=== PATIENT | male | born 1960 | race Caucasian/White ===

== ENCOUNTER 2022-12-21 10:27 | Inpatient (IN) | payer MEDICARE ==
[~2022-12-21] VITALS: Ht 187 cm; Wt 101.5 kg
[2022-12-21] MEDS ORDERED: LOPERAMIDE 2 MG (IMODIUM) TABLET PO PRN (10:30)
[2022-12-21] MEDS ORDERED: FLEET ENEMA ADULT 1 EA BTL PR PRN (10:30)
[2022-12-21] MEDS ORDERED: ACETAMINOPHEN 325 MG TABLET PO PRN (10:30)
[2022-12-21] MEDS ORDERED: ALPRAZolam 0.25 MG (XANAX) TAB PO PRN (10:30)
[2022-12-21] MEDS ORDERED: DOCUSATE SODIUM 100 MG (COLACE) CAP PO PRN (10:30)
[2022-12-21] MEDS ORDERED: MELATONIN 3 MG TABLET PO PRN (10:30)
[2022-12-21] MEDS ORDERED: BISACODYL 10 MG SUPP (DULCOLAX) PR PRN (10:30)
[2022-12-21] MEDS ORDERED: diphenhydrAMINE 25 MG TAB (BENADRYL) PO PRN (10:30)
[2022-12-21] MEDS ORDERED: guaiFENesin/CODEINE (ROBITUSSIN AC) 10ML UDC PO PRN (10:30)
[2022-12-21] MEDS ORDERED: CALCIUM CARBONATE 500 MG (TUMS) TAB.CHEW PO PRN (10:30)
[2022-12-21] MEDS ORDERED: ONDANSETRON 4 MG (ZOFRAN) ORAL DISSOLVE TAB PO PRN (10:30)
--- OUTSIDE RECORDS SUMMARY | 2022-12-21 18:18 | XMS REPORT | Clinical Summary ---
Author Author [facility] Organization [facility] Address Unknown Phone Unavailable Care Team Providers Care Environmental Technology Professor Name Role Phone No Pcp, Na PCP Unavailable Source Comments Some departments are not documenting in the electronic medical record. If you d o not see the information that you expected, contact Release of Information in [facility] [employer] Information Management department at [phone] for further assistan ce in locating additional records.[facility] Allergies Comments Active Allergy Reactions Severity Noted Date Clarithromycin NAUSEA ONLY Low 12/12/2022 Cyclobenzaprine NAUSEA AND Low 12/12/2022 VOMITING Methadone HALLUCINATION High 12/12/2022 S Medications End Date Status Medication Sig Dispensed Refills Start Date Active simvastatin (ZOCOR) 80 mg Take one 0 tablet tablet by mouth at bedtime daily. Active terazosin (HYTRIN) 10 mg Take two 0 capsule capsules by mouth at bedtime daily. Active metFORMIN (GLUCOPHAGE) Take one 0 1,000 mg tablet tablet by mouth twice daily after meals. Active losartan (COZAAR) 50 mg Take one-half 0 tablet tablet by mouth daily. Active carboxymethylcellulose Apply one 0 sodium (REFRESH TEARS) drop to both 0.5 % eye drop eyes twice daily. Active baclofen (LIORESAL) 20 mg Take one 0 tablet tablet by mouth twice daily as needed. Active empagliflozin (JARDIANCE) Take one 0 10 mg tablet tablet by mouth daily. Active sildenafiL (VIAGRA) 100 Take one 0 mg tablet tablet by mouth as Needed for Erectile dysfunction. Active metoprolol succinate XL Take one 0 (TOPROL XL) 25 mg tablet by extended release tablet mouth daily. Active calcium carbonate Take one 0 (OS-RICHARD) 1250 mg tablet tablet by mouth twice daily. Active cetirizine (ZYRTEC) 10 mg Take one 0 tablet tablet by mouth every morning. Active acetaminophen (TYLENOL) Take two 0 325 mg tablet tablets by 3 mouth every 4 hours as needed. Active oxyCODONE (ROXICODONE) 5 Take one 0 12/21 mg tablet tablet to 3 three tablets by mouth every 4 hours as needed. Active nicotine (NICODERM CQ) 21 Apply one 28 patch 0 mg/day patchIndications: patch to top 3 smoking cessation of skin as directed daily. Rotate patch location. Indications: stop smoking Active methocarbamoL (ROBAXIN) Take one 15 tablet 0 750 mg tablet tablet by 3 mouth three times daily. Active lidocaine (LIDODERM) 5 % Apply one 90 patch 0 0 topical patch patch 3 topically to affected area daily. Apply patch for 12 hours, then remove for 12 hours before repeating. Active docusate (COLACE) 100 mg Take one 180 capsule 0 0 capsule capsule by 3 mouth twice daily as needed. Active Problems Problem Noted Date S/P cervical spinal fusion 12/20/2022 Type 2 diabetes mellitus 12/20/2022 Primary hypertension 12/20/2022 BPH (benign prostatic hyperplasia) 12/20/2022 Weakness 12/12/2022 Encounters Care Team Description Date Type Specialty Chidi Jimenez MD 12/16/2022 Hospital Encounter Alfonzo Ballard MD Fox, Ashli, RN 12/15/2022 Anesthesia Event Chidi Jimenez MD FUSION SPINE POSTERIOR - CERVICAL BELOW CERVICAL 2 12/15/2022 Surgery 12/15/2022 Travel Chidi Jimenez MD Cervical stenosis of spinal canal (Prima ry Dx) 12/14/2022 Orders Only Neurosurgery Chidi Jimenez MD Weakness 12/12/2022 Hospital - Encounter 12/21/2022 12/12/2022 Hospital Radiology Encounter 12/12/2022 Hospital Radiology Encounter 12/12/2022 Hospital Radiology Encounter from Last 3 Months Surgical History Surgery Date Site/Laterality Comments CERVICAL FUSION 12/15/2022 Spine FUSION SPINE P OSTERIOR - CERVICAL BELOW CERVICAL 2 Cervical/N/A performed by Lino Jimenez MD at [facility] OR Medical devices from this surgery are i n the Medical Devices section. Social History Date Tobacco Use Types Packs/Day Years Used Smoking Tobacco: Every Cigarettes 2 Day Smokeless Tobacco: Never Tobacco Cessation: Ready to Quit: No; Co unseling Given: Not Answered Sex Assigned at Date Recorded Male 12/13/2022 11:12 AM [facility] Date Recorded COVID-19 Exposure Response 12/15/2022 11:39 AM [employer]ANK SC[employer]ER In the last 10 days, have you been in contact with N o / Unsure someone who was confirmed or suspected to have Coronavirus/COVID-19? Obstetrics History Last Filed Vital Signs Reading Time Taken Comments Vital Sign 132/50 12/21/2022 12:10 PM [facility]ER Blood Pressure 77 12/21/2022 12:10 PM [employer]ER Pulse 36.8 C (98.2 F) 12/21/2022 12:10 PM [employer] [facility]ER Temperature - - Respiratory Rate 92% 12/21/2022 12:10 PM [facility] SC[facility]ER Oxygen Saturation - - Inhaled Oxygen Concentration 122 kg (268 lb 15.4 oz) 12/13/2022 5:00 PM [facility]ANK [employer]ER Weight 185.4 cm (6' 1") 12/13/2022 5:00 PM [employer]ANK SC[employer]ER Height 35.49 12/13/2022 5:00 PM [facility]ANK SC[facility]ER Body Mass Index Plan of Treatment Health Maintenance Due Date Last Done Comments DIABETES HBA1C 1960 DIABETES MICROALBUMIN TO 1960 CREATININE RATIO PNEUMOCOCCAL VACCINE (DM) 1960 COVID-19 VACCINE (#1) 1960 HIV SCREENING 02/16/1975 DIABETES DILATED EYE EXAM 02/16/1978 DIABETES FOOT EXAM 02/16/1978 DTAP/TDAP VACCINES (1 - 02/16/1978 Tdap) HEPATITIS C SCREENING 02/16/1978 PHYSICAL (COMPREHENSIVE) 02/16/1978 EXAM COLORECTAL CANCER 02/16/2005 SCREENING SHINGLES RECOMBINANT 02/16/2010 VACCINE (1 of 2) INFLUENZA VACCINE (#1) 2022 DEPRESSION SCREENING 10/17/2022 DIABETES EGFR SCREEN 12/20/2023 12/19/2022, 12/17/2022, 12/15/2022, Additional history exists Goals Goal Patient Associated Recent Progress Patient-Stat Aut hor Goal Type Problems ed? Decrease pain Hospital On track (12/13/2022 Yes Chelo Deloris orantes, 5:02 PM SHANK SCOURER) RN Note: "To get better, get my back fixed and get stronger" Medical Devices Device Identifier Shelf Expiration Date Model / Serial / L ot Implanted Type Area Manufactur er 1149.7585 / NA / NA Charles Spinal 85mm 4mm Curve - Sna N/A: Spine GLOBU S Implanted: Qty: 1 on 12/15/2022 by Cervical ME Chidi Frias MD at [facility] Procedures Comments Procedure Name Priority Date/Time Associated Diag nosis POC GLUCOSE 12/21/2022 12:10 PM [employer]ANK SC[employer]ER POC GLUCOSE 12/21/2022 7:48 AM SHANK SCOURER POC GLUCOSE 12/20/2022 9:02 PM SHANK SC[employer]ER POC GLUCOSE 12/20/2022 5:36 PM SHANK SCOURER HC CBC W/ AUTOMATED DIFF Routine 12/19/2022 4:13 AM SHANK SC[facility]ER HC BASIC METABOLIC PANEL Routine 12/19/2022 4:13 AM SHANK SC[employer]ER HC CBC W/ AUTOMATED DIFF Routine 12/17/2022 3:46 AM SHANK SCOURER HC BASIC METABOLIC PANEL Routine 12/17/2022 3:46 AM SHANK SC[employer]ER CONSULT VASCULAR ACCESS Routine 12/16/2022 TEAM 9:59 AM SHANK SC[employer]ER HC CBC,AUTOMATED Routine 12/16/2022 4:10 AM SHANK SCOURER C SPINE 3 VIEWS OR LESS Routine 12/15/2022 10:45 PM SHANK SCOURER C SPINE 1 VIEW Routine 12/15/2022 3:06 PM SHANK SCOURER C SPINE 1 VIEW Routine 12/15/2022 2:45 PM SHANK SC[employer]ER ANESTHESIA ARTERIAL LINE Routine 12/15/2022 INSERTION 2:26 PM SHANK SC[employer]ER C SPINE 1 VIEW Routine 12/15/2022 2:14 PM SHANK SC[employer]ER FUSION SPINE POSTERIOR - 12/15/2022 Weakness CERVICAL BELOW C2 1:08 PM SHANK SCOURER POC GLUCOSE 12/15/2022 11:38 AM SHANK SC[facility]ER HC BLOOD TYPING, ABO Routine 12/15/2022 CONFIRM 91 3:18 AM SHANK SCOURER TYPE & CROSSMATCH Routine 12/15/2022 2:59 AM SHANK SC[facility]ER HC CBC W/ AUTOMATED DIFF Routine 12/15/2022 2:59 AM SHANK SC[facility]ER HC BASIC METABOLIC PANEL Routine 12/15/2022 2:59 AM SHANK SC[employer]ER HC BASIC METABOLIC PANEL Routine 12/13/2022 3:57 AM SHANK SCOURER HC CBC W/ AUTOMATED DIFF Routine 12/13/2022 3:57 AM SHANK SCOURER MRI L-SPINE EXTERNAL Routine 12/12/2022 IMAGING 12:20 PM [employer]ANK SC[employer]ER MRI T-SPINE EXTERNAL Routine 12/12/2022 IMAGING 12:15 PM SHANK SC[employer]ER MRI C-SPINE EXTERNAL Routine 12/12/2022 IMAGING 12:10 PM SHANK SC[employer]ER TELEMETRY STRIPS-SCAN 12/12/2022 12:00 AM SHANK SCOURER TELEMETRY STRIPS-SCAN 12/12/2022 12:00 AM SHANK SCOURER TELEMETRY STRIPS-SCAN 12/12/2022 12:00 AM SHANK SCOURER TELEMETRY STRIPS-SCAN 12/12/2022 12:00 AM SHANK SCOURER TELEMETRY STRIPS-SCAN 12/12/2022 12:00 AM SHANK SCOURER TELEMETRY STRIPS-SCAN 12/12/2022 12:00 AM SHANK SCOURER TELEMETRY STRIPS-SCAN 12/12/2022 12:00 AM SHANK SCOURER TELEMETRY STRIPS-SCAN 12/12/2022 12:00 AM SHANK SCOURER TELEMETRY STRIPS-SCAN 12/12/2022 12:00 AM SHANK SCOURER TELEMETRY STRIPS-SCAN 12/12/2022 12:00 AM SHANK SCOURER TELEMETRY STRIPS-SCAN 12/12/2022 12:00 AM SHANK SCOURER TELEMETRY STRIPS-SCAN 12/12/2022 12:00 AM SHANK SCOURER from Last 3 Months Results * (ABNORMAL) POC GLUCOSE (12/21/2022 12:10 PM SHANK SC[employer]ER) Only the most recent of 5 results within the time period is included. Pathologist Signature Component Value Ref Test Method Analysis Performed A t Range Time Glucose, POC 318 (H) 70 - 100 12/21/2022 MANDIS CAMBRID GE MG/DL 12:11 PM TOWER A SHANK SC[employer]ER Anatomical Location / Laterality Collection Method / Volume Moises ection Time Received Time Specimen (Source) 12/21/2022 12:10 PM SHANK SC[employer]ER 12/22/19 12:11 PM SHANK SCOURER Chidi Jimenez MD OTHER LABORATORY City/State/ZIP Code Phone Number Performing Address Organization [address] * (ABNORMAL) CBC AND DIFF (12/19/2022 4:13 AM SHANK SC[employer]ER) Only the most recent of 4 results within the time period is included. Pathologist Signature Component Value Ref Test Method Analysis Performed A t Range Time White Blood Cells 8.6 4.5 - 12/19/2022 [facility] DE PT PATH AND 11.0 7:26 AM LAB MEDICINE K/UL SHANK SC[employer]ER RBC 3.58 (L) 4.4 - 12/19/2022 [facility] DEPT PAT H AND 5.5 M/UL 7:26 AM LAB MEDICINE SHANK SC[employer]ER Hemoglobin 10.1 (L) 13.5 - 12/19/2022 [facility] DEPT PAT H AND 16.5 7:26 AM LAB MEDICINE GM/DL [employer]ER Hematocrit 30.3 (L) 40 - 50 12/19/2022 [facility] DEPT PAT H AND % 7:26 AM LAB MEDICINE SHANK SC[employer]ER MCV 84.7 80 - 100 12/19/2022 [facility] DEPT PAT H AND FL 7:26 AM LAB MEDICINE SHANK SC[employer]ER MCH 28.2 26 - 34 12/19/2022 [facility] DEPT PAT H AND PG 7:26 AM LAB MEDICINE SHANK SC[employer]ER MCHC 33.3 32.0 - 12/19/2022 [facility] DEPT PAT H AND 36.0 7:26 AM LAB MEDICINE G/DL SHANK SC[employer]ER RDW 16.2 (H) 11 - 15 12/19/2022 [facility] DEPT PAT H AND % 7:26 AM LAB MEDICINE SHANK SC[employer]ER Platelet Count 205 150 - 12/19/2022 [facility] DEPT PATH AND 400 K/UL 7:26 AM LAB MEDICINE SHANK SC[employer]ER MPV 9.2 7 - 11 12/19/2022 [facility] DEPT PAT H AND FL 7:26 AM LAB MEDICINE SHANK SC[employer]ER Neutrophils 75 41 - 77 12/19/2022 [facility] DEPT PAT H AND % 7:26 AM LAB MEDICINE SHANK SC[employer]ER Lymphocytes 12 (L) 24 - 44 12/19/2022 [facility] DEPT PAT H AND % 7:26 AM LAB MEDICINE SHANK SC[employer]ER Monocytes 11 4 - 12 % 12/19/2022 [facility] DEPT PAT H AND 7:26 AM LAB MEDICINE SHANK [employer]ER Eosinophils 2 0 - 5 % 12/19/2022 [facility] DEPT PAT H AND 7:26 AM LAB MEDICINE SHANK [employer]ER Basophils 0 0 - 2 % 12/19/2022 [facility] DEPT PAT H AND 7:26 AM LAB MEDICINE SHANK SC[employer]ER Absolute Neutrophil 6.51 1.8 - 12/19/2022 [facility] DEPT PATH AND Count 7.0 K/UL 7:26 AM LAB MEDICINE SHANK SC[employer]ER Absolute Lymph Count 1.04 1.0 - 12/19/2022 [facility] DEPT PATH AND 4.8 K/UL 7:26 AM LAB MEDICINE SHANK SC[employer]ER Absolute Monocyte 0.90 (H) 0 - 0.80 12/19/2022 [facility] DE PT PATH AND Count K/UL 7:26 AM LAB MEDICINE SHANK SC[employer]ER Absolute Eosinophil 0.15 0 - 0.45 12/19/2022 [facility] DEPT PATH AND Count K/UL 7:26 AM LAB MEDICINE SHANK [employer]ER Absolute Basophil 0.02 0 - 0.20 12/19/2022 [facility] DE PT PATH AND Count K/UL 7:26 AM LAB MEDICINE [employer]ANK [employer]ER Anatomical Location / Laterality Collection Method / Volume Moises ection Time Received Time Specimen (Source) BLOOD / Unknown 12/19/2022 4:13 AM SHANK SCOURER 12/20/19 4:14 AM SHANK SCOURER [place] LABORATORY ORDERABLES [employer]Y [employer] SAL[employer] CONSULTANT City/State/ZIP Code Phone Number Performing [place] [address] [facility] DEPT PATH AND [address] [facility] LAB MEDICINE * (ABNORMAL) BASIC METABOLIC PANEL (12/19/2022 4:13 AM SHANK SCOURER) Only the most recent of 4 results within the time period is included. Pathologist Signature Component Value Ref Test Method Analysis Performed A t Range Time Sodium 134 (L) 137 - 12/19/2022 [facility] DEPT PAT H AND 147 5:21 AM LAB MEDICINE MMOL/L SHANK SC[employer]ER Potassium 4.1 3.5 - 12/19/2022 [facility] DEPT PAT H AND 5.1 5:21 AM LAB MEDICINE MMOL/L SHANK SC[employer]ER Chloride 100 98 - 110 12/19/2022 [facility] DEPT PAT H AND MMOL/L 5:21 AM LAB MEDICINE SHANK SC[employer]ER CO2 28 21 - 30 12/19/2022 [facility] DEPT PAT H AND MMOL/L 5:21 AM LAB MEDICINE SHANK SC[employer]ER Anion Gap 6 3 - 12 12/19/2022 [facility] DEPT PAT H AND 5:21 AM LAB MEDICINE SHANK SC[employer]ER Glucose 287 (H) 70 - 100 12/19/2022 [facility] DEPT PAT H AND MG/DL 5:21 AM LAB MEDICINE SHANK SC[employer]ER Blood Urea Nitrogen 18 7 - 25 12/19/2022 [facility] DEPT PATH AND MG/DL 5:21 AM LAB MEDICINE SHANK SC[employer]ER Creatinine 1.08 0.4 - 12/19/2022 [facility] DEPT PAT H AND 1.24 5:21 AM LAB MEDICINE MG/DL SHANK SC[employer]ER Calcium 9.2 8.5 - 12/19/2022 [facility] DEPT PAT H AND 10.6 5:21 AM LAB MEDICINE MG/DL SHANK SC[employer]ER eGFR >60 >60 12/19/2022 [facility] DEPT PAT H AND mL/min 5:21 AM LAB MEDICINE SHANK SC[employer]ER Comment: eGFR calculated using the CKD-EPIcr_R equation Anatomical Location / Laterality Collection Method / Volume Moises ection Time Received Time Specimen (Source) BLOOD / Unknown 12/19/2022 4:13 AM SHANK SCOURER 12/20/19 4:14 AM SHANK SCOURER [place] LABORATORY ORDERABLES HOU[employer]Y [employer] SAL[employer] CONSULTANT City/State/ZIP Code Phone Number Performing [place] [address] [facility] DEPT PATH AND [address] [facility] LAB MEDICINE * (ABNORMAL) CBC (12/16/2022 4:10 AM SHANK SCOURER) Pathologist Signature Component Value Ref Test Method Analysis Performed A t Range Time White Blood Cells 10.1 4.5 - 12/16/2022 [facility] DE PT PATH AND 11.0 4:46 AM LAB MEDICINE K/UL SHANK SC[employer]ER RBC 3.80 (L) 4.4 - 12/16/2022 [facility] DEPT PAT H AND 5.5 M/UL 4:46 AM LAB MEDICINE SHANK SC[employer]ER Hemoglobin 10.7 (L) 13.5 - 12/16/2022 [facility] DEPT PAT H AND 16.5 4:46 AM LAB MEDICINE GM/DL SHANK SC[employer]ER Hematocrit 32.4 (L) 40 - 50 12/16/2022 [facility] DEPT PAT H AND % 4:46 AM LAB MEDICINE SHANK SCOURER MCV 85.3 80 - 100 12/16/2022 [facility] DEPT PAT H AND FL 4:46 AM LAB MEDICINE SHANK SC[employer]ER MCH 28.3 26 - 34 12/16/2022 [facility] DEPT PAT H AND PG 4:46 AM LAB MEDICINE SHANK SC[employer]ER MCHC 33.2 32.0 - 12/16/2022 [facility] DEPT PAT H AND 36.0 4:46 AM LAB MEDICINE G/DL SHANK SC[employer]ER RDW 16.5 (H) 11 - 15 12/16/2022 [facility] DEPT PAT H AND % 4:46 AM LAB MEDICINE SHANK SCOURER Platelet Count 154 150 - 12/16/2022 [facility] DEPT PATH AND 400 K/UL 4:46 AM LAB MEDICINE SHANK SCOURER MPV 8.7 7 - 11 12/16/2022 [facility] DEPT PAT H AND FL 4:46 AM LAB MEDICINE SHANK SC[employer]ER Anatomical Location / Laterality Collection Method / Volume Moises ection Time Received Time Specimen (Source) BLOOD / Unknown 12/16/2022 4:10 AM SHANK SCOURER 12/17/19 4:11 AM SHANK SCOURER Chidi Jimenez MD LABORATORY ORDERABLES City/State/ZIP Code Phone Number Performing [place] [address] [facility] DEPT PATH AND [address] [facility] LAB MEDICINE * C SPINE 3 VIEWS OR LESS (12/15/2022 10:45 PM SHANK SCOURER) Modality Anatomical Region Laterality Computed Radiography Spine Anatomical Location / Laterality Collection Method / Volume Moises ection Time Received Time Specimen (Source) 12/16/2022 8:49 AM SHANK SCOURER Impressions 12/16/2022 8:52 AM SHANK SCOURER Findings/Impression: The cervical vertebrae are visualized through the mid C6 level on the lateral projection, below this is obscured due to shoulder summation. There are postsurgical findings following C3-C6 laminectomies and C3-C7 posterior instrumented fusion. The visualized surgical hardware appears intact. There is an indwelling surgical drain within the laminectomy bed with expected postsurgical edema and gas in the posterior paraspinal soft tissues. There is slight anterolisthesis at C3-C4. Alignment is otherwise normal. Mild multilevel cervical spondylosis. Finalized by Yuan Lees DO on 12/16/2022 8:52 AM. Dictated by Yuan Lees DO on 12/16/2022 8:49 AM. Narrative 12/16/2022 8:52 AM SHANK SCOURER Exam: C SPINE 3 VIEWS OR LESS History: S/P C3-7 fusion. Comparison: Same day intraoperative localization radiographs. Procedure Note Yuan Lees DO - 12/16/2022 Exam: C SPINE 3 VIEWS OR LESS History: S/P C3-7 fusion. Comparison: Same day intraoperative localization radiographs. IMPRESSION Findings/Impression: The cervical vertebrae are visualized through the mid C6 level on the lateral projection, below this is obscured due to shoulder summation. There are postsurgical findings following C3-C6 laminectomies and C3-C7 posterior instrumented fusion. The visualized surgical hardware appears intact. There is an indwelling surgical drain within the laminectomy bed with expected postsurgical edema and gas in the posterior paraspinal soft tissues. There is slight anterolisthesis at C3-C4. Alignment is otherwise normal. Mild multilevel cervical spondylosis. Finalized by Yuan Lees DO on 12/16/2022 8:52 AM. Dictated by Yuan Lees DO on 12/16/2022 8:49 AM. Chidi Jimenez MD DIAGNOSTIC IMAGING ORDERABL ES * C SPINE 1 VIEW (12/15/2022 3:06 PM SHANK SCOURER) Only the most recent of 3 results within the time period is included. Modality Anatomical Region Laterality Computed Radiography Spine Anatomical Location / Laterality Collection Method / Volume Moises ection Time Received Time Specimen (Source) 12/15/2022 3:10 PM SHANK SCOURER Impressions 12/15/2022 3:11 PM SHANK SCOURER Findings/Impression: Single portable crosstable lateral prone intraoperative cervical radiographs for localization purposes. Metallic retractors superimposing the posterior paraspinal soft tissues. Threaded metallic surgical instrument ejects over the spinous process at the C2 level. Finalized by Yuan Lees DO on 12/15/2022 3:11 PM. Dictated by Yuan Lees DO on 12/15/2022 3:10 PM. Narrative 12/15/2022 3:11 PM SHANK SCOURER Exam: C SPINE 1 VIEW History: Surgery. Comparison: Same day cervical localization radiographs. Procedure Note Yuan Lees DO - 12/15/2022 Exam: C SPINE 1 VIEW History: Surgery. Comparison: Same day cervical localization radiographs. IMPRESSION Findings/Impression: Single portable crosstable lateral prone intraoperative cervical radiographs for localization purposes. Metallic retractors superimposing the posterior paraspinal soft tissues. Threaded metallic surgical instrument ejects over the spinous process at the C2 level. Finalized by Yuan Lees DO on 12/15/2022 3:11 PM. Dictated by Yuan Lees DO on 12/15/2022 3:10 PM. Chidi Jimenez MD DIAGNOSTIC IMAGING ORDERABL ES * ANESTHESIA ARTERIAL LINE INSERTION (12/15/2022 2:26 PM SHANK SCOURER) Narrative Alfonzo Ballard MD - 12/15/2022 2:26 PM SHANK SCOURER Rolf Hsieh SRNA 12/15/2022 2:27 PM Anesthesia Procedure: Arterial Line Placement A-LINE INSERTION Date/Time: 12/15/2022 2:26 PM Patient location: OR Indications: hemodynamic monitoring Preprocedure checklist performed: 2 patient identifiers, risks & benefits discussed, patient evaluated, timeout performed, consent obtained and patient being monitored Arterial Line Procedure Patient sedated: yes (see MAR) Sedation type: general; Artery prepped with chlorhexidine; skin prep agent completely dried prior to procedure. Location: radial artery Laterality: left Technique: palpation Needle gauge: 20 G Number of attempts: 1 Procedure Outcome Catheter secured with adhesive dressing applied Events: no complications noted during insertion and skin intact, warm, and dry Observation: pt tolerated well Performed by: Rolf Hsieh SRNA Authorized by: Alfonzo Ballard MD Alfonzo Ballard MD ANESTHESIA ORDERABLES * BLOOD TYPE CONFIRMATION - ORDER ONLY IF REQUESTED BY LAB (12/15/2022 3:18 AM SHANK SCOURER) Pathologist Signature Component Value Ref Test Method Analysis Performed A t Range Time ABO/RH(D) A NEG 12/15/2022 [facility] DEPT PATH AND 4:11 AM LAB MEDICINE SHANK SC[employer]ER Anatomical Location / Laterality Collection Method / Volume Moises ection Time Received Time Specimen (Source) BLOOD / Unknown 12/15/2022 3:18 AM SHANK SCOURER 12/16/19 3:37 AM SHANK SCOURER Chidi Jimenez MD BLOOD BANK ORDERABLES City/State/ZIP Code Phone Number Per[place] [address] [facility] DEPT PATH AND [address] LAB MEDICINE * TYPE & CROSSMATCH (12/15/2022 2:59 AM SHANK SCOURER) Pathologist Signature Component Value Ref Test Method Analysis Performed A t Range Time Units Ordered 2 12/15/2022 [facility] DEPT PATH AND 3:12 AM LAB MEDICINE SHANK SCOURER Crossmatch Expires 12/18/2022,2 12/15/2022 [facility] DEPT PATH AND 359 3:59 AM LAB MEDICINE SHANK SCOURER Record Check 2ND TYPE 12/15/2022 [facility] DEPT PATH AND REQUIRED 3:12 AM LAB MEDICINE SHANK SCOURER ABO/RH(D) A NEG 12/15/2022 [facility] DEPT PATH AND 3:59 AM LAB MEDICINE SHANK SCOURER Antibody Screen NEG 12/15/2022 [facility] DEPT PAT H AND 3:59 AM LAB MEDICINE SHANK SC[employer]ER Anatomical Location / Laterality Collection Method / Volume Moises ection Time Received Time Specimen (Source) BLOOD / Unknown 12/15/2022 2:59 AM SHANK SCOURER 12/16/19 3:12 AM SHANK SCOURER Chidi Jimenez MD BLOOD BANK ORDERABLES City/State/ZIP Code Phone Number [place] [address] [facility] DEPT PATH AND [address] [facility] LAB MEDICINE * MRI L-SPINE EXTERNAL IMAGING (12/12/2022 12:20 PM SHANK SCOURER) Anatomical Location / Laterality Collection Method / Volume Moises ection Time Received Time Specimen (Source) Narrative Scheduling, Silent - 12/12/2022 11:07 PM SHANK SCOURER This order has been auto finalized and does not contain a result. Radiologist RADIOLOGY EXTERNAL ORDERABL ES Outpatient * MRI T-SPINE EXTERNAL IMAGING (12/12/2022 12:15 PM SHANK SCOURER) Anatomical Location / Laterality Collection Method / Volume Moises ection Time Received Time Specimen (Source) Narrative Scheduling, Silent - 12/12/2022 11:07 PM SHANK SCOURER This order has been auto finalized and does not contain a result. Radiologist RADIOLOGY EXTERNAL ORDERABL ES Outpatient * MRI C-SPINE EXTERNAL IMAGING (12/12/2022 12:10 PM SHANK SCOURER) Anatomical Location / Laterality Collection Method / Volume Moises ection Time Received Time Specimen (Source) Narrative Scheduling, Silent - 12/12/2022 11:06 PM SHANK SCOURER This order has been auto finalized and does not contain a result. Radiologist RADIOLOGY EXTERNAL ORDERABL ES Outpatient * TELEMETRY STRIPS-SCAN (12/12/2022 12:00 AM SHANK SCOURER) Narrative 12/12/2022 12:00 AM SHANK SCOURER Ordered by an unspecified provider. Scanned Document PROCEDURE DUMMY ORDERS * TELEMETRY STRIPS-SCAN (12/12/2022 12:00 AM SHANK SCOURER) Narrative 12/12/2022 12:00 AM SHANK SCOURER Ordered by an unspecified provider. Scanned Document PROCEDURE DUMMY ORDERS * TELEMETRY STRIPS-SCAN (12/12/2022 12:00 AM SHANK SCOURER) Narrative 12/12/2022 12:00 AM SHANK SCOURER Ordered by an unspecified provider. Scanned Document PROCEDURE DUMMY ORDERS * TELEMETRY STRIPS-SCAN (12/12/2022 12:00 AM SHANK SCOURER) Narrative 12/12/2022 12:00 AM SHANK SCOURER Ordered by an unspecified provider. Scanned Document PROCEDURE DUMMY ORDERS * TELEMETRY STRIPS-SCAN (12/12/2022 12:00 AM SHANK SCOURER) Narrative 12/12/2022 12:00 AM SHANK SCOURER Ordered by an unspecified provider. Scanned Document PROCEDURE DUMMY ORDERS * TELEMETRY STRIPS-SCAN (12/12/2022 12:00 AM SHANK SCOURER) Narrative 12/12/2022 12:00 AM SHANK SCOURER Ordered by an unspecified provider. Scanned Document PROCEDURE DUMMY ORDERS * TELEMETRY STRIPS-SCAN (12/12/2022 12:00 AM SHANK SCOURER) Narrative 12/12/2022 12:00 AM SHANK SCOURER Ordered by an unspecified provider. Scanned Document PROCEDURE DUMMY ORDERS * TELEMETRY STRIPS-SCAN (12/12/2022 12:00 AM SHANK SCOURER) Narrative 12/12/2022 12:00 AM SHANK SCOURER Ordered by an unspecified provider. Scanned Document PROCEDURE DUMMY ORDERS * TELEMETRY STRIPS-SCAN (12/12/2022 12:00 AM SHANK SCOURER) Narrative 12/12/2022 12:00 AM SHANK SCOURER Ordered by an unspecified provider. Scanned Document PROCEDURE DUMMY ORDERS * TELEMETRY STRIPS-SCAN (12/12/2022 12:00 AM SHANK SCOURER) Narrative 12/12/2022 12:00 AM SHANK SCOURER Ordered by an unspecified provider. Scanned Document PROCEDURE DUMMY ORDERS * TELEMETRY STRIPS-SCAN (12/12/2022 12:00 AM SHANK SCOURER) Narrative 12/12/2022 12:00 AM SHANK SCOURER Ordered by an unspecified provider. Scanned Document PROCEDURE DUMMY ORDERS * TELEMETRY STRIPS-SCAN (12/12/2022 12:00 AM SHANK SCOURER) Narrative 12/12/2022 12:00 AM SHANK SCOURER Ordered by an unspecified provider. Scanned Document PROCEDURE DUMMY ORDERS from Last 3 Months Insurance Type Payer Benefit Subscriber ID Effective Phone Address Plan / Dates Group [facility] CCN [id number] 2022- [phone] [address] [place] [id number] Advance Directives Patient Blow Up Operator Explanation Type Date Recorded Advance 12/14/2022 Directive/DPOA Date Inactivated Comments Code Status Date Activated 12/21/2022 5:19 PM Full Code 12/12/2022 10:57 PM Comments Question Answer Provider has No, more discussion needed discussed Code Status w/Patient or Family? Care Teams Start Date End Date Environmental Technology Professor Relationship Specialty 12/12/22 No Pcp, Na PCP - General
--- OUTSIDE RECORDS SUMMARY | 2022-12-21 18:18 | XMS REPORT | Encounter Summary ---
Author Author [facility] Organization [facility] Address Unknown Phone Unavailable Care Team Providers Care Core Blower Name Role Phone No Pcp, Na PCP Unavailable Encounter Details Care Team Description Date Type Department 12/15/2022 Travel Social History Date Tobacco Use Types Packs/Day Years Used Smoking Tobacco: Every Cigarettes 2 Day Smokeless Tobacco: Never Sex Assigned at Date Recorded Male 12/13/2022 11:12 AM MEDICAL RECORDS RECEPTIONIST Date Recorded COVID-19 Exposure Response 12/15/2022 11:39 AM MEDICAL RECORDS RECEPTIONIST In the last 10 days, have you been in contact with N o / Unsure someone who was confirmed or suspected to have Coronavirus/COVID-19? documented as of this encounter Functional Status Date of Assessment Functional Status Response 12/13/2022 Does the patient have a hearing impairment: Yes documented as of this encounter Plan of Treatment Not on filedocumented as of this encounter Goals Goal Patient Associated Recent Progress Patient-Stat Aut hor Goal Type Problems ed? [facility] On track (12/13/2022 Yes Deloris Halmin, 5:02 PM MEDICAL RECORDS RECEPTIONIST) RN Note: "To get better, get my back fixed and get stronger" documented as of this encounter Visit Diagnoses Not on filedocumented in this encounter Additional Health Concerns Noted Time Assessment 12/15/2022 8:19 AM MEDICAL RECORDS RECEPTIONIST A fall risk assessment has been complet ed for the patient documented as of this encounter Care Teams Start Date End Date Core Blower Relationship Specialty 12/12/22 No Pcp, Na PCP - General documented as of this encounter
--- OUTSIDE RECORDS SUMMARY | 2022-12-21 18:18 | XMS REPORT | Encounter Summary ---
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 Referral ID Status Reason Start Date Expiration Visits Vi sits Date Requested Authorized [id number] 1 1 Encounter Details Care Team Description Date Type Department Chidi Jimenez MD [address] Ortho/Med Pavilion Lvl [address] [place] [address] Weakness 12/12/2022 Hospital Patient Care Unit C A7: - Encounter [facility] 12/21/2022 [address] [facility] Level 7 [place] [address] Social History Date Tobacco Use Types Packs/Day Years Used Smoking Tobacco: Every Cigarettes 2 Day Smokeless Tobacco: Never Tobacco Cessation: Ready to Quit: No; Co unseling Given: Not Answered Sex Assigned at Date Recorded Male 12/13/2022 11:12 AM BLOOD BANK CUSTODIAN Date Recorded COVID-19 Exposure Response 12/15/2022 11:39 AM BLOOD BANK CUSTODIAN In the last 10 days, have you been in contact with N o / Unsure someone who was confirmed or suspected to have Coronavirus/COVID-19? documented as of this encounter Last Filed Vital Signs Reading Time Taken Comments Vital Sign 132/50 12/21/2022 12:10 PM BLOOD BANK CUSTODIAN Blood Pressure 77 12/21/2022 12:10 PM BLOOD BANK CUSTODIAN Pulse 36.8 C (98.2 F) 12/21/2022 12:10 PM BLOOD BANK CUSTODIAN Temperature - - Respiratory Rate 92% 12/21/2022 12:10 PM BLOOD BANK CUSTODIAN Oxygen Saturation - - Inhaled Oxygen Concentration 122 kg (268 lb 15.4 oz) 12/13/2022 5:00 PM BLOOD BANK CUSTODIAN Weight 185.4 cm (6' 1") 12/13/2022 5:00 PM BLOOD BANK CUSTODIAN Height 35.49 12/13/2022 5:00 PM BLOOD BANK CUSTODIAN Body Mass Index documented in this encounter Functional Status Date of Assessment Functional Status Response 12/13/2022 Does the patient have a hearing impairment: Yes documented as of this encounter Discharge Summaries * Angi Simpson LMSW - 12/21/2022 8:04 AM CST Case Management Progress Note NAME:Jose Wilson : 0 AGE: 62 y.o. ADMISSION DATE: 12/12/2022 DAYS ADMITTED: LOS: 9 days Today's Date: 12/21/2022 PLAN: Pt will dc to [facility] in [place] today at 3pm via w/c van. Expected Discharge Date: 12/21/2022 3:00 PM Is Patient Medically Stable: Yes Are there Barriers to Discharge? no INTERVENTION/DISPOSITION: Discharge Planning January with [place] [facility] said pt should be there by 3 at the latest. SW h as transport scheduled at 3 and will see if can find anything sooner today. RICHARD called [employer] but the earliest they could do it was 4pm today. RICHARD called [employer] and they are checking to see for any availability today. RICHARD notified provider Onur of dc today at 3pm. RICHARD notified bedside nurse of dc today at 3pm and provided number for report. RICHARD printed and delivered transfer packet to pt bedside. RICHARD notified pt of dc time today at 3pm. REPORT [phone] RICHARD faxed dc orders to [phone] Transportation Will the Patient Use Family Transport?: Yes Transportation Name, Phone and Availability #1: pt has a friend that can help wi th transportation Support Info or Referral Medication Needs Financial Legal Other Discharge Disposition Selected Continued Care - Admitted Since 12/12/2022 No services have been selected for the patient. Angi Simpson LMSW Social Work Case Management Available on [employer] D BANK CUSTODIAN * Melissa Lam - 12/20/2022 3:15 PM CST SAND SIFTER Note: Request from OSCRA Nascimento to obtain a WC quote to [facility]: $600.00 Melissa Lam Trial Manager For additional assistance please contact OSCAR *,a D BANK CUSTODIAN * Angi Simpson LMSW - 12/20/2022 7:43 AM CST Case Management Progress Note NAME:Jose Wilson : 0 AGE: 62 y.o. ADMISSION DATE: 12/12/2022 DAYS ADMITTED: LOS: 8 days Today's Date: 12/20/2022 PLAN: Anticipate dc to [facility] [place] tomorrow at 3pm via w/c van. Expected Discharge Date: 12/21/2022 12:00 PM Is Patient Medically Stable: Yes Are there Barriers to Discharge? no INTERVENTION/DISPOSITION: Discharge Planning RICHARD followed up with [facility] [place] to see if they can admit pt once SW get s approval from [place]. RICHARD reviewed EMR and met with [facility] and neurosurgery team for huddle to discuss jose n of care. Pt is medically stable for rehab. SW talked to [facility] [place] and they can accept pt. Need to go through [place] for i nsurance approval. RICHARD called [facility] to initiate insurance approval for rehab. RICHARD faxed [facility] Request for Service form to [phone]. Phone number is [phone] x [phone]. He is 30% service connected. Will update pt on process. RICHARD met with pt at bedside and let him know [facility] [place] accepted him. We are j ust waiting on VA approval which can take a couple of days. He said he thought his brother may be able to take him or possibly a friend. RICHARD will gather estimat es for transport in case he doesn't have anyone to take him. RICHARD tasked [employer] for w/c and stretcher van estimates to [facility] in [place]. Asked therapy about safest transportation to facility. Said he would be okay wi th a w/c van but probably not family as they have a truck. Any car transfers ma y be very difficult for pt. SW scheduled transport with [facility] for 3pm tomorrow but if they can move it up earlier, they will contact RICHARD. Asked management for financial assistance ($600 ) to pay for pt to go to rehab in [place]. Transportation Will the Patient Use Family Transport?: Yes Transportation Name, Phone and Availability #1: pt has a friend that can help wi th transportation Support Info or Referral Medication Needs Financial Legal Other Discharge Disposition Selected Continued Care - Admitted Since 12/12/2022 No services have been selected for the patient. Angi Simpson LMSW Social Work Case Management Available on [employer] D BANK CUSTODIAN * Angi Simpson LMSW - 12/17/2022 10:05 AM CST Case Management Progress Note NAME:Jose Wilson : 0 AGE: 62 y.o. ADMISSION DATE: 12/12/2022 DAYS ADMITTED: LOS: 5 days Today's Date: 12/17/2022 PLAN: Anticipate dc to inpatient setting pending facility acceptance and insuran ce auth. Expected Discharge Date: 12/18/2022 12:00 PM Is Patient Medically Stable: Yes Are there Barriers to Discharge? yes (finding placement and insurance approval) INTERVENTION/DISPOSITION: Discharge Planning RICHARD reviewed EMR and met with [facility] and neurosurgery team for huddle to discuss plan of care. Pt has inpatient recs but initially was refusing rehab placement. Provider contacted SW and said he will consider placement now. SW will talk to him about options. RICHARD met with pt at bedside. He was open to going to rehab. [facility] [place]. SW will look into this to see what level of care this is and get back to him. Also was willing to go to [facility] in [place]. RICHARD will send a referral. RICHARD looked at 's home and that is more of SNF and he could do IPR level of rehab. Sent a referral to [facility] in [place] (IPR). [facility] does not have IPR level of care. Said [facility] in [place] would be the c losest IPR facility. SW sent a referral to [facility] in [place]. SW talked to pt and he would rather go to [place], closer to his brother so he could come visit. SW sent a referral to [facility] [place]. He was still onboard with going to rehab. Transportation Will the Patient Use Family Transport?: Yes Transportation Name, Phone and Availability #1: pt has a friend that can help wi th transportation Support Info or Referral Medication Needs Financial Legal Other Discharge Disposition Selected Continued Care - Admitted Since 12/12/2022 No services have been selected for the patient. Angi Simpson LMSW Social Work Case Management Available on [employer] D BANK CUSTODIAN * Melissa Lam - 12/14/2022 10:24 AM CST SAND SIFTER Note: Request from OSCAR Nascimento for notary. Melissa Lam Trial Manager For additional assistance please contact [facility] * D BANK CUSTODIAN * Angi Simpson LMSW - 12/14/2022 9:24 AM CST Case Management Progress Note NAME:Jose Wilson : 0 AGE: 62 y.o. ADMISSION DATE: 12/12/2022 DAYS ADMITTED: LOS: 2 days Today's Date: 12/14/2022 PLAN: [place] planning ongoing- OR Tuesday. Expected Discharge Date: 12/17/2022 12:00 PM Is Patient Medically Stable: No, Please explain: OR Tuesday Are there Barriers to Discharge? no INTERVENTION/DISPOSITION: Discharge Planning RICHARD tasked SAND SIFTER for a notary to complete a DPOA. RICHARD met with pt at bedside to complete medical DPOA Per his request. Scanned in and sent to admitting updates. No other needs at this time. Pt going to [place] ad[facility]ane rr. Transportation Will the Patient Use Family Transport?: Yes Transportation Name, Phone and Availability #1: pt has a friend that can help wi th transportation Support Info or Referral Medication Needs Financial Legal Other Discharge Disposition Selected Continued Care - Admitted Since 12/12/2022 No services have been selected for the patient. Angi Simpson LMSW Social Work Case Management Available on [employer] D BANK CUSTODIAN * Angi Simpson LMSW - 12/13/2022 5:42 PM CST Case Management Admission Assessment NAME:Jose Wilson :1960 AGE: 62 y.o. ADMISSION DATE: 12/12/2022 DAYS ADMITTED: LOS: 1 day Todays Date: 12/13/2022 Source of Information: Patient Plan Plan: Case Management Assessment, Psychosocial Assessment, Assist PRN with SW/NC M Services Plan: Case Management Assessment, Assist PRN with SW/NCM Services, Discharge Jose nning for Home with Post-Acute Care Needs ? Most recent therapy recommendations: ? PT: OR Tuesday ? OT: OR Tuesday ? ST: not consulted ? CM needs are not fully known, possibly inpatient setting. NCM/SW team to continue to follow patient's plan of care via EMR and team huddle ; will assist with discharge planning needs as indicated. Assessment Notes Patient is agreeable to completing assessment at this time. ? SW provided contact information, explanation of CM roles, and general review o f Preparing for Discharge, [facility] Preferred Provider Network claudio larson. Patient encouraged to contact case management with questions and concerns during hospitalization. ? Patient lives alone. The home accomodates single-level living. The home has 5 LY ? Patient is typically dependent in most self cares. Had a friend come over to help him out of bed. Cannot use his walker as his legs are too weak and has bee n using a wheelchair. ? Home support is assessed to be intermittent. ? Patient's previous HH, LTACH, SNF, IPR, DME, outpatient therapy experience inc lee ann: ? Outpatient PT- [facility] in [place] and [facility] in August 2022 ? DME-- RW, W/C ? Transport plan will be possibly a friend ? Pt fills medications at through the [facility] and [facility] ? PCP- Dom Hernández through the [place] Patient Address/Phone [address] [place] [address] (home) Emergency Contact Extended Emergency Contact Information Primary Emergency Contact: Ghada Garland Mobile Relation: Significant Other Preferred language: ARABIC Service Observer needed? No Healthcare Directive Healthcare Directive: No, patient does not have a healthcare directive Would patient like to fill out a (a new) Healthcare Directive?: Yes, referral to Social Work Psych Advance Directive (Psych unit only): No, patient does not have a Psych Adv ance Directive Would like to complete a DPOA. Notary was not available late in the day so will complete on Tuesday. Transportation Will the Patient Use Family Transport?: Yes Transportation Name, Phone and Availability #1: pt has a friend that can help wi th transportation Expected Discharge Date 12/17/2022 12:00 PM Living Situation Prior to Admission Living Arrangements Type of Residence: Home, independent Living Arrangements: Alone Bathroom Shower / Tub: Tub/Shower Unit, Walk-in Shower How many levels in the residence?: 1 Can patient live on one level if needed?: Yes Does residence have entry and/or side stairs?: Yes (5 LY 1 step up to bedroom one step down to bathroom) Assistance needed prior to admit or anticipated on discharge: Yes Who provides assistance or could if needed?: pt has a girlfriend/neighbor that c an provide some assistance, possibly another friend as well Are they in good health?: Unknown Can support system provide 24/7 care if needed?: No Level of Function Prior level of function: Needs assist with ADLs Cognitive Abilities Cognitive Abilities: Alert and Oriented, Engages in problem solving and planning , Participates in decision making Financial Resources Coverage Primary Insurance: [place]/[facility] Secondary Insurance: Medicare (does have Medicare part A and VA insurance) Source of Income Source Of Income: SSDI Financial Assistance Needed? NA Psychosocial Needs Mental Health Mental Health History: No Substance Use History Substance Use History Screen: Yes Comment: smokes a lot of cigarettes per day and does not plan on stopping Other NA Current/Previous Services PCP PCP is Dom Pelayo through the [place] Pharmacy No Pharmacies Listed through the [place] Durable Medical Equipment Durable Medical Equipment at home: Roller Walker, Wheelchair (manual) Home Health Receiving home health: Yes Agency name: wasn't sure the name but said it was through [facility] and they hadn' t shown up the last few visits which he really needed their assistance Would patient use this agency again?: No Hemodialysis or Peritoneal Dialysis Undergoing hemodialysis or peritoneal dialysis: No Tube/Enteral Feeds Receive tube/enteral feeds: No Infusion Receive infusions: No Private Duty Private duty help used: No Home and Community Based Services Home and community based services: No John White John White: N/A Hospice Hospice: No Outpatient Therapy PT: In the past When did patient receive care?: unsure time frame but used [facility] in [facility] and somewhere in [facility] Would patient return for future services?: Yes OT: No ENGRAVER TIRE MOLD: No [facility] Facility/Jail SNF: No NH: No Inpatient Rehab IPR: No Long-Term Acute Care Hospital LTACH: No Acute Hospital Stay Acute Hospital Stay: No Angi Simpson LMSW Social Work Case Management Available on [employer] D BANK CUSTODIAN documented in this encounter Discharge Instructions * Instructions* Nathalie Venegas RN - 12/16/2022 3:56 PM CST Jose Katie Posterior Cervical Fusion Spine Cervical 3-6 on 12/15/2022 with Celso Doe Neurosurgery Discharge Instructions Contact information: Call Neurosurgery if you have questions or are experiencing problems at discharg e [phone]. After 5 pm and weekends please call [phone] to reach Neurosurgery information assistant. Post-operative wound care: Your incision has sutures in place. Your incision may be open to air. You may shower. Use non-medicated soap to wash incision daily, pat dry and leav e open to air. Do not submerge (pool/tub) your incision under water at all for 4 weeks. Have someone look at your incision every day. It should look the same or better daily. Do not apply any ointment, cream, or lotions to incision line. Activity restrictions: Avoid pushing, pulling, lifting, or bending more than 10 pounds (about a gallon of milk). If you hold children, they should be placed in your lap or crawl into lap if old enough. Do NOT drive until you are cleared by your physician. Avoid bearing down or straining to have bowel movements. Post-operative pain and medications: Please use your pain medications and muscle relaxers as prescribed. Pain medications can make you constipated. You may take a stool softener and Ranulfo alax. Do NOT take Ibuprofen or NSAIDS (Aleve, Motrin, Naproxen) until Doctor approved. Tylenol is approved for pain control. This is available over the counter. Follow up appointment: 12/29/22 Rehab Physician to remove sutures. Please call [phone] with wound concerns. Scheduled appointments: Dec 29, 2022 12:30 PM Telehealth visit with STEPHANIE Del Toro Neurosurgery: [facility] (NeuroSurgery) [address] [facility] [address] [facility] [phone] Feb 11, 2023 12:15 PM Telehealth visit with Chidi Jimenez MD Neurosurgery: [facility] (NeuroSurgery) [address] [facility] [id number] Please contact Neurosurgery if you develop any of the following: New or worsening numbness, tingling, or decrease sensation in arms or legs. New or worsening changes in mobility or gait (walking). Fever 101 or greater. Redness, swelling, continuous oozing, fluid collection, w armth, or bad odor near the incision site. Intense pain that is getting worse or unrelieved by pain medications or muscle r elaxers. D BANK CUSTODIAN documented in this encounter Medications at Time of Discharge Start Date End Date Medication Sig Dispensed Refills 12/21/2022 acetaminophen (TYLENOL) Take two 0 325 mg tablet tablets by mouth every 4 hours as needed. baclofen (LIORESAL) 20 mg Take one 0 tablet tablet by mouth twice daily as needed. calcium carbonate Take one 0 (OS-RICHARD) 1250 mg tablet tablet by mouth twice daily. carboxymethylcellulose Apply one 0 sodium (REFRESH TEARS) drop to both 0.5 % eye drop eyes twice daily. cetirizine (ZYRTEC) 10 mg Take one 0 tablet tablet by mouth every morning. 12/21/2022 docusate (COLACE) 100 mg Take one 180 capsule 0 capsule capsule by mouth twice daily as needed. empagliflozin (JARDIANCE) Take one 0 10 mg tablet tablet by mouth daily. 12/22/2022 lidocaine (LIDODERM) 5 % Apply one 90 patch 0 topical patch patch topically to affected area daily. Apply patch for 12 hours, then remove for 12 hours before repeating. losartan (COZAAR) 50 mg Take one-half 0 tablet tablet by mouth daily. metFORMIN (GLUCOPHAGE) Take one 0 1,000 mg tablet tablet by mouth twice daily after meals. 12/21/2022 methocarbamoL (ROBAXIN) Take one 15 tablet 0 750 mg tablet tablet by mouth three times daily. metoprolol succinate XL Take one 0 (TOPROL XL) 25 mg tablet by extended release tablet mouth daily. 12/22/2022 nicotine (NICODERM CQ) 21 Apply one 28 patch 0 mg/day patchIndications: patch to top smoking cessation of skin as directed daily. Rotate patch location. Indications: stop smoking 12/21/2022 oxyCODONE (ROXICODONE) 5 Take one 0 mg tablet tablet to three tablets by mouth every 4 hours as needed. sildenafiL (VIAGRA) 100 Take one 0 mg tablet tablet by mouth as Needed for Erectile dysfunction. simvastatin (ZOCOR) 80 mg Take one 0 tablet tablet by mouth at bedtime daily. terazosin (HYTRIN) 10 mg Take two 0 capsule capsules by mouth at bedtime daily. documented as of this encounter Ordered Prescriptions Start Date End Date Prescription Sig Dispensed Refills 12/21/2022 docusate (COLACE) 100 mg Take one 180 capsule 0 capsule capsule by mouth twice daily as needed. 12/22/2022 lidocaine (LIDODERM) 5 % Apply one 90 patch 0 topical patch patch topically to affected area daily. Apply patch for 12 hours, then remove for 12 hours before repeating. 12/21/2022 methocarbamoL (ROBAXIN) Take one 15 tablet 0 750 mg tablet tablet by mouth three times daily. 12/22/2022 nicotine (NICODERM CQ) 21 Apply one 28 patch 0 mg/day patchIndications: patch to top smoking cessation of skin as directed daily. Rotate patch location. Indications: stop smoking 12/21/2022 oxyCODONE (ROXICODONE) 5 Take one 0 mg tablet tablet to three tablets by mouth every 4 hours as needed. 12/21/2022 acetaminophen (TYLENOL) Take two 0 325 mg tablet tablets by mouth every 4 hours as needed. documented in this encounter Discharge Disposition Code Departure Means Destination Disposition Wheelchair Rehab Facility (Not [facility]) documented in this encounter Progress Notes * Anastasiya Moraes RN - 12/21/2022 3:07 PM CST Discharge education provided to pt. All questions addressed and answered. Unders tanding verbalized. Prescriptions and handouts provided. Peripheral IV left in p er rehab's request. Pt transported to [facility] via wheelchair with belongings in [place] and cart where ride is waiting. D BANK CUSTODIAN * La Nena Mohr APRN-NP - 12/21/2022 9:26 AM CST Neurosurgery Progress Note Admission Date: 12/12/2022 LOS: 9 days S: No acute events noted overnight. Patient hoping to transfer to rehab today. D enies needs at this time. O: Vital Signs: 24 Hour Range BP: (123-157)/(53-79) Temp: [36.8 C (98.2 F)-37.1 C (98.7 F)] Pulse: [65-86] Respirations: [18 PER MINUTE-19 PER MINUTE] SpO2: [93 %-100 %] O2 Device: None (Room air) Physical Exam: Awake and alert Oriented to person, place and time Strength grossly full and symmetric, moves all extremities Surgical site - C/D/I with silverlon dressing A/P: 62 y.o. male Principal Problem: Weakness Active Problems: S/P cervical spinal fusion Type 2 diabetes mellitus (HCC) Primary hypertension BPH (benign prostatic hyperplasia) VSS, afebrile Urinary - able to void independently Up with assist PT/OT recommending inpatient Pain management: currently well controlled Will remove dressing May shower Patient does not need to continue cervical collar - continue fall precautions Prophylaxis: A) GI: PPI B) Lines: No C) Urinary Catheter: No D) Antibiotic Usage: No E) VTE: Pharmacological prophylaxis; SQ Heparin and Mechanical prophylaxis; Seq uential compression device F) Restraints: Patient assessed for need for restraints. Please page [phone] with any questions. STEPHANIE Llanos Voalte me D BANK CUSTODIAN * La Nena Mohr APRN-NP - 12/20/2022 12:07 PM CST Neurosurgery Progress Note Admission Date: 12/12/2022 LOS: 8 days S: No acute events noted overnight. Patient much more cooperative today. States overall the weekend went well. He is now amenable to placement before returning home. O: Vital Signs: 24 Hour Range BP: (136-171)/(54-70) Temp: [36.7 C (98.1 F)-37.6 C (99.6 F)] Pulse: [78-85] Respirations: [16 PER MINUTE-20 PER MINUTE] SpO2: [94 %-97 %] O2 Device: None (Room air) Physical Exam: Awake and alert Oriented to person, place and time Strength grossly full and symmetric, moves all extremities Surgical site - C/D/I with silverlon dressing A/P: 62 y.o. male Principal Problem: Weakness Active Problems: S/P cervical spinal fusion Type 2 diabetes mellitus (HCC) Primary hypertension BPH (benign prostatic hyperplasia) VSS, afebrile Urinary - able to void independently Up with assist PT/OT recommending inpatient - patient is accepting of placement - awaiting insu alejandra authorization Able to get home medication list - home meds resumed Pain management: currently well controlled Prophylaxis: A) GI: PPI B) Lines: No C) Urinary Catheter: No D) Antibiotic Usage: No E) VTE: Pharmacological prophylaxis; SQ Heparin and Mechanical prophylaxis; Seq uential compression device F) Restraints: Patient assessed for need for restraints. Please page [phone] with any questions. STEPHANIE Llanos Voalte me D BANK CUSTODIAN * Sherrie Molina OT - 12/20/2022 10:36 AM CST OCCUPATIONAL THERAPY PROGRESS NOTE Name: Jose Wilson : 1960 Age: 62 y.o. Admission Date: 12/12/2022 LOS: 8 days Date of Service: 12/20/2022 Mobility Patient Turn/Position: Chair Progressive Mobility Level: Walk in room Distance Walked (feet): 4 ft Level of Assistance: Assist X2 Assistive Device: Walker Activity Limited By: Pain;Weakness Subjective Pertinent Dx per Physician: 62 y.o. male with pmhx of COPD, CAD s/p stent who pr esents in transfer for further management of progressive BUE/BLE weakness x1 mon th per chart review. Per chart review, MRI showed possible C3/4 myelomalacia S/p C3-6 PCF and decompression 3/. Precautions: Falls;Cervical Collar on When OOB (refusing c-collar; team aware an d OK to mobilize) Pain / Complaints: Patient agrees to participate in therapy Comments: Upon arrival, patient in chair. Reports pain impaired however does rep ort shoulder pain. After session, patient in chair, alarm on, and all needs in r each. RN notified. Objective Psychosocial Status: Willing and Cooperative to Participate Persons Present: RehabTechnician Home Living Type of Home: House Home Layout: One Level;Ramped Entrance Bathroom Shower / Tub: Tub/Shower Unit;Walk-in Shower Bathroom Toilet: Standard Home Equipment: Wheelchair-manual;Walker Comment: Reports has 6 steps to enter or able to enter with ramp. Has one step t o bathroom. Prior Function Level Of [place]: Needed assistance with ADLs;Needed assistance with functi onal transfers Lives With: Alone Receives Help From: Significant Other Other Function Comments: Patient reports needing assistance over the last 3 week s. Per EMR, fall in August and since October has progressively gotten worse. Vision Current Vision: Wears Glasses Only for Reading ADL's Where Assessed: Standing at Sink Grooming Assist: Maximum Assist Grooming Deficits: Wash/Dry Face;Denture Care Comment: Patient agreeable to try standing for ADLs however upon initial stand, patient declines further standing. Completes ADLs seated in chair, requires incr eased assistance to brush dentures secondary to BUE tremors. Able to open toothp aste however required assist to squeeze toothpaste on toothbrush. Washes face wi th setup. ADL Mobility Transfer Type: Sit to stand Transfer: Assistance Level: Moderate assist;x2 people;From;Bedside chair Transfer: Assistive Device: Hand hold assist Transfer: Type of Assistance: For balance;For safety considerations;Elevated bed ;For strength deficit;Knee(s) blocked;Verbal cues Other Transfer Type: Sit to stand Other Transfer: Assistance Level: Maximum assist;From;Bedside chair Other Transfer: Assistive Device: Hand hold assist (+ sink counter) Other Transfer: Type of Assistance: For balance;For safety considerations;For [facility] deficit End of Activity Status: Up in chair;Nursing notified;Instructed patient to use c all light;Instructed patient to request assist with mobility Transfer Comments: Patient requires moderate assist x2 to stand from chair. Comp leted one stand at sink, requires maximal assist x1 and use of countertop. Sitting Balance: Standby assist Standing Balance: Moderate assist Gait Distance: 4 feet Gait: Assistance Level: Minimal assist;of 1st person;Standby assist;of 2nd perso n;Safety considerations Gait: Assistive Device: Roller walker Gait Comments: Patient takes steps in room with minimal assist x1 using walker a nd close chair follow. Not able to tolerate increase mobility secondary to repor allie pain and weakness. Patient takes small steps, able to pick feet off ground w ith cues. Activity Tolerance Endurance: 3/5 Tolerates 25-30 Minutes Exercise w/Multiple Rests Cognition Overall Cognitive Status: WFL to Adequately Complete Self Care Tasks Safely Attention: Awake/Alert UE PROM Grasp: R Weakened;L Weakened ROM Comments: BUE ROM limited secondary to pain. Able to reach face, reports ROM improving. Patient with tremors in BUEs- reports he has had for years. Education Goal Formulation: With Patient Assessment Assessment: Decreased ADL Status;Decreased Endurance;Decreased UE Strength;Decre ased UE ROM;Decreased Fine Motor Coordination;Decreased Self-Care Trans;Decrease d High-Level ADLs Prognosis: Good;w/Cont OT s/p Acute Discharge Goal Formulation: Patient Comments: Patient limited by BUE/BLE weakness and pain. Patient will benefit fro m continued skilled therapy while admitted and at time of discharge to maximize safety and independence with ADLs and related mobility. Patient agreeable to jose cement this date. AM-PAC 6 Clicks Daily Activity Inpatient Putting on and taking off regular lower body clothes: Total Bathing (Including washing, rinsing, drying): Total Toileting, which includes using toilet, bedpan, or urinal: Total Putting on and taking off regular upper body clothing: A Lot Taking care of personal grooming such as brushing teeth: A Lot Eating meals: A Little Daily Activity Raw Score: 10 Standardized (T-scale) Score: 27.31 Plan OT Frequency: 5 x/week OT Plan for Next Visit: BSC use, stand pivots vs ambulation with chair follow Further Evaluation Goals Pt Will Tolerate Further ADL Evaluation: w/in 3-5 sessions, Met ADL Goals Patient Will Perform All ADL's: w/ Minimal Assist Functional Transfer Goals Pt Will Perform All Functional Transfers: Minimum Assist OT Discharge Recommendations Recommendation: Inpatient setting Patient Currently Requires Physical Assist With: All mobility;All personal care ADLs;All home functioning ADLs Therapist: JAHAIRA Todd/Bjorn [id number] Date: 12/20/2022 D BANK CUSTODIAN * Lien Brock, PT - 12/20/2022 9:40 AM CST PHYSICAL THERAPY PROGRESS NOTE Name: Jose Wilson : 1960 Age: 62 y.o. Admission Date: 12/12/2022 LOS: 8 days Date of Service: 12/20/2022 Mobility Patient Turn/Position: Chair Progressive Mobility Level: Stand Level of Assistance: Assist X2 Assistive Device: Hand Held Activity Limited By: Pain Subjective Significant hospital events: 62 y.o. male with pmhx of COPD, CAD s/p stent who p resents in transfer for further management of progressive BUE/BLE weakness x1 mo nth per chart review. Per chart review, MRI showed possible C3/4 myelomalacia. N ow S/P C 3-6 PCF Mental / Cognitive Status: Alert;Oriented;Follows Commands Persons Present: RehabTechnician Pain: Patient complains of pain;Patient does not rate pain Pain Location: Neck;Post-surgical Pain Description: Aching Pain Interventions: Patient pre-medicated;Patient agrees to participate in thera py;Patient assisted into position of comfort Precautions: Back Safety;Cervical Collar on when Out of Bed (refuses to wear C-C ollar, Neurosurgery aware) Ambulation Assist: Assist Needed with Mobility-Related ADL's/Ambulation Patient Owned Equipment: 4-Wheeled Walker;Manual Wheelchair;Single Point Cane Home Situation: Lives with Family (with girlfirend) Type of Home: House Entry Stairs: 3-5 Stairs;Rail on 1 Side (5 steps to enter, also has a ramp) In-Home Stairs: 1-2 Stairs (1 step down to living) Comments: Patient reports that he was getting progressively weaker and needing m ore assist for mobility prior to admission. He originally used a cane and then s witched to w 4 wheeled walker and then a wheelchair Posture/Neurological Head Control: Independent Posture: Forward head;Rounded shoulders Bed Mobility/Transfer Comments: Patient up in bedside chair upon arrival Transfer Type: Sit to Stand Transfer: Assistance Level: To/From;Bed;Moderate Assist;x2 People Transfer: Assistive Device: Hand Hold Assist (Neurogym) Transfers: Type Of Assistance: For Balance;For Strength Deficit;For Safety Consi derations End Of Activity Status: Up in Chair;Nursing Notified;Instructed Patient to Reque st Assist with Mobility;Instructed Patient to Use Call Light Comments: Patient tolerated sit to stand with moderate assist x 2 initially prog ressing to minimal assist x 2 on second stand. Reports increased pain in neck an d shoulders this date. Performed pre-gait activities in standing Balance Sitting Balance: Static Sitting Balance;2 UE Support;Standby Assist Standing Balance: Static Standing Balance;2 UE support;Minimal Assist;x2 People Gait Activity Limited By: Complaint of Pain;Complaint of Fatigue;Weakness Activity/Exercise Stand At Bedside : 1 minutes Stand At Bedside Assist: Minimal Assist;x2 People Weight Shift Repetitions: 10 repetitions Weight Shift Assist: Minimal Assist December In Repetitions: 2 December In Assist: Moderate Assist Education Persons Educated: Patient Patient Barriers To Learning: Cognitive Deficits Interventions: Repetition of Instructions Teaching Methods: Verbal Instruction Patient Response: Verbalized Understanding;More Instruction Required Topics: Plan/Goals of PT Interventions;Use of Assistive Device/Orthosis;Mobility Progression;Precautions;Safety Awareness;Up with Assist Only;Importance of Incr easing Activity;Recommend Continued Therapy Assessment/Progress Impaired Mobility Due To: Decreased Strength;Pain;Impaired Balance;Safety Concer ns;Decreased Activity Tolerance;Medical Status Limitation;Post Surgical Changes Assessment/Progress: Should Improve w/ Continued PT Comments: LE strength continues to improve and patient would benefit from furthe r rehab in an inpatient setting at this time. AM-PAC 6 Clicks Basic Mobility Inpatient Turning from your back to your side while in a flat bed without using bed rails: A Little Moving from lying on your back to sitting on the side of a flat bed without usin g bedrails : A Lot Moving to and from a bed to a chair (including a wheelchair): A Lot Standing up from a chair using your arms (e.g. wheelchair, or bedside chair): A Lot To walk in hospital room: Total Climbing 3-5 steps with a railing: Total Basic Mobility Inpatient Raw Score: 11 Standardized (T-scale) Score: 30.25 Goals Goal Formulation: With Patient Time For Goal Achievement: 4 days, To, 6 days Patient Will Go Supine To/From Sit: Independently, w/ Stand By Assist Patient Will Transfer Sit to Stand: Independently, w/ Stand By Assist Patient Will Ambulate: 151-200 Feet, w/ Walker, w/ Minimal Assist Patient Will Go Up / Down Stairs: 3-5 Stairs, w/ Minimal Assist Plan Treatment Interventions: Mobility Training;Strengthening;Balance Activities;Endu alejandra Training;Neuromuscular Reeducation Plan Frequency: 5 Days per Week PT Plan for Next Visit: Continue to work on standing tolerance and steps to molly r. Trial ambulation with chair follow as able PT Discharge Recommendations Recommendation: Inpatient setting Patient Currently Requires Physical Assist With: All mobility Therapist: Lien Brock, PT Date: 12/20/2022 D BANK CUSTODIAN * Nevaeh Clinton RN - 12/19/2022 4:44 PM CST Physician Sheri notified about patient continuing to have urinary retention, ad vised to continue to follow protocol. Per TUS catherter removal protocol, Josseline ent straight cathed today after unable to void, 825ml removed. Will continue to monitor. D BANK CUSTODIAN * Nevaeh Clinton RN - 12/19/2022 8:59 AM CST Upon looking for food for patient in his belongings, this RN discovered 4 packs of cigarettes in a box, pt has decided to stop smoking and says that girlfriend brought them and the family will be taking them back when they come to see him. Packs are out of reach and in patient's closet. D BANK CUSTODIAN * Sheri Verduzco MD - 12/19/2022 7:55 AM CST Neurosurgery Progress Note Admission Date: 12/12/2022 LOS: 7 days S: No acute events noted overnight. Sitting up in chair. Eating/drinking going f ine. O: Vital Signs: 24 Hour Range BP: (122-151)/(54-59) Temp: [36.7 C (98.1 F)-37.3 C (99.1 F)] Pulse: [72-85] Respirations: [18 PER MINUTE] SpO2: [93 %-100 %] O2 Device: None (Room air) O2 Liter Flow: 3 Lpm Physical Exam: Awake, sitting in the chair Oriented to person, place and time Strength grossly full and symmetric, moves all extremities Surgical site - C/D/I with silverlon dressing A/P: 62 y.o. male Principal Problem: Weakness VSS, afebrile Cervical films completed Urinary retention - required straight cath - Flomax Up with assist PT/OT recommending inpatient - patient is refusing dispo pending placement and pain control Pain management: currently well controlled Prophylaxis: A) GI: PPI B) Lines: No C) Urinary Catheter: No D) Antibiotic Usage: No E) VTE: Pharmacological prophylaxis; SQ Heparin and Mechanical prophylaxis; Seq uential compression device F) Restraints: Patient assessed for need for restraints. Please page [phone] with any questions. Sheri Verduzco MD Voalte me D BANK CUSTODIAN Miranda Arvizu - 12/18/2022 10:11 AM CST RT Adult Assessment Note NAME:Jose Wilson :1960 AGE : 62 y.o. ADMISSION DATE: 12/12/2022 DAYS ADMITTED: LOS: 6 days RT Treatment Plan: Protocol Plan: Medications Combivent Respimat: PRN Protocol Plan: Procedures PEP Therapy: Place a nursing order for "IS Q1h While Awake" for any of Lung Expa nsion indicators SpO2: Continuous (Document SpO2 result Qshift) Additional Comments: Impressions of the patient: Resting in bed comfortably Intervention(s)/outcome(s): RT protocol Patient education that was completed: None Recommendations to the care team: Continue care Vital Signs: Pulse: 80 RR: 18 PER MINUTE SpO2: 93 % O2 Device: Nasal cannula Liter Flow: 3 Lpm O2%: Breath Sounds: Decreased Respiratory Effort: Non-Labored Sheri De La Torre MD - 12/18/2022 8:20 AM CST Neurosurgery Progress Note Admission Date: 12/12/2022 LOS: 6 days S: No acute events noted overnight. Sitting up in chair this morning. Reports un controlled pain, would like medications adjusted. O: Vital Signs: 24 Hour Range BP: (122-147)/(54-68) Temp: [37 C (98.6 F)-37.3 C (99.2 F)] Pulse: [79-85] Respirations: [16 PER MINUTE-18 PER MINUTE] SpO2: [92 %-96 %] O2 Device: None (Room air) O2 Liter Flow: 2 Lpm Physical Exam: Awake, sitting in the chair Oriented to person, place and time VALLADARES to command Strength grossly full and symmetric Surgical site - C/D/I with silverlon dressing A/P: 62 y.o. male Principal Problem: Weakness VSS, afebrile Cervical films completed Drain output - 70 ml, will remove today Urinary retention - required straight cath - Flomax Up with assist PT/OT recommending inpatient - patient is refusing dispo pending placement and pain control Pain management: >oxy increased to 5-15mg >valium increased from 2.5 to 5mg Q6H >continue robaxin >IV tylenol for 24 hrs Prophylaxis: A) GI: PPI B) Lines: No C) Urinary Catheter: No D) Antibiotic Usage: No E) VTE: Pharmacological prophylaxis; SQ Heparin and Mechanical prophylaxis; Seq uential compression device F) Restraints: Patient assessed for need for restraints. Please page [phone] with any questions. Sheri Verduzco MD Voalte me D BANK CUSTODIAN * Lien Brock, PT - 12/17/2022 1:45 PM CST PHYSICAL THERAPY PROGRESS NOTE Name: Jose Wilson : 1960 Age: 62 y.o. Admission Date: 12/12/2022 LOS: 5 days Date of Service: 12/17/2022 Mobility Patient Turn/Position: Refused Progressive Mobility Level: Stand Level of Assistance: Assist X2 Assistive Device: (Neurogym) Activity Limited By: Pain;Fatigue Subjective Significant hospital events: 62 y.o. male with pmhx of COPD, CAD s/p stent who p resents in transfer for further management of progressive BUE/BLE weakness x1 mo nth per chart review. Per chart review, MRI showed possible C3/4 myelomalacia. N ow S/P C 3-6 PCF Mental / Cognitive Status: Alert;Oriented;Cooperative;Follows Commands Pain: Patient complains of pain;07/26 ("05/08") Pain Location: Neck;Post-surgical Pain Description: Aching Pain Interventions: Patient pre-medicated;Patient agrees to participate in thera py;Patient assisted into position of comfort Precautions: Back Safety;Cervical Collar on when Out of Bed (refuses to wear C-C ollar, Neurosurgery aware) Ambulation Assist: Assist Needed with Mobility-Related ADL's/Ambulation Patient Owned Equipment: 4-Wheeled Walker;Manual Wheelchair;Single Point Cane Home Situation: Lives with Family (with girlfirend) Type of Home: House Entry Stairs: 3-5 Stairs;Rail on 1 Side (5 steps to enter, also has a ramp) In-Home Stairs: 1-2 Stairs (1 step down to living) Comments: Patient reports that he was getting progressively weaker and needing m ore assist for mobility prior to admission. He originally used a cane and then s witched to w 4 wheeled walker and then a wheelchair ROM R LE ROM: WFL L LE ROM: WFL Strength R LE Strength: (Grossly 3/5) L LE Strength: (Grossly 3/5) Strength Comments: Improved LE strength post operatively Posture/Neurological Head Control: Independent Posture: Forward head;Rounded shoulders Bed Mobility/Transfer Bed Mobility: Supine to Sit: Minimal Assist;Assist with Trunk (with logroll) Bed Mobility: Sit to Supine: Moderate Assist;Assist with L LE Transfer Type: Sit to Stand Transfer: Assistance Level: To/From;Bed;Moderate Assist Transfer: Assistive Device: (Neurogym) Transfers: Type Of Assistance: For Balance;For Strength Deficit;For Safety Consi derations End Of Activity Status: In Bed;Nursing Notified;Instructed Patient to Request As sist with Mobility;Instructed Patient to Use Call Light Comments: Tolerated 6 sit to stands from bed with use of neurogym and minmal to moderate assist. No ocunterweight needed. Balance Sitting Balance: Static Sitting Balance;2 UE Support;Standby Assist Standing Balance: Static Standing Balance;2 UE support;Minimal Assist Gait Activity Limited By: Complaint of Pain;Complaint of Fatigue;Weakness Activity/Exercise Sit Edge Of Bed: 15 minutes Sit Edge Of Bed Assist: Stand By Assist (CGA) Stand At Bedside : 1 minutes Stand At Bedside Assist: Minimal Assist (with neurogym) Education Persons Educated: Patient Patient Barriers To Learning: Cognitive Deficits Interventions: Repetition of Instructions Teaching Methods: Verbal Instruction Patient Response: Verbalized Understanding;More Instruction Required Topics: Plan/Goals of PT Interventions;Use of Assistive Device/Orthosis;Mobility Progression;Precautions;Safety Awareness;Up with Assist Only;Importance of Incr easing Activity;Recommend Continued Therapy Assessment/Progress Impaired Mobility Due To: Decreased Strength;Pain;Impaired Balance;Safety Concer ns;Decreased Activity Tolerance;Medical Status Limitation;Post Surgical Changes Assessment/Progress: Should Improve w/ Continued PT AM-PAC 6 Clicks Basic Mobility Inpatient Turning from your back to your side while in a flat bed without using bed rails: A Little Moving from lying on your back to sitting on the side of a flat bed without usin g bedrails : Total Moving to and from a bed to a chair (including a wheelchair): Total Standing up from a chair using your arms (e.g. wheelchair, or bedside chair): To marquise To walk in hospital room: Total Climbing 3-5 steps with a railing: Total Basic Mobility Inpatient Raw Score: 8 Standardized (T-scale) Score: 22.61 Goals Goal Formulation: With Patient Time For Goal Achievement: 4 days, To, 6 days Patient Will Go Supine To/From Sit: Independently, w/ Stand By Assist Patient Will Transfer Sit to Stand: Independently, w/ Stand By Assist Patient Will Ambulate: 151-200 Feet, w/ Walker, w/ Minimal Assist Patient Will Go Up / Down Stairs: 3-5 Stairs, w/ Minimal Assist Plan Treatment Interventions: Mobility Training;Strengthening;Balance Activities;Endu alejandra Training;Neuromuscular Reeducation Plan Frequency: 5 Days per Week PT Plan for Next Visit: Continue to work on standing tolerance and steps to molly rAshish Trial ambulation in walking pants vs. [place] PT Discharge Recommendations Recommendation: Inpatient setting Patient Currently Requires Physical Assist With: All mobility Therapist: Lien Brock, PT Date: 12/17/2022 D BANK CUSTODIAN * Sherrie Molina, OT - 12/17/2022 10:02 AM CST OCCUPATIONAL THERAPY PROGRESS NOTE Name: Jose Wilson : 1960 Age: 62 y.o. Admission Date: 12/12/2022 LOS: 5 days Date of Service: 12/17/2022 Mobility Patient Turn/Position: Chair Progressive Mobility Level: Active transfer to chair Level of Assistance: Assist X2 Assistive Device: Hand Held Activity Limited By: Pain Subjective Pertinent Dx per Physician: 62 y.o. male with pmhx of COPD, CAD s/p stent who pr esents in transfer for further management of progressive BUE/BLE weakness x1 mon th per chart review. Per chart review, MRI showed possible C3/4 myelomalacia S/p C3-6 PCF and decompression 12/16. Precautions: Falls;Cervical Collar on When OOB (refusing c-collar; team aware an d OK to mobilize; HV drain x1) Pain / Complaints: Patient agrees to participate in therapy;Patient premedicated Pain Location: Neck;Incisional Pain Level Current: 9 Comments: Upon arrival, patient in bed. Noted drain to be disconnected- RN notif ied and re-connected. After session, patient in chair, alarm on, and all needs i n reach. RN notified. Objective Psychosocial Status: Willing and Cooperative to Participate Persons Present: RehabTechnician Home Living Type of Home: House Home Layout: One Level;Ramped Entrance Bathroom Shower / Tub: Tub/Shower Unit;Walk-in Shower Bathroom Toilet: Standard Home Equipment: Wheelchair-manual;Walker Comment: Reports has 6 steps to enter or able to enter with ramp. Has one step t o bathroom. Prior Function Level Of [place]: Needed assistance with ADLs;Needed assistance with functi onal transfers Lives With: Alone Receives Help From: Significant Other Other Function Comments: Patient reports needing assistance over the last 3 week s. Per EMR, fall in August and since October has progressively gotten worse. Vision Current Vision: Wears Glasses Only for Reading ADL's Where Assessed: Standing at Sink;Chair Grooming Assist: Stand By Assist Grooming Deficits: Setup Comment: Patient stands at counter, declines standing to wash face secondary to increased neck pain. Completes in sitting position, able to reach eyes. ADL Mobility Bed Mobility: Supine to Sit: Minimal assist Transfer Type: Sit to stand Transfer: Assistance Level: Moderate assist;x2 people;From;Bed Transfer: Assistive Device: Hand hold assist Transfer: Type of Assistance: For balance;For safety considerations;Elevated bed ;For strength deficit;Knee(s) blocked;Verbal cues Other Transfer Type: Stand pivot Other Transfer: Assistance Level: Moderate assist;Minimal assist;From;Bed;To;Bed side chair Other Transfer: Assistive Device: Hand hold assist Other Transfer: Type of Assistance: For balance;For safety considerations;For st rength deficit;Verbal cues End of Activity Status: Up in chair;Nursing notified;Instructed patient to use c all light;Instructed patient to request assist with mobility Transfer Comments: Patient completes stand with moderate assist x2 hand hold. Pa tient pivots to chair with moderate and minimal assist x2 hand hold. No knee buc alvina noted. Reports increased cervical pain with being upright. Sitting Balance: Standby assist Standing Balance: Minimal assist;x2 people;Static standing balance Activity Tolerance Endurance: 3/5 Tolerates 25-30 Minutes Exercise w/Multiple Rests Cognition Overall Cognitive Status: WFL to Adequately Complete Self Care Tasks Safely Attention: Awake/Alert UE PROM R LE ROM: WFL L LE ROM: WFL Grasp: R Weakened;L Weakened ROM Comments: BUE weakness, R weaker than L. Patient did not attempt coordinatio n activity, says "it's bad". Sensory Comment: BUE sensory deficits. Mild UE tremors noted this date. Splints/Slings UE Strength / Tone Strength Comments: BUEs weak, not formally tested due to incisional pain. Improv ed LE strength post operatively Assessment Assessment: Decreased ADL Status;Decreased Endurance;Decreased UE Strength;Decre ased UE ROM;Decreased Fine Motor Coordination;Decreased Self-Care Trans;Decrease d High-Level ADLs Prognosis: Good;w/Cont OT s/p Acute Discharge Goal Formulation: Patient Comments: Patient limited by BUE/BLE weakness and pain. Patient will benefit fro m continued skilled therapy while admitted and at time of discharge to maximize safety and independence with ADLs and related mobility. Patient agreeable to jose cement this date. AM-PAC 6 Clicks Daily Activity Inpatient Putting on and taking off regular lower body clothes: Total Bathing (Including washing, rinsing, drying): Total Toileting, which includes using toilet, bedpan, or urinal: Total Putting on and taking off regular upper body clothing: A Lot Taking care of personal grooming such as brushing teeth: A Lot Eating meals: A Little Daily Activity Raw Score: 10 Standardized (T-scale) Score: 27.31 Plan OT Frequency: 5x/week OT Plan for Next Visit: Stand pivot with walker, toileting, LB dressing Further Evaluation Goals Pt Will Tolerate Further ADL Evaluation: w/in 3-5 sessions, Met ADL Goals Patient Will Perform All ADL's: w/ Minimal Assist Functional Transfer Goals Pt Will Perform All Functional Transfers: Minimum Assist OT Discharge Recommendations Recommendation: Inpatient setting Patient Currently Requires Physical Assist With: All mobility;All personal care ADLs;All home functioning ADLs Comments: Patient currently assist x2 for stand pivot. Reports owning wheelchair however states it does not fit well in his home. Patient would require consiste nt assistance of two people and would recommend commode if patient were to disch arge home. Currently, patient is not safe to discharge home- recommending inpati ent setting. Agreeable to placement at this time. Patient requires the use of a bedside commode to complete toileting due to an in ability to use regular toilet facilities. The patient is confined to a single ro om. Therapist: JAHAIRA Todd/Bjorn [id number] Date: 12/17/2022 D BANK CUSTODIAN * La Nena Mohr, PLATE COLORER-SHEET [employer] SMITH - 12/17/2022 7:56 AM CST Neurosurgery Progress Note Admission Date: 12/12/2022 LOS: 5 days S: No acute events noted overnight. Denies needs at this time. States not wantin g to wear the cervical collar because it causes increase pain. States otherwise post operative pain well managed. He is hopeful to d/c home. Patient declining r ehab and aware that is what is recommended at this time. Stating he will leave t eryn at 2p. O: Vital Signs: 24 Hour Range BP: (114-132)/(50-56) Temp: [36.6 C (97.9 F)-37.1 C (98.8 F)] Pulse: [72-84] Respirations: [16 PER MINUTE-18 PER MINUTE] SpO2: [91 %-97 %] O2 Device: Nasal cannula O2 Liter Flow: 2 Lpm Physical Exam: Awake, sitting in the chair Oriented to person, place and time VALLADARES to command Antigravity strength times 4 Surgical site - C/D/I with silverlon dressing A/P: 62 y.o. male Principal Problem: Weakness VSS, afebrile Hgb 10.1 - stable Cervical films completed Drain output - 215 in previous 24 hours - serosanguinous Urinary retention - require straight cath - Flomax started Up with assist PT/OT recommending inpatient - patient is refusing Prophylaxis: A) GI: PPI B) Lines: No C) Urinary Catheter: No D) Antibiotic Usage: No E) VTE: Pharmacological prophylaxis; SQ Heparin and Mechanical prophylaxis; Seq uential compression device F) Restraints: Patient assessed for need for restraints. Please page [phone] with any questions. STEPHANIE Llanos Voalte me D BANK CUSTODIAN * Sherrie Molina OT - 12/16/2022 1:46 PM CST OCCUPATIONAL THERAPY ASSESSMENT NOTE Name: Jose Wilson : 1960 Age: 62 y.o. Admission Date: 12/12/2022 LOS: 4 days Date of Service: 12/16/2022 Mobility Patient Turn/Position: Chair Progressive Mobility Level: Active transfer to chair Level of Assistance: Assist X2 Assistive Device: Hand Held Activity Limited By: Weakness Subjective Pertinent Dx per Physician: 62 y.o. male with pmhx of COPD, CAD s/p stent who pr esents in transfer for further management of progressive BUE/BLE weakness x1 mon th per chart review. Per chart review, MRI showed possible C3/4 myelomalacia S/p C3-6 PCF and decompression 3/2. Precautions: Falls;Cervical Collar on When OOB (refusing c-collar; team aware an d OK to mobilize) Pain / Complaints: Patient agrees to participate in therapy Pain Location: Neck;Incisional Comments: Upon arrival, patient in bed. After session, patient in chair, alarm o n, sling under and all needs in reach. RN notified. Objective Psychosocial Status: Willing and Cooperative to Participate Home Living Type of Home: House Home Layout: One Level;Ramped Entrance Bathroom Shower / Tub: Tub/Shower Unit;Walk-in Shower Bathroom Toilet: Standard Home Equipment: Wheelchair-manual;Walker Comment: Reports has 6 steps to enter or able to enter with ramp. Has one step t o bathroom. Prior Function Level Of [place]: Needed assistance with ADLs;Needed assistance with functi onal transfers Lives With: Alone Receives Help From: Significant Other Other Function Comments: Patient reports needing assistance over the last 3 week s. Reports falls every few weeks. Per EMR, fall in August and since October silva s progressively gotten worse. Vision Current Vision: Wears Glasses Only for Reading ADL Mobility Bed Mobility: Supine to Sit: Moderate assist;x2 people Transfer Type: Sit to stand Transfer: Assistance Level: Moderate assist;x2 people;From;Bed Transfer: Assistive Device: Hand hold assist Transfer: Type of Assistance: For balance;For safety considerations;Elevated bed ;For strength deficit;Knee(s) blocked;Verbal cues Other Transfer Type: Stand pivot Other Transfer: Assistance Level: Moderate assist;x2 people;From;Bed;To;Bedside chair Other Transfer: Assistive Device: Hand hold assist Other Transfer: Type of Assistance: For balance;For safety considerations;For st rength deficit;Knee(s) blocked;Verbal cues End of Activity Status: Up in chair;Instructed patient to use call light;Nursing notified;Instructed patient to request assist with mobility Transfer Comments: Patient completes sit to stands with moderate assist x2 hand hold. Able to pivot with moderate assist x2, no knee buckling noted. Sitting Balance: Standby assist Standing Balance: Moderate assist;x2 people;2 UE support;Static standing balance Activity Tolerance Endurance: 3/5 Tolerates 25-30 Minutes Exercise w/Multiple Rests Cognition Overall Cognitive Status: WFL to Adequately Complete Self Care Tasks Safely Attention: Awake/Alert UE PROM Grasp: R Weakened;L Weakened ROM Comments: BUE weakness, R weaker than L. Patient did not attempt coordinatio n activity, says "it's bad". Sensory Comment: BUE sensory deficits. Mild UE tremors noted this date. UE Strength / Tone Strength Comments: BUEs weak however patient reports improvement since surgery Education Persons Educated: Patient Teaching Methods: Verbal Instruction Patient Response: Verbalized Understanding Topics: Role of OT, Goals for Therapy Goal Formulation: With Patient Assessment Assessment: Decreased ADL Status;Decreased Endurance;Decreased UE Strength;Decre ased UE ROM;Decreased Fine Motor Coordination;Decreased Self-Care Trans;Decrease d High-Level ADLs Prognosis: Good;w/Cont OT s/p Acute Discharge Goal Formulation: Patient AM-PAC 6 Clicks Daily Activity Inpatient Putting on and taking off regular lower body clothes: Total Bathing (Including washing, rinsing, drying): Total Toileting, which includes using toilet, bedpan, or urinal: Total Putting on and taking off regular upper body clothing: A Lot Taking care of personal grooming such as brushing teeth: A Lot Eating meals: A Little Daily Activity Raw Score: 10 Standardized (T-scale) Score: 27.31 Plan OT Frequency: 5x/week OT Plan for Next Visit: EOB ADLs vs stand pivot and roll chair to sink for stand ing ADLs, further assess UEs Further Evaluation Goals Pt Will Tolerate Further ADL Evaluation: w/in 3-5 sessions ADL Goals Patient Will Perform All ADL's: w/ Minimal Assist Functional Transfer Goals Pt Will Perform All Functional Transfers: Minimum Assist OT Discharge Recommendations Recommendation: Inpatient setting Patient Currently Requires Physical Assist With: All mobility;All personal care ADLs;All home functioning ADLs Therapist: Sherrie Molina OTR/Bjorn [id number] Date: 12/16/2022 D BANK CUSTODIAN * Lien Brock, PT - 12/16/2022 1:40 PM CST PHYSICAL THERAPY ASSESSMENT Name: Jose Wilson : 1960 Age: 62 y.o. Admission Date: 12/12/2022 LOS: 4 days Date of Service: 12/16/2022 Mobility Patient Turn/Position: Chair Progressive Mobility Level: Active transfer to chair Level of Assistance: Assist X2 Assistive Device: Hand Held Activity Limited By: Weakness Subjective Significant hospital events: 62 y.o. male with pmhx of COPD, CAD s/p stent who p resents in transfer for further management of progressive BUE/BLE weakness x1 mo nth per chart review. Per chart review, MRI showed possible C3/4 myelomalacia. N ow S/P C 3-6 PCF Mental / Cognitive Status: Alert;Oriented;Cooperative;Follows Commands Persons Present: Occupational Therapist Pain: Patient complains of pain;07/26 ("05/08") Pain Location: Neck;Post-surgical Pain Description: Aching Pain Interventions: Patient pre-medicated;Patient agrees to participate in thera py;Patient assisted into position of comfort Precautions: Back Safety;Cervical Collar on when Out of Bed (refuses to wear C-C ollar, Neurosurgery aware) Ambulation Assist: Assist Needed with Mobility-Related ADL's/Ambulation Patient Owned Equipment: 4-Wheeled Walker;Manual Wheelchair;Single Point Cane Home Situation: Lives with Family (with girlfirend) Type of Home: House Entry Stairs: 3-5 Stairs;Rail on 1 Side (5 steps to enter, also has a ramp) In-Home Stairs: 1-2 Stairs (1 step down to living) Comments: Patient reports that he was getting progressively weaker and needing m ore assist for mobility prior to admission. He originally used a cane and then s witched to w 4 wheeled walker and then a wheelchair ROM R LE ROM: WFL L LE ROM: WFL ROM Comments: BUE weakness, R weaker than L. Patient did not attempt coordinatio n activity, says "it's bad". Strength R LE Strength: (Grossly 3/5) L LE Strength: (Grossly 3/5) Strength Comments: Improved LE strength post operatively Posture/Neurological Head Control: Independent Posture: Forward head;Rounded shoulders Bed Mobility/Transfer Bed Mobility: Supine to Sit: Moderate Assist;x2 People;Assist with Trunk;Assist with B LE Comments: Patient tolerated sitting edge of bed with minimal to contact guard as sist Transfer Type: Sit to Stand Transfer: Assistance Level: To/From;Bed;Moderate Assist;x2 People Transfer: Assistive Device: Hand Hold Assist Transfers: Type Of Assistance: For Balance;For Strength Deficit;For Safety Consi derations Other Transfer Type: Stand Pivot Other Transfer: Assistance Level: From;Bed;To;Bed Side Chair;Moderate Assist;x2 People Other Transfer: Assistive Device: Hand Hold Assist Other Transfer: Type Of Assistance: For Balance;For Strength Deficit;For Safety Considerations End Of Activity Status: Up in Chair;Nursing Notified;Instructed Patient to Reque st Assist with Mobility;Instructed Patient to Use Call Light (chair alarm activa allie, lift sling under patient) Balance Sitting Balance: Static Sitting Balance;2 UE Support;Minimal Assist Standing Balance: Static Standing Balance;2 UE support;Moderate Assist;x2 People Gait Activity Limited By: Complaint of Pain;Complaint of Fatigue;Weakness Comments: Unable to initiate steps for gait this date but able to perform few sc oot steps to chair Activity/Exercise Sit Edge Of Bed: 10 minutes Sit Edge Of Bed Assist: Minimal Assist (CGA) Stand At Bedside : 1 minutes Stand At Bedside Assist: Moderate Assist;x2 People Education Persons Educated: Patient Patient Barriers To Learning: Cognitive Deficits Interventions: Repetition of Instructions Teaching Methods: Verbal Instruction Patient Response: Verbalized Understanding;More Instruction Required Topics: Plan/Goals of PT Interventions;Use of Assistive Device/Orthosis;Mobility Progression;Precautions;Safety Awareness;Up with Assist Only;Importance of Incr easing Activity;Recommend Continued Therapy Assessment/Progress Impaired Mobility Due To: Decreased Strength;Pain;Impaired Balance;Safety Concer ns;Decreased Activity Tolerance;Medical Status Limitation;Post Surgical Changes Assessment/Progress: Should Improve w/ Continued PT AM-PAC 6 Clicks Basic Mobility Inpatient Turning from your back to your side while in a flat bed without using bed rails: A Little Moving from lying on your back to sitting on the side of a flat bed without usin g bedrails : Total Moving to and from a bed to a chair (including a wheelchair): Total Standing up from a chair using your arms (e.g. wheelchair, or bedside chair): To marquise To walk in hospital room: Total Climbing 3-5 steps with a railing: Total Basic Mobility Inpatient Raw Score: 8 Standardized (T-scale) Score: 22.61 Goals Goal Formulation: With Patient Time For Goal Achievement: 4 days, To, 6 days Patient Will Go Supine To/From Sit: Independently, w/ Stand By Assist Patient Will Transfer Sit to Stand: Independently, w/ Stand By Assist Patient Will Ambulate: 151-200 Feet, w/ Walker, w/ Minimal Assist Patient Will Go Up / Down Stairs: 3-5 Stairs, w/ Minimal Assist Plan Treatment Interventions: Mobility Training;Strengthening;Balance Activities;Endu alejandra Training;Neuromuscular Reeducation Plan Frequency: 5 Days per Week PT Plan for Next Visit: Continue to work on standing tolerance and steps to molly r. Trial ambulation in walking pants vs. [place] PT Discharge Recommendations Recommendation: Inpatient setting Patient Currently Requires Physical Assist With: All mobility Therapist Lien Brock, PT Date 12/16/2022 D BANK CUSTODIAN * Yaa Duke, RD - 12/16/2022 11:52 AM CST CLINICAL NUTRITION Clinical Nutrition Initial Assessment Name: Jose Wilson : 1960 Age: 62 y.o. Admission Date: 12/12/2022 LOS: 4 days Date of Service: 12/16/2022 Recommendation: Continue regular diet. Encourage po intake at least BID & snacks between po attempts Please remind pt to order at meal times Please offer unit snacks & milk cartons between meals & when meal trays are not ordered Comments: Jose Wilson is a 62 y.o. male with PMH of COPD, CAD s/p stent who presents in [facility] for further management of progressive BUE/BLE weakness x1 month per [facility] t review. S/p fusion spine posterior 12/15. RD flagged for MST score. Has only ord ered 2 meals during admission. Also, off/on NPO diet orders. Saw pt today who re ported appetite is present/doing fine. Reported eating elaine crackers + coffee this AM & elaine crackers last night. At baseline, pt only eats 1 meal/day, sometimes snacks (candy bars). Working on increasing meal intake to 2/day. Dislikes ONS products, though enjoys milk. Denied issues with n/v. Experiencing constipation, last BM 2 weeks ago. Per EMR, pt refused bowel regimen (x3) today. Denied unintentional wt loss signal worker. UBW is 265#. Mentioned weighing 324# a few years ago, had been trying to intentionally lose wt. No wt hx available in EMR. Encouraged pt to increase po intake to at least 2 meals/day + snacks between po attempts. Discussed importance of adequate protein intake to help with healing & reviewed examples of protein sources. Encouraged pt to order a meal tray soon & reviewed examples of protein containing meals he could try. Pt is at acute nutr ition risk d/t inadequate energy intake. Will continue to follow. Nutrition Assessment of Patient: Admit Weight: 122 kg (source unknown); ; Desired Weight: 85.5 kg BMI (Calculated): 35.48; BMI Categories Adult: Obesity Class II: 35-39.9; Appear ance: Obese Pertinent Allergies/Intolerances: NKFA per EMR and pt report Pertinent Labs: reviewed; Pertinent Meds: reviewed; Oral Diet Order: Regular; Current Oral Intake: Inadequate Estimated Calorie Needs: 3665-7196 kcal (25-30 kcal/kg dbw) Estimated Protein Needs: 94-111g (1.1-1.3 g/kg dbw) Malnutrition Assessment: Does not meet criteria Nutrition Focused Physical Assessment: Loss of Subcutaneous Fat: No; ; Muscle Wasting: No; ; Edema: (non-pitting, all extremities); ; Pressure Injury: none Comment: +BM signal worker (2 weeks ago, per pt) Nutrition Diagnosis: Inadequate protein-energy intake Etiology: Limited po attempts Signs & Symptoms: Pt interview, review of meal ticket hx Intervention / Plan: Encouraged po intake, protein at meals/snacks Monitor po intake, wt trends, labs, I/Os Goals: Patient to consume >75% of meals Time Frame: Within _ days (4) GONZALEZ Leon, YAKOVN, LD Available on [facility] Office: [phone] D BANK CUSTODIAN * La Nena Mohr APRN-S[employer]ET [employer] - 12/16/2022 10:11 AM CST Neurosurgery Progress Note Admission Date: 12/12/2022 LOS: 4 days S: No acute events noted overnight. Denies needs at this time. States not wantin g to wear the cervical collar because it causes increase pain. States otherwise post operative pain well managed. He is hopeful to d/c home tomorrow. O: Vital Signs: 24 Hour Range BP: (101-141)/(54-84) ABP: (114-136)/(36-45) Temp: [36.7 C (98 F)-37.2 C (98.9 F)] Pulse: [64-82] Respirations: [9 PER MINUTE-18 PER MINUTE] SpO2: [86 %-100 %] O2 Device: None (Room air) O2 Liter Flow: 3 Lpm Physical Exam: Awake, sitting in the chair Oriented to person, place and time VALLADARES to command Antigravity strength times 4 Surgical site - C/D/I with silverlon dressing A/P: 62 y.o. male Principal Problem: Weakness VSS, afebrile Hgb 10.7 - will monitor Cervical films completed Drain output - 120 ml since surgery - serosanguinous D/c cha - monitor voids Up with assist PT/OT eval pending Prophylaxis: A) GI: PPI B) Lines: No C) Urinary Catheter: No D) Antibiotic Usage: No E) VTE: Pharmacological prophylaxis; SQ Heparin and Mechanical prophylaxis; Seq uential compression device F) Restraints: Patient assessed for need for restraints. Please page [phone] with any questions. STEPHANIE Llanos Voalte me D BANK CUSTODIAN * Thomas Das SRNA - 12/16/2022 9:44 AM CST Anesthesia Follow-Up Evaluation: Post-Procedure Day One Name: Jose Wilson : 1960 Age: 62 y.o. Sex: male Procedure Date: 12/15/2022 Procedure: Procedure(s) with comments: FUSION SPINE POSTERIOR - CERVICAL BELOW CERVICAL 2 - 3.3 hrs, C3-6 PCF and decom pression, globus, jose table/yogi frame, 2 drills/2 bovies, bracey Physical Assessment Height: 185.4 cm (6' 1") Weight: 122 kg (268 lb 15.4 oz) Vital Signs (Last Filed in 24 hours) BP: 119/54 (12/16 816) Temp: 36.7 C (98 F) (12/16 816) Pulse: 75 (12/16 816) Respirations: 18 PER MINUTE (12/16 816) SpO2: 97 % (12/16 816) O2 Device: None (Room air) (12/16 820) O2 Liter Flow: 3 Lpm (12/15 2048) SpO2 Pulse: 70 (12/15 1929) Patient History Allergies Allergies Allergen Reactions Methadone HALLUCINATIONS Biaxin [Clarithromycin] NAUSEA ONLY Flexeril [Cyclobenzaprine] NAUSEA AND VOMITING Medications Scheduled Meds:ceFAZolin (ANCEF) IVP 2 g, 2 g, Intravenous, Q8H* docusate (COLACE) capsule 100 mg, 100 mg, Oral, BID lidocaine (LIDODERM) 5 % topical patch 1 patch, 1 patch, Topical, QDAY methocarbamoL (ROBAXIN) tablet 750 mg, 750 mg, Oral, TID milk of magnesium oral suspension 30 mL, 30 mL, Oral, QDAY nicotine (NICODERM CQ) 21 mg/day patch 1 patch, 1 patch, Transdermal, QDAY senna/docusate (SENOKOT-S) tablet 1 tablet, 1 tablet, Oral, BID Continuous Infusions: sodium chloride 0.9 % infusion Stopped (12/15/221808) PRN and Respiratory Meds:acetaminophen Q4H PRN, diazePAM Q6H PRN, fentaNYL citra te PF Q4H PRN, ipratropium-albuterol PRN, lactulose TID PRN, melatonin QHS PRN, ondansetron (ZOFRAN) IV Q6H PRN, oxyCODONE Q4H PRN Diagnostic Tests Hematology: Lab Results Component Value Date HGB 10.7 12/16/2022 HCT 32.4 12/16/2022 PLTCT 154 12/16/2022 WBC 10.1 12/16/2022 NEUT 73 12/15/2022 ANC 6.10 12/15/2022 ALC 1.28 12/15/2022 TOMAS 10 12/15/2022 AMC 0.85 12/15/2022 EOSA 2 12/15/2022 ABC 0.03 12/15/2022 MCV 85.3 12/16/2022 MCH 28.3 12/16/2022 MCHC 33.2 12/16/2022 MPV 8.7 12/16/2022 RDW 16.5 12/16/2022 General Chemistry: Lab Results Component Value Date NA 140 12/15/2022 K 4.1 12/15/2022 CL 104 12/15/2022 CO2 24 12/15/2022 GAP 12 12/15/2022 BUN 22 12/15/2022 CR 1.16 12/15/2022 GLU 125 12/15/2022 CA 9.3 12/15/2022 Coagulation: No results found for: PT, PTT, INR Follow-Up Assessment Patient location during evaluation: floor Anesthetic Complications: Anesthetic complications: The patient did not experience any anesthestic complic ations. Pain: Management:adequate Level of Consciousness: awake Hydration:acceptable Airway Patency: patent Respiratory Status: acceptable and room air Cardiovascular Status:acceptable Regional/Neuroaxial: Comments: Pt resting comfortably in room, denies nausea/vomiting, tolerating PO intake, and adequate pain control. Pt has no anesthesia questions or concerns. D BANK CUSTODIAN * Gareth Banegas RN - 12/16/2022 7:59 AM CST Pt. Refusing C-collar. Education provided by this RN. D BANK CUSTODIAN * Stephie Brown APRN-NP - 12/15/2022 10:20 AM CST Neurosurgery Progress Note Admission Date: 12/12/2022 LOS: 3 days S: No acute events noted overnight. States that he is ready for the OR. O: Vital Signs: 24 Hour Range BP: (122-158)/(48-79) Temp: [36.4 C (97.5 F)-36.8 C (98.2 F)] Pulse: [64-73] Respirations: [16 PER MINUTE-18 PER MINUTE] SpO2: [92 %-97 %] O2 Device: None (Room air) Physical Exam: Awake and resting in bed Oriented to person, place and time VALLADARES to command A/P: 62 y.o. male Principal Problem: Weakness Continue current care Labs reviewed: >Hgb 12.8; Plt 155 >WBC 8.4 >NA 140 Cervical collar with ambulation Up with assist Pain control PRN Surgical Planning -- OR today for PCF Prophylaxis: A) GI: PPI B) Lines: No C) Urinary Catheter: No D) Antibiotic Usage: No E) VTE: Mechanical prophylaxis; Sequential compression device F) Restraints: Patient assessed for need for restraints. Please page [phone] with any questions. STEPHNAIE Dhillon Voalte me D BANK CUSTODIAN * Isaiah Cha RT - 12/15/2022 9:19 AM CST RT Adult Assessment Note NAME:Jose Wilson :1960 AGE : 62 y.o. ADMISSION DATE: 12/12/2022 DAYS ADMITTED: LOS: 3 days RT Treatment Plan: Protocol Plan: Medications Combivent Respimat: PRN Protocol Plan: Procedures CPAP/BiPAP: CPAP SpO2: Continuous (Document SpO2 result Qshift) (refuses pulse ox) Additional Comments: Impressions of the patient: Patient resting comfortable on RA. No soa noted or e ndorsed at this time. Vital Signs: Pulse: 64 RR: 18 PER MINUTE SpO2: 94 % O2 Device: None (Room air) Liter Flow: O2%: Breath Sounds: Respiratory Effort: D BANK CUSTODIAN * La Nena Mohr, PLATE COLORER-SHEET [employer] SMITH - 12/14/2022 8:38 AM CST Neurosurgery Progress Note Admission Date: 12/12/2022 LOS: 2 days S: No acute events noted. Patient agreeable to surgery tomorrow. States did not sleep well the past couple nights. States lacks appetite. He does feel strength is improved in the LE today. O: Vital Signs: 24 Hour Range BP: (139-163)/(64-78) Temp: [36.6 C (97.9 F)-36.9 C (98.4 F)] Pulse: [64-69] Respirations: [16 PER MINUTE-18 PER MINUTE] SpO2: [92 %-99 %] O2 Device: None (Room air) Physical Exam: Awake and resting in bed Oriented to person, place and time VALLADARES to command Antigravity strength at bed level in all extremities A/P: 62 y.o. male Principal Problem: Weakness Diet as tolerate - NPO at midnight for planned surgery Planning PCF on 12/15/22 Labs in am for surgery Cervical collar with ambulation - patient refuse - stating uncomfortable Up with assist Continue lidocaine patches and Robaxin - states pain is improved today States post operative would like to go home before the weekend, states will not go to SNF or rehab post operative Total Time Today was 25 minutes in the following activities: Preparing to see e patient, Obtaining and/or reviewing separately obtained history, Performing a medically appropriate examination and/or evaluation, Counseling and educating e patient/family/caregiver, Ordering medications, tests, or procedures, Document ing clinical information in the electronic or other health record and Care coord ination (not separately reported) Prophylaxis: A) GI: PPI B) Lines: No C) Urinary Catheter: No D) Antibiotic Usage: No E) VTE: Mechanical prophylaxis; Sequential compression device F) Restraints: Patient assessed for need for restraints. Please page [phone] with any questions. STEPHANIE Llanos Voalte me DE JESUS * Augustina Vargas RN - 12/13/2022 9:34 PM CST Patient continues to refuse to wear the [place] collar, have educated on risks of not wearing collar and that he could possibly cause further damage. Patient voic ed understanding. Still refused. Patient is still also refusing his oxygen, he s tates he doesn't wear it at home and isn't going to wear it here. Patient again educated on on risks of not wearing oxygen. Voiced understanding. La Nena Brandt APRN-NP - 12/13/2022 8:31 AM CST Neurosurgery Progress Note Admission Date: 12/12/2022 LOS: 1 day S: No acute events noted. Patient threaten to throw object in room if unable to have surgery today. He also threatens to leave AMA. Patient made aware that will discuss with surgeon on timing of surgery based on OR and surgeon availability. His weakness started 3 months ago. Currently he denies radicular pain, cervical spine pain. He endorses low back pain, LE weakness and RUE weakness. O: Vital Signs: 24 Hour Range BP: (136-142)/(67-74) Temp: [36.8 C (98.3 F)-37.4 C (99.3 F)] Pulse: [69-77] Respirations: [18 PER MINUTE-20 PER MINUTE] SpO2: [91 %-99 %] O2 Device: None (Room air) O2 Liter Flow: 3 Lpm Physical Exam: Awake and resting in bed Oriented to person, place and time VALLADARES to command Able to lift LUE off the bed without difficulty Able to lift RUE off the bed without difficulty but only to shoulder level not a cristine Able to lift legs bilateral off bed - states leg weakness with ambulation A/P: 62 y.o. male Principal Problem: Weakness Diet as tolerate Planning OR 12/15/22 Cervical collar with ambulation MRI C/T/L spine being clouded from outside facility Up with assist Will add lidocaine patches and Robaxin for better pain control Total Time Today was 25 minutes in the following activities: Preparing to see th e patient, Obtaining and/or reviewing separately obtained history, Performing a medically appropriate examination and/or evaluation, Counseling and educating th e patient/family/caregiver, Ordering medications, tests, or procedures, Document ing clinical information in the electronic or other health record and Care coord ination (not separately reported) Prophylaxis: A) GI: PPI B) Lines: No C) Urinary Catheter: No D) Antibiotic Usage: No E) VTE: Mechanical prophylaxis; Sequential compression device F) Restraints: Patient assessed for need for restraints. Please page [phone] with any questions. STEPHANIE Llanos Voalte me D BANK CUSTODIAN * Rocio Kay, RT - 12/13/2022 12:03 AM CST RT Adult Assessment Note NAME:Jose Wilson :1960 AGE : 62 y.o. ADMISSION DATE: 12/12/2022 DAYS ADMITTED: LOS: 1 day RT Treatment Plan: Protocol Plan: Medications Combivent Respimat: PRN Protocol Plan: Procedures PEP Therapy: Place a nursing order for "IS Q1h While Awake" for any of Lung Expa nsion indicators Oxygen/Humidity: O2 to keep SpO2 > 92%, if on room air for > 24 hours and no other RT modalities are required, then D/C protocol CPAP/BiPAP: CPAP SpO2: BID & PRN Additional Comments: Impressions of the patient: Patient resting in bed, able to answer all questions , does not want breathing Txs ordered, does not want a CPAP, does not take home breathing treatments like he's suppose to according to patient, complains his n ose is stuffy, does not want COPD education, states he smokes two packs a day an d will not quit because he likes them too much. Intervention(s)/outcome(s): Care plan for above, IS, wean oxygen to home baselin e (Room air), encourage CPAP for night use. Patient education that was completed: None at this time Recommendations to the care team: None at this time Vital Signs: Pulse: 75 RR: 19 PER MINUTE SpO2: 99 % O2 Device: Nasal cannula Liter Flow: 3 Lpm O2%: Breath Sounds: Respiratory Effort: Non-Labored;SOA (Short of air) on exertion D BANK CUSTODIAN documented in this encounter H&P Notes * Alonzo Clemente MD - 12/12/2022 5:54 PM CST Neurosurgery History and Physical Examination Jose Wilson Admission Date: (Not on file) Assessment/Plan: Jose Wilson is a 62 y.o. male with pmhx of COPD, CAD s/p stent who presents in transfer for further management of progressive BUE/BLE weakness x1 month per [facility] review. Per chart review, MRI showed possible C3/4 myelomalacia. Pt states th at he has had progressive weakness in his arms and legs since Aug 2022 when he s ustained a fall where he hit his neck. He denies any interval falls. He states t hat his weakness was stable until Oct 2022 at which time he felt his weakness ag ain became progressive. He presented to multiple OSH including the [facility] with difficulty standing up getting around the house. He denies any new sens ory changes or changes in bladder/bowel function. He has had BUE weakness since his fall in Aug that he feels is worse. FULLER BRUSH MAN ASA81 which he states he last took 4 years ago. He denies any other FULLER BRUSH MAN AC/A P agents. 2 packs/day x 9 yr tobacco use. Denies any prior brain/spine surgery. On exam, he has 4/5 weakness proximally in the BUE and 2-3/5 weakness distally i n the BUE. He has 4/5 R HF otherwise grossly 5/5 strength in the BUE at the bed level. No clonus/babinski. No hodges. Reflexes symmetric and wnl. SILT. Peeling /dry skin noted on her shins which he states is chronic. No imaging available for review. He came with imaging on disks that is currently being uploaded into the PACS system. - NPO at midnight, IVF while NPO - C spine precautions until MRI is reviewed - PRNs available for pain/nausea - admission labs __ Chief Complaint: Chronic progressive BUE and BLE weakness, remote fall History of Present Illness: Jose Wilson is a 62 y.o. male with pmhx of COPD, CAD s/p stent who presents in transfer for further management of progressive BUE/BLE weakness x1 month per [facility] rt review. Per chart review, MRI showed possible C3/4 myelomalacia. Pt states th at he has had progressive weakness in his arms and legs since Aug 2022 when he s ustained a fall where he hit his neck. He denies any interval falls. He states t hat his weakness was stable until Oct 2022 at which time he felt his weakness ag ain became progressive. He presented to multiple OSH including the [facility] with difficulty standing up getting around the house. He denies any new sens ory changes or changes in bladder/bowel function. He has had BUE weakness since his fall in Aug that he feels is worse. Past Medical History: No past medical history on file. As noted above Past Surgical History: No past surgical history on file. Denies any prior brain or spine surgery Social History: 2pack/day x 9 yr smoking hx Denies any alcohol or other illict drug use Family History: No family history on file. Allergies: Patient has no allergy information on record. Medications: No medications prior to admission. Review of Systems: Full 10 point review of systems negative except for HPI Physical Exam: Vital Signs: Last Filed In 24 Hours Vital Signs: 24 Hour Range General appearance: No acute distress Lungs: Clear to auscultation bilaterally Heart: Regular rate and rhythm Gastrointestinal: Soft, non-tender. Bowel sounds normal. no masses, no organome blessing Musculoskeletal: No edema, redness or tenderness in the calves or thighs Skin: Integument intact without major lesion. Peeling/dry skin noted on her hines s which he states is chronic. Psychiatric: Normal affect Neurologic Exam: Mental Status: Awake, alert and oriented x 3, fluent speech, normal cognition, 3 /3 5 min recall Pupils: Pupils equal round and reactive to light Cranial Nerves: CN II-XII individually tested and found to be intact, gag not te sted Motor: AA EF EE WF WE FF FE FA G HF KF KE DF PF EHL Left 4 4 4 3 3 3 3 2 3 5 5 5 5 Right 4- 4 3 3- 3- 3- 2 2 2 4 5 5 5 Normal muscle bulk and tone Sensation: Sensation intact to light touch throughout Deep Tendon Reflexes: Tr Bi Br Pa Ac Left 3 Right 3 Plantar responses toes downgoing bilaterally No clonus bilaterally No hodges's sign bilaterally Lab Tests: Hematology: No results found for: HGB, HCT, PLTCT, WBC, NEUT, ANC, LYMPH, ALC, ABSLYMPHCT, TOMAS, AMC, ABC, BASOPHILS, MCV, MCHC, MPV, RDW General Chemistry: No results found for: NA, K, CL, CO2, BUN, CR, GLU, OBSCA, CA , MG, PO4, FREEPHENY General Chemistry: No results found for: GAP, KETONES, ALBUMIN, LACTIC, TOTBILI, DBILI, BILIIND, TOTBILCB, TOTPROT, LIPASE, DEMETRIO, AST, ALT, ALKPHOS, LDH Radiology and other Diagnostics Review: Pertinent radiology reviewed. Alonzo Clemente MD D BANK CUSTODIAN documented in this encounter Procedure Notes * Ivette Tierney MD - 12/15/2022 5:57 PM CST Neurology intra-Operating Monitoring report (IOM) Date of procedure: 12/15/2022 Diagnosis: Cervical stenosis, cervical myelopathy, weakness Procedure: Posterior spinal fusion cervical to-7 Surgeon: Barbara baseline acquisition time: 1357 Monitoring start time: 1356 Incision time: 1421 Closing started at: 1705 Monitoring stop time: 1748 TcMEP: Trancranial Motor Evoked Potential: Post induction baseline transcranial motor evoked potentials from bilateral delt oid, biceps, triceps, extensor digitorum communis, abductor digiti minimi, tibia lis anterior, and abductor hallucis muscles recorded but was present and only th e left extensor digitorum communis, left abductor digitorum minimi, tibialis ant erior and right tibialis anterior. The MEP's were absent in the remainder of th e muscles. The surgeon was informed. The compound muscle action potential data showed no evidence to suggest change in the lateral cortico-spinal pathways as a consequence of this surgery. SSEP: Somatosensory Evoked Potentials: Post induction baseline somatosensory evoked potentials from bilateral ulnar and posterior tibial nerves were obtained, however were marginal but monitorable in bilateral upper extremities. As far as SSEPs from bilateral lower extremities are concerned they were not reliable and not monitorable. The surgeon was yoseph rivera. The data from neurophysiological monitoring of somatosensory evoked potenti als showed no evidence to suggest change in the posterior column-medial lemniscu s cortical pathways as a consequence of this surgery. EMG: Electromyography: EMG was continuously monitored from bilateral deltoid, triceps, triceps, extenso r digitorum communis, abductor digiti minimi, tibialis anterior and abductor nahomi lucis muscles were obtained and monitored throughout the procedure. There was tr ansient EMG activity in pretty much all the muscles diffusely. The surgeon was informed. Repetitive Nerve Stimulation: TO4 (train of 4) was frequently run throughout the procedure to monitor for neur omuscular blockade. A nerve was repetitively stimulation and the compound motor action potentials (CMAPs) recorded from a distal motor group. TO4 was assessed d uring critical periods of surgery and demonstrated that neuromuscular blockade w as not present while monitoring EMGs and TcMEP. I remotely monitored and supervised this case in real-time, online via a secure HIPAA-compliant network. Ivette Tierney MD Clinical Laser Beam Cutter Department of Neurology D BANK CUSTODIAN documented in this encounter Nursing Notes * Nathalie Venegas, RN - 12/21/2022 1:13 PM CST Jose Wilson Posterior Cervical Fusion Spine Cervical 3-6 on 12/15/2022 with Celso Doe Neurosurgery Discharge Instructions Contact information: Call Neurosurgery if you have questions or are experiencing problems at disc har [phone]. After 5 pm and weekends please call [phone] to reach Neurosurgery on ca ll. Post-operative wound care: Your incision has sutures in place. Your incision may be open to air. You may shower. Use non-medicated soap to wash incision daily, pat dry and leave open to air. Do not submerge (pool/tub) your incision under water at all for 4 weeks. Have someone look at your incision every day. It should look the same or bet ter daily. Do not apply any ointment, cream, or lotions to incision line. Activity restrictions: Avoid pushing, pulling, lifting, or bending more than 10 pounds (about a gal vika of milk). If you hold children, they should be placed in your lap or crawl i nto lap if old enough. Do NOT drive until you are cleared by your physician. Avoid bearing down or straining to have bowel movements. Post-operative pain and medications: Please use your pain medications and muscle relaxers as prescribed. Pain medications can make you constipated. You may take a stool softener and Miralax. Do NOT take Ibuprofen or NSAIDS (Aleve, Motrin, Naproxen) until Doctor appro surendra. Tylenol is approved for pain control. This is available over the counter. Follow up appointment: 12/29/22 Rehab Physician to remove sutures. Please call [phone] with wound concerns. Scheduled appointments: Dec 29, 2022 12:30 PM Telehealth visit with Louann Roman APRN-MARIAH Neurosurgery: [facility] (NeuroSurgery) [address] [facility] [id number] Feb 11, 2023 12:15 PM Telehealth visit with Chidi Jimenez MD Neurosurgery: [facility] (NeuroSurgery) [address] [facility] [id number] Please contact Neurosurgery if you develop any of the following: New or worsening numbness, tingling, or decrease sensation in arms or legs. New or worsening changes in mobility or gait (walking). Fever 101 or greater. Redness, swelling, continuous oozing, fluid collectio n, warmth, or bad odor near the incision site. Intense pain that is getting worse or unrelieved by pain medications or musc le relaxers. Nathalie Venegas RN Clinical Nurse Coordinator Neurosurgery Available via Voalte D BANK CUSTODIAN documented in this encounter OR Notes * Operative Report (Direct Entry) - Daryl Deshpande MD - 12/15/2022 2:21 PM CST OPERATIVE REPORT Name: Jose Wilson is a 62 y.o. male : 1960 DATE OF OPERATION: 12/15/2022 Surgeon(s) and Role: * Chidi Jimenez MD - Primary * Daryl Deshpande MD - Resident - Assisting * Mt Jolly MD - Resident - Assisting Preoperative Diagnosis: Weakness [R53.1] Post-op Diagnosis * Weakness [R53.1] Procedure(s): FUSION SPINE POSTERIOR - CERVICAL BELOW CERVICAL 2 Description and Findings of Operative Procedure: The patient was brought back to the operating room. The patientwas intubated by the anesthesia service. The patient was connected to neuromonitoring to mo nitor SSEPs and MEPs. The patient was placed in a Castellanos headholder. The patientwas placed supine on the Jose table and the table was rotated to tur n the patient prone. All pressure points were carefully padded.The area wa s prepped and draped in the standard sterile fashion. A timeout was performed. The skin was infiltrated with 1% lidocaine with epinephrine. A10 blade scalp el was used to make skin incision. Dissection was carried down through the sub cutaneous tissue to the level of the fascia. Using a subperiosteal dissection, the muscle was removed from the lamina. An x-ray was obtained demonstrating t he appropriate operative levels. Further dissection was carried out to expose th e lateral masses of C3-7. The high speed drill was then used to drill troughs on either side of the lamina from C3-C6. A Leksell was then used to remove the entire segment of bone. The thecal sac was well decompressed. Hemostasis was then achieved with bipolar el ectrocautery and Floseal. A airplane pilot photogrammetry hole was drilled using a high speed drill in the right lateral mass of C 3 1 mm inferior from the midpoint. Using a drill and drill guide, the lateral mass was drilled 20 degrees laterally and 20 degrees superiorly and appropriate bony trajectory was confirmed with a probe. The trajectories were then tapped to 14 mm. This was repeated for C3 on the left and right C4-6. The screws were a ll 3.5 x 14 mm. The screw at C5 on the left would not hold, even after attempti ng to place a rescue screw, so this level was skipped. A 90 mm rode on the left and 80 mm length tristan on the right were placed and then held into place with screw caps. These were torqued to appropriate pressure. Allograft and Megnetos was placed over decorticated bones. FloSeal was then placed over the spinal cord. Hemostasis was then achieved usi ng bipolar electrocautery. A hemovac drain was then tunneled underneath the fa cisa. Attention was then turned to closure. The fascial layer was closed with interr upted 0-0 vicryl suture. Next, the subcutaneous layer was closed was closed us ing interrupted 2-0 vicryl sutures. The skin was closed with a running 3-0 Nyl onl. A silk stitch was used to hold the hemovac drain in place. The incision was dressed in the standard sterile dressing. All sponge counts, needle counts, and instrument counts were correct at the end of the case x2. The patient was extubated in the operating room and taken in sta ble condition to PACU. Estimated Blood Loss: No blood loss documented. Specimen(s) Removed/Disposition: * No specimens in log * Complications: None Implants: Implant Name Serial No. Boxing Promoter Lot No. LRB No. Used Action GRAFT BONE SUBSTITUTE FLEX MATRIX SMALL MAGNETOS - [id number] [employer] s AG [id number] N/A 1 Implanted CAP LOCKING QUARTEX SPINE THREAD - SNA NA Medical Envelope NA N/A 10 Implanted SCREW BONE 3.5MM 14MM QUARTEX SPINE POLYAXIAL - SNA NA Medical Envelope NA N/A 10 Implanted TRISTAN SPINAL 90MM 4MM CURVE - SNA NA Medical Envelope NA N/A 1 Implanted TRISTAN SPINAL 85MM 4MM CURVE - SNA NA [employer] NA N/A 1 Implanted Drains: Hemovac: 0 mL Disposition: PACU - stable Daryl Deshpande MD Pager [phone] D BANK CUSTODIAN Associated attestation - Chidi Jimenez MD - 12/19/2022 9:53 PM BLOOD BANK CUSTODIAN The cohn portion of this procedure was performed in my presence. documented in this encounter Miscellaneous Notes * Care Plan - Gareth Banegas RN - 12/17/2022 3:24 PM CST Problem: Discharge Planning Goal: Participation in plan of care Outcome: Goal Ongoing Goal: Knowledge regarding plan of care Outcome: Goal Ongoing Goal: Prepared for discharge Outcome: Goal Ongoing Problem: Skin Integrity Goal: Skin integrity intact Outcome: Goal Ongoing Goal: Healing of skin (Wound & Incision) Outcome: Goal Ongoing Goal: Healing of skin (Pressure Injury) Outcome: Goal Ongoing Problem: Infection, Risk of, Urinary Catheter-Associated Urinary Tract Infection Goal: Absence of urinary catheter-associated infection Outcome: Goal Ongoing Problem: High Fall Risk Goal: High Fall Risk Outcome: Goal Ongoing Problem: Tobacco Use Goal: Knowledge of tobacco-use cessation methods Outcome: Goal Ongoing Problem: Pain Goal: Management of pain Outcome: Goal Ongoing Goal: Knowledge of pain management Outcome: Goal Ongoing Goal: Progress Toward Pain Management Goals Outcome: Goal Ongoing Problem: VTE, Risk of Goal: Absence of venous thrombosis Outcome: Goal Ongoing Goal: Knowledge of warfarin regimen Outcome: Goal Ongoing Problem: Mobility/Activity Intolerance Goal: Maximize functional ADL's and mobility outcomes Outcome: Goal Ongoing Problem: Infection, Risk of, Surgical Site Infection Goal: Absence of surgical site infection Outcome: Goal Ongoing Problem: Urinary Elimination, Impaired/Altered Goal: Absence of urinary incontinence Outcome: Goal Ongoing Goal: Skin intact Outcome: Goal Ongoing Problem: Nutrition Deficit Goal: Adequate nutritional intake Outcome: Goal Ongoing D BANK CUSTODIAN * Care Plan - Halle Perez - 12/16/2022 2:25 PM CST [employer] CONSULTATION ASSESSMENT/RECOMMENDATIONS Patient was referred for [employer] consultation Tobacco Use Treatment Practical Counseling was provided in hospital (including r ecognizing danger situations, developing coping skills and providing basic infor mation about quitting). MEDICATION RECOMMENDATIONS TO QUIT TOBACCO: In-patient quit-tobacco medication: Provided education to patient about availabl e medication and coverage Patient declined using smoking cessation medication at this time Discharge medication options: Provided education to patient about available medi cation and coverage Patient declined using smoking cessation medication at this time Post discharge support referral: Declined [employer] Educational Material: Accepted Materials can also be accessed by crystal dominguez on our website [email or web address] for this consult which was completed during soc ial distancing. History of Present Illness Reports using 40 cigarettes per day. Reports using tobacco within 5 minutes minutes of waking. E-Cigarette or vape use: Never Other tobacco use: None Years used: 53 Withdrawal: No nicotine withdrawal based upon the patients rating on the Dustin alexis Withdrawal Behavior Rating Scale. Patient lives with other smokers or vapers Plan about smoking after patient leaves the hospital: I do not know if I'm going to quit Interest in quitting: Moderate Set a quit date: No Contact Information If I can be of further assistance, please call [facility] [phone] D BANK CUSTODIAN * Care Plan - Gareth Banegas RN - 12/16/2022 11:37 AM CST Problem: Discharge Planning Goal: Participation in plan of care Outcome: Goal Ongoing Goal: Knowledge regarding plan of care Outcome: Goal Ongoing Goal: Prepared for discharge Outcome: Goal Ongoing Problem: Skin Integrity Goal: Skin integrity intact Outcome: Goal Ongoing Goal: Healing of skin (Wound & Incision) Outcome: Goal Ongoing Goal: Healing of skin (Pressure Injury) Outcome: Goal Ongoing Problem: Infection, Risk of, Urinary Catheter-Associated Urinary Tract Infection Goal: Absence of urinary catheter-associated infection Outcome: Goal Ongoing Problem: High Fall Risk Goal: High Fall Risk Outcome: Goal Ongoing Problem: Tobacco Use Goal: Knowledge of tobacco-use cessation methods Outcome: Goal Ongoing Problem: Pain Goal: Management of pain Outcome: Goal Ongoing Goal: Knowledge of pain management Outcome: Goal Ongoing Goal: Progress Toward Pain Management Goals Outcome: Goal Ongoing Problem: VTE, Risk of Goal: Absence of venous thrombosis Outcome: Goal Ongoing Goal: Knowledge of warfarin regimen Outcome: Goal Ongoing Problem: Mobility/Activity Intolerance Goal: Maximize functional ADL's and mobility outcomes Outcome: Goal Ongoing Problem: Infection, Risk of, Surgical Site Infection Goal: Absence of surgical site infection Outcome: Goal Ongoing Problem: Urinary Elimination, Impaired/Altered Goal: Absence of urinary incontinence Outcome: Goal Ongoing Goal: Skin intact Outcome: Goal Ongoing D BANK CUSTODIAN documented in this encounter Plan of Treatment Not on filedocumented as of this encounter Goals Goal Patient Associated Recent Progress Patient-Stat Aut hor Goal Type Problems ed? Decrease pain Hospital On track (12/13/2022 Yes Chelo rolanda Deloris, 5:02 PM BLOOD BANK CUSTODIAN) RN Note: "To get better, get my back fixed and get stronger" documented as of this encounter Procedures Comments Procedure Name Priority Date/Time Associated Diag nosis POC GLUCOSE 12/21/2022 12:10 PM BLOOD BANK CUSTODIAN POC GLUCOSE 12/21/2022 7:48 AM BLOOD BANK CUSTODIAN POC GLUCOSE 12/20/2022 9:02 PM BLOOD BANK CUSTODIAN POC GLUCOSE 12/20/2022 5:36 PM BLOOD BANK CUSTODIAN HC CBC W/ AUTOMATED DIFF Routine 12/19/2022 4:13 AM BLOOD BANK CUSTODIAN HC BASIC METABOLIC PANEL Routine 12/19/2022 4:13 AM BLOOD BANK CUSTODIAN HC CBC W/ AUTOMATED DIFF Routine 12/17/2022 3:46 AM BLOOD BANK CUSTODIAN HC BASIC METABOLIC PANEL Routine 12/17/2022 3:46 AM BLOOD BANK CUSTODIAN CONSULT VASCULAR ACCESS Routine 12/16/2022 TEAM 9:59 AM BLOOD BANK CUSTODIAN HC CBC,AUTOMATED Routine 12/16/2022 4:10 AM BLOOD BANK CUSTODIAN C SPINE 3 VIEWS OR LESS Routine 12/15/2022 10:45 PM BLOOD BANK CUSTODIAN C SPINE 1 VIEW Routine 12/15/2022 3:06 PM BLOOD BANK CUSTODIAN C SPINE 1 VIEW Routine 12/15/2022 2:45 PM BLOOD BANK CUSTODIAN C SPINE 1 VIEW Routine 12/15/2022 2:14 PM BLOOD BANK CUSTODIAN FUSION SPINE POSTERIOR - 12/15/2022 Weakness CERVICAL BELOW C2 1:08 PM BLOOD BANK CUSTODIAN POC GLUCOSE 12/15/2022 11:38 AM BLOOD BANK CUSTODIAN HC BLOOD TYPING, ABO Routine 12/15/2022 CONFIRM 91 3:18 AM BLOOD BANK CUSTODIAN HC CBC W/ AUTOMATED DIFF Routine 12/15/2022 2:59 AM BLOOD BANK CUSTODIAN TYPE & CROSSMATCH Routine 12/15/2022 2:59 AM BLOOD BANK CUSTODIAN HC BASIC METABOLIC PANEL Routine 12/15/2022 2:59 AM BLOOD BANK CUSTODIAN HC CBC W/ AUTOMATED DIFF Routine 12/13/2022 3:57 AM BLOOD BANK CUSTODIAN HC BASIC METABOLIC PANEL Routine 12/13/2022 3:57 AM BLOOD BANK CUSTODIAN MRI L-SPINE EXTERNAL Routine 12/12/2022 IMAGING 12:20 PM BLOOD BANK CUSTODIAN MRI T-SPINE EXTERNAL Routine 12/12/2022 IMAGING 12:15 PM BLOOD BANK CUSTODIAN MRI C-SPINE EXTERNAL Routine 12/12/2022 IMAGING 12:10 PM BLOOD BANK CUSTODIAN TELEMETRY STRIPS-SCAN 12/12/2022 12:00 AM BLOOD BANK CUSTODIAN TELEMETRY STRIPS-SCAN 12/12/2022 12:00 AM BLOOD BANK CUSTODIAN TELEMETRY STRIPS-SCAN 12/12/2022 12:00 AM BLOOD BANK CUSTODIAN TELEMETRY STRIPS-SCAN 12/12/2022 12:00 AM BLOOD BANK CUSTODIAN TELEMETRY STRIPS-SCAN 12/12/2022 12:00 AM BLOOD BANK CUSTODIAN TELEMETRY STRIPS-SCAN 12/12/2022 12:00 AM BLOOD BANK CUSTODIAN TELEMETRY STRIPS-SCAN 12/12/2022 12:00 AM BLOOD BANK CUSTODIAN TELEMETRY STRIPS-SCAN 12/12/2022 12:00 AM BLOOD BANK CUSTODIAN TELEMETRY STRIPS-SCAN 12/12/2022 12:00 AM BLOOD BANK CUSTODIAN TELEMETRY STRIPS-SCAN 12/12/2022 12:00 AM BLOOD BANK CUSTODIAN TELEMETRY STRIPS-SCAN 12/12/2022 12:00 AM BLOOD BANK CUSTODIAN TELEMETRY STRIPS-SCAN 12/12/2022 12:00 AM BLOOD BANK CUSTODIAN documented in this encounter Results * (ABNORMAL) POC GLUCOSE (12/21/2022 12:10 PM BLOOD BANK CUSTODIAN) Pathologist Signature Component Value Ref Test Method Analysis Performed A t Range Time Glucose, POC 318 (H) 70 - 100 12/21/2022 [facility] [place] GE MG/DL 12:11 PM TOWER A BLOOD BANK CUSTODIAN Anatomical Location / Laterality Collection Method / Volume Moises ection Time Received Time Specimen (Source) 12/21/2022 12:10 PM BLOOD BANK CUSTODIAN 12/22/19 12:11 PM BLOOD BANK CUSTODIAN Chidi Jimenez MD OTHER LABORATORY City/State/ZIP Code Phone Number Performing Address Organization [address] A * (ABNORMAL) POC GLUCOSE (12/21/2022 7:48 AM BLOOD BANK CUSTODIAN) Pathologist Signature Component Value Ref Test Method Analysis Performed A t Range Time Glucose, POC 230 (H) 70 - 100 12/21/2022 [facility] [place] GE MG/DL 7:49 AM TOWER A BLOOD BANK CUSTODIAN Anatomical Location / Laterality Collection Method / Volume Moises ection Time Received Time Specimen (Source) 12/21/2022 7:48 AM BLOOD BANK CUSTODIAN 12/22/19 7:49 AM BLOOD BANK CUSTODIAN Chidi Jimenez MD OTHER LABORATORY City/[facility]/ZIP Code Phone Number Performing Address Organization [address] A * (ABNORMAL) POC GLUCOSE (12/20/2022 9:02 PM BLOOD BANK CUSTODIAN) Pathologist Signature Component Value Ref Test Method Analysis Performed A t Range Time Glucose, POC 261 (H) 70 - 100 12/20/2022 [facility] [place] GE MG/DL 9:21 PM TOWER A BLOOD BANK CUSTODIAN Anatomical Location / Laterality Collection Method / Volume Moises ection Time Received Time Specimen (Source) 12/20/2022 9:02 PM BLOOD BANK CUSTODIAN 12/21/19 9:21 PM BLOOD BANK CUSTODIAN Chidi Jimenez MD OTHER LABORATORY City/[facility]/ZIP Code Phone Number Performing Address Organization [address] A * (ABNORMAL) POC GLUCOSE (12/20/2022 5:36 PM BLOOD BANK CUSTODIAN) Pathologist Signature Component Value Ref Test Method Analysis Performed A t Range Time Glucose, POC 409 (H) 70 - 100 12/20/2022 [facility] [place] GE MG/DL 5:39 PM TOWER A BLOOD BANK CUSTODIAN Anatomical Location / Laterality Collection Method / Volume Moises ection Time Received Time Specimen (Source) 12/20/2022 5:36 PM BLOOD BANK CUSTODIAN 12/21/19 5:39 PM BLOOD BANK CUSTODIAN Chidi Jimenez MD OTHER LABORATORY City/State/ZIP Code Phone Number Performing Address Organization [address] A * (ABNORMAL) CBC AND DIFF (12/19/2022 4:13 AM BLOOD BANK CUSTODIAN) Pathologist Signature Component Value Ref Test Method Analysis Performed A t Range Time White Blood Cells 8.6 4.5 - 12/19/2022 [facility] DE PT PATH AND 11.0 7:26 AM LAB MEDICINE K/UL BLOOD BANK CUSTODIAN RBC 3.58 (L) 4.4 - 12/19/2022 [facility] DEPT PAT H AND 5.5 M/UL 7:26 AM LAB MEDICINE BLOOD BANK CUSTODIAN Hemoglobin 10.1 (L) 13.5 - 12/19/2022 [facility] DEPT PAT H AND 16.5 7:26 AM LAB MEDICINE GM/DL BLOOD BANK CUSTODIAN Hematocrit 30.3 (L) 40 - 50 12/19/2022 [facility] DEPT PAT H AND % 7:26 AM LAB MEDICINE BLOOD BANK CUSTODIAN MCV 84.7 80 - 100 12/19/2022 [facility] DEPT PAT H AND FL 7:26 AM LAB MEDICINE BLOOD BANK CUSTODIAN MCH 28.2 26 - 34 12/19/2022 [facility] DEPT PAT H AND PG 7:26 AM LAB MEDICINE BLOOD BANK CUSTODIAN MCHC 33.3 32.0 - 12/19/2022 [facility] DEPT PAT H AND 36.0 7:26 AM LAB MEDICINE G/DL BLOOD BANK CUSTODIAN RDW 16.2 (H) 11 - 15 12/19/2022 [facility] DEPT PAT H AND % 7:26 AM LAB MEDICINE BLOOD BANK CUSTODIAN Platelet Count 205 150 - 12/19/2022 [facility] DEPT PATH AND 400 K/UL 7:26 AM LAB MEDICINE BLOOD BANK CUSTODIAN MPV 9.2 7 - 11 12/19/2022 [facility] DEPT PAT H AND FL 7:26 AM LAB MEDICINE BLOOD BANK CUSTODIAN Neutrophils 75 41 - 77 12/19/2022 [facility] DEPT PAT H AND % 7:26 AM LAB MEDICINE BLOOD BANK CUSTODIAN Lymphocytes 12 (L) 24 - 44 12/19/2022 [facility] DEPT PAT H AND % 7:26 AM LAB MEDICINE BLOOD BANK CUSTODIAN Monocytes 11 4 - 12 % 12/19/2022 [facility] DEPT PAT H AND 7:26 AM LAB MEDICINE BLOOD BANK CUSTODIAN Eosinophils 2 0 - 5 % 12/19/2022 [facility] DEPT PAT H AND 7:26 AM LAB MEDICINE BLOOD BANK CUSTODIAN Basophils 0 0 - 2 % 12/19/2022 [facility] DEPT PAT H AND 7:26 AM LAB MEDICINE BLOOD BANK CUSTODIAN Absolute Neutrophil 6.51 1.8 - 12/19/2022 [facility] DEPT PATH AND Count 7.0 K/UL 7:26 AM LAB MEDICINE BLOOD BANK CUSTODIAN Absolute Lymph Count 1.04 1.0 - 12/19/2022 [facility] DEPT PATH AND 4.8 K/UL 7:26 AM LAB MEDICINE BLOOD BANK CUSTODIAN Absolute Monocyte 0.90 (H) 0 - 0.80 12/19/2022 [facility] DE PT PATH AND Count K/UL 7:26 AM LAB MEDICINE BLOOD BANK CUSTODIAN Absolute Eosinophil 0.15 0 - 0.45 12/19/2022 [facility] DEPT PATH AND Count K/UL 7:26 AM LAB MEDICINE BLOOD BANK CUSTODIAN Absolute Basophil 0.02 0 - 0.20 12/19/2022 [facility] DE PT PATH AND Count K/UL 7:26 AM LAB MEDICINE BLOOD BANK CUSTODIAN Anatomical Location / Laterality Collection Method / Volume Moises ection Time Received Time Specimen (Source) BLOOD / Unknown 12/19/2022 4:13 AM BLOOD BANK CUSTODIAN 12/20/19 4:14 AM BLOOD BANK CUSTODIAN La Nena [place] [employer] LABORATORY ORDERABLES PLATE COLORER-SHEET METAL SMITH [facility]/State/ZIP Code Phone Number Performing [place] [address] [facility] DE[facility] AND [address] [employer] . LAB MEDICINE * (ABNORMAL) BASIC METABOLIC PANEL (12/19/2022 4:13 AM BLOOD BANK CUSTODIAN) Pathologist Signature Component Value Ref Test Method Analysis Performed A t Range Time Sodium 134 (L) 137 - 12/19/2022 [facility] DEPT PAT H AND 147 5:21 AM LAB MEDICINE MMOL/L BLOOD BANK CUSTODIAN Potassium 4.1 3.5 - 12/19/2022 [facility] DEPT PAT H AND 5.1 5:21 AM LAB MEDICINE MMOL/L BLOOD BANK CUSTODIAN Chloride 100 98 - 110 12/19/2022 [facility] DEPT PAT H AND MMOL/L 5:21 AM LAB MEDICINE BLOOD BANK CUSTODIAN CO2 28 21 - 30 12/19/2022 [facility] DEPT PAT H AND MMOL/L 5:21 AM LAB MEDICINE BLOOD BANK CUSTODIAN Anion Gap 6 3 - 12 12/19/2022 [facility] DEPT PAT H AND 5:21 AM LAB MEDICINE BLOOD BANK CUSTODIAN Glucose 287 (H) 70 - 100 12/19/2022 [facility] DEPT PAT H AND MG/DL 5:21 AM LAB MEDICINE BLOOD BANK CUSTODIAN Blood Urea Nitrogen 18 7 - 25 12/19/2022 [facility] DEPT PATH AND MG/DL 5:21 AM LAB MEDICINE BLOOD BANK CUSTODIAN Creatinine 1.08 0.4 - 12/19/2022 [facility] DEPT PAT H AND 1.24 5:21 AM LAB MEDICINE MG/DL BLOOD BANK CUSTODIAN Calcium 9.2 8.5 - 12/19/2022 [facility] DEPT PAT H AND 10.6 5:21 AM LAB MEDICINE MG/DL BLOOD BANK CUSTODIAN eGFR >60 >60 12/19/2022 [facility] DEPT PAT H AND mL/min 5:21 AM LAB MEDICINE BLOOD BANK CUSTODIAN Comment: eGFR calculated using the CKD-EPIcr_R equation Anatomical Location / Laterality Collection Method / Volume Moises ection Time Received Time Specimen (Source) BLOOD / Unknown 12/19/2022 4:13 AM BLOOD BANK CUSTODIAN 12/20/19 4:14 AM BLOOD BANK CUSTODIAN [place] Nena [place] [employer] LABORATORY ORDERABLES PLATE COLORER[employer]SHEET METAL SMITH [facility]/State/ZIP Code Phone Number Performing [place] [address] [facility] DEPT PATH AND [address] LAB MEDICINE * (ABNORMAL) CBC AND DIFF (12/17/2022 3:46 AM BLOOD BANK CUSTODIAN) Pathologist Signature Component Value Ref Test Method Analysis Performed A t Range Time White Blood Cells 11.4 (H) 4.5 - 12/17/2022 [facility] PT PATH AND 11.0 4:29 AM LAB MEDICINE K/UL BLOOD BANK CUSTODIAN RBC 3.62 (L) 4.4 - 12/17/2022 [facility] DEPT PAT H AND 5.5 M/UL 4:29 AM LAB MEDICINE BLOOD BANK CUSTODIAN Hemoglobin 10.1 (L) 13.5 - 12/17/2022 [facility] DEPT PAT H AND 16.5 4:29 AM LAB MEDICINE GM/DL BLOOD BANK CUSTODIAN Hematocrit 30.8 (L) 40 - 50 12/17/2022 [facility] DEPT PAT H AND % 4:29 AM LAB MEDICINE BLOOD BANK CUSTODIAN MCV 85.1 80 - 100 12/17/2022 [facility] DEPT PAT H AND FL 4:29 AM LAB MEDICINE BLOOD BANK CUSTODIAN MCH 27.9 26 - 34 12/17/2022 [facility] DEPT PAT H AND PG 4:29 AM LAB MEDICINE BLOOD BANK CUSTODIAN MCHC 32.8 32.0 - 12/17/2022 [facility] DEPT PAT H AND 36.0 4:29 AM LAB MEDICINE G/DL BLOOD BANK CUSTODIAN RDW 16.5 (H) 11 - 15 12/17/2022 [facility] DEPT PAT H AND % 4:29 AM LAB MEDICINE BLOOD BANK CUSTODIAN Platelet Count 153 150 - 12/17/2022 [facility] DEPT PATH AND 400 K/UL 4:29 AM LAB MEDICINE BLOOD BANK CUSTODIAN MPV 8.9 7 - 11 12/17/2022 [facility] DEPT PAT H AND FL 4:29 AM LAB MEDICINE BLOOD BANK CUSTODIAN Neutrophils 79 (H) 41 - 77 12/17/2022 [facility] DEPT PAT H AND % 4:29 AM LAB MEDICINE BLOOD BANK CUSTODIAN Lymphocytes 10 (L) 24 - 44 12/17/2022 [facility] DEPT PAT H AND % 4:29 AM LAB MEDICINE BLOOD BANK CUSTODIAN Monocytes 10 4 - 12 % 12/17/2022 [facility] DEPT PAT H AND 4:29 AM LAB MEDICINE BLOOD BANK CUSTODIAN Eosinophils 1 0 - 5 % 12/17/2022 [facility] DEPT PAT H AND 4:29 AM LAB MEDICINE BLOOD BANK CUSTODIAN Basophils 0 0 - 2 % 12/17/2022 [facility] DEPT PAT H AND 4:29 AM LAB MEDICINE BLOOD BANK CUSTODIAN Absolute Neutrophil 8.98 (H) 1.8 - 12/17/2022 [facility] DEPT PATH AND Count 7.0 K/UL 4:29 AM LAB MEDICINE BLOOD BANK CUSTODIAN Absolute Lymph Count 1.16 1.0 - 12/17/2022 [facility] DEPT PATH AND 4.8 K/UL 4:29 AM LAB MEDICINE BLOOD BANK CUSTODIAN Absolute Monocyte 1.08 (H) 0 - 0.80 12/17/2022 [facility] DE PT PATH AND Count K/UL 4:29 AM LAB MEDICINE BLOOD BANK CUSTODIAN Absolute Eosinophil 0.10 0 - 0.45 12/17/2022 [facility] DEPT PATH AND Count K/UL 4:29 AM LAB MEDICINE BLOOD BANK CUSTODIAN Absolute Basophil 0.03 0 - 0.20 12/17/2022 [facility] DE PT PATH AND Count K/UL 4:29 AM LAB MEDICINE BLOOD BANK CUSTODIAN Anatomical Location / Laterality Collection Method / Volume Moises ection Time Received Time Specimen (Source) BLOOD / Unknown 12/17/2022 3:46 AM BLOOD BANK CUSTODIAN 12/18/19 3:47 AM BLOOD BANK CUSTODIAN La Nena Mohr LABORATORY ORDERABLES PLATE COLORER-SHEET METAL SMITH City/State/ZIP Code Phone Number Performing [place] [address] [facility] DEPT PATH AND [address] [facility] LAB MEDICINE * (ABNORMAL) BASIC METABOLIC PANEL (12/17/2022 3:46 AM BLOOD BANK CUSTODIAN) Pathologist Signature Component Value Ref Test Method Analysis Performed A t Range Time Sodium 140 137 - 12/17/2022 [facility] DEPT PAT H AND 147 4:52 AM LAB MEDICINE MMOL/L BLOOD BANK CUSTODIAN Potassium 4.1 3.5 - 12/17/2022 [facility] DEPT PAT H AND 5.1 4:52 AM LAB MEDICINE MMOL/L BLOOD BANK CUSTODIAN Chloride 105 98 - 110 12/17/2022 [facility] DEPT PAT H AND MMOL/L 4:52 AM LAB MEDICINE BLOOD BANK CUSTODIAN CO2 27 21 - 30 12/17/2022 [facility] DEPT PAT H AND MMOL/L 4:52 AM LAB MEDICINE BLOOD BANK CUSTODIAN Anion Gap 8 3 - 12 12/17/2022 [facility] DEPT PAT H AND 4:52 AM LAB MEDICINE BLOOD BANK CUSTODIAN Glucose 243 (H) 70 - 100 12/17/2022 [facility] DEPT PAT H AND MG/DL 4:52 AM LAB MEDICINE BLOOD BANK CUSTODIAN Blood Urea Nitrogen 26 (H) 7 - 25 12/17/2022 [facility] DEPT PATH AND MG/DL 4:52 AM LAB MEDICINE BLOOD BANK CUSTODIAN Creatinine 1.44 (H) 0.4 - 12/17/2022 [facility] DEPT PAT H AND 1.24 4:52 AM LAB MEDICINE MG/DL BLOOD BANK CUSTODIAN Calcium 8.7 8.5 - 12/17/2022 [facility] DEPT PAT H AND 10.6 4:52 AM LAB MEDICINE MG/DL BLOOD BANK CUSTODIAN eGFR 55 (L) >60 12/17/2022 [facility] DEPT PAT H AND mL/min 4:52 AM LAB MEDICINE BLOOD BANK CUSTODIAN Comment: eGFR calculated using the CKD-EPIcr_R equation Anatomical Location / Laterality Collection Method / Volume Moises ection Time Received Time Specimen (Source) BLOOD / Unknown 12/17/2022 3:46 AM BLOOD BANK CUSTODIAN 12/18/19 3:47 AM BLOOD BANK CUSTODIAN La Nena Mohr LABORATORY ORDERABLES PLATE COLORER[employer]SHEET METAL SMITH City/State/ZIP Code Phone Number Performing [place] [address] [facility] DE[facility] AND [address] [facility] LAB MEDICINE * (ABNORMAL) CBC (12/16/2022 4:10 AM BLOOD BANK CUSTODIAN) Pathologist Signature Component Value Ref Test Method Analysis Performed A t Range Time White Blood Cells 10.1 4.5 - 12/16/2022 [facility] AND 11.0 4:46 AM LAB MEDICINE K/UL BLOOD BANK CUSTODIAN RBC 3.80 (L) 4.4 - 12/16/2022 [facility] DEPT PAT H AND 5.5 M/UL 4:46 AM LAB MEDICINE BLOOD BANK CUSTODIAN Hemoglobin 10.7 (L) 13.5 - 12/16/2022 [facility] DEPT PAT H AND 16.5 4:46 AM LAB MEDICINE GM/DL BLOOD BANK CUSTODIAN Hematocrit 32.4 (L) 40 - 50 12/16/2022 [facility] DEPT PAT H AND % 4:46 AM LAB MEDICINE BLOOD BANK CUSTODIAN MCV 85.3 80 - 100 12/16/2022 [facility] DEPT PAT H AND FL 4:46 AM LAB MEDICINE BLOOD BANK CUSTODIAN MCH 28.3 26 - 34 12/16/2022 [facility] DEPT PAT H AND PG 4:46 AM LAB MEDICINE BLOOD BANK CUSTODIAN MCHC 33.2 32.0 - 12/16/2022 [facility] DEPT PAT H AND 36.0 4:46 AM LAB MEDICINE G/DL BLOOD BANK CUSTODIAN RDW 16.5 (H) 11 - 15 12/16/2022 [facility] PAT H AND % 4:46 AM LAB MEDICINE BLOOD BANK CUSTODIAN Platelet Count 154 150 - 12/16/2022 [facility] DEPT PATH AND 400 K/UL 4:46 AM LAB MEDICINE BLOOD BANK CUSTODIAN MPV 8.7 7 - 11 12/16/2022 [facility] DE[facility] PAT H AND FL 4:46 AM LAB MEDICINE BLOOD BANK CUSTODIAN Anatomical Location / Laterality Collection Method / Volume Moises ection Time Received Time Specimen (Source) BLOOD / Unknown 12/16/2022 4:10 AM BLOOD BANK CUSTODIAN 12/17/19 4:11 AM BLOOD BANK CUSTODIAN Chidi Jimenez MD LABORATORY ORDERABLES City/State/ZIP Code Phone Number Performing [place] [address] [facility] DEPT PATH AND [address] [facility] LAB MEDICINE * C SPINE 3 VIEWS OR LESS (12/15/2022 10:45 PM BLOOD BANK CUSTODIAN) Modality Anatomical Region Laterality Computed Radiography Spine Anatomical Location / Laterality Collection Method / Volume Moises ection Time Received Time Specimen (Source) 12/16/2022 8:49 AM BLOOD BANK CUSTODIAN Impressions 12/16/2022 8:52 AM BLOOD BANK CUSTODIAN Findings/Impression: The cervical vertebrae are visualized through [...] 12/16/2022 8:49 AM. Narrative 12/16/2022 8:52 AM BLOOD BANK CUSTODIAN Exam: C SPINE 3 VIEWS OR LESS [...] C SPINE 1 VIEW (12/15/2022 3:06 PM BLOOD BANK CUSTODIAN) Modality Anatomical Region Laterality Computed Radiography Spine Anatomical Location / Laterality Collection Method / Volume Moises ection Time Received Time Specimen (Source) 12/15/2022 3:10 PM BLOOD BANK CUSTODIAN Impressions 12/15/2022 3:11 PM BLOOD BANK CUSTODIAN Findings/Impression: Single portable crosstable lateral prone intraoperative cervical radiographs for localization purposes. Metallic retractors superimposing the posterior paraspinal soft tissues. Threaded metallic surgical instrument ejects over the spinous process at the C2 level. Finalized by Yuan Lees DO on 12/15/2022 3:11 PM. Dictated by Yuan Lees DO on 12/15/2022 3:10 PM. Narrative 12/15/2022 3:11 PM BLOOD BANK CUSTODIAN Exam: C SPINE 1 VIEW History: Surgery. [...] ES * C SPINE 1 VIEW (12/15/2022 2:45 PM BLOOD BANK CUSTODIAN) Modality Anatomical Region Laterality Computed Radiography Spine Anatomical Location / Laterality Collection Method / Volume Moises ection Time Received Time Specimen (Source) 12/15/2022 2:52 PM BLOOD BANK CUSTODIAN Impressions 12/15/2022 2:56 PM BLOOD BANK CUSTODIAN Impression: Intraoperative localization as above. Finalized by Gretel Castaneda D.O. on 12/15/2022 2:56 PM. Dictated by Gretel Castaneda D.O. on 12/15/2022 2:52 PM. Narrative 12/15/2022 2:56 PM BLOOD BANK CUSTODIAN C SPINE ONE VIEW History: Surgery. Comparison: Cervical radiograph from earlier the same day. Two lateral crosstable portable intraoperative view of the cervical spine is obtained. The cervical spine is visualized to the level of C3, below this is obscured by the overlying soft tissues. Surgical retraction devices projecting in the posterior soft tissues. Additional surgical probes project over the soft tissues, though accurate level analysis is limited by degree of obscuration. Procedure Note Gretel Castaneda DO - 12/15/2022 C SPINE ONE VIEW History: Surgery. Comparison: Cervical radiograph from earlier the same day. Two lateral crosstable portable intraoperative view of the cervical spine is obtained. The cervical spine is visualized to the level of C3, below this is obscured by the overlying soft tissues. Surgical retraction devices projecting in the posterior soft tissues. Additional surgical probes project over the soft tissues, though accurate level analysis is limited by degree of obscuration. IMPRESSION Impression: Intraoperative localization as above. Finalized by Gretel Castaneda D.O. on 12/15/2022 2:56 PM. Dictated by Gretel Castaneda D.O. on 12/15/2022 2:52 PM. Chidi Jimenez MD DIAGNOSTIC IMAGING ORDERABL ES * C SPINE 1 VIEW (12/15/2022 2:14 PM BLOOD BANK CUSTODIAN) Modality Anatomical Region Laterality Computed Radiography Spine Anatomical Location / Laterality Collection Method / Volume Moises ection Time Received Time Specimen (Source) 12/15/2022 2:36 PM BLOOD BANK CUSTODIAN Impressions 12/15/2022 2:37 PM BLOOD BANK CUSTODIAN Findings/Impression: Single crosstable lateral prone cervical intraoperative radiograph for localization purposes. Linear metallic localization needle superimposing the posterior paraspinal soft tissues, tip projecting at the C2 level. Finalized by Yuan Lees DO on 12/15/2022 2:37 PM. Dictated by Yuan Lees DO on 12/15/2022 2:36 PM. Narrative 12/15/2022 2:37 PM BLOOD BANK CUSTODIAN Exam: C SPINE 1 VIEW History: Surgery. Comparison: External MRI cervical spine 12/12/2022. Procedure Note Yuan Lees DO - 12/15/2022 Exam: C SPINE 1 VIEW History: Surgery. Comparison: External MRI cervical spine 12/12/2022. IMPRESSION Findings/Impression: Single crosstable lateral prone cervical intraoperative radiograph for localization purposes. Linear metallic localization needle superimposing the posterior paraspinal soft tissues, tip projecting at the C2 level. Finalized by Yuan Lees DO on 12/15/2022 2:37 PM. Dictated by Yuan Lees DO on 12/15/2022 2:36 PM. Chidi Jimenez MD DIAGNOSTIC IMAGING ORDERABL ES * (ABNORMAL) POC GLUCOSE (12/15/2022 11:38 AM BLOOD BANK CUSTODIAN) Pathologist Signature Component Value Ref Test Method Analysis Performed A t Range Time Glucose, POC 143 (H) 70 - 100 12/15/2022 [facility] MG/DL 11:41 AM [facility] BLOOD BANK CUSTODIAN Anatomical Location / Laterality Collection Method / Volume Moises ection Time Received Time Specimen (Source) 12/15/2022 11:38 AM BLOOD BANK CUSTODIAN 12/16/19 11:41 AM BLOOD BANK CUSTODIAN Chidi Jimenez MD OTHER LABORATORY City/State/ZIP Code Phone Number Performing [place] [address] A * BLOOD TYPE CONFIRMATION - ORDER ONLY IF REQUESTED BY LAB (12/15/2022 3:18 AM BLOOD BANK CUSTODIAN) Pathologist Signature Component Value Ref Test Method Analysis Performed A t Range Time ABO/RH(D) A NEG 12/15/2022 [facility] DEPT PATH AND 4:11 AM LAB MEDICINE BLOOD BANK CUSTODIAN Anatomical Location / Laterality Collection Method / Volume Moises ection Time Received Time Specimen (Source) BLOOD / Unknown 12/15/2022 3:18 AM BLOOD BANK CUSTODIAN 12/16/19 23 3:37 AM BLOOD BANK CUSTODIAN Chidi Jimenez MD BLOOD BANK ORDERABLES City/State/ZIP Code Phone Number Performing [place] [address] [facility] DE[facility] PATH AND [address] [facility]. LAB MEDICINE * (ABNORMAL) CBC AND DIFF (12/15/2022 2:59 AM BLOOD BANK CUSTODIAN) Pathologist Signature Component Value Ref Test Method Analysis Performed A t Range Time White Blood Cells 8.4 4.5 - 12/15/2022 [facility] PT PATH AND 11.0 3:54 AM LAB MEDICINE K/UL BLOOD BANK CUSTODIAN RBC 4.65 4.4 - 12/15/2022 [facility] DEPT PAT H AND 5.5 M/UL 3:54 AM LAB MEDICINE BLOOD BANK CUSTODIAN Hemoglobin 12.8 (L) 13.5 - 12/15/2022 [facility] DEPT PAT H AND 16.5 3:54 AM LAB MEDICINE GM/DL BLOOD BANK CUSTODIAN Hematocrit 40.5 40 - 50 12/15/2022 [facility] DEPT PAT H AND % 3:54 AM LAB MEDICINE BLOOD BANK CUSTODIAN MCV 86.9 80 - 100 12/15/2022 [facility] DEPT PAT H AND FL 3:54 AM LAB MEDICINE BLOOD BANK CUSTODIAN MCH 27.6 26 - 34 12/15/2022 [facility] DEPT PAT H AND PG 3:54 AM LAB MEDICINE BLOOD BANK CUSTODIAN MCHC 31.8 (L) 32.0 - 12/15/2022 [facility] DEPT PAT H AND 36.0 3:54 AM LAB MEDICINE G/DL BLOOD BANK CUSTODIAN RDW 16.5 (H) 11 - 15 12/15/2022 [facility] DEPT PAT H AND % 3:54 AM LAB MEDICINE BLOOD BANK CUSTODIAN Platelet Count 155 150 - 12/15/2022 [facility] DEPT PATH AND 400 K/UL 3:54 AM LAB MEDICINE BLOOD BANK CUSTODIAN MPV 8.8 7 - 11 12/15/2022 [facility] DEPT PAT H AND FL 3:54 AM LAB MEDICINE BLOOD BANK CUSTODIAN Neutrophils 73 41 - 77 12/15/2022 [facility] DEPT PAT H AND % 3:54 AM LAB MEDICINE BLOOD BANK CUSTODIAN Lymphocytes 15 (L) 24 - 44 12/15/2022 [facility] DEPT PAT H AND % 3:54 AM LAB MEDICINE BLOOD BANK CUSTODIAN Monocytes 10 4 - 12 % 12/15/2022 [facility] DEPT PAT H AND 3:54 AM LAB MEDICINE BLOOD BANK CUSTODIAN Eosinophils 2 0 - 5 % 12/15/2022 [facility] DEPT PAT H AND 3:54 AM LAB MEDICINE BLOOD BANK CUSTODIAN Basophils 0 0 - 2 % 12/15/2022 [facility] DEPT PAT H AND 3:54 AM LAB MEDICINE BLOOD BANK CUSTODIAN Absolute Neutrophil 6.10 1.8 - 12/15/2022 [facility] DEPT PATH AND Count 7.0 K/UL 3:54 AM LAB MEDICINE BLOOD BANK CUSTODIAN Absolute Lymph Count 1.28 1.0 - 12/15/2022 [facility] DEPT PATH AND 4.8 K/UL 3:54 AM LAB MEDICINE BLOOD BANK CUSTODIAN Absolute Monocyte 0.85 (H) 0 - 0.80 12/15/2022 [facility] DE PT PATH AND Count K/UL 3:54 AM LAB MEDICINE BLOOD BANK CUSTODIAN Absolute Eosinophil 0.14 0 - 0.45 12/15/2022 [facility] DEPT PATH AND Count K/UL 3:54 AM LAB MEDICINE BLOOD BANK CUSTODIAN Absolute Basophil 0.03 0 - 0.20 12/15/2022 [facility] DE PT PATH AND Count K/UL 3:54 AM LAB MEDICINE BLOOD BANK CUSTODIAN Anatomical Location / Laterality Collection Method / Volume Moises ection Time Received Time Specimen (Source) BLOOD / Unknown 12/15/2022 2:59 AM BLOOD BANK CUSTODIAN 12/16/19 3:00 AM BLOOD BANK CUSTODIAN La Nena Mohr LABORATORY ORDERABLES PLATE COLORER[employer]SHEET [employer]AL [employer]ITH City/State/ZIP Code Phone Number Performing [place] [address] [facility] DEPT PATH AND [address] [facility] LAB MEDICINE * (ABNORMAL) BASIC METABOLIC PANEL (12/15/2022 2:59 AM BLOOD BANK CUSTODIAN) Pathologist Signature Component Value Ref Test Method Analysis Performed A t Range Time Sodium 140 137 - 12/15/2022 [facility] DEPT PAT H AND 147 4:17 AM LAB MEDICINE MMOL/L BLOOD BANK CUSTODIAN Potassium 4.1 3.5 - 12/15/2022 [facility] DEPT PAT H AND 5.1 4:17 AM LAB MEDICINE MMOL/L BLOOD BANK CUSTODIAN Chloride 104 98 - 110 12/15/2022 [facility] DEPT PAT H AND MMOL/L 4:17 AM LAB MEDICINE BLOOD BANK CUSTODIAN CO2 24 21 - 30 12/15/2022 [facility] DEPT PAT H AND MMOL/L 4:17 AM LAB MEDICINE BLOOD BANK CUSTODIAN Anion Gap 12 3 - 12 12/15/2022 [facility] DEPT PAT H AND 4:17 AM LAB MEDICINE BLOOD BANK CUSTODIAN Glucose 125 (H) 70 - 100 12/15/2022 [facility] DEPT PAT H AND MG/DL 4:17 AM LAB MEDICINE BLOOD BANK CUSTODIAN Blood Urea Nitrogen 22 7 - 25 12/15/2022 [facility] DEPT PATH AND MG/DL 4:17 AM LAB MEDICINE BLOOD BANK CUSTODIAN Creatinine 1.16 0.4 - 12/15/2022 [facility] DEPT PAT H AND 1.24 4:17 AM LAB MEDICINE MG/DL BLOOD BANK CUSTODIAN Calcium 9.3 8.5 - 12/15/2022 [facility] DEPT PAT H AND 10.6 4:17 AM LAB MEDICINE MG/DL BLOOD BANK CUSTODIAN eGFR >60 >60 12/15/2022 [facility] DEPT PAT H AND mL/min 4:17 AM LAB MEDICINE BLOOD BANK CUSTODIAN Comment: eGFR calculated using the CKD-EPIcr_R equation Anatomical Location / Laterality Collection Method / Volume Moises ection Time Received Time Specimen (Source) BLOOD / Unknown 12/15/2022 2:59 AM BLOOD BANK CUSTODIAN 12/16/19 3:00 AM BLOOD BANK CUSTODIAN [place] Nena Mohr LABORATORY ORDERABLES PLATE COLOR[employer]-SHEET [employer] City/State/ZIP Code Phone Number Performing [place] [address] [facility] DE[facility] PATH AND [address] [facility] LAB MEDICINE * TYPE & CROSSMATCH (12/15/2022 2:59 AM BLOOD BANK CUSTODIAN) Pathologist Signature Component Value Ref Test Method Analysis Performed A t Range Time Units Ordered 2 12/15/2022 [facility] DEPT PATH AND 3:12 AM LAB MEDICINE BLOOD BANK CUSTODIAN Crossmatch Expires 12/18/2022,2 12/15/2022 [facility] DEPT PATH AND 359 3:59 AM LAB MEDICINE BLOOD BANK CUSTODIAN Record Check 2ND TYPE 12/15/2022 [facility] DEPT PATH AND REQUIRED 3:12 AM LAB MEDICINE BLOOD BANK CUSTODIAN ABO/RH(D) A NEG 12/15/2022 [facility] DEPT PATH AND 3:59 AM LAB MEDICINE BLOOD BANK CUSTODIAN Antibody Screen NEG 12/15/2022 [facility] PAT H AND 3:59 AM LAB MEDICINE BLOOD BANK CUSTODIAN Anatomical Location / Laterality Collection Method / Volume Moises ection Time Received Time Specimen (Source) BLOOD / Unknown 12/15/2022 2:59 AM BLOOD BANK CUSTODIAN 12/16/19 3:12 AM BLOOD BANK CUSTODIAN Chidi Jimenez MD BLOOD BANK ORDERABLES City/State/ZIP Code Phone Number Performing [place] [address] [facility] PATH AND [address] LAB MEDICINE * (ABNORMAL) BASIC METABOLIC PANEL (12/13/2022 3:57 AM BLOOD BANK CUSTODIAN) Pathologist Signature Component Value Ref Test Method Analysis Performed A t Range Time Sodium 141 137 - 12/13/2022 [facility] DEPT PAT H AND 147 4:55 AM LAB MEDICINE MMOL/L BLOOD BANK CUSTODIAN Potassium 4.0 3.5 - 12/13/2022 [facility] DEPT PAT H AND 5.1 4:55 AM LAB MEDICINE MMOL/L BLOOD BANK CUSTODIAN Chloride 108 98 - 110 12/13/2022 [facility] DEPT PAT H AND MMOL/L 4:55 AM LAB MEDICINE BLOOD BANK CUSTODIAN CO2 25 21 - 30 12/13/2022 [facility] DEPT PAT H AND MMOL/L 4:55 AM LAB MEDICINE BLOOD BANK CUSTODIAN Anion Gap 8 3 - 12 12/13/2022 [facility] DEPT PAT H AND 4:55 AM LAB MEDICINE BLOOD BANK CUSTODIAN Glucose 123 (H) 70 - 100 12/13/2022 [facility] DEPT PAT H AND MG/DL 4:55 AM LAB MEDICINE BLOOD BANK CUSTODIAN Blood Urea Nitrogen 22 7 - 25 12/13/2022 [facility] DEPT PATH AND MG/DL 4:55 AM LAB MEDICINE BLOOD BANK CUSTODIAN Creatinine 1.25 (H) 0.4 - 12/13/2022 [facility] DEPT PAT H AND 1.24 4:55 AM LAB MEDICINE MG/DL BLOOD BANK CUSTODIAN Calcium 8.9 8.5 - 12/13/2022 [facility] DEPT PAT H AND 10.6 4:55 AM LAB MEDICINE MG/DL BLOOD BANK CUSTODIAN eGFR >60 >60 12/13/2022 [facility] DEPT PAT H AND mL/min 4:55 AM LAB MEDICINE BLOOD BANK CUSTODIAN Comment: eGFR calculated using the CKD-EPIcr_R equation Anatomical Location / Laterality Collection Method / Volume Mosies ection Time Received Time Specimen (Source) BLOOD / Unknown 12/13/2022 3:57 AM BLOOD BANK CUSTODIAN 12/13/19 3:58 AM BLOOD BANK CUSTODIAN Chidi Jimenez MD LABORATORY ORDERABLES City/State/ZIP Code Phone Number Performing [place] [address] [facility]PT PATH AND [address] LAB MEDICINE * (ABNORMAL) CBC AND DIFF (12/13/2022 3:57 AM BLOOD BANK CUSTODIAN) Pathologist Signature Component Value Ref Test Method Analysis Performed A t Range Time White Blood Cells 10.2 4.5 - 12/13/2022 [facility] PATH AND 11.0 4:30 AM LAB MEDICINE K/UL BLOOD BANK CUSTODIAN RBC 4.24 (L) 4.4 - 12/13/2022 [facility] DEPT PAT H AND 5.5 M/UL 4:30 AM LAB MEDICINE BLOOD BANK CUSTODIAN Hemoglobin 12.0 (L) 13.5 - 12/13/2022 [facility] DEPT PAT H AND 16.5 4:30 AM LAB MEDICINE GM/DL BLOOD BANK CUSTODIAN Hematocrit 36.4 (L) 40 - 50 12/13/2022 [facility] DEPT PAT H AND % 4:30 AM LAB MEDICINE BLOOD BANK CUSTODIAN MCV 85.8 80 - 100 12/13/2022 [facility] DEPT PAT H AND FL 4:30 AM LAB MEDICINE BLOOD BANK CUSTODIAN MCH 28.4 26 - 34 12/13/2022 [facility] DEPT PAT H AND PG 4:30 AM LAB MEDICINE BLOOD BANK CUSTODIAN MCHC 33.1 32.0 - 12/13/2022 [facility] DEPT PAT H AND 36.0 4:30 AM LAB MEDICINE G/DL BLOOD BANK CUSTODIAN RDW 16.8 (H) 11 - 15 12/13/2022 [facility] DEPT PAT H AND % 4:30 AM LAB MEDICINE BLOOD BANK CUSTODIAN Platelet Count 136 (L) 150 - 12/13/2022 [facility] PATH AND 400 K/UL 4:30 AM LAB MEDICINE BLOOD BANK CUSTODIAN MPV 8.8 7 - 11 12/13/2022 [facility] DEPT PAT H AND FL 4:30 AM LAB MEDICINE BLOOD BANK CUSTODIAN Neutrophils 78 (H) 41 - 77 12/13/2022 [facility]PT PAT H AND % 4:30 AM LAB MEDICINE BLOOD BANK CUSTODIAN Lymphocytes 14 (L) 24 - 44 12/13/2022 [facility] DEPT PAT H AND % 4:30 AM LAB MEDICINE BLOOD BANK CUSTODIAN Monocytes 8 4 - 12 % 12/13/2022 [facility] DEPT PAT H AND 4:30 AM LAB MEDICINE BLOOD BANK CUSTODIAN Eosinophils 0 0 - 5 % 12/13/2022 [facility] DEPT PAT H AND 4:30 AM LAB MEDICINE BLOOD BANK CUSTODIAN Basophils 0 0 - 2 % 12/13/2022 [facility] DEPT PAT H AND 4:30 AM LAB MEDICINE BLOOD BANK CUSTODIAN Absolute Neutrophil 7.84 (H) 1.8 - 12/13/2022 [facility] DEPT PATH AND Count 7.0 K/UL 4:30 AM LAB MEDICINE BLOOD BANK CUSTODIAN Absolute Lymph Count 1.43 1.0 - 12/13/2022 [facility] DEPT PATH AND 4.8 K/UL 4:30 AM LAB MEDICINE BLOOD BANK CUSTODIAN Absolute Monocyte 0.85 (H) 0 - 0.80 12/13/2022 [facility] DE PT PATH AND Count K/UL 4:30 AM LAB MEDICINE BLOOD BANK CUSTODIAN Absolute Eosinophil 0.02 0 - 0.45 12/13/2022 [facility] DEPT PATH AND Count K/UL 4:30 AM LAB MEDICINE BLOOD BANK CUSTODIAN Absolute Basophil 0.03 0 - 0.20 12/13/2022 [facility] DE PT PATH AND Count K/UL 4:30 AM LAB MEDICINE BLOOD BANK CUSTODIAN Anatomical Location / Laterality Collection Method / Volume Moises ection Time Received Time Specimen (Source) BLOOD / Unknown 12/13/2022 3:57 AM BLOOD BANK CUSTODIAN 12/13/19 3:58 AM BLOOD BANK CUSTODIAN Chidi Jimenez MD LABORATORY ORDERABLES City/State/ZIP Code Phone Number [place] [address] [facility] DEPT PATH AND [address] [facility] LAB MEDICINE * MRI L-SPINE EXTERNAL IMAGING (12/12/2022 12:20 PM BLOOD BANK CUSTODIAN) Anatomical Location / Laterality Collection Method / Volume Moises ection Time Received Time Specimen (Source) Narrative Scheduling, Silent - 12/12/2022 11:07 PM BLOOD BANK CUSTODIAN This order has been auto finalized and does not contain a result. Radiologist RADIOLOGY EXTERNAL ORDERABL ES Outpatient * MRI T-SPINE EXTERNAL IMAGING (12/12/2022 12:15 PM BLOOD BANK CUSTODIAN) Anatomical Location / Laterality Collection Method / Volume Moises ection Time Received Time Specimen (Source) Narrative Scheduling, Silent - 12/12/2022 11:07 PM BLOOD BANK CUSTODIAN This order has been auto finalized and does not contain a result. Radiologist RADIOLOGY EXTERNAL ORDERABL ES Outpatient * MRI C-SPINE EXTERNAL IMAGING (12/12/2022 12:10 PM BLOOD BANK CUSTODIAN) Anatomical Location / Laterality Collection Method / Volume Moises ection Time Received Time Specimen (Source) Narrative Scheduling, Silent - 12/12/2022 11:06 PM BLOOD BANK CUSTODIAN This order has been auto finalized and does not contain a result. Radiologist RADIOLOGY EXTERNAL ORDERABL ES Outpatient * TELEMETRY STRIPS-SCAN (12/12/2022 12:00 AM BLOOD BANK CUSTODIAN) Narrative 12/12/2022 12:00 AM BLOOD BANK CUSTODIAN Ordered by an unspecified provider. Scanned Document PROCEDURE DUMMY ORDERS * TELEMETRY STRIPS-SCAN (12/12/2022 12:00 AM BLOOD BANK CUSTODIAN) Narrative 12/12/2022 12:00 AM BLOOD BANK CUSTODIAN Ordered by an unspecified provider. Scanned Document PROCEDURE DUMMY ORDERS * TELEMETRY STRIPS-SCAN (12/12/2022 12:00 AM BLOOD BANK CUSTODIAN) Narrative 12/12/2022 12:00 AM BLOOD BANK CUSTODIAN Ordered by an unspecified provider. Scanned Document PROCEDURE DUMMY ORDERS * TELEMETRY STRIPS-SCAN (12/12/2022 12:00 AM BLOOD BANK CUSTODIAN) Narrative 12/12/2022 12:00 AM BLOOD BANK CUSTODIAN Ordered by an unspecified provider. Scanned Document PROCEDURE DUMMY ORDERS * TELEMETRY STRIPS-SCAN (12/12/2022 12:00 AM BLOOD BANK CUSTODIAN) Narrative 12/12/2022 12:00 AM BLOOD BANK CUSTODIAN Ordered by an unspecified provider. Scanned Document PROCEDURE DUMMY ORDERS * TELEMETRY STRIPS-SCAN (12/12/2022 12:00 AM BLOOD BANK CUSTODIAN) Narrative 12/12/2022 12:00 AM BLOOD BANK CUSTODIAN Ordered by an unspecified provider. Scanned Document PROCEDURE DUMMY ORDERS * TELEMETRY STRIPS-SCAN (12/12/2022 12:00 AM BLOOD BANK CUSTODIAN) Narrative 12/12/2022 12:00 AM BLOOD BANK CUSTODIAN Ordered by an unspecified provider. Scanned Document PROCEDURE DUMMY ORDERS * TELEMETRY STRIPS-SCAN (12/12/2022 12:00 AM BLOOD BANK CUSTODIAN) Narrative 12/12/2022 12:00 AM BLOOD BANK CUSTODIAN Ordered by an unspecified provider. Scanned Document PROCEDURE DUMMY ORDERS * TELEMETRY STRIPS-SCAN (12/12/2022 12:00 AM BLOOD BANK CUSTODIAN) Narrative 12/12/2022 12:00 AM BLOOD BANK CUSTODIAN Ordered by an unspecified provider. Scanned Document PROCEDURE DUMMY ORDERS * TELEMETRY STRIPS-SCAN (12/12/2022 12:00 AM BLOOD BANK CUSTODIAN) Narrative 12/12/2022 12:00 AM BLOOD BANK CUSTODIAN Ordered by an unspecified provider. Scanned Document PROCEDURE DUMMY ORDERS * TELEMETRY STRIPS-SCAN (12/12/2022 12:00 AM BLOOD BANK CUSTODIAN) Narrative 12/12/2022 12:00 AM BLOOD BANK CUSTODIAN Ordered by an unspecified provider. Scanned Document PROCEDURE DUMMY ORDERS * TELEMETRY STRIPS-SCAN (12/12/2022 12:00 AM BLOOD BANK CUSTODIAN) Narrative 12/12/2022 12:00 AM BLOOD BANK CUSTODIAN Ordered by an unspecified provider. Scanned Document PROCEDURE DUMMY ORDERS documented in this encounter Visit Diagnoses Diagnosis Weakness - Primary Other malaise and fatigue Weakness Other malaise and fatigue S/P cervical spinal fusion Arthrodesis status S/P cervical spinal fusion Arthrodesis status Type 2 diabetes mellitus (HCC) Type II or unspecified type diabetes me llitus without mention of complication, not stated as uncontrolled Primary hypertension Unspecified essential hypertension BPH (benign prostatic hyperplasia) Unspecified hyperplasia of prostate wit hout urinary obstruction and other lower urinary tract symptoms (LUTS) documented in this encounter Admitting Diagnoses Diagnosis Weakness Other malaise and fatigue documented in this encounter Administered Medications Action Date Dose Rate Site Medication Order MAR Action 12/19/2022 3:58 AM BLOOD BANK CUSTODIAN 1,000 mg 400 mL/hr acetaminophen (OFIRMEV) 1,000 mg Given - New injection 100 mL Bag 1,000 mg, Intravenous, 100 mL, Administer over 15 Minutes, EVERY 6 HOURS, 4 doses, First dose on Sat 3 at 0930, Last dose on 12/19/22 at 033 0 1,000 mg 400 mL/hr Given - New Bag 12/18/2022 8:05 PM BLOOD BANK CUSTODIAN 1,000 mg 400 mL/hr Given - New Bag 12/18/2022 3:14 PM BLOOD BANK CUSTODIAN 1,000 mg 400 mL/hr Given - New Bag 12/18/2022 10:01 AM BLOOD BANK CUSTODIAN 12/15/2022 6:47 PM BLOOD BANK CUSTODIAN 1,000 mg acetaminophen (TYLENOL EXTRA STRENGTH) Given tablet 1,000 mg 1,000 mg, Oral, ONCE PRN, 1 dose, Starting on Tue12/15/22 at 1828, Until Tue12/15/22 at 1847, Pain non-opioid: ma y be used alone or in combination with opioid analgesia, TOTAL ACETAMINOPHEN DOSE NOT TO EXCEED 4GM DAILY, PACU (only) 12/18/2022 5:27 AM BLOOD BANK CUSTODIAN 650 mg acetaminophen (TYLENOL) tablet 650 mg Given 650 mg, Oral, EVERY 4 HOURS PRN, Starting on Tue12/12/22 at 2257, Until Tue12/21/22 at 1714, Pain non-opioid: ma y be used alone or in combination with opioid analgesia, TOTAL ACETAMINOPHEN DOSE NOT TO EXCEED 4GM DAILY, Admission/Obs/Extended Recovery 650 mg Given 12/17/2022 10:05 PM BLOOD BANK CUSTODIAN 650 mg Given 12/17/2022 11:25 AM BLOOD BANK CUSTODIAN 650 mg Given 12/17/2022 6:23 AM BLOOD BANK CUSTODIAN 650 mg Given 12/17/2022 1:05 AM BLOOD BANK CUSTODIAN 650 mg Given 12/16/2022 9:00 PM BLOOD BANK CUSTODIAN 650 mg Given 12/16/2022 4:40 PM BLOOD BANK CUSTODIAN 650 mg Given 12/16/2022 12:16 PM BLOOD BANK CUSTODIAN 650 mg Given 12/16/2022 3:01 AM BLOOD BANK CUSTODIAN 650 mg Given 12/15/2022 3:02 AM BLOOD BANK CUSTODIAN 12/21/2022 8:35 AM BLOOD BANK CUSTODIAN 1 drop artificial tears multi dose ophthalmic Given solution 1 drop 1 drop, Both Eyes, TWICE DAILY, First dose on 12/20/22 at 1500, Until Discontinued, Admission/Obs/Extended Recovery 1 drop Given 12/20/2022 9:04 PM BLOOD BANK CUSTODIAN 12/16/2022 6:14 PM BLOOD BANK CUSTODIAN 2 g ceFAZolin (ANCEF) IVP 2 g Given 2 g, Intravenous, EVERY 8 HOURS, 3 doses, First dose on Makenzie 12/16/22 at 0130 , Last dose on Tue12/16/22 at 1730, IV PUS H -- RECONSTITUTE each 1 g vial by adding 10 mLs of STERILE WATER (SW) or SODIUM CHLORIDE (NS) 2 g Given 12/16/2022 11:52 AM BLOOD BANK CUSTODIAN 2 g Given 12/16/2022 1:28 AM BLOOD BANK CUSTODIAN 12/21/2022 8:38 AM BLOOD BANK CUSTODIAN 10 mg dapagliflozin (FARXIGA) tablet 10 mg Given 10 mg, Oral, DAILY, First dose on Tue12/20/22 at 1500, Until Discontinued, Admission/Obs/Extended Recovery 10 mg Given 12/20/2022 4:40 PM BLOOD BANK CUSTODIAN dextrose 50% (D50) syringe 25-50 mL 25-50 mL (12.5-25 g), Intravenous, NEEDED, Starting on Tue12/20/22 at 1845, Until Tue12/21/22 at 1714, Blood Sugar..., =< 70 mg/dL: See admin instructions, = Blood Sugar Patient Management Result Status Strategy = Blood Glucose Conscious, Oral carbohydrates 50-70 mg/dL able to take PO - Conscious, 25mL (12.5g) dextrose 50% unable to take PO slow IV push - Unconscious 50mL (25g) dextrose 50% slow IV push = Blood Glucose Conscious, Oral carbohydrates <50 mg/dL able to take PO - Conscious, 50mL (25g) dextrose 50% unable to take PO slow IV push - Unconscious 50mL (25g) dextrose 50% slow IV push = NOTE: This is a HIGH ALERT Medication. 12/18/2022 5:27 AM BLOOD BANK CUSTODIAN 2.5 mg diazePAM (VALIUM) tablet 2.5 mg Given 2.5 mg, Oral, EVERY 6 HOURS PRN, Starting on Tue12/15/22 at 1740, Until Tue12/18/22 at 0819, Spasms 2.5 mg Given 12/17/2022 10:04 PM BLOOD BANK CUSTODIAN 2.5 mg Given 12/17/2022 1:05 AM BLOOD BANK CUSTODIAN 2.5 mg Given 12/16/2022 6:53 PM BLOOD BANK CUSTODIAN 2.5 mg Given 12/16/2022 1:32 AM BLOOD BANK CUSTODIAN 12/19/2022 6:13 AM BLOOD BANK CUSTODIAN 5 mg diazePAM (VALIUM) tablet 5 mg Given 5 mg, Oral, EVERY 6 HOURS PRN, Startin g on Tue12/18/22 at 0819, Until Tue12/20/22 at 1355, Spasms 5 mg Given 12/18/2022 8:06 PM BLOOD BANK CUSTODIAN 12/21/2022 8:35 AM BLOOD BANK CUSTODIAN 100 mg docusate (COLACE) capsule 100 mg Given 100 mg, Oral, TWICE DAILY, First dose o n Tue12/13/22 at 0900, Until Discontinued , Hold for loose stools, Admission/Obs/Extended Recovery 100 mg Given 12/20/2022 8:58 PM BLOOD BANK CUSTODIAN 100 mg Given 12/20/2022 8:16 AM BLOOD BANK CUSTODIAN 100 mg Given 12/19/2022 8:55 PM BLOOD BANK CUSTODIAN 100 mg Given 12/19/2022 9:15 AM BLOOD BANK CUSTODIAN 100 mg Given 12/18/2022 8:06 PM BLOOD BANK CUSTODIAN 100 mg Given 12/18/2022 8:23 AM BLOOD BANK CUSTODIAN 100 mg Given 12/17/2022 10:05 PM BLOOD BANK CUSTODIAN 100 mg Given 12/17/2022 11:23 AM BLOOD BANK CUSTODIAN 100 mg Given 12/16/2022 9:00 PM BLOOD BANK CUSTODIAN 100 mg Given 12/15/2022 9:10 PM BLOOD BANK CUSTODIAN 12/16/2022 4:11 AM BLOOD BANK CUSTODIAN 25 mcg fentaNYL citrate PF (SUBLIMAZE) Given injection 25 mcg 25 mcg, Intravenous, EVERY 4 HOURS PRN , Starting on Tue12/15/22 at 1747, Until Makenzie 12/16/22 at 1027, Pain Injectable 12/21/2022 6:17 AM BLOOD BANK CUSTODIAN 5,000 Units Abdomina l Tissue heparin (porcine) PF syringe 5,000 Units Given 5,000 Units, Subcutaneous, EVERY 8 HOURS, First dose on Tue12/17/22 at 0600 , Until Discontinued, NOTE: This is a HIG H ALERT Medication. 5,000 Units Abdominal Tissue Given 12/20/2022 9:00 PM BLOOD BANK CUSTODIAN 5,000 Units Abdominal Tissue Given 12/20/2022 2:20 PM BLOOD BANK CUSTODIAN 5,000 Units Abdomen:LLQ Given 12/20/2022 6:12 AM BLOOD BANK CUSTODIAN 5,000 Units Abdomen:LLQ Given 12/19/2022 8:57 PM BLOOD BANK CUSTODIAN 5,000 Units Abdominal Tissue Given 12/19/2022 3:27 PM BLOOD BANK CUSTODIAN 5,000 Units Abdomen:RLQ Given 12/19/2022 6:13 AM BLOOD BANK CUSTODIAN 5,000 Units Abdomen:LLQ Given 12/18/2022 8:06 PM BLOOD BANK CUSTODIAN 5,000 Units Arm, Right Given 12/18/2022 1:43 PM BLOOD BANK CUSTODIAN 5,000 Units Abdomen:LLQ Given 12/18/2022 5:27 AM BLOOD BANK CUSTODIAN 5,000 Units Abdomen:LUQ Given 12/17/2022 10:05 PM BLOOD BANK CUSTODIAN 5,000 Units Arm, Left Given 12/17/2022 2:33 PM BLOOD BANK CUSTODIAN 5,000 Units Arm, Right Given 12/17/2022 7:49 AM BLOOD BANK CUSTODIAN 12/21/2022 12:16 PM BLOOD BANK CUSTODIAN 8 Units Abdomina l Tissue insulin aspart (U-100) (NOVOLOG FLEXPEN Given U-100 INSULIN) injection PEN 0-12 Units 0-12 Units, Subcutaneous, BEFORE MEALS AND 2200, First dose on Tue12/20/22 at 1800, Until Discontinued, MID DOSE -POC glucose 181-220mg/dL at , , administer 2 units insulin, at , 03* administer 0 units. -POC glucose 221-260mg/dL at , , administer 4 units insulin, at , * administer 2 units. -POC glucose 261-300mg/dL at , , administer 6 units insulin, at , * administer 4 units. -POC glucos e 301-350mg/dL at , , administer 8 units insulin, at , * administer 6 units. -POC glucose 351-400mg/dL at , , administer 10 units insulin, at , * administer 8 units. -POC glucos e >400mg/dL at , , administer 12 units insulin, at , * administer 10 units. *only if ordered 5x's daily Fo r POCT glucose >350mg/dL give correction bolus and recheck POCT glucose in 2 hours. If POCT glucose at 2 hours >300mg/dL call physician for further orders. For patients who are not eatin g meals, continue to administer the appropriate correction factor. NOTE: This is a HIGH ALERT Medication., Dispense pens manually with initial order and then upon request. DO NOT uncheck "Do not dispense" 4 Units Abdominal Tissue Given 12/21/2022 8:34 AM BLOOD BANK CUSTODIAN 4 Units Abdominal Tissue Given 12/20/2022 9:03 PM BLOOD BANK CUSTODIAN 12 Units Arm, Right Given 12/20/2022 6:21 PM BLOOD BANK CUSTODIAN ipratropium-albuterol (COMBIVENT RESPIMAT) inhaler 1 puff 1 puff, Inhalation, RT NEEDED, Starting on Tue12/13/22 at 0108, Until Tue12/21/22 at 1714, RT PROTOCOL, When administered by RT, will be per RT policy. NOT TO EXCEED 6 INHALATIONS / 24 HOURS lactulose (GENERLAC) oral solution 20 g 20 g (30 mL), Oral, THREE TIMES DAILY PRN, Starting on Tue12/14/22 at 0856, Until Tue12/21/22 at 1714, Constipation PO 12/21/2022 8:36 AM BLOOD BANK CUSTODIAN 1 patch Back lidocaine (LIDODERM) 5 % topical patch 1 Patch/Topic a patch l Applied 1 patch, Topical, Administer over 12 Hours, DAILY, First dose on Tue12/13/22 at 0930, Until Discontinued, NURSING PLEASE NOTE: Apply patch ONCE DAILY to low back and REMOVE after designated duration. Apply only to intact skin. Patch may be cut to fit affected area. 1 patch Neck Patch/Topical Applied 12/20/2022 8:16 AM BLOOD BANK CUSTODIAN 1 patch Neck Patch/Topical Applied 12/19/2022 9:15 AM BLOOD BANK CUSTODIAN 1 patch Back Patch/Topical Applied 12/18/2022 8:23 AM BLOOD BANK CUSTODIAN 1 patch Back Patch/Topical Applied 12/17/2022 11:22 AM BLOOD BANK CUSTODIAN 1 patch Back, Lower Right Patch/Topical Applied 12/16/2022 9:34 AM BLOOD BANK CUSTODIAN 1 patch Back Patch/Topical Applied 12/15/2022 8:18 AM BLOOD BANK CUSTODIAN 1 patch Back Patch/Topical Applied 12/14/2022 8:08 AM BLOOD BANK CUSTODIAN 1 patch Back Patch/Topical Applied 12/13/2022 8:45 AM BLOOD BANK CUSTODIAN 12/14/2022 7:50 AM BLOOD BANK CUSTODIAN 1 mg LORazepam (ATIVAN) injection 1 mg Given 1 mg, Intravenous, ONCE, 1 dose, On Tue12/14/22 at 0800, PROTECT FROM LIGHT Instructions for IV PUSH doses 0.5 - 4 mg (IVP Range). Must be diluted with equal volume of NS, D5W, SW OR Dilute t o total of 5mL with NS, D5W, or SW. Not t o exceed 2mg/minute. Administer doses les s than 2mg over at least 1 minute. 12/14/2022 10:37 PM BLOOD BANK CUSTODIAN 1 mg LORazepam (ATIVAN) injection 1 mg Given 1 mg, Intravenous, ONCE, 1 dose, On Tue12/14/22 at 2315, PROTECT FROM LIGHT Instructions for IV PUSH doses 0.5 - 4 mg (IVP Range). Must be diluted with equal volume of NS, D5W, SW OR Dilute t o total of 5mL with NS, D5W, or SW. Not t o exceed 2mg/minute. Administer doses les s than 2mg over at least 1 minute. 12/21/2022 8:35 AM BLOOD BANK CUSTODIAN 25 mg losartan (COZAAR) tablet 25 mg Given 25 mg, Oral, DAILY, First dose on Tue12/20/22 at 1500, Until Discontinued, Admission/Obs/Extended Recovery 25 mg Given 12/20/2022 2:20 PM BLOOD BANK CUSTODIAN 12/20/2022 8:58 PM BLOOD BANK CUSTODIAN 0.5 mg melatonin tablet 0.5 mg Given 0.5 mg, Oral, AT BEDTIME PRN, Starting on Tue12/14/22 at 1827, Until Tue 3 at 1714, Insomnia 0.5 mg Given 12/19/2022 9:06 PM BLOOD BANK CUSTODIAN 0.5 mg Given 12/18/2022 8:06 PM BLOOD BANK CUSTODIAN 0.5 mg Given 12/17/2022 10:04 PM BLOOD BANK CUSTODIAN 0.5 mg Given 12/14/2022 8:44 PM BLOOD BANK CUSTODIAN 12/21/2022 8:35 AM BLOOD BANK CUSTODIAN 1,000 mg metFORMIN (GLUCOPHAGE) tablet 1,000 mg Given 1,000 mg, Oral, TWICE DAILY AFTER MEALS , First dose on Tue12/20/22 at 1900, Until Discontinued, Admission/Obs/Extended Recovery 1,000 mg Given 12/20/2022 6:21 PM BLOOD BANK CUSTODIAN 12/21/2022 2:23 PM BLOOD BANK CUSTODIAN 750 mg methocarbamoL (ROBAXIN) tablet 750 mg Given 750 mg, Oral, THREE TIMES DAILY, First dose on Tue12/13/22 at 0930, Until Discontinued 750 mg Given 12/21/2022 8:35 AM BLOOD BANK CUSTODIAN 750 mg Given 12/20/2022 8:58 PM BLOOD BANK CUSTODIAN 750 mg Given 12/20/2022 2:20 PM BLOOD BANK CUSTODIAN 750 mg Given 12/20/2022 8:16 AM BLOOD BANK CUSTODIAN 750 mg Given 12/19/2022 8:55 PM BLOOD BANK CUSTODIAN 750 mg Given 12/19/2022 3:27 PM BLOOD BANK CUSTODIAN 750 mg Given 12/19/2022 9:15 AM BLOOD BANK CUSTODIAN 750 mg Given 12/18/2022 8:06 PM BLOOD BANK CUSTODIAN 750 mg Given 12/18/2022 3:15 PM BLOOD BANK CUSTODIAN 750 mg Given 12/18/2022 8:23 AM BLOOD BANK CUSTODIAN 750 mg Given 12/17/2022 10:05 PM BLOOD BANK CUSTODIAN 750 mg Given 12/17/2022 2:33 PM BLOOD BANK CUSTODIAN 750 mg Given 12/17/2022 9:35 AM BLOOD BANK CUSTODIAN 750 mg Given 12/16/2022 9:00 PM BLOOD BANK CUSTODIAN 750 mg Given 12/16/2022 2:29 PM BLOOD BANK CUSTODIAN 750 mg Given 12/16/2022 9:36 AM BLOOD BANK CUSTODIAN 750 mg Given 12/15/2022 9:10 PM BLOOD BANK CUSTODIAN 750 mg Given 12/15/2022 8:19 AM BLOOD BANK CUSTODIAN 750 mg Given 12/14/2022 8:44 PM BLOOD BANK CUSTODIAN 750 mg Given 12/14/2022 2:51 PM BLOOD BANK CUSTODIAN 750 mg Given 12/14/2022 8:06 AM BLOOD BANK CUSTODIAN 750 mg Given 12/13/2022 8:45 PM BLOOD BANK CUSTODIAN 750 mg Given 12/13/2022 4:04 PM BLOOD BANK CUSTODIAN 750 mg Given 12/13/2022 8:45 AM BLOOD BANK CUSTODIAN 12/21/2022 8:35 AM BLOOD BANK CUSTODIAN 25 mg metoprolol succinate XL (TOPROL XL) Given tablet 25 mg 25 mg, Oral, DAILY, First dose on Tue12/20/22 at 1500, Until Discontinued, Hol d for systolic BP < 90 tablets may be cut in half, DO NOT CRUSH or CHEW, Admission/Obs/Extended Recovery 25 mg Given 12/20/2022 2:20 PM BLOOD BANK CUSTODIAN 12/21/2022 8:37 AM BLOOD BANK CUSTODIAN 30 mL milk of magnesium oral suspension 30 mL Given 30 mL, Oral, DAILY, First dose on Tue12/13/22 at 0900, Until Discontinued, Hold for loose stools., Admission/Obs/Extended Recovery 30 mL Given 12/20/2022 8:16 AM BLOOD BANK CUSTODIAN 30 mL Given 12/19/2022 9:15 AM BLOOD BANK CUSTODIAN 30 mL Given 12/18/2022 8:23 AM BLOOD BANK CUSTODIAN 30 mL Given 12/17/2022 11:23 AM BLOOD BANK CUSTODIAN 12/20/2022 8:17 AM BLOOD BANK CUSTODIAN 1 patch Arm, Lef t nicotine (NICODERM CQ) 21 mg/day patch 1 Patch/Topic a patch l Applied 1 patch, Transdermal, Administer over 2 4 Hours, DAILY, First dose on Tue12/15/22 at 1900, Until Discontinued 1 patch Arm, Right Patch/Topical Applied 12/19/2022 9:14 AM BLOOD BANK CUSTODIAN 1 patch Arm, Right Patch/Topical Applied 12/18/2022 8:23 AM BLOOD BANK CUSTODIAN 1 patch Back Patch/Topical Applied 12/16/2022 9:36 AM BLOOD BANK CUSTODIAN 12/18/2022 5:27 AM BLOOD BANK CUSTODIAN 10 mg oxyCODONE (ROXICODONE) tablet 5-10 mg Given 5-10 mg, Oral, EVERY 4 HOURS PRN, Starting on 12/12/22 at 2257, Until 12/18/22 at 0819, Pain PO, Admission/Obs/Extended Recovery 10 mg Given 12/17/2022 10:05 PM BLOOD BANK CUSTODIAN 10 mg Given 12/17/2022 5:47 PM BLOOD BANK CUSTODIAN 10 mg Given 12/17/2022 11:25 AM BLOOD BANK CUSTODIAN 10 mg Given 12/17/2022 6:23 AM BLOOD BANK CUSTODIAN 10 mg Given 12/17/2022 1:05 AM BLOOD BANK CUSTODIAN 10 mg Given 12/16/2022 9:00 PM BLOOD BANK CUSTODIAN 10 mg Given 12/16/2022 4:40 PM BLOOD BANK CUSTODIAN 10 mg Given 12/16/2022 12:16 PM BLOOD BANK CUSTODIAN 10 mg Given 12/16/2022 7:57 AM BLOOD BANK CUSTODIAN 10 mg Given 12/16/2022 3:01 AM BLOOD BANK CUSTODIAN 5 mg Given 12/15/2022 9:10 PM BLOOD BANK CUSTODIAN 10 mg Given 12/15/2022 8:19 AM BLOOD BANK CUSTODIAN 10 mg Given 12/15/2022 3:02 AM BLOOD BANK CUSTODIAN 10 mg Given 12/13/2022 8:45 PM BLOOD BANK CUSTODIAN 5 mg Given 12/12/2022 11:24 PM BLOOD BANK CUSTODIAN 12/20/2022 9:09 PM BLOOD BANK CUSTODIAN 15 mg oxyCODONE (ROXICODONE) tablet 5-15 mg Given 5-15 mg, Oral, EVERY 4 HOURS PRN, Starting on 12/18/22 at 0819, Until 12/21/22 at 1714, Pain PO, Admission/Obs/Extended Recovery 15 mg Given 12/20/2022 2:20 PM BLOOD BANK CUSTODIAN 15 mg Given 12/20/2022 8:16 AM BLOOD BANK CUSTODIAN 15 mg Given 12/20/2022 4:02 AM BLOOD BANK CUSTODIAN 15 mg Given 12/19/2022 8:55 PM BLOOD BANK CUSTODIAN 15 mg Given 12/19/2022 6:13 AM BLOOD BANK CUSTODIAN 15 mg Given 12/19/2022 12:30 AM BLOOD BANK CUSTODIAN 15 mg Given 12/18/2022 8:06 PM BLOOD BANK CUSTODIAN 10 mg Given 12/18/2022 1:43 PM BLOOD BANK CUSTODIAN 12/21/2022 8:35 AM BLOOD BANK CUSTODIAN 1 tablet senna/docusate (SENOKOT-S) tablet 1 Given tablet 1 tablet, Oral, TWICE DAILY, First dose on Tue12/13/22 at 0900, Until Discontinued, Hold for loose stools, Admission/Obs/Extended Recovery 1 tablet Given 12/20/2022 8:58 PM BLOOD BANK CUSTODIAN 1 tablet Given 12/20/2022 8:16 AM BLOOD BANK CUSTODIAN 1 tablet Given 12/19/2022 8:55 PM BLOOD BANK CUSTODIAN 1 tablet Given 12/19/2022 9:15 AM BLOOD BANK CUSTODIAN 1 tablet Given 12/18/2022 8:06 PM BLOOD BANK CUSTODIAN 1 tablet Given 12/18/2022 8:23 AM BLOOD BANK CUSTODIAN 1 tablet Given 12/17/2022 10:05 PM BLOOD BANK CUSTODIAN 1 tablet Given 12/17/2022 11:23 AM BLOOD BANK CUSTODIAN 1 tablet Given 12/16/2022 9:00 PM BLOOD BANK CUSTODIAN 1 tablet Given 12/15/2022 9:10 PM BLOOD BANK CUSTODIAN 12/20/2022 8:58 PM BLOOD BANK CUSTODIAN 80 mg simvastatin (ZOCOR) tablet 80 mg Given 80 mg, Oral, AT BEDTIME DAILY, First dose on Tue12/20/22 at 2100, Until Discontinued, Admission/Obs/Extended Recovery 12/13/2022 12:40 AM BLOOD BANK CUSTODIAN 50 mL/hr sodium chloride 0.9 % infusion Given - New 1,000 mL, Intravenous, at 50 mL/hr, Bag CONTINUOUS, Starting on Tue12/12/22 at 2330, Until Tue12/13/22 at 0816 12/15/2022 1:20 PM BLOOD BANK CUSTODIAN sodium chloride 0.9 % infusion Infusion 1,000 mL, 1,000 mL, Intravenous, at 20 Restarted mL/hr, CONTINUOUS, Starting on Tue12/15/22 at 1045, Until Makenzie 12/16/22 at 1027, Pre-Op 1,000 mL 20 mL/hr Given - New Bag 12/15/2022 12:14 PM BLOOD BANK CUSTODIAN 12/20/2022 6:15 AM BLOOD BANK CUSTODIAN 50 mL/hr sodium chloride 0.9 % infusion Given - New 1,000 mL, Intravenous, at 50 mL/hr, Bag CONTINUOUS, Starting on 12/19/22 at 0615, Until Tue12/20/22 at 1212 50 mL/hr Given - New Bag 12/19/2022 11:02 AM BLOOD BANK CUSTODIAN 50 mL/hr Given - New Bag 12/19/2022 6:13 AM BLOOD BANK CUSTODIAN SODIUM CHLORIDE 0.9 % IV SOLP (Cabinet Override) NOW, 1 dose, On Tue12/15/22 at 1100, Created by cabinet override, Created by cabinet override 12/18/2022 8:10 PM BLOOD BANK CUSTODIAN 250 mL 10 mL/hr SODIUM CHLORIDE 0.9 % IV SOLP (Cabinet Given - New Override) Bag NOW, 1 dose, On Tue12/18/22 at 2015, Created by cabinet override, Created by cabinet override 12/21/2022 8:35 AM BLOOD BANK CUSTODIAN 0.4 mg tamsulosin (FLOMAX) capsule 0.4 mg Given 0.4 mg, Oral, DAILY AFTER BREAKFAST, First dose on Tue12/17/22 at 0915, Until Discontinued, NURSING: Please educate patient and document: Give 1/2 hour following same meal everyday. Do not crush, chew or open the capsule. 0.4 mg Given 12/20/2022 8:16 AM BLOOD BANK CUSTODIAN 0.4 mg Given 12/19/2022 9:15 AM BLOOD BANK CUSTODIAN 0.4 mg Given 12/18/2022 8:23 AM BLOOD BANK CUSTODIAN 0.4 mg Given 12/17/2022 11:25 AM BLOOD BANK CUSTODIAN 12/17/2022 2:33 PM BLOOD BANK CUSTODIAN 0.4 mg tamsulosin (FLOMAX) capsule 0.4 mg Given 0.4 mg, Oral, ONCE, 1 dose, On Tue12/17/22 at 1400, NURSING: Please educate patient and document: Give 1/2 hour following same meal everyday. Do not crush, chew or open the capsule. 12/16/2022 11:52 AM BLOOD BANK CUSTODIAN 20 mL WATER FOR INJECTION, STERILE IJ SOLN Given (Cabinet Override) NOW, 1 dose, On Tue12/16/22 at 0930, Created by cabinet override, Created by cabinet override 12/16/2022 6:14 PM BLOOD BANK CUSTODIAN 20 mL WATER FOR INJECTION, STERILE IJ SOLN Given (Cabinet Override) NOW, 1 dose, On Tue12/16/22 at 1815, Created by cabinet override, Created by cabinet override documented in this encounter Historical Medications * This list may reflect changes made after this encounter. Start Date End Date Medication Sig Dispensed Refills cetirizine (ZYRTEC) 10 mg Take one 0 tablet tablet by mouth every morning. calcium carbonate Take one 0 (OS-RICHARD) 1250 mg tablet tablet by mouth twice daily. metoprolol succinate XL Take one 0 (TOPROL XL) 25 mg tablet by extended release tablet mouth daily. sildenafiL (VIAGRA) 100 Take one 0 mg tablet tablet by mouth as Needed for Erectile dysfunction. empagliflozin (JARDIANCE) Take one 0 10 mg tablet tablet by mouth daily. baclofen (LIORESAL) 20 mg Take one 0 tablet tablet by mouth twice daily as needed. carboxymethylcellulose Apply one 0 sodium (REFRESH TEARS) drop to both 0.5 % eye drop eyes twice daily. losartan (COZAAR) 50 mg Take one-half 0 tablet tablet by mouth daily. metFORMIN (GLUCOPHAGE) Take one 0 1,000 mg tablet tablet by mouth twice daily after meals. terazosin (HYTRIN) 10 mg Take two 0 capsule capsules by mouth at bedtime daily. simvastatin (ZOCOR) 80 mg Take one 0 tablet tablet by mouth at bedtime daily. added in this encounter Active and Recently Administered Medications Times are shown in BLOOD BANK CUSTODIAN. 12/20/2022 12/21/2022 Medication Order 12/19/2022 acetaminophen (OFIRMEV) 1,000 mg 0358 (Given - New injection 100 mL (COMPLETED) Bag - Provider: 1,000 mg, Intravenous, 100 mL, Hallie Lemus RN) Administer over 15 Minutes, EVERY 6 HOURS, 4 doses, First dose on Sat 3 at 0930, Last dose on 12/19/22 at 033 0 1420 (Med Not Given - Provider: Monica allison RN - Reason: Patient Refused)2103 (Given - Provider: Birdie Arevalo RN) 0835 (Given - Provider: Anastasiya tang RN) artificial tears multi dose ophthalmic solution 1 drop 1 drop, Both Eyes, TWICE DAILY, First dose on Tue12/20/22 at 1500, Until Discontinued, Admission/Obs/Extended Recovery 1640 (Given - Provider: Monica Rod RN) 0838 (Given - Provider: Anastasiya tang RN) dapagliflozin (FARXIGA) tablet 10 mg 10 mg, Oral, DAILY, First dose on Tue12/20/22 at 1500, Until Discontinued, Admission/Obs/Extended Recovery 0816 (Given - Provider: Monica Rod RN) 2057 (Given - Provider: Birdie Arevalo RN) 0835 (Given - Provider: Anastasiya tang, STEVEN) docusate (COLACE) capsule 100 mg 0915 (Given - 100 mg, Oral, TWICE DAILY, First dose on Provider: Saul morales Tue12/13/22 at 0900, Until Discontinued, Perry Clinton)2054 Hold for loose stools, (Given - Provider: Admission/Obs/Extended Recovery Tish Canseco RN) 0612 (Given - Provider: Tish Canseco RN )1420 (Given - Provider: Monica Rod RN)2100 (Given - Provider: Birdie Arevalo RN) 0617 (Given - Provider: Birdie Arevalo RN)1423 (Med Not Given - Provider: Anastasiya Moraes RN - Reason: Other (Comment) - Comment: Pt. discharging) heparin (porcine) PF syringe 5,000 Units 0613 (Given - 5,000 Units, Subcutaneous, EVERY 8 Provider: Hallie GONZALEZ, First dose on Tue12/17/22 at 0600, STEVEN Lemus)1527 Until Discontinued, NOTE: This is a HIGH (Given - Pr ovider: ALERT Medication. Nevaeh Clinton RN)2056 (Given - Provider: Tish Canseco RN) 182 (Given - Provider: Monica Rod RN) 210 (Given - Provider: Birdie Arevalo RN - Comment: 261) 0834 (Given - Provider: Anastasiya tang RN)1216 (Given - Provider: Anastasiya Moraes RN) insulin aspart (U-100) (NOVOLOG FLEXPEN U-100 INSULIN) injection PEN 0-12 Units 0-12 Units, Subcutaneous, BEFORE MEALS AND 2200, First dose on Tue12/20/22 at 1800, Until Discontinued, MID DOSE -POC glucose 181-220mg/dL at 07, , 17 administer 2 units insulin, at 22, 03* administer 0 units. -POC glucose 221-260mg/dL at , , 17 administer 4 units insulin, at 22, 03* administer 2 units. -POC glucose 261-300mg/dL at , , administer 6 units insulin, at 22, 03* administer 4 units. -POC glucos e 301-350mg/dL at , , administer 8 units insulin, at , * administer 6 units. -POC glucose 351-400mg/dL at , , administer 10 units insulin, at , 03* administer 8 units. -POC glucos e >400mg/dL at , , administer 12 units insulin, at , 03* administer 10 units. *only if ordered 5x's daily Fo r POCT glucose >350mg/dL give correction bolus and recheck POCT glucose in 2 hours. If POCT glucose at 2 hours >300mg/dL call physician for further orders. For patients who are not eatin g meals, continue to administer the appropriate correction factor. NOTE: This is a HIGH ALERT Medication., Dispense pens manually with initial order and then upon request. DO NOT uncheck "Do not dispense" 0816 (Patch/Topical Applied - Provider: Monica Rod, RN)210 (Patch/Topical Removed - Provider: Birdie Arevalo RN) 0836 (Patch/Topical Applied - Provider: Anastasiya Moraes, STEVEN)1514 (Due: Patch/Topical Removed - Provider: Eros, Orders Discontinue - Comment: Time automatically adjusted from order being discontinued) lidocaine (LIDODERM) 5 % topical patch 1 15 (Patch /Topical patch Applied - Provider: 1 patch, Topical, Administer over 12 Nevaeh Villalpando ll, Hours, DAILY, First dose on Tue12/13/22 RN)2054 at 0930, Until Discontinued, NURSING (Patch/Topical PLEASE NOTE: Apply patch ONCE DAILY to Removed - Pro vider: low back and REMOVE after designated Perry Chaparro N) duration. Apply only to intact skin. Patch may be cut to fit affected area. 1420 (Given - Provider: Monica Rod, STEVEN) 0835 (Given - Provider: Anastasiya tang, STEVEN) losartan (COZAAR) tablet 25 mg 25 mg, Oral, DAILY, First dose on Tue12/20/22 at 1500, Until Discontinued, Admission/Obs/Extended Recovery 1821 (Given - Provider: Monica Rod, STEVEN) 0835 (Given - Provider: Anastasiya tang, STEVEN) metFORMIN (GLUCOPHAGE) tablet 1,000 mg 1,000 mg, Oral, TWICE DAILY AFTER MEALS , First dose on Tue12/20/22 at 1900, Until Discontinued, Admission/Obs/Extended Recovery 0816 (Given - Provider: Monica Rod RN) 1420 (Given - Provider: Monica Rod RN)2057 (Given - Provider: Birdie Arevalo RN) 0835 (Given - Provider: Anastasiya tang RN)142 (Given - Provider: Anastasiya Moraes RN) methocarbamoL (ROBAXIN) tablet 750 mg 0915 (Given - 750 mg, Oral, THREE TIMES DAILY, First Provider: Fabio garvin dose on Tue12/13/22 at 0930, Until STEVEN Clinton)1527 Discontinued (Given - Provider: Nevaeh Clinton RN)2054 (Given - Provider: Tish Canseco RN) 142 (Given - Provider: Monica Rod RN) 0835 (Given - Provider: Anastasiya tang RN) metoprolol succinate XL (TOPROL XL) tablet 25 mg 25 mg, Oral, DAILY, First dose on Tue12/20/22 at 1500, Until Discontinued, Hol d for systolic BP < 90 tablets may be cut in half, DO NOT CRUSH or CHEW, Admission/Obs/Extended Recovery 0816 (Given - Provider: Monica Rod RN) 0837 (Given - Provider: Anastasiya tang RN) milk of magnesium oral suspension 30 mL 0915 (Given - 30 mL, Oral, DAILY, First dose on Tue Provider: Renny kellogg 12/13/22 at 0900, Until Discontinued, STEVEN Clinton) Hold for loose stools., Admission/Obs/Extended Recovery 0816 (Patch/Topical Removed - Provider: Monica Rod RN)0817 (Patch/Topical Applied - Provider: Monica Rod RN) 0835 (Med Not Given - Provider: Rosario Moraes RN - Reason: Patient Refused)0836 (Patch/Topical Removed - Provider: Anastasiya Moraes RN) nicotine (NICODERM CQ) 21 mg/day patch 1 912 (Patch /Topical patch Removed - Provider: 1 patch, Transdermal, Administer over 24 Nevaeh gudino, Hours, DAILY, First dose on Tue12/15/22 RN)0914 at 1900, Until Discontinued (Patch/Topical Applied - Provider: Nevaeh Clinton RN) 0816 (Given - Provider: Monica Rod, STEVEN) 2057 (Given - Provider: Birdie Arevalo, STEVEN) 0835 (Given - Provider: Anastasiya tang, STEVEN) senna/docusate (SENOKOT-S) tablet 1 15 (Given - tablet Provider: Nevaeh 1 tablet, Oral, TWICE DAILY, First dose STEVEN Clinton )2054 on Tue12/13/22 at 0900, Until (Given - Provider: Discontinued, Hold for loose stools, Perry Chaparro) Admission/Obs/Extended Recovery 2057 (Given - Provider: Birdie Arevalo RN) simvastatin (ZOCOR) tablet 80 mg 80 mg, Oral, AT BEDTIME DAILY, First dose on Tue12/20/22 at 2100, Until Discontinued, Admission/Obs/Extended Recovery 08 (Given - Provider: Monica Rod RN) 0835 (Given - Provider: Anastasiya tang, STEVEN) tamsulosin (FLOMAX) capsule 0.4 mg 914 (Given - 0.4 mg, Oral, DAILY AFTER BREAKFAST, Provider: Jarred jara First dose on Tue12/17/22 at 0915, Until STEVEN Clinton ) Discontinued, NURSING: Please educate patient and document: Give 1/2 hour following same meal everyday. Do not crush, chew or open the capsule. 12/20/2022 12/21/2022 Medication Order 12/19/2022 0615 (Given - New Bag - Provider: Tish Canseco RN)1225 (Infusion Stopped - Provider: Monica Rod RN) sodium chloride 0.9 % infusion 0613 (Given - New (CANCELED) Bag - Provider: 1,000 mL, Intravenous, at 50 mL/hr, Hallie Lemus, CONTINUOUS, Starting on Tue12/19/22 at RN)1102 (Given - New 0615, Until Tue12/20/22 at 1212 Bag - Provider: Nevaeh Clinton RN) 12/20/2022 12/21/2022 Medication Order 12/19/2022 1210 (Unheld by Provider - Provider: [facility] alona Mohr, PLATE COLORER-SHEET METAL SMITH) acetaminophen (TYLENOL) tablet 650 mg 650 mg, Oral, EVERY 4 HOURS PRN, Starting on Tue12/12/22 at 2257, Until Tue12/21/22 at 1714, Pain non-opioid: ma y be used alone or in combination with opioid analgesia, TOTAL ACETAMINOPHEN DOSE NOT TO EXCEED 4GM DAILY, Admission/Obs/Extended Recovery baclofen (LIORESAL) tablet 20 mg 20 mg, Oral, TWICE DAILY PRN, Starting on Tue12/20/22 at 1353, Until Tue12/21/22 at 1714, Spasms, Admission/Obs/Extended Recovery dextrose 50% (D50) syringe 25-50 mL 25-50 mL (12.5-25 g), Intravenous, NEEDED, Starting on Tue12/20/22 at 1845, Until Tue12/21/22 at 1714, Blood Sugar..., =< 70 mg/dL: See admin instructions, = Blood Sugar Patient Management Result Status Strategy = Blood Glucose Conscious, Oral carbohydrates 50-70 mg/dL able to take PO - Conscious, 25mL (12.5g) dextrose 50% unable to take PO slow IV push - Unconscious 50mL (25g) dextrose 50% slow IV push = Blood Glucose Conscious, Oral carbohydrates <50 mg/dL able to take PO - Conscious, 50mL (25g) dextrose 50% unable to take PO slow IV push - Unconscious 50mL (25g) dextrose 50% slow IV push = NOTE: This is a HIGH ALERT Medication. diazePAM (VALIUM) tablet 5 mg (CANCELED) 13 (Given - 5 mg, Oral, EVERY 6 HOURS PRN, Starting Provider: Amisha blake on 12/18/22 at 0819, Until Tue12/20/22 Perry Lemus at 1355, Spasmyokasta ipratropium-albuterol (COMBIVENT RESPIMAT) inhaler 1 puff 1 puff, Inhalation, RT NEEDED, Starting on Tue12/13/22 at 0108, Until Tue12/21/22 at 1714, RT PROTOCOL, When administered by RT, will be per RT policy. NOT TO EXCEED 6 INHALATIONS / 24 HOURS 1420 (Med Not Given - Provider: Monica allison RN - Reason: Patient Refused) lactulose (GENERLAC) oral solution 20 g 20 g (30 mL), Oral, THREE TIMES DAILY PRN, Starting on Tue12/14/22 at 0856, Until Tu12/21/22 at 1714, Constipation PO 2057 (Given - Provider: Birdie Arevalo RN) melatonin tablet 0.5 mg 210 (Given - 0.5 mg, Oral, AT BEDTIME PRN, Starting Provider: Ree hernandez on 12/14/22 at 1827, Until Tue12/21/22 STEVEN Canseco) at 1714, Insomnia ondansetron (ZOFRAN) injection 4 mg 4 mg, Intravenous, EVERY 6 HOURS PRN, Starting on Tue12/12/22 at 2257, Until Tue12/21/22 at 1714, Nausea/Vomiting Injectable, Admission/Obs/Extended Recovery 0402 (Given - Provider: Tish Canseco RN )0816 (Given - Provider: Monica Rod RN)1420 (Given - Provider: Monica Rod RN)210 (Given - Provider: Birdie Arevalo RN) oxyCODONE (ROXICODONE) tablet 5-15 mg 0030 (Given - 5-15 mg, Oral, EVERY 4 HOURS PRN, Provider: Hallie Starting on 12/18/22 at 0819, Until STEVEN Lemus) 0613 e 12/21/22 at 1714, Pain PO, (Given - Provider: Admission/Obs/Extended Recovery Hallie Lemus RN)2054 (Given - Provider: Tish Canseco RN) documented in this encounter Orders First Ordered Date Medications Ordered That Might Not Have Count Last Ordered Date Been Administered baclofen (LIORESAL) tablet 20 mg 1 12/20 dextrose 50% (D50) syringe 25-50 mL 1 ceFAZolin (ANCEF) 1 g in sodium chloride 1 12/15/2022 irrigation 0.9 % 1,000 mL bottle diphenhydrAMINE HCL (BENADRYL) injection 1 12/15/2022 25 mg fentaNYL citrate PF (SUBLIMAZE) 1 2022 injection 25 mcg haloperidol lactate (HALDOL) injection 1 1 12/15/2022 mg HYDROmorphone injection (DILAUDID) 0.5 1 12/15/2022 mg HYDROmorphone injection (DILAUDID) 0.5-1 1 12/15/2022 mg lidocaine 2%/EPINEPHrine 1:100,000 1 10/2022 injection nalOXone (NARCAN) injection 0.04 mg 1 12/12/2022 ondansetron (ZOFRAN) injection 4 mg 2 oxyCODONE (ROXICODONE) tablet 5-10 mg 1 12/15/2022 thrombin 5,000 unit topical solution 1 0 12/15/2022 vancomycin (VANCOCIN) injection 1 2022 lactulose (GENERLAC) oral solution 20 g 1 12/14/2022 heparin (porcine) PF syringe 5,000 Units 1 12/13/2022 ipratropium-albuterol (COMBIVENT 1 12/13 RESPIMAT) inhaler 1 puff First Ordered Date Lab Orders Without Results Count Last Ordere d Date PREPARE RBC'S 1 12/14/2022 First Ordered Date Procedures Count Last Ordered Date CONSULT VASCULAR ACCESS TEAM 1 First Ordered Date Diet Count Last Ordered Date DISCHARGE DIET REGULAR 1 12/21/2022 First Ordered Date Nursing Count Last Ordered Date DISCHARGE ACTIVITY LIFTING 1 12/21/2022 DISCHARGE ACTIVITY NORMAL 1 12/21/2022 DISCHARGE CONTACT 1 12/21/2022 DISCHARGE SIGNS/SYMPTOMS 1 12/21/2022 DISCHARGE WOUND CARE 1 12/21/2022 First Ordered Date OT Count Last Ordered Date OT CONSULT OCCUPATIONAL THERAPY 1 2022 First Ordered Date PT Count Last Ordered Date 12/12/2022 PT CONSULT PHYSICAL THERAPY 2 12/13/2022 First Ordered Date Admission Count Last Ordered Date ADMIT TO INPATIENT (NO BED REQUEST) 1 First Ordered Date Discharge Count Last Ordered Date DISCHARGE PATIENT NOW 1 12/21/2022 First Ordered Date Equipment Count Last Ordered Date HEATING, MACHINE AK WITH PAD 1 3 12/12/2022 [facility] BED AIRFLOW PUMP 2 12/16/19 23 PUMP IV CONTROL UNIT W/MODULES 1 023 First Ordered Date Vital Signs Count Last Ordered Date VITAL SIGNS 1 12/15/2022 First Ordered Date Activity Count Last Ordered Date MOBILITY 1 12/16/2022 First Ordered Date Discharge Contingent Count Last Ordered Date DISCHARGE PATIENT CONTINGENT 1 3 First Ordered Date SPECIALITY EQUIPMENT Count Last Ordered Date COMMODE STANDARD 300LBS MAX 1 12/17/2022 First Ordered Date Order Set Communication Count Last Ordered D ate VTE DRUG PROPHYLAXIS CONTRAINDICATED 1 0 12/12/[address] & Maintain Count Last Ordered Date PLACE AND MAINTAIN SCD 1 12/12/2022 First Ordered Date Case Request Count Last Ordered Date CASE REQUEST 1 12/13/2022 documented in this encounter Additional Health Concerns Noted Time Assessment 12/21/2022 8:34 AM BLOOD BANK CUSTODIAN A fall risk assessment has been complet ed for the patient documented as of this encounter Care Teams Start Date End Date Machine Silver Stripper Relationship Specialty 12/12/22 No Pcp, Na PCP - General documented as of this encounter
--- OUTSIDE RECORDS SUMMARY | 2022-12-21 18:18 | XMS REPORT | Encounter Summary ---
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 Referral ID Status Reason Start Date Expiration Visits Vi sits Date Requested Authorized [id number] 1 1 Encounter Details Care Team Description Date Type Department Chidi Jimenez MD [address] [facility] [address] [place] [address] 12/16/2022 Hospital Vascular Access Tea m: Encounter [facility] [address] [facility] [address] [place] [address] Social History Date Tobacco Use Types Packs/Day Years Used Smoking Tobacco: Every Cigarettes 2 Day Smokeless Tobacco: Never Sex Assigned at Date Recorded Male 12/13/2022 11:12 AM ROLL PICKER Date Recorded COVID-19 Exposure Response 12/15/2022 11:39 AM ROLL PICKER In the last 10 days, have you been in contact with N o / Unsure someone who was confirmed or suspected to have Coronavirus/COVID-19? documented as of this encounter Functional Status Date of Assessment Functional Status Response 12/13/2022 Does the patient have a hearing impairment: Yes documented as of this encounter Medications at Time of Discharge [...] bedtime daily. documented as of this encounter Discharge Disposition Code Departure Means Destination Disposition Home Home or Self Care documented in this encounter Plan of Treatment Not on filedocumented as of this encounter Goals Goal Patient Associated Recent Progress Patient-Stat Aut hor Goal Type Problems ed? Decrease pain Hospital On track (12/13/2022 Yes Chelo Deloris orantes, 5:02 PM ROLL PICKER) RN Note: "To get better, get my back fixed and get stronger" documented as of this encounter Procedures Comments Procedure Name Priority Date/Time Associated Diag nosis CONSULT VASCULAR ACCESS Routine 12/16/2022 TEAM 9:59 AM ROLL PICKER documented in this encounter Visit Diagnoses Not on filedocumented in this encounter Orders First Ordered Date Procedures Count Last Ordered Date CONSULT VASCULAR ACCESS TEAM 1 3 documented in this encounter Additional Health Concerns Noted Time Assessment 12/16/2022 8:00 PM ROLL PICKER A fall risk assessment has been complet ed for the patient documented as of this encounter Care Teams Start Date End Date Electrotyper Relationship Specialty 12/12/22 No Pcp, Na PCP - General documented as of this encounter
--- OUTSIDE RECORDS SUMMARY | 2022-12-21 18:19 | XMS REPORT | Encounter Summary ---
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 Date/Time Status Location OR Service Inpatient Elective - Treating conditio ns that are not life or limb threatening 12/15/22 Posted CA3 OR CA3 OR02 Neurosurge 11:35 AM ry Comments Panel 1 Procedure LRB Anes Op Region Wound Cl ass 3.3 hrs, C3-6 PCF and decompression, globus, jose table/yogi frame, 2 drills/2 bovies, espana FUSION SPINE POSTERIOR - N/A Defer to Spine Cervical Clean CERVICAL BELOW CERVICAL 2 Anesthesia Surgeon Role Service Panel Surgeon Primary Neurosurgery 1 Chidi Jimenez MD Resident - Assisting Neurosurgery 1 Mt Jolly MD Resident - Assisting Neurosurgery 1 Mt Jolly MD Resident - Assisting Neurosurgery 1 Daryl Deshpande MD documented in this encounter Social History Date Tobacco Use Types Packs/Day Years Used Smoking Tobacco: Every Cigarettes 2 Day Smokeless Tobacco: Never Tobacco Cessation: Ready to Quit: No; Co unseling Given: Not Answered Sex Assigned at Date Recorded Male 12/13/2022 11:12 AM IC DESIGNER STANDARD CELLS Date Recorded COVID-19 Exposure Response 12/15/2022 11:39 AM IC DESIGNER STANDARD CELLS In the last 10 days, have you been in contact with N o / Unsure someone who was confirmed or suspected to have Coronavirus/COVID-19? documented as of this encounter Last Filed Vital Signs Reading Time Taken Comments Vital Sign 141/84 12/15/2022 11:31 AM IC DESIGN[employer] STANDARD CELLS Blood Pressure 64 12/15/2022 12:15 PM IC DESIGNER STANDARD CELLS Pulse 36.7 C (98 F) 12/15/2022 11:31 AM IC DESIGNER STANDARD CELLS Temperature - - Respiratory Rate 97% 12/15/2022 12:15 PM IC DESIGNER STANDARD CELLS Oxygen Saturation - - Inhaled Oxygen Concentration 122 kg (268 lb 15.4 oz) 12/13/2022 5:00 PM IC DESIGNER STANDARD CELLS Weight 185.4 cm (6' 1") 12/13/2022 5:00 PM IC DESIGNER STANDARD CELLS Height 35.49 12/13/2022 5:00 PM IC DESIGNER STANDARD CELLS Body Mass Index documented in this encounter [...] 12/21/2022 PLAN: Pt will dc to [facility] in [place] today at 3pm via w/c van. Expected Discharge Date: 12/21/2022 3:00 PM Is Patient Medically Stable: Yes Are there Barriers to Discharge? no INTERVENTION/DISPOSITION: Discharge Planning January with [facility] said pt should be there by 3 at the latest. RICHARD h as transport scheduled at 3 and will see if can find anything sooner today. RICHARD called [employer] but the earliest they could do it was 4pm today. RICHARD called [facility] and they are checking to see for any availability today. RICHARD notified provider Onur of dc today at 3pm. RICHARD notified bedside nurse of dc today at 3pm and provided number for report. RICHARD printed and delivered transfer packet to pt bedside. RICHARD notified pt of dc time today at 3pm. REPORT [phone] RICHARD faxed dc orders to [phone] Transportation Will the Patient Use Family Transport?: Yes Transportation Name, Phone and Availability #1: pt has a friend that can help wi th transportation Support Info or Referral Medication Needs Financial Legal Other Discharge Disposition Selected Continued Care - Admitted Since 12/12/2022 No services have been selected for the patient. Angi Simpsno LMSW Social Work Case Management Available on [employer] DESIGNER STANDARD CELLS * Melissa Lam - 12/20/2022 3:15 PM CST COMPUTING SYSTEMS MECHANIC Note: Request from OSCAR Nascimento to obtain a quote to [facility] [place]: $600.00 Melissa Lam Cattle Dipper For additional assistance please contact OSCAR Hughes,sahil DESIGNER STANDARD CELLS * Angi Simpson LMSW - 12/20/2022 7:43 AM CST Case Management Progress Note NAME:Jose Wilson : 0 AGE: 62 y.o. ADMISSION DATE: 12/12/2022 DAYS ADMITTED: LOS: 8 days Today's Date: 12/20/2022 PLAN: Anticipate dc to [facility] tomorrow at 3pm via w/c van. Expected Discharge Date: 12/21/2022 12:00 PM Is Patient Medically Stable: Yes Are there Barriers to Discharge? no INTERVENTION/DISPOSITION: Discharge Planning RICHARD followed up with [facility] to see if they can admit pt once SW get s approval from [place]. RICHARD reviewed EMR and met with [facility] and neurosurgery team for huddle to discuss jose n of care. Pt is medically stable for rehab. SW talked to [facility] and they can accept pt. Need to go through [place] for i nsurance approval. RICHARD called [facility] to initiate insurance approval for rehab. RICHARD faxed [facility] Request for Service form to [phone]. [phone]. He is 30% service connected. Will update pt on process. RICHARD met with pt at bedside and let him know [facility] accepted him. We are j ust waiting on [place] approval which can take a couple of days. He said he thought his brother may be able to take him or possibly a friend. RICHARD will gather estimat es for transport in case he doesn't have anyone to take him. RICHARD tasked COMPUTING SYSTEMS MECHANIC for w/c and stretcher van estimates to [facility] in [place]. Asked therapy about safest transportation to facility. Said he would be okay wi th a w/c van but probably not family as they have a truck. Any car transfers ma y be very difficult for pt. RICHARD scheduled transport with [place] for 3pm tomorrow but if they can move it up earlier, they will contact RICHARD. Asked management for financial assistance ($600 ) to pay for pt to go to rehab in [place]. Transportation Will the Patient Use Family Transport?: Yes Transportation Name, Phone and Availability #1: pt has a friend that can help wi th transportation Support Info or Referral Medication Needs Financial Legal Other Discharge Disposition Selected Continued Care - Admitted Since 12/12/2022 No services have been selected for the patient. Angi Simpson LMSW Social Work Case Management Available on [employer] DESIGNER STANDARD CELLS * Angi Simpson LMSW - 12/17/2022 10:05 [...] placement and insurance approval) INTERVENTION/DISPOSITION: Discharge Planning SW reviewed EMR and met with [facility] and neurosurgery team for huddle to discuss plan of care. Pt has inpatient recs but initially was refusing rehab placement. Provider contacted SW and said he will consider placement now. SW will talk to him about options. SW met with pt at bedside. He was open to going to rehab. [facility] [place]. SW will look into this to see what level of care this is and get back to him. Also was willing to go to [facility] in [place]. SW will send a referral. SW looked at 's home and that is more of SNF and he could do IPR level of rehab. Sent a referral to [facility] in [place] (IPR). [facility] does not have IPR level of care. Said [facility] in [place] would be the [facility] facility. SW sent a referral to [facility] in [place]. SW talked to pt and he would rather go to [place], closer to his brother so he could come visit. SW sent a referral to [facility]. He was still onboard with going to [...] LMSW Social Work Case Management Available on [employer] DESIGNER STANDARD CELLS Melissa Maldonado - 12/14/2022 10:24 AM CST COMPUTING SYSTEMS MECHANIC Note: Request from OSCAR Nascimento for notary. Melissa Lam Cattle Dipper For additional assistance please contact [facility] * DESIGNER STANDARD CELLS * Angi Simpson LMSW - 12/14/2022 9:24 AM CST Case Management Progress Note NAME:Jose Wilson : 0 AGE: 62 y.o. ADMISSION DATE: 12/12/2022 DAYS ADMITTED: LOS: 2 days Today's Date: 12/14/2022 PLAN: DC planning ongoing- OR Tuesday. Expected Discharge Date: 12/17/2022 12:00 PM Is Patient Medically Stable: No, Please explain: OR Tuesday Are there Barriers to Discharge? no INTERVENTION/DISPOSITION: Discharge Planning RICHARD tasked COMPUTING SYSTEMS MECHANIC for a notary to complete a DPOA. SW met with pt at bedside to complete medical DPOA Per his request. Scanned in and sent to admitting updates. No other needs at this time. [facility] Transportation Will the Patient Use Family Transport?: Yes Transportation Name, Phone and Availability #1: pt has a friend that can help wi th transportation Support Info or Referral Medication Needs Financial Legal Other Discharge Disposition Selected Continued Care - Admitted Since 12/12/2022 No services have been selected for the patient. Angi Simpson LMSW Social Work Case Management Available on [employer] DESIGNER STANDARD CELLS * Angi Simpson LMSW - 12/13/2022 5:42 [...] experience inc lee ann: ? Outpatient PT- [place] [facility] [place] and [facility] in August 2022 ? DME-- RW, W/C ? Transport plan will be possibly a friend ? Pt fills medications at through the [facility] and [facility] ? PCP- Dom Hernández through the [place] Patient Address/Phone [address] [facility] [address] (home) Emergency Contact Extended Emergency Contact Information Primary Emergency Contact: Ghada Garland Mobile Relation: Significant Other Preferred language: MAORI Adult Health Clinical Nurse Specialist needed? No Healthcare Directive Healthcare Directive: No, [...] decision making Financial Resources Coverage Primary Insurance: [facility] Secondary Insurance: Medicare (does have Medicare [...] PCP PCP is Dom Pelayo through the [place] [facility] No Pharmacies Listed through the [place] Durable Medical Equipment Durable Medical Equipment at home: David Walker Wheelchair (manual) Home Health Receiving home health: Yes Agency name: wasn't sure the name but said it was through [employer] and they hadn' t shown up the [...] receive care?: unsure time frame but used [facility] in [facility] and somewhere in [facility] Would patient return for future services?: Yes OT: No MAGNETIC TESTING TECHNICIAN: No Residential Facility/Correction SNF: No NH: No Inpatient Rehab IPR: No Long-Term Acute [facility] Hospital LTACH: No Acute Hospital Stay Acute Hospital Stay: No Angi Simpson LMSW Social Work Case Management Available on [employer] DESIGNER STANDARD CELLS documented in this encounter Discharge Instructions * Instructions* Nathalie Venegas RN - 12/16/2022 3:56 PM CST Jose Wilson Posterior Cervical Fusion Spine Cervical 3-6 on 12/15/2022 with Celso Doe Neurosurgery Discharge Instructions Contact information: Call Neurosurgery if you have questions or are experiencing problems at discharg e [phone]. After 5 pm and weekends please call [phone] to reach Neurosurgery midwife practitioner. Post-operative wound care: Your incision has sutures [...] Rehab Physician to remove sutures. Please call [phone] with wound concerns. Scheduled appointments: Dec 29, 2022 12:30 PM Telehealth visit with STEPHANIE Del Toro Neurosurgery: [facility] (NeuroSurgery) [address] [facility] [phone] Feb 11, 2023 12:15 PM Telehealth visit with Chidi Jimenez MD Neurosurgery: [facility] (NeuroSurgery) [address] [facility] [address] [facility] [phone] Please contact Neurosurgery if you develop any [...] by pain medications or muscle r elaxers. DESIGNER STANDARD CELLS documented in this encounter Medications at Time [...] Means Destination Disposition Wheelchair Rehab Facility (Not [facility]) documented in this encounter Progress Notes * Anastasiya Moraes RN - 12/21/2022 3:07 PM CST Discharge education provided to pt. All questions addressed and answered. Unders tanding verbalized. Prescriptions and handouts provided. Peripheral IV left in p er rehab's request. Pt transported to [facility] via wheelchair with belongings in [place] and cart where ride is waiting. DESIGNER STANDARD CELLS * La Nena Mohr APRN-NP - 12/21/2022 [...] assessed for need for restraints. Please page [phone] with any questions. STEPHANIE Llanos Voalte me DESIGNER STANDARD CELLS * La Nena Mohr APRN-NP - 12/20/2022 [...] assessed for need for restraints. Please page [phone] with any questions. STEPHANIE Llanos Voalte me DESIGNER STANDARD CELLS * Sherrie Molina, OT - 12/20/2022 10:36 AM CST OCCUPATIONAL [...] t o bathroom. Prior Function Level Of Elaine: Needed assistance with ADLs;Needed assistance with functi [...] Assistance: For balance;For safety considerations;For st rength deficit End of Activity Status: Up in [...] ADLs;All home functioning ADLs Therapist: JAHAIRA Todd/Bjorn [id number] Date: 12/20/2022 DESIGNER STANDARD CELLS * Lien Brock, PT - 12/20/2022 9:40 [...] 10 repetitions Weight Shift Assist: Minimal Assist March In Place Repetitions: [address] Assist: Moderate Assist Education Persons Educated: Patient [...] mobility Therapist: Lien Brock, PT Date: 12/20/2022 DESIGNER STANDARD CELLS * Nevaeh Clinton RN - 12/19/2022 4:44 PM CST Physician Sheri notified about patient continuing to have urinary retention, ad vised to continue to follow protocol. [facility], Josseline ent straight cathed today after unable to void, 825ml removed. Will continue to monitor. DESIGNER STANDARD CELLS * Nevaeh Clinton RN - 12/19/2022 8:59 AM CST Upon looking for food for patient in his belongings, this RN discovered 4 packs of cigarettes in a box, pt has decided to stop smoking and says that girlfriend brought them and the family will be taking them back when they come to see him. Packs are out of reach and in patient's closet. DESIGNER STANDARD CELLS * Sheri Verduzco MD - 12/19/2022 7:55 [...] assessed for need for restraints. Please page [phone] with any questions. Sheri Verduzco MD Voalte me DESIGNER STANDARD CELLS * Lincoln Miranda - 12/18/2022 10:11 AM CST RT Adult [...] O2%: Breath Sounds: Decreased Respiratory Effort: Non-Labored DESIGNER STANDARD CELLS * Sheri Verduzco MD - 12/18/2022 8:20 AM CST Neurosurgery [...] chair Oriented to person, place and time VALLADRAES to command Strength grossly full and symmetric [...] assessed for need for restraints. Please page [phone] with any questions. Sheri Verduzco MD Voal[employer] va DESIGNER STANDARD CELLS * Lien Brock, PT - 12/17/2022 1:45 [...] r. Trial ambulation in walking pants vs. [place] PT Discharge Recommendations Recommendation: Inpatient setting Patient Currently Requires Physical Assist With: All mobility Therapist: Lien Brock, PT Date: 12/17/2022 DESIGNER STANDARD CELLS * Sherrie Molina, OT - 12/17/2022 10:02 [...] C3/4 myelomalacia S/p C3-6 PCF and decompression /. Precautions: Falls;Cervical Collar on When OOB (refusing [...] t o bathroom. Prior Function Level Of Elaine: Needed assistance with ADLs;Needed assistance with functi [...] a single ro om. Therapist: JAHAIRA Todd/Bjorn [id number] Date: 12/17/2022 DESIGNER STANDARD CELLS * La Nena Mohr, STEPHANIE - 12/17/2022 7:56 AM CST Neurosurgery Progress [...] assessed for need for restraints. Please page [phone] with any questions. STEPHANIE Llanos Voalte me DESIGNER STANDARD CELLS * Sherrie Molina OT - 12/16/2022 1:46 [...] t o bathroom. Prior Function Level Of Elaine: Needed assistance with ADLs;Needed assistance with functi [...] ADLs;All home functioning ADLs Therapist: Sherrie Molina OTR/L [id number] Date: 12/16/2022 DESIGNER STANDARD CELLS * Lien Brock, PT - 12/16/2022 1:40 [...] r. Trial ambulation in walking pants vs. [place] PT Discharge Recommendations Recommendation: Inpatient setting Patient Currently Requires Physical Assist With: All mobility Therapist Lien Brock, PT Date 12/16/2022 DESIGNER STANDARD CELLS * Yaa Duke, RD - 12/16/2022 11:52 [...] COPD, CAD s/p stent who presents in [facility] for further management of progressive BUE/BLE weakness x1 month per [facility] t review. S/p fusion spine posterior 3/1. RD flagged for MST score. Has only [...] regimen (x3) today. 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 UBW is 265#. Mentioned weighing 324# a [...] Current Oral Intake: Inadequate Estimated Calorie Needs: 8957-3985 kcal (25-30 kcal/kg dbw) Estimated Protein Needs: 94-111g (1.1-1.3 g/kg dbw) Malnutrition Assessment: Does not meet criteria Nutrition Focused Physical Assessment: Loss of Subcutaneous Fat: No; ; Muscle Wasting: No; ; Edema: (non-pitting, all extremities); ; Pressure Injury: none Comment: +BM police captain (2 weeks ago, per pt) Nutrition Diagnosis: Inadequate protein-energy intake Etiology: Limited po attempts Signs & Symptoms: Pt interview, review of meal ticket hx Intervention / Plan: Encouraged po intake, protein at meals/snacks Monitor po intake, wt trends, labs, I/Os Goals: Patient to consume >75% of meals Time Frame: Within _ days (4) GONZALEZ Leon, YAKOVN, LD Available on [employer] Office: [phone] DESIGNER STANDARD CELLS * La Nena Mohr APRN-NP - 12/16/2022 10:11 AM CST Neurosurgery Progress [...] assessed for need for restraints. Please page [phone] with any questions. STEPHANIE Llanos Voalte me DESIGNER STANDARD CELLS * Thomas Das SRNA - 12/16/2022 9:44 AM CST Anesthesia Follow-Up Evaluation: Post-Procedure Day One Name: Jose Wilson : 1960 Age: 62 y.o. Sex: male Procedure Date: 12/15/2022 Procedure: Procedure(s) with comments: FUSION SPINE POSTERIOR - CERVICAL BELOW CERVICAL 2 - 3.3 hrs, C3-6 PCF and decom pression, globus, jose table/yogi frame, 2 drills/2 bovies, espana Physical Assessment Height: 185.4 cm (6' 1") [...] Pt has no anesthesia questions or concerns. DESIGNER STANDARD CELLS * Gareth Banegas RN - 12/16/2022 7:59 AM CST Pt. Refusing C-collar. Education provided by this RN. DESIGNER STANDARD CELLS * Stephie Brown APRN-NP - 12/15/2022 10:20 [...] assessed for need for restraints. Please page [phone] with any questions. STEPHANIE Dhillon Voalte me DESIGNER STANDARD CELLS * Isaiah Cha RT - 12/15/2022 9:19 [...] Liter Flow: O2%: Breath Sounds: Respiratory Effort: DESIGNER STANDARD CELLS * La Nena Mohr, CHRISTINA-[place]IR[place] RAMP ATTENDANT - 12/14/2022 8:38 AM CST Neurosurgery Progress [...] assessed for need for restraints. Please page [phone] with any questions. STEPHANIE Llanos Voalte me DESIGNER STANDARD CELLS * Augustina Vargas RN - 12/13/2022 9:34 PM CST Patient continues to refuse to wear the [place] collar, have educated on risks of not wearing collar and that he could possibly cause further damage. Patient voic ed understanding. Still refused. Patient is still also refusing his oxygen, he s tates he doesn't wear it at home and isn't going to wear it here. Patient again educated on on risks of not wearing oxygen. Voiced understanding. DESIGNER STANDARD CELLS * La Nena Mohr APRN-NP - 12/13/2022 8:31 AM CST Neurosurgery [...] assessed for need for restraints. Please page [phone] with any questions. STEPHANIE Llanos Voalte me DESIGNER STANDARD CELLS * Rocio Kay RT - 12/13/2022 12:03 AM CST RT [...] Effort: Non-Labored;SOA (Short of air) on exertion DESIGNER STANDARD CELLS documented in this encounter H&P Notes * Alonzo Clemente MD - 12/12/2022 5:54 PM CST Neurosurgery History and Physical Examination Jose Wilson Admission Date: (Not on file) Assessment/Plan: Jose Wilson is a 62 y.o. male with pmhx of COPD, CAD s/p stent who presents in transfer for further management of progressive BUE/BLE weakness x1 month per [facility] rt review. Per chart review, MRI showed [...] He presented to multiple OSH including the [facility] with difficulty standing up getting around the house. He denies any new sens ory changes or changes in bladder/bowel function. He has had BUE weakness since his fall in Aug that he feels is worse. BISCUIT MAKER ASA81 which he states he last took 4 years ago. He denies any other BISCUIT MAKER AC/A P agents. 2 packs/day x 9 [...] of progressive BUE/BLE weakness x1 month per [facility] rt review. Per chart review, MRI showed [...] He presented to multiple OSH including the [facility] with difficulty standing up getting around the house. He denies any new sens ory changes or changes in bladder/bowel function. He has had BUE weakness since his fall in Nov that he feels is worse. Past Medical [...] Review: Pertinent radiology reviewed. Alonzo Clemente MD DESIGNER STANDARD CELLS documented in this encounter Procedure Notes * [...] reliable and not monitorable. The surgeon was infor med. The data from neurophysiological monitoring of somatosensory [...] secure HIPAA-compliant network. Ivette Tierney MD Clinical Film Or Videotape Editor Department of Neurology DESIGNER STANDARD CELLS documented in this encounter Nursing Notes * Nathalie Venegas, RN - 12/21/2022 1:13 PM CST Jose Wilosn Posterior Cervical Fusion Spine Cervical 3-6 on 12/15/2022 with Celso Doe Neurosurgery Discharge Instructions Contact information: Call Neurosurgery if you have questions or are experiencing problems at disc har [phone]. After 5 pm and weekends please call [phone] to reach Neurosurgery on [facility]. Post-operative wound care: Your incision has sutures [...] Rehab Physician to remove sutures. Please call [phone] with wound concerns. Scheduled appointments: Dec 29, 2022 12:30 PM Telehealth visit with STEPHANIE Del Toro Neurosurgery: [facility] (NeuroSurgery) [address] [facility] [phone] Feb 11, 2023 12:15 PM Telehealth visit with Chidi Jimenez MD Neurosurgery: [facility] (NeuroSurgery) [address], [address] [facility] [phone] Please contact Neurosurgery if you develop any [...] Clinical Nurse Coordinator Neurosurgery Available via [employer] DESIGNER STANDARD CELLS documented in this encounter OR Notes * [...] MEPs. The patient was placed in a [place] headholder. The patientwas placed supine on the [...] with bipolar el ectrocautery and Floseal. A harbor boat pilot hole was drilled using a high speed [...] Complications: None Implants: Implant Name Serial No. Valet Runner Lot No. LRB No. Used Action GRAFT BONE SUBSTITUTE FLEX MATRIX SMALL MAGNETOS - [id number] [employer] s AG [id number] N/A 1 Implanted CAP LOCKING QUARTEX SPINE THREAD - SNA NA [employer] NA N/A 10 Implanted SCREW BONE 3.5MM 14MM QUARTEX SPINE POLYAXIAL - SNA NA [employer] NA N/A 10 Implanted TRISTAN SPINAL 90MM 4MM CURVE - SNA NA [employer] NA N/A 1 Implanted TRISTAN SPINAL 85MM 4MM CURVE - SNA NA [employer] NA N/A 1 Implanted Drains: Hemovac: 0 mL Disposition: PACU - stable Daryl Deshpande MD Pager [phone] DESIGNER STANDARD CELLS Associated attestation - Chidi Jimenez MD - 12/19/2022 9:53 PM IC DESIGNER STANDARD CELLS The cohn portion of this procedure was [...] Goal: Adequate nutritional intake Outcome: Goal Ongoing DESIGNER STANDARD CELLS * Care Plan - Halle Perez - [...] accessed by crystal dominguez on our website [email or web address] for this consult which was completed during [...] can be of further assistance, please call [facility] [phone] DESIGNER STANDARD CELLS * Care Plan - Gareth Banegas RN [...] Ongoing Goal: Skin intact Outcome: Goal Ongoing DESIGNER STANDARD CELLS documented in this encounter Plan of Treatment Not on filedocumented as of this encounter Goals Goal Patient Associated Recent Progress Patient-Stat Aut hor Goal Type Problems ed? Decrease pain Hospital On track (12/13/2022 Yes Deloris Hamlin, 5:02 PM IC DESIGNER STANDARD CELLS) RN Note: "To get better, get my back fixed and get stronger" documented as of this encounter Procedures Comments Procedure Name Priority Date/Time Associated Diag nosis POC GLUCOSE 12/21/2022 12:10 PM IC [employer]S POC GLUCOSE 12/21/2022 7:48 AM IC [employer]LLS POC GLUCOSE 12/20/2022 9:02 PM IC [employer]IGNER [employer] CELLS POC GLUCOSE 12/20/2022 5:36 PM IC DES[employer]ER [employer]LL[employer] HC CBC W/ AUTOMATED DIFF Routine 12/19/2022 4:13 AM IC [employer] HC BASIC METABOLIC PANEL Routine 12/19/2022 4:13 AM IC [employer]LL[employer] HC CBC W/ AUTOMATED DIFF Routine 12/17/2022 3:46 AM IC [employer]LL[employer] HC BASIC METABOLIC PANEL Routine 12/17/2022 3:46 AM IC [employer]S CONSULT VASCULAR ACCESS Routine 12/16/2022 TEAM 9:59 AM IC [employer] HC CBC,AUTOMATED Routine 12/16/2022 4:10 AM IC [employer]LLS C SPINE 3 VIEWS OR LESS Routine 12/15/2022 10:45 PM IC DESIGNER [employer]AND[employer] CELLS C SPINE 1 VIEW Routine 12/15/2022 3:06 PM IC DESIGNER [employer]ANDARD CELLS C SPINE 1 VIEW Routine 12/15/2022 2:45 PM IC DESIGNER [employer]AND[employer] CELLS C SPINE 1 VIEW Routine 12/15/2022 2:14 PM IC DESIGNER [employer]AND[employer] CELLS FUSION SPINE POSTERIOR - 12/15/2022 Weakness CERVICAL BELOW C2 1:08 PM IC [employer]LLS POC GLUCOSE 12/15/2022 11:38 AM IC [employer] HC BLOOD TYPING, ABO Routine 12/15/2022 CONFIRM 91 3:18 AM IC [employer] HC CBC W/ AUTOMATED DIFF Routine 12/15/2022 2:59 AM IC [employer]LLS TYPE & CROSSMATCH Routine 12/15/2022 2:59 AM IC [employer]LL[employer] HC BASIC METABOLIC PANEL Routine 12/15/2022 2:59 AM IC DESIGN[employer] HC CBC W/ AUTOMATED DIFF Routine 12/13/2022 3:57 AM IC DESIGNER [employer]LL[employer] HC BASIC METABOLIC PANEL Routine 12/13/2022 3:57 AM IC [employer]IGNER [employer]LLS MRI L-SPINE EXTERNAL Routine 12/12/2022 IMAGING 12:20 PM IC [employer]IGN[employer]LLS MRI T-SPINE EXTERNAL Routine 12/12/2022 IMAGING 12:15 PM IC DESIGN[employer] CELLS MRI C-SPINE EXTERNAL Routine 12/12/2022 IMAGING 12:10 PM IC [employer]LLS TELEMETRY STRIPS-SCAN 12/12/2022 12:00 AM IC DESIGN[employer]LLS TELEMETRY STRIPS-SCAN 12/12/2022 12:00 AM IC DESIGNER STANDARD CELLS TELEMETRY STRIPS-SCAN 12/12/2022 12:00 AM IC DESIGNER STANDARD CELLS TELEMETRY STRIPS-SCAN 12/12/2022 12:00 AM IC DESIGNER STANDARD CELLS TELEMETRY STRIPS-SCAN 12/12/2022 12:00 AM IC DESIGNER STANDARD CELLS TELEMETRY STRIPS-SCAN 12/12/2022 12:00 AM IC DESIGNER STANDARD CELLS TELEMETRY STRIPS-SCAN 12/12/2022 12:00 AM IC DESIGNER STANDARD CELLS TELEMETRY STRIPS-SCAN 12/12/2022 12:00 AM IC DESIGNER STANDARD CELLS TELEMETRY STRIPS-SCAN 12/12/2022 12:00 AM IC DESIGNER STANDARD CELLS TELEMETRY STRIPS-SCAN 12/12/2022 12:00 AM IC DESIGNER STANDARD CELLS TELEMETRY STRIPS-SCAN 12/12/2022 12:00 AM IC DESIGNER STANDARD CELLS TELEMETRY STRIPS-SCAN 12/12/2022 12:00 AM IC [employer]LLS documented in this encounter Results * (ABNORMAL) POC GLUCOSE (12/21/2022 12:10 PM IC DESIGNER [employer]AND[employer] CELLS) Pathologist Signature Component Value Ref Test Method Analysis Performed A t Range Time Glucose, POC 318 (H) 70 - 100 12/21/2022 JANNIE QUARLES GE MG/DL 12:11 PM [place] [facility] Anatomical Location / Laterality Collection Method / Volume Moises ection Time Received Time Specimen (Source) 12/21/2022 12:10 PM IC DESIGNER [employer]ANDARD CELLS 12/22/19 12:11 PM IC DESIGN[employer] STANDARD CELLS Chidi Jimenez MD OTHER LABORATORY City/State/ZIP Code Phone Number Performing [place] [id number] A * (ABNORMAL) POC GLUCOSE (12/21/2022 7:48 AM IC DESIGNER STANDARD CELLS) Pathologist Signature Component Value Ref Test Method Analysis Performed A t Range Time Glucose, POC 230 (H) 70 - 100 12/21/2022 [facility] [place] GE MG/DL 7:49 AM [place] [facility] Anatomical Location / Laterality Collection Method / Volume Moises ection Time Received Time Specimen (Source) 12/21/2022 7:48 AM IC [employer] CELLS 12/22/19 7:49 AM IC [employer]LLS Chidi Jimenez MD OTHER LABORATORY City/State/ZIP Code Phone Number Performing Address Organization [address] * (ABNORMAL) POC GLUCOSE (12/20/2022 9:02 PM IC DESIGNER STAND[employer] CELLS) Pathologist Signature Component Value Ref Test Method Analysis Performed A t Range Time Glucose, POC 261 (H) 70 - 100 12/20/2022 [facility] [place] GE MG/DL 9:21 PM [place] Anatomical Location / Laterality Collection Method / Volume Moises ection Time Received Time Specimen (Source) 12/20/2022 9:02 PM IC DES[employer]ARD CELLS 12/21/19 9:21 PM IC DESIGN[employer] CELLS Chidi Jimenez MD OTHER LABORATORY City/State/ZIP Code Phone Number Performing Address Organization [address] A * (ABNORMAL) POC GLUCOSE (12/20/2022 5:36 PM IC DESIGNER STANDARD CELLS) Pathologist Signature Component Value Ref Test Method Analysis Performed A t Range Time Glucose, POC 409 (H) 70 - 100 12/20/2022 [facility] [place] GE MG/DL 5:39 PM [facility] Anatomical Location / Laterality Collection Method / Volume Moises ection Time Received Time Specimen (Source) 12/20/2022 5:36 PM IC DES[employer]ER [employer]ANDARD CELLS 12/21/19 5:39 PM IC DESIGNER STANDARD CELLS Chidi Jimenez MD OTHER LABORATORY City/State/ZIP Code Phone Number Performing Address Organization [address] * (ABNORMAL) CBC AND DIFF (12/19/2022 4:13 AM IC DESIGNER [employer] CELLS) Pathologist Signature Component Value Ref Test Method Analysis Performed A t Range Time White Blood Cells 8.6 4.5 - 12/19/2022 [facility] DE PT PATH AND 11.0 7:26 AM LAB MEDICINE K/UL IC DESIGNER STANDARD CELLS RBC 3.58 (L) 4.4 - 12/19/2022 [facility] DEPT PAT H AND 5.5 M/UL 7:26 AM LAB MEDICINE IC DESIGNER STANDARD CELLS Hemoglobin 10.1 (L) 13.5 - 12/19/2022 [facility] DEPT PAT H AND 16.5 7:26 AM LAB MEDICINE GM/DL IC DESIGNER STANDARD CELLS Hematocrit 30.3 (L) 40 - 50 12/19/2022 [facility] DEPT PAT H AND % 7:26 AM LAB MEDICINE IC DESIGNER STANDARD CELLS MCV 84.7 80 - 100 12/19/2022 [facility] DEPT PAT H AND FL 7:26 AM LAB MEDICINE IC DESIGNER STANDARD CELLS MCH 28.2 26 - 34 12/19/2022 [facility] DEPT PAT H AND PG 7:26 AM LAB MEDICINE IC DESIGNER STANDARD CELLS MCHC 33.3 32.0 - 12/19/2022 [facility] DEPT PAT H AND 36.0 7:26 AM LAB MEDICINE G/DL IC DESIGNER STANDARD CELLS RDW 16.2 (H) 11 - 15 12/19/2022 [facility] DEPT PAT H AND % 7:26 AM LAB MEDICINE IC DESIGNER STANDARD CELLS Platelet Count 205 150 - 12/19/2022 [facility] DEPT PATH AND 400 K/UL 7:26 AM LAB MEDICINE IC DESIGNER STANDARD CELLS MPV 9.2 7 - 11 12/19/2022 [facility] DEPT PAT H AND FL 7:26 AM LAB MEDICINE IC DESIGNER STANDARD CELLS Neutrophils 75 41 - 77 12/19/2022 [facility] DEPT PAT H AND % 7:26 AM LAB MEDICINE IC DESIGNER STANDARD CELLS Lymphocytes 12 (L) 24 - 44 12/19/2022 [facility] DEPT PAT H AND % 7:26 AM LAB MEDICINE IC DESIGNER STANDARD CELLS Monocytes 11 4 - 12 % 12/19/2022 [facility] DEPT PAT H AND 7:26 AM LAB MEDICINE IC DESIGNER STANDARD CELLS Eosinophils 2 0 - 5 % 12/19/2022 [facility] DEPT PAT H AND 7:26 AM LAB MEDICINE IC DESIGNER STANDARD CELLS Basophils 0 0 - 2 % 12/19/2022 [facility] DEPT PAT H AND 7:26 AM LAB MEDICINE IC DESIGNER STANDARD CELLS Absolute Neutrophil 6.51 1.8 - 12/19/2022 [facility] DEPT PATH AND Count 7.0 K/UL 7:26 AM LAB MEDICINE IC DESIGNER STANDARD CELLS Absolute Lymph Count 1.04 1.0 - 12/19/2022 [facility] DEPT PATH AND 4.8 K/UL 7:26 AM LAB MEDICINE IC DESIGNER STANDARD CELLS Absolute Monocyte 0.90 (H) 0 - 0.80 12/19/2022 [facility] DE PT PATH AND Count K/UL 7:26 AM LAB MEDICINE IC DESIGNER STANDARD CELLS Absolute Eosinophil 0.15 0 - 0.45 12/19/2022 [facility] DEPT PATH AND Count K/UL 7:26 AM LAB MEDICINE IC DESIGNER STANDARD CELLS Absolute Basophil 0.02 0 - 0.20 12/19/2022 [facility] DE PT PATH AND Count K/UL 7:26 AM LAB MEDICINE IC DESIGNER STANDARD CELLS Anatomical Location / Laterality Collection Method / Volume Moises ection Time Received Time Specimen (Source) BLOOD / Unknown 12/19/2022 4:13 AM IC [employer] CELLS 12/20/19 4:14 AM IC DESIGNER STANDARD CELLS La Nena Mohr LABORATORY ORDERABLES LINTER [employer] ATTENDANT City/State/ZIP Code Phone Number Per[place] [address] [facility] DEPT PATH AND [address] [facility] LAB MEDICINE * (ABNORMAL) BASIC METABOLIC PANEL (12/19/2022 4:13 AM IC DESIGNER STANDARD CELLS) Pathologist Signature Component Value Ref Test Method Analysis Performed A t Range Time Sodium 134 (L) 137 - 12/19/2022 [facility] DEPT PAT H AND 147 5:21 AM LAB MEDICINE MMOL/L IC DESIGNER ST[employer]ARD CELLS Potassium 4.1 3.5 - 12/19/2022 [facility] DEPT PAT H AND 5.1 5:21 AM LAB MEDICINE MMOL/L IC DESIGNER STANDARD CELLS Chloride 100 98 - 110 12/19/2022 [facility] DEPT PAT H AND MMOL/L 5:21 AM LAB MEDICINE IC DESIGNER STANDARD CELLS CO2 28 21 - 30 12/19/2022 [facility] DEPT PAT H AND MMOL/L 5:21 AM LAB MEDICINE IC DESIGNER [employer]ANDARD CELLS Anion Gap 6 3 - 12 12/19/2022 [facility] DEPT PAT H AND 5:21 AM LAB MEDICINE IC DESIGNER STANDARD CELLS Glucose 287 (H) 70 - 100 12/19/2022 [facility] DEPT PAT H AND MG/DL 5:21 AM LAB MEDICINE IC DESIGNER STANDARD CELLS Blood Urea Nitrogen 18 7 - 25 12/19/2022 [facility] DEPT PATH AND MG/DL 5:21 AM LAB MEDICINE IC DESIGNER STANDARD CELLS Creatinine 1.08 0.4 - 12/19/2022 [facility] DEPT PAT H AND 1.24 5:21 AM LAB MEDICINE MG/DL IC DESIGNER STANDARD CELLS Calcium 9.2 8.5 - 12/19/2022 [facility] DEPT PAT H AND 10.6 5:21 AM LAB MEDICINE MG/DL IC DESIGNER STANDARD CELLS eGFR >60 >60 12/19/2022 [facility] DEPT PAT H AND mL/min 5:21 AM LAB MEDICINE IC DESIGNER STANDARD CELLS Comment: eGFR calculated using the CKD-EPIcr_R equation Anatomical Location / Laterality Collection Method / Volume Moises ection Time Received Time Specimen (Source) BLOOD / Unknown 12/19/2022 4:13 AM IC [employer]ARD CELLS 12/20/19 4:14 AM IC DESIGN[employer] STANDARD CELLS La Nena Mohr LABORATORY ORDERABLES [employer] ATTENDANT City/State/ZIP Code Phone Number Performing [place] [address] [facility] DEPT PATH AND [address] [facility] LAB MEDICINE * (ABNORMAL) CBC AND DIFF (12/17/2022 3:46 AM IC DESIGNER STANDARD CELLS) Pathologist Signature Component Value Ref Test Method Analysis Performed A t Range Time White Blood Cells 11.4 (H) 4.5 - 12/17/2022 [facility] DE PT PATH AND 11.0 4:29 AM LAB MEDICINE K/UL IC DESIGNER STANDARD CELLS RBC 3.62 (L) 4.4 - 12/17/2022 [facility] DEPT PAT H AND 5.5 M/UL 4:29 AM LAB MEDICINE IC DESIGNER STANDARD CELLS Hemoglobin 10.1 (L) 13.5 - 12/17/2022 [facility] DEPT PAT H AND 16.5 4:29 AM LAB MEDICINE GM/DL IC DESIGNER STANDARD CELLS Hematocrit 30.8 (L) 40 - 50 12/17/2022 [facility] DEPT PAT H AND % 4:29 AM LAB MEDICINE IC DESIGNER STANDARD CELLS MCV 85.1 80 - 100 12/17/2022 [facility] DEPT PAT H AND FL 4:29 AM LAB MEDICINE IC DESIGNER STANDARD CELLS MCH 27.9 26 - 34 12/17/2022 [facility] DEPT PAT H AND PG 4:29 AM LAB MEDICINE IC DESIGNER STANDARD CELLS MCHC 32.8 32.0 - 12/17/2022 [facility] DEPT PAT H AND 36.0 4:29 AM LAB MEDICINE G/DL IC DESIGNER STANDARD CELLS RDW 16.5 (H) 11 - 15 12/17/2022 [facility] DEPT PAT H AND % 4:29 AM LAB MEDICINE IC DESIGNER STANDARD CELLS Platelet Count 153 150 - 12/17/2022 [facility] DEPT PATH AND 400 K/UL 4:29 AM LAB MEDICINE IC DESIGNER STANDARD CELLS MPV 8.9 7 - 11 12/17/2022 [facility] DEPT PAT H AND FL 4:29 AM LAB MEDICINE IC DESIGNER STANDARD CELLS Neutrophils 79 (H) 41 - 77 12/17/2022 [facility] DEPT PAT H AND % 4:29 AM LAB MEDICINE IC DESIGNER STANDARD CELLS Lymphocytes 10 (L) 24 - 44 12/17/2022 [facility] DEPT PAT H AND % 4:29 AM LAB MEDICINE IC DESIGNER STANDARD CELLS Monocytes 10 4 - 12 % 12/17/2022 [facility] DEPT PAT H AND 4:29 AM LAB MEDICINE IC DESIGNER STANDARD CELLS Eosinophils 1 0 - 5 % 12/17/2022 [facility] DEPT PAT H AND 4:29 AM LAB MEDICINE IC DESIGNER STANDARD CELLS Basophils 0 0 - 2 % 12/17/2022 [facility] DEPT PAT H AND 4:29 AM LAB MEDICINE IC DESIGNER STANDARD CELLS Absolute Neutrophil 8.98 (H) 1.8 - 12/17/2022 [facility] DEPT PATH AND Count 7.0 K/UL 4:29 AM LAB MEDICINE IC DESIGNER STANDARD CELLS Absolute Lymph Count 1.16 1.0 - 12/17/2022 [facility] DEPT PATH AND 4.8 K/UL 4:29 AM LAB MEDICINE IC DESIGNER STANDARD CELLS Absolute Monocyte 1.08 (H) 0 - 0.80 12/17/2022 [facility] DE PT PATH AND Count K/UL 4:29 AM LAB MEDICINE IC DESIGNER STANDARD CELLS Absolute Eosinophil 0.10 0 - 0.45 12/17/2022 [facility] DEPT PATH AND Count K/UL 4:29 AM LAB MEDICINE IC DESIGNER STANDARD CELLS Absolute Basophil 0.03 0 - 0.20 12/17/2022 [facility] DE PT PATH AND Count K/UL 4:29 AM LAB MEDICINE IC DESIGNER STANDARD CELLS Anatomical Location / Laterality Collection Method / Volume Moises ection Time Received Time Specimen (Source) BLOOD / Unknown 12/17/2022 3:46 AM IC [employer]ANDARD CELLS 12/18/19 23 3:47 AM IC DESIGNER STANDARD CELLS La Nena Mohr LABORATORY ORDERABLES [employer] ATTENDANT City/State/ZIP Code Phone Number Performing [place] [address] [facility] DEPT PATH AND [address] [facility] LAB MEDICINE * (ABNORMAL) BASIC METABOLIC PANEL (12/17/2022 3:46 AM IC DESIGNER STANDARD CELLS) Pathologist Signature Component Value Ref Test Method Analysis Performed A t Range Time Sodium 140 137 - 12/17/2022 [facility] DEPT PAT H AND 147 4:52 AM LAB MEDICINE MMOL/L IC DESIGNER STANDARD CELLS Potassium 4.1 3.5 - 12/17/2022 [facility] DEPT PAT H AND 5.1 4:52 AM LAB MEDICINE MMOL/L IC DESIGNER STANDARD CELLS Chloride 105 98 - 110 12/17/2022 [facility] DEPT PAT H AND MMOL/L 4:52 AM LAB MEDICINE IC DESIGNER STANDARD CELLS CO2 27 21 - 30 12/17/2022 [facility] DEPT PAT H AND MMOL/L 4:52 AM LAB MEDICINE IC DESIGNER STANDARD CELLS Anion Gap 8 3 - 12 12/17/2022 [facility] DEPT PAT H AND 4:52 AM LAB MEDICINE IC DESIGNER STANDARD CELLS Glucose 243 (H) 70 - 100 12/17/2022 [facility] DEPT PAT H AND MG/DL 4:52 AM LAB MEDICINE IC DESIGNER STANDARD CELLS Blood Urea Nitrogen 26 (H) 7 - 25 12/17/2022 [facility] DEPT PATH AND MG/DL 4:52 AM LAB MEDICINE IC DESIGNER STANDARD CELLS Creatinine 1.44 (H) 0.4 - 12/17/2022 [facility] DEPT PAT H AND 1.24 4:52 AM LAB MEDICINE MG/DL IC DESIGNER STANDARD CELLS Calcium 8.7 8.5 - 12/17/2022 [facility] DEPT PAT H AND 10.6 4:52 AM LAB MEDICINE MG/DL IC DESIGNER STANDARD CELLS eGFR 55 (L) >60 12/17/2022 [facility] DEPT PAT H AND mL/min 4:52 AM LAB MEDICINE IC DES[employer] CELLS Comment: eGFR calculated using the CKD-EPIcr_R equation Anatomical Location / Laterality Collection Method / Volume Moises ection Time Received Time Specimen (Source) BLOOD / Unknown 12/17/2022 3:46 AM IC [employer] CELLS 12/18/19 3:47 AM IC DESIGN[employer] STANDARD CELLS La Nena Mohr LABORATORY ORDERABLES [employer] ATTENDANT City/State/ZIP Code Phone Number Per[place] [address] [facility] DEPT PATH AND [address] [facility] LAB MEDICINE * (ABNORMAL) CBC (12/16/2022 4:10 AM IC DESIGNER STANDARD CELLS) Pathologist Signature Component Value Ref Test Method Analysis Performed A t Range Time White Blood Cells 10.1 4.5 - 12/16/2022 [facility] DE PT PATH AND 11.0 4:46 AM LAB MEDICINE K/UL IC DESIGNER STANDARD CELLS RBC 3.80 (L) 4.4 - 12/16/2022 [facility] DEPT PAT H AND 5.5 M/UL 4:46 AM LAB MEDICINE IC DESIGNER STANDARD CELLS Hemoglobin 10.7 (L) 13.5 - 12/16/2022 [facility] DEPT PAT H AND 16.5 4:46 AM LAB MEDICINE GM/DL IC DESIGNER STANDARD CELLS Hematocrit 32.4 (L) 40 - 50 12/16/2022 [facility] DEPT PAT H AND % 4:46 AM LAB MEDICINE IC DESIGNER STANDARD CELLS MCV 85.3 80 - 100 12/16/2022 [facility] DEPT PAT H AND FL 4:46 AM LAB MEDICINE IC DESIGNER STANDARD CELLS MCH 28.3 26 - 34 12/16/2022 [facility] DEPT PAT H AND PG 4:46 AM LAB MEDICINE IC DESIGNER STANDARD CELLS MCHC 33.2 32.0 - 12/16/2022 [facility] DEPT PAT H AND 36.0 4:46 AM LAB MEDICINE G/DL IC DESIGNER STANDARD CELLS RDW 16.5 (H) 11 - 15 12/16/2022 [facility] DEPT PAT H AND % 4:46 AM LAB MEDICINE IC DESIGNER STANDARD CELLS Platelet Count 154 150 - 12/16/2022 [facility] DEPT PATH AND 400 K/UL 4:46 AM LAB MEDICINE IC DESIGNER STANDARD CELLS MPV 8.7 7 - 11 12/16/2022 [facility] DEPT PAT H AND FL 4:46 AM LAB MEDICINE IC DESIGNER STANDARD CELLS Anatomical Location / Laterality Collection Method / Volume Moises ection Time Received Time Specimen (Source) BLOOD / Unknown 12/16/2022 4:10 AM IC [employer]ANDARD CELLS 12/17/19 23 4:11 AM IC DESIGN[employer] STANDARD CELLS Chidi Jimenez MD LABORATORY ORDERABLES City/State/ZIP Code Phone Number Performing [place] [address] [facility] [address] [facility] LAB MEDICINE * C SPINE 3 VIEWS OR LESS (12/15/2022 10:45 PM IC DESIGNER STANDARD CELLS) Modality Anatomical Region Laterality Computed Radiography Spine Anatomical Location / Laterality Collection Method / Volume Moises ection Time Received Time Specimen (Source) 12/16/2022 8:49 AM IC DESIGNER [employer]ANDARD CELLS Impressions 12/16/2022 8:52 AM IC DESIGNER [employer] CELLS Findings/Impression: The cervical vertebrae are visualized through [...] 12/16/2022 8:49 AM. Narrative 12/16/2022 8:52 AM IC DES[employer]ER [employer] CELLS Exam: C SPINE 3 VIEWS OR LESS [...] C SPINE 1 VIEW (12/15/2022 3:06 PM IC DESIGNER STANDARD CELLS) Modality Anatomical Region Laterality Computed Radiography Spine Anatomical Location / Laterality Collection Method / Volume Moises ection Time Received Time Specimen (Source) 12/15/2022 3:10 PM IC DESIGNER STANDARD CELLS Impressions 12/15/2022 3:11 PM IC DESIGNER STANDARD CELLS Findings/Impression: Single portable crosstable lateral prone intraoperative cervical radiographs for localization purposes. Metallic retractors superimposing the posterior paraspinal soft tissues. Threaded metallic surgical instrument ejects over the spinous process at the C2 level. Finalized by Yuan Lees DO on 12/15/2022 3:11 PM. Dictated by Yuan Lees DO on 12/15/2022 3:10 PM. Narrative 12/15/2022 3:11 PM IC DESIGNER [employer]ANDARD CELLS Exam: C SPINE 1 VIEW History: Surgery. [...] C SPINE 1 VIEW (12/15/2022 2:45 PM IC DESIGNER STANDARD CELLS) Modality Anatomical Region Laterality Computed Radiography Spine Anatomical Location / Laterality Collection Method / Volume Moises ection Time Received Time Specimen (Source) 12/15/2022 2:52 PM IC DESIGNER STANDARD CELLS Impressions 12/15/2022 2:56 PM IC DESIGNER STANDARD CELLS Impression: Intraoperative localization as above. Finalized by Gretel Castaneda D.O. on 12/15/2022 2:56 PM. Dictated by Gretel Castaneda D.O. on 12/15/2022 2:52 PM. Narrative 12/15/2022 2:56 PM IC DESIGNER STANDARD CELLS C SPINE ONE VIEW History: Surgery. Comparison: [...] Gretel Castaneda D.O. on 12/15/2022 2:52 PM. Cihdi Jimenez MD DIAGNOSTIC IMAGING ORDERABL ES * C SPINE 1 VIEW (12/15/2022 2:14 PM IC DESIGNER STANDARD CELLS) Modality Anatomical Region Laterality Computed Radiography Spine Anatomical Location / Laterality Collection Method / Volume Moises ection Time Received Time Specimen (Source) 12/15/2022 2:36 PM IC DESIGNER STANDARD CELLS Impressions 12/15/2022 2:37 PM IC DESIGNER STANDARD CELLS Findings/Impression: Single crosstable lateral prone cervical intraoperative radiograph for localization purposes. Linear metallic localization needle superimposing the posterior paraspinal soft tissues, tip projecting at the C2 level. Finalized by Yuan Lees DO on 12/15/2022 2:37 PM. Dictated by Yuan Lees DO on 12/15/2022 2:36 PM. Narrative 12/15/2022 2:37 PM IC DESIGNER STANDARD CELLS Exam: C SPINE 1 VIEW History: Surgery. [...] * (ABNORMAL) POC GLUCOSE (12/15/2022 11:38 AM IC DESIGNER STANDARD CELLS) Pathologist Signature Component Value Ref Test Method Analysis Performed A t Range Time Glucose, POC 143 (H) 70 - 100 12/15/2022 JANNIE QUARLES GE MG/DL 11:41 AM [facility] A IC DESIGNER STANDARD CELLS Anatomical Location / Laterality Collection Method / Volume Moises ection Time Received Time Specimen (Source) 12/15/2022 11:38 AM IC DESIGNER STANDARD CELLS 12/16/19 11:41 AM IC DESIGNER STANDARD CELLS Chidi Jimenez MD OTHER LABORATORY City/State/ZIP Code Phone Number Performing Address Organization [place], [place] [id number] [place] [address] [address] [facility] A * BLOOD TYPE CONFIRMATION - ORDER ONLY IF REQUESTED BY LAB (12/15/2022 3:18 AM IC DESIGNER STANDARD CELLS) Pathologist Signature Component Value Ref Test Method Analysis Performed A t Range Time ABO/RH(D) A NEG 12/15/2022 [facility] DEPT PATH AND 4:11 AM LAB MEDICINE IC DESIGNER STANDARD CELLS Anatomical Location / Laterality Collection Method / Volume Moises ection Time Received Time Specimen (Source) BLOOD / Unknown 12/15/2022 3:18 AM IC DESIGNER STANDARD CELLS 12/16/19 3:37 AM IC DESIGNER STANDARD CELLS Chidi Jimenez MD BLOOD BANK ORDERABLES City/State/ZIP Code Phone Number Performing [place] [address] [facility] DEPT PATH AND [address] [facility] LAB MEDICINE * (ABNORMAL) CBC AND DIFF (12/15/2022 2:59 AM IC DESIGNER STANDARD CELLS) Pathologist Signature Component Value Ref Test Method Analysis Performed A t Range Time White Blood Cells 8.4 4.5 - 12/15/2022 [facility] DE PT PATH AND 11.0 3:54 AM LAB MEDICINE K/UL IC DESIGNER STANDARD CELLS RBC 4.65 4.4 - 12/15/2022 [facility] DEPT PAT H AND 5.5 M/UL 3:54 AM LAB MEDICINE IC DESIGNER STANDARD CELLS Hemoglobin 12.8 (L) 13.5 - 12/15/2022 [facility] DEPT PAT H AND 16.5 3:54 AM LAB MEDICINE GM/DL IC DESIGNER STANDARD CELLS Hematocrit 40.5 40 - 50 12/15/2022 [facility] DEPT PAT H AND % 3:54 AM LAB MEDICINE IC DESIGNER STANDARD CELLS MCV 86.9 80 - 100 12/15/2022 [facility] DEPT PAT H AND FL 3:54 AM LAB MEDICINE IC DESIGNER STANDARD CELLS MCH 27.6 26 - 34 12/15/2022 [facility] DEPT PAT H AND PG 3:54 AM LAB MEDICINE IC DESIGNER STANDARD CELLS MCHC 31.8 (L) 32.0 - 12/15/2022 [facility] DEPT PAT H AND 36.0 3:54 AM LAB MEDICINE G/DL IC DESIGNER STANDARD CELLS RDW 16.5 (H) 11 - 15 12/15/2022 [facility] DEPT PAT H AND % 3:54 AM LAB MEDICINE IC DESIGNER STANDARD CELLS Platelet Count 155 150 - 12/15/2022 [facility] DEPT PATH AND 400 K/UL 3:54 AM LAB MEDICINE IC DESIGNER STANDARD CELLS MPV 8.8 7 - 11 12/15/2022 [facility] DEPT PAT H AND FL 3:54 AM LAB MEDICINE IC DESIGNER STANDARD CELLS Neutrophils 73 41 - 77 12/15/2022 [facility] DEPT PAT H AND % 3:54 AM LAB MEDICINE IC DESIGNER STANDARD CELLS Lymphocytes 15 (L) 24 - 44 12/15/2022 [facility] DEPT PAT H AND % 3:54 AM LAB MEDICINE IC DESIGNER STANDARD CELLS Monocytes 10 4 - 12 % 12/15/2022 [facility] DEPT PAT H AND 3:54 AM LAB MEDICINE IC DESIGNER STANDARD CELLS Eosinophils 2 0 - 5 % 12/15/2022 [facility] DEPT PAT H AND 3:54 AM LAB MEDICINE IC DESIGNER STANDARD CELLS Basophils 0 0 - 2 % 12/15/2022 [facility] DEPT PAT H AND 3:54 AM LAB MEDICINE IC DESIGNER STANDARD CELLS Absolute Neutrophil 6.10 1.8 - 12/15/2022 [facility] DEPT PATH AND Count 7.0 K/UL 3:54 AM LAB MEDICINE IC [employer] Absolute Lymph Count 1.28 1.0 - 12/15/2022 [facility] DEPT PATH AND 4.8 K/UL 3:54 AM LAB MEDICINE IC [employer] Absolute Monocyte 0.85 (H) 0 - 0.80 12/15/2022 [facility] DE PT PATH AND Count K/UL 3:54 AM LAB MEDICINE IC [employer] Absolute Eosinophil 0.14 0 - 0.45 12/15/2022 [facility] DEPT PATH AND Count K/UL 3:54 AM LAB MEDICINE IC [employer] Absolute Basophil 0.03 0 - 0.20 12/15/2022 [facility] DE PT PATH AND Count K/UL 3:54 AM LAB MEDICINE IC [employer] Anatomical Location / Laterality Collection Method / Volume Moises ection Time Received Time Specimen (Source) BLOOD / Unknown 12/15/2022 2:59 AM IC [employer] 12/16/19 3:00 AM IC [employer] [place] [facility] LABORATORY ORDERABLES [employer] ATTENDANT City/State/ZIP Code Phone Number Performing [place] [address] [facility] DEPT PATH AND [address] [facility] LAB MEDICINE * (ABNORMAL) BASIC METABOLIC PANEL (12/15/2022 2:59 AM IC [employer]) Pathologist Signature Component Value Ref Test Method Analysis Performed A t Range Time Sodium 140 137 - 12/15/2022 [facility] DEPT PAT H AND 147 4:17 AM LAB MEDICINE MMOL/L IC [employer] Potassium 4.1 3.5 - 12/15/2022 [facility] DEPT PAT H AND 5.1 4:17 AM LAB MEDICINE MMOL/L [employer] Chloride 104 98 - 110 12/15/2022 [facility] DEPT PAT H AND MMOL/L 4:17 AM LAB MEDICINE IC [employer] CO2 24 21 - 30 12/15/2022 [facility] DEPT PAT H AND MMOL/L 4:17 AM LAB MEDICINE [employer] Anion Gap 12 3 - 12 12/15/2022 [facility] DEPT PAT H AND 4:17 AM LAB MEDICINE [employer] Glucose 125 (H) 70 - 100 12/15/2022 [facility] DEPT PAT H AND MG/DL 4:17 AM LAB MEDICINE [employer] Blood Urea Nitrogen 22 7 - 25 12/15/2022 [facility] DEPT PATH AND MG/DL 4:17 AM LAB MEDICINE [employer] Creatinine 1.16 0.4 - 12/15/2022 [facility] DEPT PAT H AND 1.24 4:17 AM LAB MEDICINE MG/DL [employer] Calcium 9.3 8.5 - 12/15/2022 [facility] DEPT PAT H AND 10.6 4:17 AM LAB MEDICINE MG/DL [employer] eGFR >60 >60 12/15/2022 [facility] PAT H AND mL/min 4:17 AM LAB MEDICINE [employer] Comment: eGFR calculated using the CKD-EPIcr_R equation Anatomical Location / Laterality Collection Method / Volume Moises ection Time Received Time Specimen (Source) BLOOD / Unknown 12/15/2022 2:59 AM [employer] 12/16/19 3:00 AM [employer] La Nena Mohr LABORATORY ORDERABLES [employer] ATTENDANT City/State/ZIP Code Phone Number Performing [place] [address] [facility] DEPT PATH AND [address] [facility] LAB MEDICINE * TYPE & CROSSMATCH (12/15/2022 2:59 AM [employer]) Pathologist Signature Component Value Ref Test Method Analysis Performed A t Range Time Units Ordered 2 12/15/2022 [facility] DEPT PATH AND 3:12 AM LAB MEDICINE [employer] Crossmatch Expires 12/18/2022,2 12/15/2022 [facility] DEPT PATH AND 359 3:59 AM LAB MEDICINE [employer] Record Check 2ND TYPE 12/15/2022 [facility] DEPT PATH AND REQUIRED 3:12 AM LAB MEDICINE [employer] ABO/RH(D) A NEG 12/15/2022 [facility] DEPT PATH AND 3:59 AM LAB MEDICINE [employer] Antibody Screen NEG 12/15/2022 [facility] DEPT PAT H AND 3:59 AM LAB MEDICINE [employer] Anatomical Location / Laterality Collection Method / Volume Moises ection Time Received Time Specimen (Source) BLOOD / Unknown 12/15/2022 2:59 AM [employer] 12/16/19 3:12 AM [employer] Chidi Jimenez MD BLOOD BANK ORDERABLES City/State/ZIP Code Phone Number Per[place] [address] [facility] DEPT PATH AND [address] LAB MEDICINE * (ABNORMAL) BASIC METABOLIC PANEL (12/13/2022 3:57 AM [employer]) Pathologist Signature Component Value Ref Test Method Analysis Performed A t Range Time Sodium 141 137 - 12/13/2022 [facility] DEPT PAT H AND 147 4:55 AM LAB MEDICINE MMOL/L [employer] Potassium 4.0 3.5 - 12/13/2022 [facility] DEPT PAT H AND 5.1 4:55 AM LAB MEDICINE MMOL/L [employer] Chloride 108 98 - 110 12/13/2022 [facility] DEPT PAT H AND MMOL/L 4:55 AM LAB MEDICINE [employer] CO2 25 21 - 30 12/13/2022 [facility] DEPT PAT H AND MMOL/L 4:55 AM LAB MEDICINE [employer] Anion Gap 8 3 - 12 12/13/2022 [facility] DEPT PAT H AND 4:55 AM LAB MEDICINE [employer] Glucose 123 (H) 70 - 100 12/13/2022 [facility] DEPT PAT H AND MG/DL 4:55 AM LAB MEDICINE [employer] CELL[employer] Blood Urea Nitrogen 22 7 - 25 12/13/2022 [facility] DEPT PATH AND MG/DL 4:55 AM LAB MEDICINE [employer]S Creatinine 1.25 (H) 0.4 - 12/13/2022 [facility] DEPT PAT H AND 1.24 4:55 AM LAB MEDICINE MG/DL [employer] Calcium 8.9 8.5 - 12/13/2022 [facility] DEPT PAT H AND 10.6 4:55 AM LAB MEDICINE MG/DL [employer] eGFR >60 >60 12/13/2022 [facility] DEPT PAT H AND mL/min 4:55 AM LAB MEDICINE [employer] Comment: eGFR calculated using the CKD-EPIcr_R equation Anatomical Location / Laterality Collection Method / Volume Moises ection Time Received Time Specimen (Source) BLOOD / Unknown 12/13/2022 3:57 AM [employer] 12/13/19 3:58 AM [employer] Chidi Jimenez MD LABORATORY ORDERABLES City/State/ZIP Code Phone Number Performing [place] [address] [facility] DEPT PATH AND [address] LAB MEDICINE * (ABNORMAL) CBC AND DIFF (12/13/2022 3:57 AM [employer]) Pathologist Signature Component Value Ref Test Method Analysis Performed A t Range Time White Blood Cells 10.2 4.5 - 12/13/2022 [facility] DE PT PATH AND 11.0 4:30 AM LAB MEDICINE K/UL [employer] RBC 4.24 (L) 4.4 - 12/13/2022 [facility] DEPT PAT H AND 5.5 M/UL 4:30 AM LAB MEDICINE [employer] Hemoglobin 12.0 (L) 13.5 - 12/13/2022 [facility] DEPT PAT H AND 16.5 4:30 AM LAB MEDICINE GM/DL [employer] Hematocrit 36.4 (L) 40 - 50 12/13/2022 [facility] DEPT PAT H AND % 4:30 AM LAB MEDICINE [employer] MCV 85.8 80 - 100 12/13/2022 [facility] DEPT PAT H AND FL 4:30 AM LAB MEDICINE [employer]LLS MCH 28.4 26 - 34 12/13/2022 [facility] DEPT PAT H AND PG 4:30 AM LAB MEDICINE [employer]S MCHC 33.1 32.0 - 12/13/2022 [facility] DEPT PAT H AND 36.0 4:30 AM LAB MEDICINE G/DL [employer] RDW 16.8 (H) 11 - 15 12/13/2022 [facility] DEPT PAT H AND % 4:30 AM LAB MEDICINE [employer] Platelet Count 136 (L) 150 - 12/13/2022 [facility] DEPT PATH AND 400 K/UL 4:30 AM LAB MEDICINE [employer] MPV 8.8 7 - 11 12/13/2022 [facility] DEPT PAT H AND FL 4:30 AM LAB MEDICINE [employer]S Neutrophils 78 (H) 41 - 77 12/13/2022 [facility] DEPT PAT H AND % 4:30 AM LAB MEDICINE [employer] Lymphocytes 14 (L) 24 - 44 12/13/2022 [facility] DEPT PAT H AND % 4:30 AM LAB MEDICINE [employer] Monocytes 8 4 - 12 % 12/13/2022 [facility] DEPT PAT H AND 4:30 AM LAB MEDICINE [employer] Eosinophils 0 0 - 5 % 12/13/2022 [facility] DEPT PAT H AND 4:30 AM LAB MEDICINE [employer] Basophils 0 0 - 2 % 12/13/2022 [facility] DEPT PAT H AND 4:30 AM LAB MEDICINE [employer]S Absolute Neutrophil 7.84 (H) 1.8 - 12/13/2022 [facility] DEPT PATH AND Count 7.0 K/UL 4:30 AM LAB MEDICINE [employer] Absolute Lymph Count 1.43 1.0 - 12/13/2022 [facility] DEPT PATH AND 4.8 K/UL 4:30 AM LAB MEDICINE [employer] Absolute Monocyte 0.85 (H) 0 - 0.80 12/13/2022 [facility] DE PT PATH AND Count K/UL 4:30 AM LAB MEDICINE [employer] Absolute Eosinophil 0.02 0 - 0.45 12/13/2022 [facility] DEPT PATH AND Count K/UL 4:30 AM LAB MEDICINE [employer] Absolute Basophil 0.03 0 - 0.20 12/13/2022 [facility] DE PT PATH AND Count K/UL 4:30 AM LAB MEDICINE [employer]LLS Anatomical Location / Laterality Collection Method / Volume Moises ection Time Received Time Specimen (Source) BLOOD / Unknown 12/13/2022 3:57 AM [employer] 12/13/19 3:58 AM [employer] Chidi Jimenez MD LABORATORY ORDERABLES City/State/ZIP Code Phone Number [place] [address] [facility] DEPT PATH AND [address] [facility] LAB MEDICINE * MRI L-SPINE EXTERNAL IMAGING (12/12/2022 12:20 PM [employer]) Anatomical Location / Laterality Collection Method / Volume Moises ection Time Received Time Specimen (Source) Narrative Scheduling, Silent - 12/12/2022 11:07 PM [employer] This order has been auto finalized and does not contain a result. Radiologist RADIOLOGY EXTERNAL ORDERABL ES Outpatient * MRI T-SPINE EXTERNAL IMAGING (12/12/2022 12:15 PM [employer]) Anatomical Location / Laterality Collection Method / Volume Moises ection Time Received Time Specimen (Source) Narrative Scheduling, Silent - 12/12/2022 11:07 PM [employer] This order has been auto finalized and does not contain a result. Radiologist RADIOLOGY EXTERNAL ORDERABL ES Outpatient * MRI C-SPINE EXTERNAL IMAGING (12/12/2022 12:10 PM [employer]) Anatomical Location / Laterality Collection Method / Volume Moises ection Time Received Time Specimen (Source) Narrative Scheduling, Silent - 12/12/2022 11:06 PM [employer] This order has been auto finalized and does not contain a result. Radiologist RADIOLOGY EXTERNAL ORDERABL ES Outpatient * TELEMETRY STRIPS-SCAN (12/12/2022 12:00 AM [employer]) Narrative 12/12/2022 12:00 AM [employer] Ordered by an unspecified provider. Scanned Document PROCEDURE DUMMY ORDERS * TELEMETRY STRIPS-SCAN (12/12/2022 12:00 AM [employer]) Narrative 12/12/2022 12:00 AM [employer] Ordered by an unspecified provider. Scanned Document PROCEDURE DUMMY ORDERS * TELEMETRY STRIPS-SCAN (12/12/2022 12:00 AM [employer] CELLS) Narrative 12/12/2022 12:00 AM [employer]LLS Ordered by an unspecified provider. Scanned Document PROCEDURE DUMMY ORDERS * TELEMETRY STRIPS-SCAN (12/12/2022 12:00 AM IC [employer] CELLS) Narrative 12/12/2022 12:00 AM [employer] CELLS Ordered by an unspecified provider. Scanned Document PROCEDURE DUMMY ORDERS * TELEMETRY STRIPS-SCAN (12/12/2022 12:00 AM IC [employer] CELLS) Narrative 12/12/2022 12:00 AM [employer] CELLS Ordered by an unspecified provider. Scanned Document PROCEDURE DUMMY ORDERS * TELEMETRY STRIPS-SCAN (12/12/2022 12:00 AM IC [employer] CELLS) Narrative 12/12/2022 12:00 AM [employer] CELLS Ordered by an unspecified provider. Scanned Document PROCEDURE DUMMY ORDERS * TELEMETRY STRIPS-SCAN (12/12/2022 12:00 AM IC [employer] CELLS) Narrative 12/12/2022 12:00 AM [employer] CELLS Ordered by an unspecified provider. Scanned Document PROCEDURE DUMMY ORDERS * TELEMETRY STRIPS-SCAN (12/12/2022 12:00 AM IC [employer]AND[employer] CELLS) Narrative 12/12/2022 12:00 AM [employer] CELLS Ordered by an unspecified provider. Scanned Document PROCEDURE DUMMY ORDERS * TELEMETRY STRIPS-SCAN (12/12/2022 12:00 AM IC [employer]ER [employer]ANDARD CELLS) Narrative 12/12/2022 12:00 AM IC [employer] CELLS Ordered by an unspecified provider. Scanned Document PROCEDURE DUMMY ORDERS * TELEMETRY STRIPS-SCAN (12/12/2022 12:00 AM IC [employer]ANDARD CELLS) Narrative 12/12/2022 12:00 AM [employer] CELLS Ordered by an unspecified provider. Scanned Document PROCEDURE DUMMY ORDERS * TELEMETRY STRIPS-SCAN (12/12/2022 12:00 AM IC [employer]ARD CELLS) Narrative 12/12/2022 12:00 AM [employer] CELLS Ordered by an unspecified provider. Scanned Document PROCEDURE DUMMY ORDERS * TELEMETRY STRIPS-SCAN (12/12/2022 12:00 AM [employer] CELL[employer]) Narrative 12/12/2022 12:00 AM [employer] Ordered by an unspecified provider. Scanned Document PROCEDURE DUMMY ORDERS documented in this encounter Visit Diagnoses Diagnosis Weakness - Primary Other malaise and fatigue Weakness Other malaise and fatigue S/P cervical spinal fusion Arthrodesis status Weakness Other malaise and fatigue documented in this encounter Admitting Diagnoses Diagnosis Weakness Other malaise and fatigue documented in this encounter Administered Medications Action Date Dose Rate Site Medication Order MAR Action 12/18/2022 5:27 AM [employer] 650 mg acetaminophen (TYLENOL) tablet 650 mg Given 650 mg, Oral, EVERY 4 HOURS PRN, Starting on 12/12/22 at 2257, Until Tue12/21/22 at 1714, Pain non-opioid: ma y be used alone or in combination with opioid analgesia, TOTAL ACETAMINOPHEN DOSE NOT TO EXCEED 4GM DAILY, Admission/Obs/Extended Recovery 650 mg Given 12/17/2022 10:05 PM [employer] 650 mg Given 12/17/2022 11:25 AM [employer] 650 mg Given 12/17/2022 6:23 AM [employer] 650 mg Given 12/17/2022 1:05 AM [employer] 650 mg Given 12/16/2022 9:00 PM [employer] 650 mg Given 12/16/2022 4:40 PM [employer] 650 mg Given 12/16/2022 12:16 PM [employer] 650 mg Given 12/16/2022 3:01 AM [employer] 650 mg Given 12/15/2022 3:02 AM [employer] 12/21/2022 8:35 AM [employer] 1 drop artificial tears multi dose ophthalmic Given solution 1 drop 1 drop, Both Eyes, TWICE DAILY, First dose on Tue12/20/22 at 1500, Until Discontinued, Admission/Obs/Extended Recovery 1 drop Given 12/20/2022 9:04 PM [employer] 12/15/2022 5:40 PM [employer] 1,000 mL Neck ceFAZolin (ANCEF) 1 g in sodium chloride Given irrigation 0.9 % 1,000 mL bottle 1,000 mL, INTRA-PROCEDURE MED, Starting on Tue12/15/22 at 1740, Until Tue12/15/22 at 1809, Intra-op 12/21/2022 8:38 AM [employer] 10 mg dapagliflozin (FARXIGA) tablet 10 mg Given 10 mg, Oral, DAILY, First dose on Tue12/20/22 at 1500, Until Discontinued, Admission/Obs/Extended Recovery 10 mg Given 12/20/2022 4:40 PM [employer] dextrose 50% (D50) syringe 25-50 mL 25-50 [...] NOTE: This is a HIGH ALERT Medication. 12/21/2022 8:35 AM [employer] 100 mg docusate (COLACE) capsule 100 mg Given 100 mg, Oral, TWICE DAILY, First dose o n 12/13/22 at 0900, Until Discontinued , Hold for loose stools, Admission/Obs/Extended Recovery 100 mg Given 12/20/2022 8:58 PM [employer] 100 mg Given 12/20/2022 8:16 AM [employer] 100 mg Given 12/19/2022 8:55 PM [employer] 100 mg Given 12/19/2022 9:15 AM [employer] 100 mg Given 12/18/2022 8:06 PM [employer] 100 mg Given 12/18/2022 8:23 AM [employer] 100 mg Given 12/17/2022 10:05 PM [employer] 100 mg Given 12/17/2022 11:23 AM [employer] 100 mg Given 12/16/2022 9:00 PM [employer] 100 mg Given 12/15/2022 9:10 PM [employer] 12/21/2022 6:17 AM [employer] 5,000 Units Abdomina l Tissue heparin (porcine) PF syringe 5,000 Units Given 5,000 Units, Subcutaneous, EVERY 8 HOURS, First dose on Tue12/17/22 at 0600 , Until Discontinued, NOTE: This is a HIG H ALERT Medication. 5,000 Units Abdominal Tissue Given 12/20/2022 9:00 PM [employer] 5,000 Units Abdominal Tissue Given 12/20/2022 2:20 PM [employer] 5,000 Units Abdomen:LLQ Given 12/20/2022 6:12 AM [employer] 5,000 Units Abdomen:LLQ Given 12/19/2022 8:57 PM [employer] 5,000 Units Abdominal Tissue Given 12/19/2022 3:27 PM [employer] 5,000 Units Abdomen:RLQ Given 12/19/2022 6:13 AM [employer] 5,000 Units Abdomen:LLQ Given 12/18/2022 8:06 PM [employer] 5,000 Units Arm, Right Given 12/18/2022 1:43 PM [employer] 5,000 Units Abdomen:LLQ Given 12/18/2022 5:27 AM [employer] 5,000 Units Abdomen:LUQ Given 12/17/2022 10:05 PM [employer] 5,000 Units Arm, Left Given 12/17/2022 2:33 PM [employer] 5,000 Units Arm, Right Given 12/17/2022 7:49 AM [employer] 12/21/2022 12:16 PM [employer] 8 Units Abdomina l Tissue insulin aspart (U-100) (NOVOLOG FLEXPEN Given U-100 INSULIN) injection PEN 0-12 Units 0-12 Units, Subcutaneous, BEFORE MEALS AND 2200, First dose on Tue12/20/22 at 1800, Until Discontinued, MID DOSE -POC glucose 181-220mg/dL at , , administer 2 units insulin, at 22, 03* administer 0 units. -POC glucose 221-260mg/dL at , , administer 4 units insulin, at , 03* administer 2 units. -POC glucose 261-300mg/dL at , , administer 6 units insulin, at , 03* administer 4 units. -POC glucos e 301-350mg/dL at , , administer 8 units insulin, at , 03* administer 6 units. -POC glucose 351-400mg/dL at , , administer 10 units insulin, at , 03* administer 8 units. -POC glucos e >400mg/dL at , , administer 12 units insulin, at 22, 03* administer 10 units. *only if ordered [...] Units Abdominal Tissue Given 12/21/2022 8:34 AM [employer] 4 Units Abdominal Tissue Given 12/20/2022 9:03 PM [employer] 12 Units Arm, Right Given 12/20/2022 6:21 PM [employer] ipratropium-albuterol (COMBIVENT RESPIMAT) inhaler 1 puff 1 [...] at 1714, Constipation PO 12/21/2022 8:36 AM [employer] 1 patch Back lidocaine (LIDODERM) 5 % [...] patch Neck Patch/Topical Applied 12/20/2022 8:16 AM [employer] 1 patch Neck Patch/Topical Applied 12/19/2022 9:15 AM [employer] 1 patch Back Patch/Topical Applied 12/18/2022 8:23 AM [employer] 1 patch Back Patch/Topical Applied 12/17/2022 11:22 AM [employer] 1 patch Back, Lower Right Patch/Topical Applied 12/16/2022 9:34 AM [employer] 1 patch Back Patch/Topical Applied 12/15/2022 8:18 AM [employer] 1 patch Back Patch/Topical Applied 12/14/2022 8:08 AM [employer] 1 patch Back Patch/Topical Applied 12/13/2022 8:45 AM [employer] 12/15/2022 2:20 PM [employer] 10 mL Neck lidocaine 2%/EPINEPHrine 1:100,000 Given injection INTRA-PROCEDURE MED, Starting on Tue12/15/22 at 1420, Until Tue12/15/22 at 1809, Intra-op 12/21/2022 8:35 AM [employer] 25 mg losartan (COZAAR) tablet 25 mg Given 25 mg, Oral, DAILY, First dose on Tue12/20/22 at 1500, Until Discontinued, Admission/Obs/Extended Recovery 25 mg Given 12/20/2022 2:20 PM [employer] 12/20/2022 8:58 PM [employer] 0.5 mg melatonin tablet 0.5 mg Given 0.5 mg, Oral, AT BEDTIME PRN, Starting on Tue12/14/22 at 1827, Until Tue 3 at 1714, Insomnia 0.5 mg Given 12/19/2022 9:06 PM [employer] 0.5 mg Given 12/18/2022 8:06 PM [employer] 0.5 mg Given 12/17/2022 10:04 PM [employer] 0.5 mg Given 12/14/2022 8:44 PM [employer] 12/21/2022 8:35 AM [employer] 1,000 mg metFORMIN (GLUCOPHAGE) tablet 1,000 mg Given 1,000 mg, Oral, TWICE DAILY AFTER MEALS , First dose on Tue12/20/22 at 1900, Until Discontinued, Admission/Obs/Extended Recovery 1,000 mg Given 12/20/2022 6:21 PM [employer] 12/21/2022 2:23 PM [employer] 750 mg methocarbamoL (ROBAXIN) tablet 750 mg Given 750 mg, Oral, THREE TIMES DAILY, First dose on Tue12/13/22 at 0930, Until Discontinued 750 mg Given 12/21/2022 8:35 AM [employer] 750 mg Given 12/20/2022 8:58 PM [employer] CELLS 750 mg Given 12/20/2022 2:20 PM [employer] CELLS 750 mg Given 12/20/2022 8:16 AM [employer]LLS 750 mg Given 12/19/2022 8:55 PM [employer] CELLS 750 mg Given 12/19/2022 3:27 PM [employer] CELLS 750 mg Given 12/19/2022 9:15 AM [employer] CELLS 750 mg Given 12/18/2022 8:06 PM [employer] CELLS 750 mg Given 12/18/2022 3:15 PM [employer] CELLS 750 mg Given 12/18/2022 8:23 AM [employer]LLS 750 mg Given 12/17/2022 10:05 PM [employer] CELLS 750 mg Given 12/17/2022 2:33 PM [employer] CELLS 750 mg Given 12/17/2022 9:35 AM [employer] CELLS 750 mg Given 12/16/2022 9:00 PM [employer] CELLS 750 mg Given 12/16/2022 2:29 PM [employer] CELLS 750 mg Given 12/16/2022 9:36 AM [employer] CELLS 750 mg Given 12/15/2022 9:10 PM [employer] CELLS 750 mg Given 12/15/2022 8:19 AM [employer] CELLS 750 mg Given 12/14/2022 8:44 PM [employer] CELLS 750 mg Given 12/14/2022 2:51 PM [employer] CELLS 750 mg Given 12/14/2022 8:06 AM [employer] CELLS 750 mg Given 12/13/2022 8:45 PM [employer] CELLS 750 mg Given 12/13/2022 4:04 PM [employer]LLS 750 mg Given 12/13/2022 8:45 AM [employer] 12/21/2022 8:35 AM [employer] 25 mg metoprolol succinate XL (TOPROL XL) Given tablet 25 mg 25 mg, Oral, DAILY, First dose on Tue12/20/22 at 1500, Until Discontinued, Hol d for systolic BP < 90 tablets may be cut in half, DO NOT CRUSH or CHEW, Admission/Obs/Extended Recovery 25 mg Given 12/20/2022 2:20 PM [employer] 12/21/2022 8:37 AM [employer] 30 mL milk of magnesium oral suspension 30 mL Given 30 mL, Oral, DAILY, First dose on Tue12/13/22 at 0900, Until Discontinued, Hold for loose stools., Admission/Obs/Extended Recovery 30 mL Given 12/20/2022 8:16 AM [employer] 30 mL Given 12/19/2022 9:15 AM [employer] 30 mL Given 12/18/2022 8:23 AM [employer] 30 mL Given 12/17/2022 11:23 AM [employer] 12/20/2022 8:17 AM [employer] 1 patch Arm, Lef t nicotine (NICODERM CQ) 21 mg/day patch 1 Patch/Topic a patch l Applied 1 patch, Transdermal, Administer over 2 4 Hours, DAILY, First dose on Tue12/15/22 at 1900, Until Discontinued 1 patch Arm, Right Patch/Topical Applied 12/19/2022 9:14 AM [employer] 1 patch Arm, Right Patch/Topical Applied 12/18/2022 8:23 AM [employer] 1 patch Back Patch/Topical Applied 12/16/2022 9:36 AM [employer] 12/20/2022 9:09 PM [employer] 15 mg oxyCODONE (ROXICODONE) tablet 5-15 mg Given 5-15 mg, Oral, EVERY 4 HOURS PRN, Starting on 12/18/22 at 0819, Until Tue12/21/22 at 1714, Pain PO, Admission/Obs/Extended Recovery 15 mg Given 12/20/2022 2:20 PM [employer] 15 mg Given 12/20/2022 8:16 AM [employer] 15 mg Given 12/20/2022 4:02 AM [employer]LL[employer] 15 mg Given 12/19/2022 8:55 PM [employer] CELLS 15 mg Given 12/19/2022 6:13 AM [employer] CELLS 15 mg Given 12/19/2022 12:30 AM [employer] CELLS 15 mg Given 12/18/2022 8:06 PM [employer]LL[employer] 10 mg Given 12/18/2022 1:43 PM [employer] 12/21/2022 8:35 AM [employer] 1 tablet senna/docusate (SENOKOT-S) tablet 1 Given tablet 1 tablet, Oral, TWICE DAILY, First dose on Tue12/13/22 at 0900, Until Discontinued, Hold for loose stools, Admission/Obs/Extended Recovery 1 tablet Given 12/20/2022 8:58 PM [employer] 1 tablet Given 12/20/2022 8:16 AM [employer] CELLS 1 tablet Given 12/19/2022 8:55 PM [employer] STANDARD CELLS 1 tablet Given 12/19/2022 9:15 AM [employer] STANDARD CELLS 1 tablet Given 12/18/2022 8:06 PM IC [employer] STANDARD CELLS 1 tablet Given 12/18/2022 8:23 AM IC [employer] STANDARD CELLS 1 tablet Given 12/17/2022 10:05 PM [employer] STANDARD CELLS 1 tablet Given 12/17/2022 11:23 AM [employer]AND[employer] CELLS 1 tablet Given 12/16/2022 9:00 PM [employer] CELLS 1 tablet Given 12/15/2022 9:10 PM [employer]LLS 12/20/2022 8:58 PM [employer] 80 mg simvastatin (ZOCOR) tablet 80 mg Given 80 mg, Oral, AT BEDTIME DAILY, First dose on Tue12/20/22 at 2100, Until Discontinued, Admission/Obs/Extended Recovery 12/21/2022 8:35 AM [employer] 0.4 mg tamsulosin (FLOMAX) capsule 0.4 mg Given 0.4 mg, Oral, DAILY AFTER BREAKFAST, First dose on Tue12/17/22 at 0915, Until Discontinued, NURSING: Please educate patient and document: Give 1/2 hour following same meal everyday. Do not crush, chew or open the capsule. 0.4 mg Given 12/20/2022 8:16 AM [employer] 0.4 mg Given 12/19/2022 9:15 AM [employer] 0.4 mg Given 12/18/2022 8:23 AM [employer] 0.4 mg Given 12/17/2022 11:25 AM [facility] [employer] 12/15/2022 5:41 PM [facility] [employer] 5,000 Units Neck thrombin 5,000 unit topical solution Given INTRA-PROCEDURE MED, Starting on Tue12/15/22 at 1741, Until Tue12/15/22 at 1809, Intra-op 12/15/2022 5:41 PM [facility] [employer] 1 g Neck vancomycin (VANCOCIN) injection Given INTRA-PROCEDURE MED, Starting on Tue12/15/22 at 1741, Until Tue12/15/22 at 1809, Intra-op documented in this encounter Historical Medications * [...] Recently Administered Medications Times are shown in [facility] [employer]. 12/20/2022 12/21/2022 Medication Order 12/19/2022 acetaminophen (OFIRMEV) 1,000 mg 0358 (Given - New injection 100 mL (COMPLETED) Bag - Provider: 1,000 mg, Intravenous, 100 mL, Hallie Lemus RN) Administer over 15 Minutes, EVERY 6 HOURS, 4 doses, First dose on Sat 3 at 0930, Last dose on 12/19/22 at 033 0 1420 (Med Not Given - Provider: Monica allison RN - Reason: Patient Refused)0278 (Given - Provider: Birdie Arevalo RN) 0882 (Given - Provider: Anastasiya tang RN) artificial [...] 0816 (Given - Provider: Monica Rod RN) 2058 (Given - Provider: Birdie Arevalo RN) 0835 (Given - Provider: Anastasiya tang RN) docusate (COLACE) capsule 100 mg 0915 (Given [...] , , administer 2 units insulin, at 22, 03* administer 0 units. -POC glucose 221-260mg/dL at , , administer 4 units insulin, at , 03* administer 2 units. -POC glucose 261-300mg/dL at , , administer 6 units insulin, at , 03* administer 4 units. -POC glucos e [...] 0816 (Patch/Topical Applied - Provider: Monica Rod, STEVEN)210 (Patch/Topical Removed - Provider: Birdie Arevalo, STEVEN) 0836 (Patch/Topical Applied - Provider: Anastasiya Moraes, STEVEN)1514 (Due: Patch/Topical Removed - Provider: Eros, Orders Discontinue - Comment: Time automatically adjusted from order being discontinued) lidocaine (LIDODERM) 5 % topical patch 1 914 (Patch /Topical patch Applied - Provider: 1 patch, Topical, Administer over 12 Nevaeh Villalpando ll, Hours, DAILY, First dose on Tue12/13/22 RN)2054 at 0930, Until Discontinued, NURSING (Patch/Topical PLEASE NOTE: Apply patch ONCE DAILY to Removed - Pro vider: low back and REMOVE after designated Perry Chaparro) duration. Apply only to intact skin. Patch may be cut to fit affected area. 1420 (Given - Provider: Monica Rod RN) 0835 (Given - Provider: Anastasiya tang RN) losartan (COZAAR) tablet 25 mg 25 mg, Oral, DAILY, First dose on Tue12/20/22 at 1500, Until Discontinued, Admission/Obs/Extended Recovery 1821 (Given - Provider: Monica Rod RN) 0835 (Given - Provider: Anastasiya tang RN) metFORMIN (GLUCOPHAGE) tablet 1,000 mg 1,000 mg, Oral, TWICE DAILY AFTER MEALS , First dose on Tue12/20/22 at 1900, Until Discontinued, Admission/Obs/Extended Recovery 0816 (Given - Provider: Monica Rod RN) 1420 (Given - Provider: Monica Rod RN)2057 (Given - Provider: Birdie Arevalo RN) 0835 (Given - Provider: Anastasiya tang RN)1423 (Given - Provider: Anastasiya Moraes RN) methocarbamoL (ROBAXIN) tablet 750 mg 0915 (Given - 750 mg, Oral, THREE TIMES DAILY, First Provider: Fabio garvin dose on Tue12/13/22 at 0930, Until STEVEN Clinton)1527 Discontinued (Given - Provider: Nevaeh Clinton RN)2054 (Given - Provider: Tish Canseco, STEVEN) 1420 (Given - Provider: Monica Rod RN) 0835 [...] (Patch/Topical Applied - Provider: Nevaeh Clinton RN) 815 (Given - Provider: Monica Rod RN) 2057 (Given - Provider: Birdie Arevalo RN) 0835 (Given - Provider: Anastasiya tang RN) senna/docusate (SENOKOT-S) tablet 1 914 (Given - tablet Provider: Nevaeh 1 tablet, Oral, TWICE DAILY, First dose STEVEN Clinton )2054 on Tue12/13/22 at 0900, Until (Given - Provider: Discontinued, Hold for loose stools, Perry Chaparro) Admission/Obs/Extended Recovery 2057 (Given - Provider: Birdie Arevalo RN) simvastatin (ZOCOR) tablet 80 mg 80 mg, Oral, AT BEDTIME DAILY, First dose on Tue12/20/22 at 2100, Until Discontinued, Admission/Obs/Extended Recovery 815 (Given - Provider: Monica Rod RN) 0835 (Given - Provider: Anastasiya tang RN) tamsulosin (FLOMAX) capsule 0.4 mg 914 (Given - 0.4 mg, Oral, DAILY AFTER BREAKFAST, Provider: Jarred jara First dose on Tue12/17/22 at 0915, Until STEVEN Clinton ) Discontinued, NURSING: Please educate patient and document: Give 1/2 hour following same meal everyday. Do not crush, chew or open the capsule. 12/20/2022 12/21/2022 Medication Order 12/19/2022 0615 (Given - New Bag - Provider: Tish Canseco, RN)1225 (Infusion Stopped - Provider: Monica Rod RN) sodium chloride 0.9 % infusion 0613 (Given - New (CANCELED) Bag - Provider: 1,000 mL, Intravenous, at 50 mL/hr, Hallie Lemus, CONTINUOUS, Starting on 12/19/22 at RN)1102 (Given - New 0615, Until Tue12/20/22 at 1212 Bag - Provider: Nevaeh Clinton RN) 12/20/2022 12/21/2022 Medication Order 12/19/2022 1210 (Unheld by Provider - Provider: Inge Mohr APRN-[employer] RAMP ATTENDANT) acetaminophen (TYLENOL) tablet 650 mg 650 mg, Oral, EVERY 4 HOURS PRN, Starting on Tue12/12/22 at 2257, Until Tue12/21/22 at 1714, Pain non-opioid: ma y be used alone or in combination with opioid analgesia, TOTAL ACETAMINOPHEN DOSE NOT TO EXCEED 4GM DAILY, Admission/Obs/Extended Recovery baclofen (LIORESAL) tablet 20 mg 20 mg, Oral, TWICE DAILY PRN, Starting on 12/20/22 at 1353, Until Tue12/21/22 at 1714, Spasms, Admission/Obs/Extended Recovery dextrose 50% (D50) syringe 25-50 mL 25-50 mL (12.5-25 g), Intravenous, NEEDED, Starting on 12/20/22 at 1845, Until Tue12/21/22 at 1714, Blood [...] Medication. diazePAM (VALIUM) tablet 5 mg (CANCELED) 0613 (Given - 5 mg, Oral, EVERY 6 HOURS PRN, Starting Provider: Amisha blake on Tue12/18/22 at 0819, Until Tue12/20/22 Perry Lemus at 1355, Spasms ipratropium-albuterol (COMBIVENT RESPIMAT) inhaler 1 puff 1 [...] 0856, Until Tue12/21/22 at 1714, Constipation PO 2057 (Given - Provider: Birdie Arevalo RN) melatonin tablet 0.5 mg 2105 (Given - 0.5 mg, Oral, AT BEDTIME PRN, Starting Provider: Ree hernandez on Tue12/14/22 at 1827, Until Tue12/21/22 STEVEN Canseco) at 1714, Insomnia ondansetron (ZOFRAN) injection 4 mg 4 mg, Intravenous, EVERY 6 HOURS PRN, Starting on Tue12/12/22 at 2257, Until Tue12/21/22 at 1714, Nausea/Vomiting Injectable, Admission/Obs/Extended Recovery 0402 (Given - Provider: Tish Canseco RN )0816 (Given - Provider: Monica Rod RN)142 (Given - Provider: Monica Rod RN)2108 (Given - Provider: Birdie Arevalo RN) oxyCODONE (ROXICODONE) tablet 5-15 mg 0030 (Given - 5-15 mg, Oral, EVERY 4 HOURS PRN, Provider: Hallie Starting on Tue12/18/22 at 0819, Until STEVEN Lemus) 06Tue12/21/22 at 1714, Pain PO, (Given - Provider: Admission/Obs/Extended Recovery Hallie Lemus RN)2054 (Given - Provider: Tish Canseco RN) documented in this encounter Orders First Ordered Date Medications Ordered That Might Not Have Count Last Ordered Date Been Administered artificial tears multi dose ophthalmic 1 12/20/2022 solution 1 drop baclofen (LIORESAL) tablet 20 mg 1 12/20 dapagliflozin (FARXIGA) tablet 10 mg 1 0 12/20/2022 dextrose 50% (D50) syringe 25-50 mL 1 insulin aspart (U-100) (NOVOLOG FLEXPEN 1 12/20/2022 U-100 INSULIN) injection PEN 0-12 Units losartan (COZAAR) tablet 25 mg 1 023 metFORMIN (GLUCOPHAGE) tablet 1,000 mg 1 12/20/2022 metoprolol succinate XL (TOPROL XL) 1 tablet 25 mg simvastatin (ZOCOR) tablet 80 mg 1 12/2012/12/2022 sodium chloride 0.9 % infusion 3 12/19 acetaminophen (OFIRMEV) 1,000 mg 1 12/18 injection 100 mL diazePAM (VALIUM) tablet 5 mg 1 12/19/19 oxyCODONE (ROXICODONE) tablet 5-15 mg 1 12/18/2022 SODIUM CHLORIDE 0.9 % IV SOLP (Cabinet 1 12/18/2022 Override) tamsulosin (FLOMAX) capsule 0.4 mg 2 12/202212/13/2022 heparin (porcine) PF syringe 5,000 Units 2 12/16/2022 WATER FOR INJECTION, STERILE IJ SOLN 2 0 12/16/2022 (Cabinet Override) acetaminophen (TYLENOL EXTRA STRENGTH) 1 12/15/2022 tablet 1,000 mg ceFAZolin (ANCEF) IVP 2 g 1 12/15/2022 diazePAM (VALIUM) tablet 2.5 mg 1 2022 diphenhydrAMINE HCL (BENADRYL) injection 1 12/15/2022 25 mg fentaNYL citrate PF (SUBLIMAZE) 2 2022 injection 25 mcg haloperidol lactate (HALDOL) injection 1 1 12/15/2022 mg HYDROmorphone injection (DILAUDID) 0.5 1 12/15/2022 mg HYDROmorphone injection (DILAUDID) 0.5-1 1 12/15/2022 mg nalOXone (NARCAN) injection 0.04 mg 1 nicotine (NICODERM CQ) 21 mg/day patch 1 1 12/15/2022 patch 12/12/2022 ondansetron (ZOFRAN) injection 4 mg 2 12/12/2022 oxyCODONE (ROXICODONE) tablet 5-10 mg 2 12/15/2022 lactulose (GENERLAC) oral solution 20 g 1 12/14/2022 LORazepam (ATIVAN) injection 1 mg 2 11/18 melatonin tablet 0.5 mg 1 12/14/2022 ipratropium-albuterol (COMBIVENT 1 12/13 RESPIMAT) inhaler 1 puff lidocaine (LIDODERM) 5 % topical patch 1 1 12/13/2022 patch methocarbamoL (ROBAXIN) tablet 750 mg 1 12/13/2022 acetaminophen (TYLENOL) tablet 650 mg 1 12/12/2022 docusate (COLACE) capsule 100 mg 1 12/12 milk of magnesium oral suspension 30 mL 1 12/12/2022 senna/docusate (SENOKOT-S) tablet 1 1 tablet First Ordered Date Lab Orders Without Results [...] MACHINE AK WITH PAD 1 3 12/12/2022 [facility] SUZETTE BED AIRFLOW PUMP 2 12/16/19 PUMP IV CONTROL UNIT W/MODULES 1 023 [...] Concerns Noted Time Assessment 12/21/2022 8:34 AM IC DESIGNER STANDARD CELLS A fall risk assessment has been complet ed for the patient documented as of this encounter Care Teams Start Date End Date Paste Up Artist Relationship Specialty 12/12/22 No Pcp, Na PCP - General documented as of this encounter
--- OUTSIDE RECORDS SUMMARY | 2022-12-21 18:19 | XMS REPORT | Encounter Summary ---
Author Author [facility] Organization [facility] Address Unknown Phone Unavailable Care Team Providers Care Naval Inspector Name Role Phone No Pcp, Na PCP Unavailable Encounter Details Care Team Description Date Type Department 12/12/2022 Hospital Imaging: [facility] Encounter [place] [address], [address] [place] [address] Social History Date Tobacco Use Types Packs/Day Years Used Smoking Tobacco: Never Assessed Sex Assigned at Date Recorded Male 12/13/2022 11:12 AM FAMILY PRACTICE MEDICAL DOCTOR documented as of this encounter Medications at [...] Not on filedocumented as of this encounter Procedures Comments Procedure Name Priority Date/Time Associated Diag nosis MRI C-SPINE EXTERNAL Routine 12/12/2022 IMAGING 12:10 PM FAMILY PRACTICE MEDICAL DOCTOR documented in this encounter Results * MRI C-SPINE EXTERNAL IMAGING (12/12/2022 12:10 PM FAMILY PRACTICE MEDICAL DOCTOR) Anatomical Location / Laterality Collection Method / Volume Moises ection Time Received Time Specimen (Source) Narrative Scheduling, Silent - 12/12/2022 11:06 PM FAMILY PRACTICE MEDICAL DOCTOR This order has been auto finalized and does not contain a result. Radiologist RADIOLOGY EXTERNAL ORDERABL ES Outpatient documented in this encounter Visit Diagnoses Not on filedocumented in this encounter Additional Health Concerns Noted Time Assessment 12/12/2022 11:45 PM FAMILY PRACTICE MEDICAL DOCTOR A fall risk assessment has been complet ed for the patient documented as of this encounter Care Teams Start Date End Date Naval Inspector Relationship Specialty 12/12/22 No Pcp, Na PCP - General documented as of this encounter
--- OUTSIDE RECORDS SUMMARY | 2022-12-21 18:19 | XMS REPORT | Encounter Summary ---
Author Author [facility] Organization [facility] Address Unknown Phone Unavailable Care Team Providers Care Market President Name Role Phone No Pcp, Na PCP Unavailable Reason for Referral * Radiology Services (Routine) - Authorized Diagnoses / Procedures Referred By [facility] Cervical stenosis of spinal canal Procedures C SPINE 3 VIEWS OR LESS Chidi Jimenez MD [address] [facility] [address] [place] [address] Radiology Referral ID Status Reason Start Date Expiration Visits Vi sits Date Requested Authorized [id number] Authorized 12/14/2022 12/14/2023 1 1 ER ALUMINUM SHEET Encounter Details Care Team Description Date Type Department Chidi Jimenez MD [address] [facility] [address] [place] [address] Cervical stenosis of spinal canal (Prima ry Dx) 12/14/2022 Orders Only Neurosurgery: [facility] [place] [place] [address] [place] [id number] Social History Date Tobacco Use Types Packs/Day Years Used Smoking Tobacco: Every Cigarettes 2 Day Smokeless Tobacco: Never Sex Assigned at Date Recorded Male 12/13/2022 11:12 AM CUTTER ALUMINUM SHEET documented as of this encounter Functional Status Date of Assessment Functional Status Response 12/13/2022 Does the patient have a hearing impairment: Yes documented as of this encounter Plan of Treatment Order Schedule Name Type Priority Associated Diag noses Expected: 12/14/2023 (Approximate), Expi res: 12/14/2023 C SPINE 3 VIEWS OR LESS Imaging Routine Cervic al stenosis of spinal canal documented as of this encounter Goals Goal Patient Associated Recent Progress Patient-Stat Aut hor Goal Type Problems ed? Decrease pain Hospital On track (12/13/2022 Yes Chelo Deloris orantes, 5:02 PM CUTTER ALUMINUM SHEET) RN Note: "To get better, get my back fixed and get stronger" documented as of this encounter Visit Diagnoses Diagnosis Cervical stenosis of spinal canal - Avril krause Spinal stenosis in cervical region documented in this encounter Additional Health Concerns Noted Time Assessment 12/14/2022 8:44 PM CUTTER ALUMINUM SHEET A fall risk assessment has been complet ed for the patient documented as of this encounter Care Teams Start Date End Date Market President Relationship Specialty 12/12/22 No Pcp, Na PCP - General documented as of this encounter
--- OUTSIDE RECORDS SUMMARY | 2022-12-21 18:19 | XMS REPORT | Encounter Summary ---
Author Author [facility] Organization [facility] Address Unknown Phone Unavailable Care Team Providers Care Wine Bottle Inspector Name Role Phone No Pcp, Na PCP Unavailable Encounter Details Care Team Description Date Type Department 12/12/2022 Hospital Imaging: [facility] Encounter [place] [address], [address] [place] [address] Social History Date Tobacco Use Types Packs/Day Years Used Smoking Tobacco: Never Assessed Sex Assigned at Date Recorded Male 12/13/2022 11:12 AM BARREL CAP SETTER documented as of this encounter Medications at [...] Name Priority Date/Time Associated Diag nosis MRI T-SPINE EXTERNAL Routine 12/12/2022 IMAGING 12:15 PM BARREL CAP SETTER documented in this encounter Results * MRI T-SPINE EXTERNAL IMAGING (12/12/2022 12:15 PM BARREL CAP SETTER) Anatomical Location / Laterality Collection Method / Volume Moises ection Time Received Time Specimen (Source) Narrative Scheduling, Silent - 12/12/2022 11:07 PM BARREL CAP SETTER This order has been auto finalized and does not contain a result. Radiologist RADIOLOGY EXTERNAL ORDERABL ES Outpatient documented in this encounter Visit Diagnoses Not on filedocumented in this encounter Additional Health Concerns Noted Time Assessment 12/12/2022 11:45 PM BARREL CAP SETTER A fall risk assessment has been complet ed for the patient documented as of this encounter Care Teams Start Date End Date Wine Bottle Inspector Relationship Specialty 12/12/22 No Pcp, Na PCP - General documented as of this encounter
--- OUTSIDE RECORDS SUMMARY | 2022-12-21 18:19 | XMS REPORT | Encounter Summary ---
Author Author [facility] Organization [facility] Address Unknown Phone Unavailable Care Team Providers Care Athletic Team Physician Name Role Phone No Pcp, Na PCP Unavailable Encounter Details Care Team Description Date Type Department 12/12/2022 Hospital Imaging: [facility] Encounter [facility] [address], [address] [place] [address] Social History Date Tobacco Use Types Packs/Day Years Used Smoking Tobacco: Never Assessed Sex Assigned at Date Recorded Male 12/13/2022 11:12 AM NANNY CAREGIVER documented as of this encounter Medications at [...] Name Priority Date/Time Associated Diag nosis MRI L-SPINE EXTERNAL Routine 12/12/2022 IMAGING 12:20 PM NANNY CAREGIVER documented in this encounter Results * MRI L-SPINE EXTERNAL IMAGING (12/12/2022 12:20 PM NANNY CAREGIVER) Anatomical Location / Laterality Collection Method / Volume Moises ection Time Received Time Specimen (Source) Narrative Scheduling, Silent - 12/12/2022 11:07 PM NANNY CAREGIVER This order has been auto finalized and does not contain a result. Radiologist RADIOLOGY EXTERNAL ORDERABL ES Outpatient documented in this encounter Visit Diagnoses Not on filedocumented in this encounter Additional Health Concerns Noted Time Assessment 12/12/2022 11:45 PM NANNY CAREGIVER A fall risk assessment has been complet ed for the patient documented as of this encounter Care Teams Start Date End Date Athletic Team Physician Relationship Specialty 12/12/22 No Pcp, Na PCP - General documented as of this encounter
--- OUTSIDE RECORDS SUMMARY | 2022-12-21 18:19 | XMS REPORT | Encounter Summary ---
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 [address] [place] [address] Anesthesia Record Responsible Anesthesiologist Anesthesia Start Time Anesthesi a Stop Time Procedure Name Alfonzo Ballard MD 12/15/22 1308 12/15/22 1811 FUSION SPINE POSTERIOR - CERVICAL BELOW CERVICAL 2 (Spine Cervical) Date Time Event Comment 1234 124 AN Equip Check 1307 Out of Pre Procedure 1308 Anes Start 1308 In Room 1310 An Start Data 1320 An Induction The patient was ree valuated immediately before moderate or deep sedation use and before anesthesia induction. 1322 An Intubation 1325 Anesthesia Ready 1335 Quick Note Pinning performed b y surgeon at this time 1344 Quick Note Surgeon placed pt i n pins/Castellanos frame. Head and neck kept in midline neutral position when placing pt in pro ne position by surgeon. Face free from any pressure points. BUE tucked an d padded at pt sides. 1421 Proc Start 1746 Quick Note When drapes removed , R forearm appeared to have infiltrated. Replaced iv in L hand 1805 An Extubation 1808 an stop data 1810 An Stop I completed my SBAR handoff to the receiving nurse. Meds Name Total midazolam (VERSED) 1 mg/mL injection 2 mg lidocaine (2%) 200 mg/10mL Injection 100 mg syringe propofol (DIPRIVAN) 200 mg/ 20 mL 150 mg injection (VIAL) succinylcholine (ANECTINE) injection 100 mg (VIAL) ondansetron (ZOFRAN) injection 4 mg dexamethasone (DECADRON) 4 mg/mL 4 mg injection artificial tears (dextran 2 drop 70/hypromellose) ophthalmic drops propofoL (DIPRIVAN) infusion 4,279.76 mg remifentanyl 1000mcg in NS 20mL 3,998 mcg (50mcg/mL)(OR) ceFAZolin (ANCEF) 6 g phenylephrine (JO ANN-SYNEPHRINE) 10 mg in 11.04 mg sodium chloride 0.9% (NS) 250 mL IV dri p (std conc) phenylephrine (JO ANN-SYNEPHRINE) 20 mg in 11.7 mg sodium chloride 0.9% (NS) 250 mL IV dri p (dbl conc) HYDROmorphone (DILAUDID) 0.5 mg sodium chloride 0.9 % infusion 1,050 mL electrolyte-A (PLASMA-LYTE) 900 mL albumin 5% (250mL) - Blood Product 750 mL * Name O2 N2O Inspired Sevoflurane Inspired Sevoflurane * No blood administrations on file. Removal Type Details Placement 12/15/22 1930 by Melanie Stacy RN Peripheral 12/12/22; PreHospital Outside Facility; 12/12/22 0000 by IV IV Therapy; R; Forearm; 20 G; Augustina Vargas RN Symptomatic (phlebitis, pain, leaking, infiltration); 12/15/22; 19312/15/22 1930 by Melanie Stacy RN Peripheral 12/12/22; PreHospital Outside Facility; 12/12/22 0000 by IV R; Antecubital; 20 G; Symptomatic Augustina Soni RN (phlebitis, pain, leaking, infiltration); 12/15/22; 19312/16/22 1151 by Gareth Banegas RN Indwelling 12/14/22; 1130; 16 FR; Regular 3 1130 by Urinary (Two-way); 12/16/22; 115[address] St daryl Kay RN Catheter 12/15/22 1806 by Harshad Dooley CRNA ETT 12/15/22; 1322; Mask ventilation not 0 12/15/22 1322 by Jori, attempted (0); Video laryngoscopy, Rolf, SRNA Stylet; Single-Lumen, Cuffed; ETT Size: 7.5mm; GlideScope; Blade Size: 4; Cricoid Pressure: No; Oral; 1-Full view of the glottis; 1 insertion attempt; Auscultation, ETCO2 Detector; Vol of r in Cuff: 8 mL; Taped at Gums: 23 centimeters; neck kept in midline position without manipulation during intubation. attraumatic to oral mucosa/dentition.; 12/15/22; 1806 12/15/22 1930 by Melanie Stacy RN Peripheral 12/15/22; 1324; Provider; R; Hand; 20 G ; 12/15/22 1324 by CHANDLER Hsieh 1; Symptomatic (phlebitis, pain, Rolf , SRNA leaking, infiltration); 12/15/22; 1930 12/15/22 1930 by Melanie Stacy RN Arterial 12/15/22; 1426 (created via procedure 12/15/22 1426 by Jori, Line documentation); 20 G; 12/15/22; 1930 J ared, SRNA 12/21/22 1514 by Eros, Rural [employer] Carrier Wounds 12/15/22; 1428; Upper, Posterior; Back; 12/15/22 1428 by 12/21/22; 1514 Delroy Dan RN 12/18/22 0833 by Jayshree Velazquez RN Hemovac 12/15/22; 1703; Posterior; Neck; 10 FR; 12/15/22 1703 by Alice Nash 12/18/22; 0833; Per Provider STEVEN Wise 12/16/22 0700 by Gareth Banegas RN Peripheral 12/15/22; 181 (present on arrival to 12/15/22 181 by IV pacu); L; Hand; 20 G; 12/16/22; 0700 A ugustine, Melanie, RN documented in this encounter Social History Date Tobacco Use Types Packs/Day Years Used Smoking Tobacco: Every Cigarettes 2 Day Smokeless Tobacco: Never Sex Assigned at Date Recorded Male 12/13/2022 11:12 AM [employer] Date Recorded COVID-19 Exposure Response 12/15/2022 11:39 AM [employer] In the last 10 days, have you been in contact with N o / Unsure someone who was confirmed or suspected to have Coronavirus/COVID-19? documented as of this encounter Functional Status Date of Assessment Functional Status Response 12/13/2022 Does the patient have a hearing impairment: Yes documented as of this encounter OR Notes * Anesthesia Postprocedure Evaluation - Marielle Quiroz MD - 12/15/2022 7:55 PM CST Post-Anesthesia Evaluation Name: Jose Wilson : 1960 Age: 62 y.o. Sex: male Procedure Information Anesthesia Start Date/Time: 12/15/22 1308 Procedure: FUSION SPINE POSTERIOR - CERVICAL BELOW CERVICAL 2 (Spine Cervical) - 3.3 hrs, C3-6 PCF and decompression, globus, leisa table/yogi frame, 2 dri lls/2 jovi chou Location: [facility] OR02 / [facility] OR/Periop Surgeons: Chidi Jimenez MD Post-Anesthesia Vitals BP: 118/60 (12/15 1929) Pulse: 70 (12/15 1929) Respirations: 16 PER MINUTE (12/15 1929) SpO2: 94 % (12/15 1929) SpO2 Pulse: 70 (12/15 1929) O2 Device: Nasal cannula (12/15 1914) Vitals Value Taken Time BP 118/60 12/15/221929 Temp 36.8 C (98.2 F) 12/15/22 1812 Pulse 70 12/15/221929 Respirations 16 PER MINUTE 12/15/221929 SpO2 94 % 12/15/221929 O2 Device Nasal cannula 12/15/22 191 ABP ART BP Post Anesthesia Evaluation Note Evaluation location: Pre/Post Patient participation: recovered; patient participated in evaluation Level of consciousness: alert Pain score: 0 Pain management: adequate Hydration: normovolemia Temperature: 36.0C - 38.4C Airway patency: adequate Perioperative Events Post-op nausea and vomiting: no PONV Postoperative Status Cardiovascular status: hemodynamically stable Respiratory status: spontaneous ventilation Follow-up needed: none Additional comments: Warm compress applied to infiltrated PIV site. Patient abl e to feel his RUE but denies any discomfort. Given his borderline MAPs, decisio n made to defer topical nitroglycerin or SQ phentolamine. RN Orders for heat co mpress QID and site monitoring entered. Otherwise pain is controlled with no an esthetic complications. Marielle Quiroz MD P[employer]atic Tube Fitter Anesthesia/Critical Care Medicine Pager [phone] Perioperative Events Encounter Notable Events Notable Event Outcome Phase Comment IV infiltrate Intraprocedure inflitration noted after pt arms were untucked. gt ts were on pump throughout the case, no high pressure alarms on IV pump. Consult ing pharmacy to determine if treatment to extremity is needed. [employer] * Anesthesia Procedure Notes - Rolf Hsieh SRNA - 12/15/2022 2:26 PM [employer] Associated Order(s): A-LINE INSERTION Anesthesia Procedure: Arterial Line Placement A-LINE INSERTION Date/Time: 12/15/2022 2:26 PM Patient location: OR Indications: hemodynamic monitoring Preprocedure checklist performed: 2 patient identifiers, risks & benefits discussed, patient evaluated, timeout performed, consent obtained and patient being monitored Arterial Line Procedure Patient sedated: yes (see MAR) Sedation type: general; Artery prepped with chlorhexidine; skin prep agent completely dried prior to pro cedure. Location: radial artery Laterality: left Technique: palpation Needle gauge: 20 G Number of attempts: 1 Procedure Outcome Catheter secured with adhesive dressing applied Events: no complications noted during insertion and skin intact, warm, and dry Observation: pt tolerated well Performed by: Rolf Hsieh SRNA Authorized by: Alfonzo Ballard MD [employer] Associated attestation - Alfonzo Ballard MD - 12/15/2022 2:33 PM [employer] Alfonzo Ballard MD P[employer]atic Tube Fitter Anesthesia and Critical Care | Pager [phone] * Anesthesia Preprocedure Evaluation - Alisson Woodall CRNA - 12/15/2022 11:37 AM CST Anesthesia Pre-Procedure Evaluation Name: Jose Wilson : 1960 Age: 62 y.o. Sex: male Procedure Info: Procedure Information Date/Time: 12/15/22 1135 Procedure: FUSION SPINE POSTERIOR - CERVICAL BELOW CERVICAL 2 - 3.3 hrs, C3-6 P CF and decompression, globus, leisa table/yogi frame, 2 drills/2 bovies, february field Location: [facility]02 / [facility] OR/Periop Surgeons: Chidi Jimenez MD Physical Assessment Vital Signs (last filed in past 24 hours): BP: 122/68 (12/16 799) Temp: 36.6 C (97.9 F) (12/16 799) Pulse: 64 (12/16 847) Respirations: 18 PER MINUTE (12/16 799) SpO2: 94 % (12/16 799) O2 Device: None (Room air) (12/16 847) Patient History Allergies Allergen Reactions Methadone HALLUCINATIONS Biaxin [Clarithromycin] NAUSEA ONLY Flexeril [Cyclobenzaprine] NAUSEA AND VOMITING Current Medications Medication Directions baclofen (LIORESAL) 20 mg tablet Take one tablet by mouth twice daily as needed. calcium carbonate (OS-RICHARD) 1250 mg tablet Take one tablet by mouth twice daily. carboxymethylcellulose sodium (REFRESH TEARS) 0.5 % eye drop Apply one drop to b oth eyes twice daily. cetirizine (ZYRTEC) 10 mg tablet Take one tablet by mouth every morning. empagliflozin (JARDIANCE) 10 mg tablet Take one tablet by mouth daily. losartan (COZAAR) 50 mg tablet Take one-half tablet by mouth daily. metFORMIN (GLUCOPHAGE) 1,000 mg tablet Take one tablet by mouth twice daily afte r meals. metoprolol succinate XL (TOPROL XL) 25 mg extended release tablet Take one table t by mouth daily. sildenafiL (VIAGRA) 100 mg tablet Take one tablet by mouth as Needed for Erectil e dysfunction. simvastatin (ZOCOR) 80 mg tablet Take one tablet by mouth at bedtime daily. terazosin (HYTRIN) 10 mg capsule Take two capsules by mouth at bedtime daily. Review of Systems/Medical History Pulmonary Current smoker COPD Cardiovascular Coronary artery disease GI/Hepatic/Renal Renal disease: Neuro/Psych Weakness Musculoskeletal Neck pain Endocrine/Other Anemia Physical Exam Airway Findings Mallampati: II TM distance: >3 FB Neck ROM: limited Mouth opening: good Airway patency: adequate Dental Findings: Upper dentures and lower dentures Cardiovascular Findings: Rhythm: regular Rate: normal Pulmonary Findings: Breath sounds clear to auscultation. Abdominal Findings: Obese Neurological Findings: Alert and oriented x 3 Constitutional findings: No acute distress Diagnostic Tests Hematology: Lab Results Component Value Date HGB 12.8 12/15/2022 HCT 40.5 12/15/2022 PLTCT 155 12/15/2022 WBC 8.4 12/15/2022 NEUT 73 12/15/2022 ANC 6.10 12/15/2022 ALC 1.28 12/15/2022 TOMAS 10 12/15/2022 AMC 0.85 12/15/2022 EOSA 2 12/15/2022 ABC 0.03 12/15/2022 MCV 86.9 12/15/2022 MCH 27.6 12/15/2022 MCHC 31.8 12/15/2022 MPV 8.8 12/15/2022 RDW 16.5 12/15/2022 General Chemistry: Lab Results Component Value Date NA 140 12/15/2022 K 4.1 12/15/2022 CL 104 12/15/2022 CO2 24 12/15/2022 GAP 12 12/15/2022 BUN 22 12/15/2022 CR 1.16 12/15/2022 GLU 125 12/15/2022 CA 9.3 12/15/2022 Coagulation: No results found for: PT, PTT, INR Anesthesia Plan ASA score: 3 Plan: general and invasive monitoring Special equipment/procedures: Art line Induction method: intravenous NPO status: acceptable Informed Consent Anesthetic plan and risks discussed with patient. Use of blood products discussed with patient Blood Consent: consented Plan discussed with: anesthesiologist, ROSSANA and NAVI. [employer] documented in this encounter Plan of Treatment Not on filedocumented as of this encounter Goals Goal Patient Associated Recent Progress Patient-Stat Aut hor Goal Type Problems ed? Decrease pain Hospital On track (12/13/2022 Yes Chelo Deloris orantes, 5:02 PM [employer]) RN Note: "To get better, get my back fixed and get stronger" documented as of this encounter Procedures Comments Procedure Name Priority Date/Time Associated Diag nosis ANESTHESIA ARTERIAL LINE Routine 12/15/2022 INSERTION 2:26 PM [employer] documented in this encounter Results * ANESTHESIA ARTERIAL LINE INSERTION (12/15/2022 2:26 PM [employer]) Narrative Alfonzo Ballard MD - 12/15/2022 2:26 PM [employer] Rolf Hsieh SRNA 12/15/2022 2:27 PM Anesthesia [...] Ballard MD Alfonzo Ballard MD ANESTHESIA ORDERABLES documented in this encounter Visit Diagnoses Not on filedocumented in this encounter Administered Medications Action Date Dose Rate Site Medication Order MAR Action 12/15/2022 6:03 PM [employer] albumin 5% infusion (250 mL) Given - New Intravenous, INTRA-PROCEDURE MED(CONT), Bag Starting on Tue12/15/22 at 1610, Until Tue12/15/22 at 1820, Anesthesia Intra-op Given - New Bag 12/15/2022 4:28 PM [employer] Given - New Bag 12/15/2022 4:10 PM [employer] 12/15/2022 1:22 PM [employer] 2 drops artificial tears (PF) single dose Given ophthalmic solution Both Eyes, INTRA-PROCEDURE MED, Startin g on Tue12/15/22 at 1322, Until Tue12/15/22 at 1820, Anesthesia Intra-op 12/15/2022 5:31 PM [employer] 3 g ceFAZolin (ANCEF) injection Given Intravenous, INTRA-PROCEDURE MED, Starting on Tue12/15/22 at 1354, Until Tue12/15/22 at 1820, Anesthesia Intra-op 3 g Given 12/15/2022 1:54 PM [employer] 12/15/2022 1:20 PM [employer] 4 mg dexamethasone sodium phosphate Given (DECADRON) injection Intravenous, INTRA-PROCEDURE MED, Starting on Tue12/15/22 at 1320, Until Tue12/15/22 at 1820, Anesthesia Intra-op 12/15/2022 1:25 PM [employer] electrolyte-A (PLASMA-LYTE A PH 7.4) Given - New injection Bag Intravenous, INTRA-PROCEDURE MED(CONT), Starting on Tue12/15/22 at 1325, Until Tue12/15/22 at 1820, Anesthesia Intra-op 12/15/2022 5:20 PM [employer] 0.5 mg HYDROmorphone injection (DILAUDID) Given Intravenous, INTRA-PROCEDURE MED, Starting on Tue12/15/22 at 1720, Until Tue12/15/22 at 1820, Anesthesia Intra-op 12/15/2022 1:20 PM [employer] 100 mg lidocaine (PF) injection Given Intravenous, INTRA-PROCEDURE MED, Starting on Tue12/15/22 at 1320, Until Tue12/15/22 at 1820, Anesthesia Intra-op 12/15/2022 1:10 PM [employer] 2 mg midazolam (VERSED) injection Given Intravenous, INTRA-PROCEDURE MED, Starting on Tue12/15/22 at 1310, Until Tue12/15/22 at 1820, Anesthesia Intra-op 12/15/2022 6:14 PM [employer] 4 mg ondansetron (ZOFRAN) injection Given Intravenous, INTRA-PROCEDURE MED, Starting on Tue12/15/22 at 1814, Until Tue12/15/22 at 1820, Anesthesia Intra-op 12/15/2022 4:35 PM [employer] 1.4 mcg/kg/min 256.2 mL/hr phenylephrine (JO ANN-SYNEPHRINE) 10 mg in Dose/Rate sodium chloride 0.9% (NS) 250 mL IV drip Change (std conc) 250 mL, Intravenous, INTRA-PROCEDURE MED(CONT), Starting on Tue12/15/22 at 1325, Until Tue12/15/22 at 1820, Anesthesia Intra-op 1 mcg/kg/min 183 mL/hr Dose/Rate Change 12/15/2022 4:28 PM [employer] 200 mcg Bolus 12/15/2022 4:26 PM [employer] 100 mcg Bolus 12/15/2022 4:21 PM [employer] 0.5 mcg/kg/min 91.5 mL/hr Dose/Rate Change 12/15/2022 4:07 PM [employer] 100 mcg Bolus 12/15/2022 4:01 PM [employer] 0.4 mcg/kg/min 73.2 mL/hr Dose/Rate Change 12/15/2022 3:44 PM [employer] 0.2 mcg/kg/min 36.6 mL/hr Infusion Restarted 12/15/2022 3:38 PM [employer] 50 mcg Bolus 12/15/2022 3:37 PM [employer] 0.2 mcg/kg/min 36.6 mL/hr Dose/Rate Change 12/15/2022 2:50 PM [employer] 0.3 mcg/kg/min 54.9 mL/hr Dose/Rate Change 12/15/2022 2:45 PM [employer] 0.4 mcg/kg/min 73.2 mL/hr Dose/Rate Change 12/15/2022 2:36 PM [employer] 0.2 mcg/kg/min 36.6 mL/hr Dose/Rate Change 12/15/2022 2:29 PM [employer] 0.6 mcg/kg/min 109.8 mL/hr Dose/Rate Change 12/15/2022 1:49 PM [employer] 0.4 mcg/kg/min 73.2 mL/hr Given - New Bag 12/15/2022 1:25 PM [employer] 12/15/2022 6:03 PM [employer] 0.5 mcg/kg/min 45.75 mL/hr phenylephrine (JO ANN-SYNEPHRINE) 20 mg in Dose/Rate sodium chloride 0.9% (NS) 250 mL IV drip Change (dbl conc) 250 mL, Intravenous, INTRA-PROCEDURE MED(CONT), Starting on Tue12/15/22 at 1648, Until Tue12/15/22 at 1820, Anesthesia Intra-op 0.5 mcg/kg/min 45.75 mL/hr Dose/Rate Change 12/15/2022 5:47 PM [employer] 200 mcg Bolus 12/15/2022 5:30 PM [employer] 200 mcg Bolus 12/15/2022 5:26 PM [employer] 1.4 mcg/kg/min 128.1 mL/hr Given - New Bag 12/15/2022 4:48 PM [employer] 12/15/2022 5:17 PM [employer] 50 mcg/kg/min 36.6 mL/hr propofoL (DIPRIVAN) infusion Dose/Rate 100 mL, Intravenous, INTRA-PROCEDURE Change MED(CONT), Starting on Tue12/15/22 at 1320, Until Tue12/15/22 at 1820, Anesthesia Intra-op 110 mcg/kg/min 80.52 mL/hr Dose/Rate Change 12/15/2022 4:54 PM [employer] 130 mcg/kg/min 95.16 mL/hr Dose/Rate Change 12/15/2022 4:40 PM [employer] 140 mcg/kg/min 102.48 mL/hr Given - New Bag 12/15/2022 4:23 PM [employer] 150 mcg/kg/min 109.8 mL/hr Dose/Rate Change 12/15/2022 4:17 PM [employer] 160 mcg/kg/min 117.12 mL/hr Given - New Bag 12/15/2022 3:25 PM [employer] 160 mcg/kg/min 117.12 mL/hr Dose/Rate Change 12/15/2022 3:02 PM [employer] 150 mcg/kg/min 109.8 mL/hr Given - New Bag 12/15/2022 2:36 PM [employer] 150 mcg/kg/min 109.8 mL/hr Given - New Bag 12/15/2022 1:20 PM [employer] 12/15/2022 1:35 PM [employer] 30 mg propofol (DIPRIVAN) injection Given Intravenous, INTRA-PROCEDURE MED, Starting on Tue12/15/22 at 1320, Until Tue12/15/22 at 1820, Anesthesia Intra-op 120 mg Given 12/15/2022 1:20 PM [employer] 12/15/2022 5:18 PM [employer] 0.05 mcg/kg/min 7.32 mL/hr remifentanyl 1000mcg in NS 20mL Dose/Rate (50mcg/mL)(OR) Change Intravenous, INTRA-PROCEDURE MED(CONT), Starting on Tue12/15/22 at 1320, Until Tue12/15/22 at 1820, Anesthesia Intra-op 0.1 mcg/kg/min 14.64 mL/hr Dose/Rate Change 12/15/2022 4:35 PM [employer] 0.12 mcg/kg/min 17.568 mL/hr Given - New Bag 12/15/2022 4:18 PM [employer] 0.15 mcg/kg/min 21.96 mL/hr Given - New Bag 12/15/2022 2:56 PM [employer] 0.15 mcg/kg/min 21.96 mL/hr Given - New Bag 12/15/2022 2:21 PM [employer] 50 mcg Bolus 12/15/2022 2:12 PM [employer] 0.12 mcg/kg/min 17.568 mL/hr Dose/Rate Change 12/15/2022 2:03 PM [employer] 0.1 mcg Bolus 12/15/2022 1:28 PM [employer] 50 mcg Bolus 12/15/2022 1:21 PM [employer] 0.1 mcg/kg/min 14.64 mL/hr Given - New Bag 12/15/2022 1:20 PM [employer] 12/15/2022 1:20 PM [employer] sodium chloride 0.9 % infusion Infusion 1,000 mL, 1,000 mL, Intravenous, at 20 Restarted mL/hr, CONTINUOUS, Starting on Tue12/15/22 at 1045, Until Tue12/16/22 at 1027, Pre-Op 1,000 mL 20 mL/hr Given - New Bag 12/15/2022 12:14 PM [employer] 12/15/2022 1:20 PM [employer] 100 mg succinylcholine (ANECTINE) injection Given Intravenous, INTRA-PROCEDURE MED, Starting on Tue12/15/22 at 1320, Until Tue12/15/22 at 1820, Anesthesia Intra-op documented in this encounter Orders First Ordered Date Medications Ordered That Might Not Have Count Last Ordered Date Been Administered phenylephrine (JO ANN-SYNEPHRINE) 10 mg in 1 12/15/2022 sodium chloride 0.9% (NS) 250 mL IV dri p (std conc) documented in this encounter Additional Health Concerns Noted Time Assessment 12/15/2022 8:19 AM [employer] A fall risk assessment has been complet ed for the patient documented as of this encounter Care Teams Start Date End Date Education Managers Relationship Specialty 12/12/22 No Pcp, Na PCP - General documented as of this encounter
[2022-12-21 18:22] VITALS: BP 120/70
[2022-12-21] MEDS ORDERED: BACL20TA PO (18:32)
[2022-12-21] MEDS ORDERED: OXC5T PO (18:32)
[2022-12-21] MEDS ORDERED: EMPA10TA PO (18:32)
[2022-12-21] MEDS ORDERED: CETI10TA24 PO (18:32)
[2022-12-21] MEDS ORDERED: METH-732 PO (18:32)
[2022-12-21] MEDS ORDERED: METF-399 PO (18:32)
[2022-12-21] MEDS ORDERED: TERA10CA3 PO (18:32)
[2022-12-21] MEDS ORDERED: SIMV80TA21 PO (18:32)
[2022-12-21] MEDS ORDERED: LOSA25TA41 PO (18:32)
[2022-12-21] MEDS ORDERED: SILD100T67 PO (18:32)
[2022-12-21] MEDS ORDERED: LIDO700A45 TP (18:32)
[2022-12-21] MEDS ORDERED: MTP25TSR PO (18:32)
[2022-12-21] MEDS ORDERED: CARB15DR OP (18:32)
[2022-12-21 19:30] VITALS: BP 107/65
--- NOTE | 2022-12-21 20:03 | PM&R Post Admission Assessment ---
PM&R HP Date of Visit: Dec 21, 2022 Time of Visit: 18:00 History of Present Illness CC: Cervical spine myelopathy HPI: [facility] 62[facility] for [facility] following C3- C4 myelomalcia diagnosis and surgical management due to progressive upper and lower extremity weakness which started 08/2022 but worsened. Patient not willing to use the c-collar due to increased pain. No bowel or bladder dysfunction. POLF was independent without use of AD. Currently is requiring assistance with transfers. Currently he is frustrated due to inability to smoke so nicotine patch offered. Meds were restarted. Past Qsugnwk-Hfawbm-Nojdhs Hx Past Med/Social Hx: Reviewed Nursing Past Med/Soc Hx, Reviewed and Corrections made Patient Social History Marrital Status: single Employed/Student: unemployed Alcohol Use: Occasionally Uses Smoking Status: Former Smoker Past Medical History Surgeries: Orthopedic Cardiac: High Cholesterol, Hypertension Genitourinary: Benign Prostatic Hyperpl PM&R Allergy/Meds/Data Review Allergies Coded Allergies: clarithromycin (Verified Allergy, Mild, nausea, 12/21/22) cyclobenzaprine (Verified Allergy, Unknown, N/V, 12/21/22) methadone (Verified Allergy, Unknown, hallucinations, 12/21/22) Home Medications Scheduled Baclofen (Baclofen), 20 MG PO BID, (Reported) Carboxymethylcellulose Sodium (Refresh Tears), 15 ML OP BID, (Reported) Cetirizine HCl (Cetirizine HCl), 10 MG PO DAILY, (Reported) Empagliflozin (Jardiance), 10 MG PO DAILY, (Reported) Losartan Potassium (Losartan Potassium), 12.5 MG PO DAILY, (Reported) Metformin HCl (Metformin HCl), 1,000 MG PO BID, (Reported) Methocarbamol (Methocarbamol), 750 MG PO TID, (Reported) Metoprolol Succinate (Metoprolol Succinate), 25 MG PO DAILY, (Reported) Sildenafil Citrate (Sildenafil Citrate), 100 MG PO PRN, (Reported) Simvastatin (Simvastatin), 80 MG PO HS, (Reported) Terazosin HCl (Terazosin HCl), 10 MG PO HS, (Reported) Scheduled PRN Lidocaine (Lidocaine 5% Patch), 1 EACH TP Q12H PRN for Neuropathic pain, (Reported) Oxycodone Hcl (Oxyir Tablet), 5 MG PO Q4H PRN for PAIN, (Reported) Current Medications Current Medications Reviewed Review of Systems Constitutional: see HPI, malaise, weakness EENTM: no symptoms reported Respiratory: no symptoms reported Cardiovascular: no symptoms reported Gastrointestinal: no symptoms reported Genitourinary: no symptoms reported Musculoskeletal: back pain, neck pain Skin: no symptoms reported Psychiatric/Neurological: No Symptoms Reported All Other Systems Reviewed Negative Unless Noted: Yes Physical Exam Physical Exam Vital Signs Vital Signs - First Documented 12/21/22 12/21/22 18:22 19:30 Temp 36.6 Pulse 88 Resp 20 B/P (MAP) 120/70 (87) Pulse Ox 96 O2 Delivery Room Air Capillary Refill : Height, Weight, BMI Height: '" Weight: lbs. oz. kg; 34.03 BMI Method: General Appearance: No Apparent Distress, WD/WN, Chronically ill Eyes: Bilateral Eye Normal Inspection, Bilateral Eye PERRL HEENT: PERRL/EOMI, Normal ENT Inspection, Pharynx Normal Neck: Full Range of Motion, Normal Inspection, Non Tender, Supple, Carotid Bruit Respiratory: Chest Non Tender, Lungs Clear, Normal Breath Sounds, No Accessory Muscle Use, No Respiratory Distress Cardiovascular: Regular Rate, Rhythm, No Edema, No Gallop, No JVD, No Murmur, Normal Peripheral Pulses Gastrointestinal: Normal Bowel Sounds, No Organomegaly, No Pulsatile Mass, Non Tender, Soft Back: Normal Inspection, Decreased Range of Motion, Muscle Spasm, Vertebral Tenderness Extremity: Normal Capillary Refill, Normal Inspection, Normal Range of Motion, Non Tender, No Calf Tenderness, No Pedal Edema Neurologic/Psychiatric: Alert, Oriented x3, No Motor/Sensory Deficits, Normal Mood/Affect Skin: Normal Color, Warm/Dry Lymphatic: No Adenopathy PM&R Medical Assessment & Plan REHAB/MEDICAL ASSESSMENT AND PLAN: REHAB IMPAIRMENT GROUP: Cervical spine myelopathy from cervical spine disease ETIOLOGIC DIAGNOSIS: Cervical spine myelopathy from cervical spine disease The comorbidities that impact the patients function and/or functional outcome by: smoking addiction, limited ROM neck, can't tolerate c-collar, HTN REHAB PLAN: The patient is being admitted to our comprehensive inpatient rehabilitation facility and can tolerate the intensity of service consisting of at least: 180 minutes of therapy a day, 5 out of 7 days a week Rehab treatment will consist of: PT OT will focus on regaining function with use of AD in order to gain confidence in ambulation without falls and monitor for falls The patient/family has a good understanding of our discharge process and will benefit from an interdisciplinary inpatient rehabilitation program. The patient has potential to make improvement and is in need of at least two of the following multidisciplinary therapies including but not limited to physical, occupational, speech, and prosthetics and orthotics. Additionally the patient will need services from respiratory, nutritional services, wound care, psychology, etc. (Customize this to each patient). Given the patients complex condition and risk of further medical complications, rehabilitation services cannot be safely or effectively provided at a lower level of care such as a long term facility. BARRIERS TO DISCHARGE: Neck pain with fall risk ESTIMATED LOS: 7 days DISPOSITION: Home RELEVANT CHANGES SINCE PREADMISSION SCREENING: I have compared the patients medical and functional status at the time of the preadmission screening and there are: no changes PROGNOSIS: Good REHABILITATION GOALS: 1. PT OT will focus on regaining function with use of AD in order to gain confidence in ambulation without falls and monitor for falls All the above goals were reviewed with the patient and he/she is in agreement. By signing this document, I acknowledge that I have personally performed a full physical examination on this patient within 24 hours of admission to this inpatient rehabilitation facility and have determined the patient to be able to tolerate the above course of treatment at an intensive level for a reasonable period of time. I will be completing a detailed individualized Plan of Care for this patient by day #4 of the patients stay based upon the Preadmission Screen, the Post-Admission Evaluation, and the therapy evaluations. Admission Dx/Comorbidities: (1) Cervical myelopathy ICD Codes: G95.9 - Disease of spinal cord, unspecified Assessment/Plan Assessment and Plan Assess & Plan/Chief Complaint Assessment: Cervical spine myelopathy s/p fusion Smoker HTN HLP BPH Plan: Monitor closely Pain control PT OT COREY DELONG DO Dec 21, 2022 20:03
[2022-12-21] MEDS: polyethylene glycoL POWDER 17 GM (MIRALAX) PACK PO SCH (20:25)
[2022-12-21] MEDS: SENNA W/DOCUSATE (SENOKOT S) TABLET PO SCH (20:34)
[2022-12-21] MEDS: BACLOFEN 10 MG (LIORESAL) TAB PO SCH (20:34)
[2022-12-21] MEDS: DOCUSATE SODIUM 100 MG (COLACE) CAP PO SCH (20:34)
[2022-12-21] MEDS: TERAZOSIN 5 MG (HYTRIN) CAPSULE PO SCH (20:34)
[2022-12-21] MEDS: LIDOCAINE PATCH REMOVAL TP SCH (20:34)
[2022-12-21] MEDS: ARTIFICAL TEARS 0.4 ML UNIT DOSE (REFRESH PLUS) OU SCH (20:40)
[2022-12-21] MEDS ORDERED: NON-FORMULARY MEDICATION 1 EA EA (Simvastatin 80 MG) PO SCH (21:00)
[2022-12-21] MEDS ORDERED: NON-FORMULARY MEDICATION 1 EA EA (Terazosin HCl 10 MG) PO SCH (21:00)
[2022-12-21] MEDS ORDERED: CARBOXYMETHYLCELLULOSE SODIUM OP SCH (21:00)
[2022-12-21] MEDS ORDERED: NON-FORMULARY MEDICATION 1 EA EA (Metformin HCl 1,000 MG) PO SCH (21:00)
[2022-12-21] MEDS ORDERED: METHOCARBAMOL 750 MG (ROBAXIN) TAB PO SCH (21:00)
[2022-12-21] MEDS ORDERED: NON-FORMULARY MEDICATION 1 EA EA (Baclofen 20 MG) PO SCH (21:00)
[2022-12-22 05:12] LABS: BASOPHILS % (AUTO) 0 % (0-10); EOSINOPHILS # (AUTO) 0.1 10^3/uL (0.0-0.3); EOSINOPHILS % (AUTO) 1 % (0-10); HEMATOCRIT 30 % (40-54); HEMOGLOBIN 10.1 g/dL (13.3-17.7); LYMPHOCYTES # (AUTO) 1.2 10^3/uL (1.0-4.0); LYMPHOCYTES % (AUTO) 12 % (12-44); MEAN CORPUSCULAR HEMOGLOBIN 28 pg (25-34); MEAN CORPUSCULAR HGB CONC 33 g/dL (32-36); MEAN CORPUSCULAR VOLUME 85 fL (80-99); MEAN PLATELET VOLUME 9.9 fL (9.0-12.2); MONOCYTES # (AUTO) 1.1 10^3/uL (0.0-1.0); MONOCYTES % (AUTO) 11 % (0-12); NEUTROPHILS # (AUTO) 7.2 10^3/uL (1.8-7.8); NEUTROPHILS % (AUTO) 76 % (42-75); PLATELET COUNT 287 10^3/uL (130-400); WHITE BLOOD COUNT 9.5 10^3/uL (4.3-11.0)
--- NOTE | 2022-12-22 05:13 | PM&R Progress Note ---
Subjective HPI/CC On Admission Date Seen by Provider: Dec 22, 2022 Time Seen by Provider: 09:00 Subjective/Events-last exam 12/22/2022: Patient did not sleep well last night Patient refusing therapy Refusing to get out of bed Appears to be cognitively diminished Ammonia checked and it was normal Creatinine is 1.6 consistent with chronic kidney disease Check ABG for hypercapnia and CO2 narcosis Review of Systems General: Fatigue, Malaise Musculoskeletal: neck pain Objective Exam Vital Signs Vital Signs Date Time Temp Pulse Resp B/P (MAP) Pulse Ox O2 Delivery O2 Flow Rate FiO2 12/22/22 09:24 71 20 135/83 (100) 93 Room Air 12/22/22 08:06 36.3 Capillary Refill : General Appearance: No Apparent Distress, WD/WN, Chronically ill HEENT: PERRL/EOMI, Normal ENT Inspection, Pharynx Normal Neck: Full Range of Motion, Normal Inspection, Non Tender, Supple, Carotid Bruit Respiratory: Chest Non Tender, Lungs Clear, Normal Breath Sounds, No Accessory Muscle Use, No Respiratory Distress Cardiovascular: Regular Rate, Rhythm, No Edema, No Gallop, No JVD, No Murmur, Normal Peripheral Pulses Gastrointestinal: Normal Bowel Sounds, No Organomegaly, No Pulsatile Mass, Non Tender, Soft Back: Normal Inspection, Decreased Range of Motion, Muscle Spasm, Vertebral Tenderness Extremity: Normal Capillary Refill, Normal Inspection, Normal Range of Motion, Non Tender, No Calf Tenderness, No Pedal Edema Neurologic/Psychiatric: Alert, No Motor/Sensory Deficits, sail maker II-XII Norm as Tested, Abnormal Gait, Depressed Affect, Motor Weakness (Generalized upper extremities more than lower extremities) Skin: Normal Color, Warm/Dry Lymphatic: No Adenopathy Results/Procedures Lab Laboratory Tests 12/22/22 04:50 Patient resulted labs reviewed. FIM Transfers Therapy Code Descriptions/Definitions Functional [place] Measure: 0=Not Assessed/NA 4=Minimal Assistance 1=Total Assistance 5=Supervision or Setup 2=Maximal Assistance 6=Modified [place] 3=Moderate Assistance 7=Complete IndependenceSCALE: Activities may be completed with or without assistive devices. 2-Dizpjclywt-kvtnzpc completes the activity by him/herself with no assistance from a helper. 5-Set-up or Clean-up Assistance-helper sets up or cleans up; patient completes activity. [place] assists only prior to or following the activity. 4-Supervision or Touching Assistance-helper provides verbal cues and/or touch ing/steadying and/or contact guard assistance as patient completes activity. Assistance may be provided throughout the activity or intermittently. 3-Partial/Moderate Assistance-helper does LESS THAN HALF the effort. [place] lifts, holds or supports trunk or limbs, but provides less than half the effort. 2-Substantial/Maximal Assistance-helper does MORE THAN HALF the effort. [place] lifts or holds trunk or limbs and provides more than half the effort. 9-Rhtpbktvy-phvpgz does ALL the effort. Patient does none of the effort to complete the activity. Or, the assistance of 2 or more helpers is required for the patient to complete the activity. If activity was not attempted, code reason: 7-Patient Refused. 9-Not Applicable-not attempted and the patient did not perform the activity bef ore the current illness, exacerbation or injury. 10-Not Attempted due to Environmental Limitations-(lack of equipment, weather restraints, etc.). 88-Not Attempted due to Medical Conditions or Safety Concerns. Assessment/Plan Assessment and Plan Assess & Plan/Chief Complaint Assessment: Cervical spine myelopathy s/p fusion Smoker HTN HLP BPH Chronic kidney disease stage IIIb Cognitive deficit? Delirium? Plan: Monitor closely Pain control PT OT 12/22/2022: Work-up of altered mental status (1) Cervical myelopathy COREY DELONG DO Dec 22, 2022 05:13
[2022-12-22 05:25] LABS: ALBUMIN 3.5 GM/DL (3.2-4.5); BILIRUBIN,TOTAL 0.9 MG/DL (0.1-1.0); CALCIUM 9.6 MG/DL (8.5-10.1); CREATININE SERUM 1.67 MG/DL (0.60-1.30); POTASSIUM 3.7 MMOL/L (3.6-5.0); TOTAL PROTEIN 7.3 GM/DL (6.4-8.2)
[2022-12-22] MEDS: LOSARTAN 25 MG (COZAAR) TAB PO SCH (07:56)
[2022-12-22] MEDS: LORATADINE (CLARITIN) 10 MG TAB PO SCH (07:56)
[2022-12-22] MEDS: metFORMIN 500 MG (GLUCOPHAGE) TAB PO SCH ×2 (07:56→17:00)
[2022-12-22] MEDS: DOCUSATE SODIUM 100 MG (COLACE) CAP PO SCH ×2 (07:56→21:21)
[2022-12-22] MEDS: SENNA W/DOCUSATE (SENOKOT S) TABLET PO SCH ×2 (07:56→21:22)
[2022-12-22] MEDS: BACLOFEN 10 MG (LIORESAL) TAB PO SCH ×2 (07:57→21:42)
[2022-12-22] MEDS: ARTIFICAL TEARS 0.4 ML UNIT DOSE (REFRESH PLUS) OU SCH ×2 (07:57→21:42)
[2022-12-22] MEDS: EMPAGLIFLOZIN 10 MG TABLET (JARDIANCE) PO SCH (07:57)
[2022-12-22] MEDS: LACTULOSE SYRUP 10GM/15ML (ENULOSE) 30ML UDC PO PRN (08:02)
[2022-12-22] MEDS: polyethylene glycoL POWDER 17 GM (MIRALAX) PACK PO SCH ×2 (08:04→21:22)
[2022-12-22 08:06] VITALS: BP 118/66
--- NOTE | 2022-12-22 08:40 | Occupational Therapy Eval ---
OT Evaluation-General/PLF Medical Diagnosis Admission Date Dec 21, 2022 at 17:56 Medical Diagnosis: s/p C3-6 PCF & Decompression Onset Date: Dec 15, 2022 Therapy Diagnosis Therapy Diagnosis: decreased ADL status, weakness, decreased cognition Precautions Precautions/Isolations: Fall Prevention, Standard Precautions, Pressure Ulcer Comments 10 lb lifting restriction. Pt is instructed to wear cervical collar but has been refusing it due to increased pain. Referral Physician: Johann Referral Reason: Evaluation/Treatment Medical History Additional Medical History CAD s/p Stents, COPD, DM Current History s/p cervical surgery after progressing BUE/LE weakness Social History Home: Single Level Entry Into Home: Ramp Steps Into Home: 6 Steps Inside Home: 1 Pt indicates he lives with his father, information from chart indicates he lives alone vs with SO. Unsure who pt lives with at this time. ADL-Prior Level of Function SCALE: Activities may be completed with or without assistive devices. 4-Teioubuozx-gbgiwtf completes the activity by him/herself with no assistance from a helper. 5-Set-up or Clean-up Assistance-helper sets up or cleans up; patient completes activity. [place] assists only prior to or following the activity. 4-Supervision or Touching Assistance-helper provides verbal cues and/or touching/steadying and/or contact guard assistance as patient completes activity. Assistance may be provided throughout the activity or intermittently. 3-Partial/Moderate Assistance-helper does LESS THAN HALF the effort. [place] lifts, holds or supports trunk or limbs, but provides less than half the effort. 2-Substantial/Maximal Assistance-helper does MORE THAN HALF the effort. [place] lifts or holds trunk or limbs and provides more than half the effort. 1-Snszkyidl-wvzale does ALL the effort. Patient does none of the effort to complete the activity. Or, the assistance of 2 or more helpers is required for the patient to complete the activity. If activity was not attempted, code reason: 7-Patient Refused. 9-Not Applicable-not attempted and the patient did not perform the activity before the current illness, exacerbation or injury. 10-Not Attempted due to Environmental Limitations-(lack of equipment, weather restraints, etc.). 88-Not Attempted due to Medical Conditions or Safety Concerns. ADL PLOF Comments Pt reports being IND with all ADLs and mobility without assistance. Chart review indicates pt has required some assistance due to progressing weakness. Pt's PLOF unknown at this time. Pt has a walk in shower with SC, 1 step into bathroom. Self Care: Unknown Functional Cognition: Unknown OT Current Status Subjective Pt in recliner, agreeable to OT evaluation and tx initially. Pt very confused, believes he is in a school system in [place]. Pt unable to recall he has had surgery and is in a hospital. OT redirected pt to location, but pt still unable to recall after a few minutes. Pt inconsistent with pain rating, initially rating neck pain 4/10, told RN 0 pain, and later reports 9-10/10 pain. Pt refused most activities during tx. Mental Status/Objective Patient Orientation: Person (knows name & age), Confused Current Glasses/Contacts: Yes Upper Extremity ROM Pt refused testing of UEs, during ADLs, BUE shoulder flexion to approx 80 degrees Upper Extremity Coordination Decreased bilaterally. Upper Extremity Sensation Impaired bilaterally Upper Extremity Strength Pt refused formal testing. ADL-Treatment Eating (QC): 3 (Pt required assistance taking pills.) Oral Hygiene (QC): 7 (Pt refused.) Shower/Bathe Self (QC): 1 (2 person assist in stand to wash buttocks. Max A overall with sponge bath for thoroughness.) Upper Body Dressing (QC): 3 (Min A with overhead.) Lower Body Dressing (QC): 1 (2 person assist in stand & assist all parts. Pt refused to attempt task himself.) On/Off Footwear (QC): 2 (Max A overall.) Toileting Hygiene (QC): 7 (Pt refused at this time.) Other Treatments OT evaluation complete. Pt provided information about PLOF and home set up to his ability. Pt confused so accuracy of information unknown. OT attempted UE screen, but pt refused to move UEs due to pain. Pt agreeable to sponge bath and dressing tasks. Pt required max A overall to wash all body parts thoroughly, with 2 person assist in stand for buttocks. Pt required min A with tshirt (assist overhead), and total assist with LE dressing (pt refused to attempt). OT/PT cotreat due to skill of 2 clinicians required which a rehab nursing tech could not perform in order to coordinate UE/LEs, decrease fall risk, and due to pt's limitations in strength, activity tolerance, pain, mobility and transfers. OT focused on ADLS, UE placement, cues for sequencing and safety, PT focused on LE placement, gross overall movement, transfers and mobility. Pt finished Sponge bath and dressing. Transferred from recliner to w/c, pt initially refused to attempt to stand, but once lift chair was elevated pt completed transfer. Pt refused to perform w/c mobility, so pt taken to car transfer. Pt refused car transfer, so taken to parallel bars via w/c. Pt refused to attempt stand or exercises at parallel bars. Pt educated on purpose and benefit of OT, but pt continues to refuse. Pt returned to his room via w/c. Pt instructed to transfer to bed, but refused to stand. Pt required multiple verbal and tactile cues to attempt stand, pt then able to stand and transfer to EOB, then supine. Please refer to PT evaluation for QC scores associated with mobility/transfers. Post tx, pt in bed, call light in reach and all needs met, bed alarm activated. Education OT Patient Education: Correct positioning, Energy conservation, Modified ADL techniques, Progress toward Goal/Update tx plan, Purpose of tx/functional activities, Rehab process Teaching Recipient: Patient Teaching Methods: Discussion Response to Teaching: Verbalize Understanding BIMS CAM BIMS Expression of Ideas and Wants: Difficulty Understanding Verbal Content: Sometimes Understands Brief Interview/Mental Status: Yes IRF TERE BIMS: IRF TERE BIMS Response (Comments) Value Repitition of Three Words None 0 Recalls Socks No, Could Not Recall 0 Recalls Blue No, Could Not Recall 0 Recalls Bed No, Could Not Recall 0 Year Correct 3 Month Missed by 1 Mo/No Answer 0 Day Incorrect or No Answer 0 Total 3 CAM Mental Status Change/Baseline: 1 Inattention: 1 Disorganized thinkin Altered level of consciousness: 2 OT Short Term Goals Short Term Goals Time Frame: Dec 31, 2022 Lower body dressin Putting on/taking off footwear: 3 OT Shelter Goals Shelter Goals Time Frame: Jan 14, 2023 Eating (QC): 5 Oral Hygiene (QC): 5 Toileting Hygiene (QC): 4 Shower/Bathe Self (QC): 4 Upper Body Dressing (QC): 5 Lower Body Dressing (QC): 4 On/Off Footwear (QC): 4 Additional Goals: 1-Demonstrate ADL Tasks, 2-Verbalize Understanding, 3- ImproveStrength/Janeth 1=Demonstrate adherence to instructed precautions during ADL tasks. 2=Patient will verbalize/demonstrate understanding of assistive devices/modifications for ADL. 3=Patient will improve strength/tolerance for activity to enable patient to perform ADL's. OT Education/Plan Problem List/Assessment Assessment: Decreased Activ Tolerance, Decreased Safety Aware, Decreased UE Strength, Impaired Bed Mobility, Impaired Cognition, Impaired Coordination, Impaired Funct Balance, Impaired I ADL's, Impaired Self-Care Skills, Restricted Funct UE ROM Discharge Recommendations Plan/Recommendations: Continue POC Treatment Plan/Plan of Care Patient would benefit from OT for education, treatment and training to promote independence in ADL's, mobility, safety and/or upper extremity function for ADL's. Plan of Care: ADL Retraining, Functional Mobility, Group Exercise/Act as Ind, UE Funct Exercise/Act Treatment Duration: Jan 14, 2023 Frequency: At least 5 of 7 days/Wk (IRF) Estimated Hrs Per Day: 1.5 hours per day Rehab Potential: Guarded Time Start Time: 07:35 Stop Time: 08:45 DATE: Dec 22, 2022 Total Time Billed (hr/min): 60 Billed Treatment Time OT evaluation/tx [id number] (25'), PT eval [id number] (not billed), cotreat [id number] (35') 1, EVH (10'), ADL 2 (30'), FA (20') RENITA VILCHIS OT Dec 22, 2022 08:40
--- NOTE | 2022-12-22 08:40 | Physical Therapy Evaluation ---
PT Evaluation-General Medical Diagnosis Admission Date Dec 21, 2022 at 17:56 Medical Diagnosis: C3-C4 myelomalcia, s/p fusion Onset Date: Dec 15, 2022 Therapy Diagnosis Therapy Diagnosis: impaired mobility Precautions Precautions/Isolations: Fall Prevention, Standard Precautions, Pressure Ulcer Weight Bear Status Patient is supposed to wear a cervical collar but refuses. Referral Physician: Helen Wills DO Reason for Referral: Evaluation/Treatment Medical History Pertinent Medical History: CAD, COPD, DM, HTN Reviewed History: Yes Social History Home: Single Level Current Living Status: Alone Entry Into Home: Ramp info was obtained from chart, patient is confused and could not tell therapist if there were any stairs to enter his home and he said that he lived with his father. Prior Prior Level of Function SCALE: Activities may be completed with or without assistive devices. 4-Yhobetmecz-xcuftrt completes the activity by him/herself with no assistance from a helper. 5-Set-up or Clean-up Assistance-helper sets up or cleans up; patient completes activity. [place] assists only prior to or following the activity. 4-Supervision or Touching Assistance-helper provides verbal cues and/or touching/steadying and/or contact guard assistance as patient completes activity. Assistance may be provided throughout the activity or intermittently. 3-Partial/Moderate Assistance-helper does LESS THAN HALF the effort. [place] lifts, holds or supports trunk or limbs, but provides less than half the effort. 2-Substantial/Maximal Assistance-helper does MORE THAN HALF the effort. [place] lifts or holds trunk or limbs and provides more than half the effort. 8-Whjchlzvv-emcfoa does ALL the effort. Patient does none of the effort to complete the activity. Or, the assistance of 2 or more helpers is required for the patient to complete the activity. If activity was not attempted, code reason: 7-Patient Refused. 9-Not Applicable-not attempted and the patient did not perform the activity before the current illness, exacerbation or injury. 10-Not Attempted due to Environmental Limitations-(lack of equipment, weather restraints, etc.). 88-Not Attempted due to Medical Conditions or Safety Concerns. Bed Mobility: 6 Transfers (B,C,W/C): 6 Gait: 6 Stairs: 6 Indoor Mobility (Ambulation): Independent Stairs: Independent PT Evaluation-Current Subjective Patient in recliner pre tx, agrees to PT with encouragement, states he has neck pain at 9/10 but told the nurse he didn't have any pain. Will be co-treating with OT for part of tx due to poor patient mobility, strength, endurance, severe debility, coordinate UE and LE with activity, safety and reduce risk of falls. Pain Section J - Health Conditions 1. Rarely or not at all 2. Occasionally 3. Frequently 4. Almost constantly 8. Unable to answer Pain Effect on Sleep: 4 Pain Interference with Therapy: 4 Pain Interference w/Day-to-Day: 4 Pt/Family Goals none stated Objective Patient Orientation: Person, Confused ROM/Strength ROM Lower Extremities WNL Strength Lower Extremities grossly 4/5, patient has difficulty following directions due to confusion Sensory Vision: Wears Glasses Hearing: Functional Sensation Right Lower Extremit: Impaired Sensation Left Lower Extremity: Impaired Transfers Roll Left & Right (QC): 2 Sit to Lying (QC): 3 Lying to Sitting/Side of Bed(Q: 3 Sit to Stand (QC): 3 Chair/Omf-xv-Iizdt Xfer(QC): 3 Toilet Transfer (QC): 3 Car Transfer (QC): 7 Patient in recliner performs dressing and then stands from raised chair to pull pants up and then transfers to WC. Patient refuses to propel WC, refuses to perform a car transfer, refuses to ambulate, refuses to try to rn clinical review the parallel bars. Patient is educated on the importance of participating in therapy for his recovery but he continues to refuse, he says he can't and its too painful. Patient sits in a poor position, head slumped forward, will not try to lift his head due to pain. Patient is taken back to his room, stands with mod assist and transfers to bed, lays down with mod assist and is positioned better. Gait Walk 10 feet (QC): 7 Walk 50 ft with 2 Turns(QC): 7 Walk 150 ft (QC): 7 Walking 10ft/uneven surface-QC: 7 Wheelchair Training Wheel 50 ft with 2 turns (QC): 7 Wheel 150 ft (QC): 7 Stairs 1 Step (curb) (QC): 88 4 Steps (QC): 88 12 Steps (QC): 88 Balance Sitting Static: Fair Sitting Dynamic: Fair Standing Static: Poor Standing Dynamic: Poor Picking up an Object (QC): 88 Treatment PT performed transfers, bed mobility, standing for dressing, attempted WC mobility and ambulation, education, OT performed dressing, UE positioning and safety during activity. Assessment/Needs Patient in bed post tx with nurse call, phone, tray, all needs met, bed alarm on. Patient has impaired mobility, strength, endurance, pain with activity. Patient refused to perform most quality codes, even with encouragement. Confusion and pain and poor motivation impairs progress. Rehab Potential: Guarded PT Long-Term Goals Corporate Compliance Officer Goals PT Corporate Compliance Officer Goals Time Frame: Jan 05, 2023 Roll Left to Right (QC): 4 Sit to Lying (QC): 4 Lying-Sitting on Side/Bed(QC): 4 Sit to Stand (QC): 4 (CGA) Chair/Llq-yx-Qghcu Xfer(QC): 4 (CGA) Toilet/Commode Transfer (QC): 4 (CGA) Car Transfer (QC): 4 (CGA) Does the Patient Walk: No and Walking Goal IS indicated Walk 10 feet (QC): 4 (CGA) Walk 10ft-Uneven Surface(QC): 4 (CGA) Walk 50ft with 2 Turns (QC): 4 (CGA) Walk 150 ft (QC): 4 (CGA) Wheel 50 feet with 2 turns (QC: 4 (SBA) Wheel 150 feet: 4 (SBA) 1 Step (curb) (QC): 4 (CGA) 4 Steps (QC): 4 (CGA) 12 Steps (QC): 88 Picking up an Object (QC): 4 (SBA using a can machine operator) PT Plan Problem List Problem List: Activity Tolerance, Functional Strength, Safety, Balance, Gait, Transfer, Bed Mobility, ROM Treatment/Plan Treatment Plan: Continue Plan of Care Treatment Plan: Bed Mobility, Education, Functional Activity Janeth, Functional Strength, Group Therapy, Gait, Safety, Therapeutic Exercise, Transfers Treatment Duration: Jan 05, 2023 Frequency: At least 5 of 7 days/Wk (IRF) Estimated Hrs Per Day: 1.5 hours per day Patient and/or Family Agrees t: Yes Safety Risks/Education Patient Education: Transfer Techniques, Reviewed Precautions, Correct Positioning, W/C Management, Safety Issues Teaching Recipient: Patient Teaching Methods: Demonstration, Discussion Response to Teaching: Reinforcement Needed Discharge Recommendations Plan Patient will perform bed mobility and transfer training, balance and endurance training, functional strengthening, stair training, gait training, and education, to improve functional mobility and independence at home. Therapy Discharge Recommendati: Scheduled Assistance, Other, See Comments (NH), Post Acute PT Time Time In: 799 Time Out: 844 DATE: Dec 22, 2022 Total Billed Treatment Time: 45 Total Billed Treatment 1 visit EVM 10' FA 35' PT eval from [id number], co-treat from [id number] ÁLVARO RIDER PT Dec 22, 2022 08:40
[2022-12-22] MEDS ORDERED: NON-FORMULARY MEDICATION 1 EA EA (Cetirizine HCl 10 MG) PO SCH (09:00)
[2022-12-22 09:24] VITALS: BP 135/83
[2022-12-22] MEDS ORDERED: BISACODYL 10 MG SUPP (DULCOLAX) PR NR (10:00)
--- NOTE | 2022-12-22 10:47 | ST Cognitive Linguistic Eval ---
LUCAS MELENDEZ 12/22/22 1046: Speech Evaluation-General Medical Diagnosis C3-C4 Myelomalcia, s/p Fusion Onset Date: Dec 15, 2022 Therapy Diagnosis Therapy Diagnosis: Impaired Cognition (Currently) Precautions Precautions: Fall Precautions/Isolations: Fall Prevention, Standard Precautions Referral Referring Physician: Dr. Delong Reason for Referral: Evaluation/Treatment Medical History Pertinent Medical History: CAD, COPD, DM, HTN Reviewed History: Yes Social History Current Living Status: Alone Speech PLF-Current Status Prior Level of Function Prior level of cognitive function is unknown to the clinician at this time. The clinician has completed a medical chart review with one mention of "cognitive deficits" documented throughout the physical therapy evaluation at the [facility] on 12/16/2022. All additional documentation stated the patient was appropriately oriented. The clinician contacted the patient's listed significant other to aid in patient care (Ghada Leewler, ). Unfortunately, the patient's significant other did not respond at this time. Subjective The patient was lying in bed, sleeping, upon entrance to his room by the clinician. The patient did not respond verbally to the clinician's verbal greeting. With maximum verbal encouragement and prompting, the patient opened his eyes briefly and returned to sleep. Language Eval: Auditory Comprehends Simple Yes/No Ques: Functional The patient refused to complete simple one-step commands, stating, "Can't do that." Language Eval: Verbal Language The patient stated he is located in "[place], [place]." The patient stated he lives with his father. The clinician is working to verify the information. Cognitive Patient Orientation With maximum verbal prompting, the patient stated he was in "[place]", the year was 2022, and the month was "February." The patient could not state the rationale for his hospitalization stating he was located at, "a school.' Objective Cognitive Domain Due to the patient's high level of fatigue and poor participation, the clinician is not comfortable commenting on the patient's true cognitive ability. Continued cognitive assessments will be completed. Objective Oral Motor/Speech Production The patient does present in an edentulous state which impairs articulation mildly. The patient remains 100% intelligible when verbally prompted to increase volume levels. True dysarthria and apraxia of speech are not appreciated. Impression Maximum encouragement was required for limited to zero participation by the patient. The patient appears confused, however, with consistent verbal prompting, does wake and provide more accurate information. At this time, ongoing cognitive assessment and information seeking will be performed by the clinician. Speech Short Term Goals Short Term Goals Short Term Goals 1. The patient will display 90% accuracy with simple orientation exercises, independently. Time Frame-STG: Five Days. Speech Alf Goals Fish Agent Goals 1. The patient will complete a cognitive linguistic evaluation with mild clinician verbal cueing and redirection. 2. The patient will display improved cognitive linguistic skills for safe discharge to the least restrictive environment. Time Frame: Ten Days. Speech-Plan Treatment Plan Speech Therapy Treatment Plan: Continue Plan of Care Treatment Duration: Dec 22, 2022 Frequency: Modified Program (IRF) (Four to five times per week.) Estimated Hrs Per Day: .5 hour per day Rehab Potential: Guarded Safety Risks/Education Teaching Recipient: Patient Teaching Methods: Discussion Response to Teaching: Reinforcement Needed Education Topics Provided: Results, Recommendations, Plan of Care, Rehabilitation Program Expectations Time Speech Therapy Time In: 08:45 Speech Therapy Time Out: 08:55 DATE: Dec 22, 2022 Total Billed Time: 10 Billed Treatment Time 1, SPSNDCOMP COREY DELONG DO 12/22/22 1142: LUCAS MELENDEZ Dec 22, 2022 10:46 COREY DELONG DO Dec 22, 2022 11:42
[2022-12-22 11:14] LABS: ABG OXYGEN SATURATION 93 % (94-100); ABG PCO2 42 MMHG (35-45); ABG PH 7.42 (7.37-7.43); ABG PO2 60 MMHG (79-93); ABG TCO2 28.6 MMOL/L (21.0-31.0)
[2022-12-22 11:15] LABS: ALLENS TEST YES-POS; INSPIRED O2 RA; PATIENT TEMP 36.3; VENTILATOR NO
--- NOTE | 2022-12-22 11:25 | Speech Therapy Daily Note ---
Speech Daily Progress Note Subjective Date Seen by Provider: Dec 22, 2022 Time Seen by Provider: 10:20 The patient was seated upright in his bed, lights on, window drapes opened, sleeping soundly. The patient wake minimally to maximum verbal prompting from the clinician. The patient requires maximum verbal prompting for continued limited participation. Objective With maximum verbal prompting, the patient does state, "Let me sleep." The clinician reviewed the rehabilitation process and expectations of the rehabilitation unit. Continued information gathering was attempted by the clinician. The patient denied s/s of suspected aspiration with any P.O. intake. The clinician does attempt to gently re-position the patient for comfort but the patient winces with minimal tactile contact by the clinician. The patient does stated his accurate date of . With continued verbal encouragement, the patient stated, "Fine, I'm in [place]. Now let me sleep." The patient stated his significant other is his girlfriend of nine to ten years (Ghada Garland). For a second time on this date, limited participated in displayed. Assessment Assessment Current Status: Poor Progress Treatment Plan Continue Plan of Care Speech Short Term Goals Short Term Goals Short Term Goals 1. The patient will display 90% accuracy with simple orientation exercises, independently. Time Frame-STG: Five Days. Speech Retort Firer Goals Longterm Goals 1. The patient will complete a cognitive linguistic evaluation with mild clinician verbal cueing and redirection. 2. The patient will display improved cognitive linguistic skills for safe discharge to the least restrictive environment. Time Frame: Ten Days. Speech-Plan Treatment Plan Speech Therapy Treatment Plan: Continue Plan of Care Treatment Duration: Dec 22, 2022 Frequency: Modified Program (IRF) (Four to five times per week.) Estimated Hrs Per Day: .5 hour per day Rehab Potential: Guarded Pt/Family Agrees to Plan: Yes Safety Risks/Education Teaching Recipient: Patient Teaching Methods: Discussion Response to Teaching: Reinforcement Needed Education Topics Provided: Rehabilitation Process, Orientation Strategies Time Speech Therapy Time In: 10:20 Speech Therapy Time Out: 10:40 DATE: Dec 22, 2022 Total Billed Time: 20 Billed Treatment Time DANIELA Fair [facility] ST Dec 22, 2022 11:25
[2022-12-22] MEDS: inSUlin ASPART (NovoLOG) 1 UNIT/0.01 ML (CHARGE PER UNIT) SC SCH ×3 (11:48→21:43)
--- NOTE | 2022-12-22 11:49 | Diagnostic Imaging Report ---
CT HEAD WO Date: 12/22/2022 11:43 AM Clinical Indication: Altered mental status Comparison: None. Technique: 5 mm axial tomographic images were obtained of the head without contrast. These were viewed on brain and bone windows. One or more of the following dose reduction techniques were utilized: Automated exposure control (AEC), Adjustment of mA and/or kV according to patient size, Use of iterative reconstruction technique such as ASiR, CT scan done according to ALARA and image gently/image wisely Findings: Mild generalized cerebral volume loss. Mild nonspecific periventricular hypoattenuation.. No intra- or extra-axial mass or fluid collection. No acute hemorrhage. The ventricles are normal in size, shape, and morphology. The puente-white matter junction is normal. The subarachnoid cisterns are patent. The visualized paranasal sinuses are normal. The visualized portions of the orbits and globes are normal. The mastoid air cells are clear. The shake sawyer topogram shows no lytic lesion or fracture. Soft tissue thickening within the posterior scalp along the left of midline. Impression: No acute intracranial hemorrhage. No large vascular territory hess-white loss. No intracranial mass, midline shift, or hydrocephalus. Mild chronic small vessel ischemic disease. Mild global volume loss. Nonspecific soft tissue thickening within the posterior scalp along the left of midline could be related to prior trauma, or infection, or skin pathology. Recommend correlation with visual inspection. Dictated by: Dictated on workstation # [id number]
[2022-12-22 13:00] VITALS: BP 116/65
--- NOTE | 2022-12-22 14:30 | Physical Therapy Daily Note ---
PT Daily Note-Current Subjective Patient in bed pre tx, is very drowsy, will wake up for very short periods of time, moans in his sleep. Patient has had a BM and needs cleaned. Will be co- treating with OT due to poor patient mobility, strength, endurance, severe debility, severe pain with activity, coordinate UE and LE with activity, safety and reduce risk of falls. Pain Section J - Health Conditions 1. Rarely or not at all 2. Occasionally 3. Frequently 4. Almost constantly 8. Unable to answer Pain Effect on Sleep: 4 Pain Interference with Therapy: 4 Pain Interference w/Day-to-Day: 4 Appearance Patient in bed post tx with nurse call, phone, tray, all needs met, bed alarm on. Mental Status Patient Orientation: Person, Confused Transfers SCALE: Activities may be completed with or without assistive devices. 9-Uglhlfmgow-xnltlfn completes the activity by him/herself with no assistance from a helper. 5-Set-up or Clean-up Assistance-helper sets up or cleans up; patient completes activity. [place] assists only prior to or following the activity. 4-Supervision or Touching Assistance-helper provides verbal cues and/or touching/steadying and/or contact guard assistance as patient completes activity. Assistance may be provided throughout the activity or intermittently. 3-Partial/Moderate Assistance-helper does LESS THAN HALF the effort. [place] lifts, holds or supports trunk or limbs, but provides less than half the effort. 2-Substantial/Maximal Assistance-helper does MORE THAN HALF the effort. [place] lifts or holds trunk or limbs and provides more than half the effort. 1-Fvcanewkn-qslare does ALL the effort. Patient does none of the effort to complete the activity. Or, the assistance of 2 or more helpers is required for the patient to complete the activity. If activity was not attempted, code reason: 7-Patient Refused. 9-Not Applicable-not attempted and the patient did not perform the activity before the current illness, exacerbation or injury. 10-Not Attempted due to Environmental Limitations-(lack of equipment, weather restraints, etc.). 88-Not Attempted due to Medical Conditions or Safety Concerns. Roll Left & Right (QC): 1 Patient is rolled from side to side for getting his brief off and cleaning him and changing pads. Patient has to roll from side to side several times, he keeps having a BM and bedpan is placed. When done it is removed and he is cleaned again and pads changed too, new brief donned. Weight Bearing Patient is supposed to wear a cervical collar but refuses. Treatments PT performed rolling, positioning, OT assisted with rolling, cleaning, dressing. Assessment Current Status: Poor Progress little to no participation from patient PT Fpc Goals Head Inspector Goals PT Fpc Goals Time Frame: Jan 05, 2023 Roll Left & Right (QC): 4 Sit to Lying (QC): 4 Lying-Sitting on Side/Bed(QC): 4 Sit to Stand (QC): 4 (CGA) Chair/Lfh-ej-Obhub Xfer(QC): 4 (CGA) Toilet Transfer (QC): 4 (CGA) Car Transfer (QC): 4 (CGA) Does the Patient Walk: No and Walking Goal IS indicated Walk 10 feet (QC): 4 (CGA) Walk 50ft with 2 Turns (QC): 4 (CGA) Walk 150 ft (QC): 4 (CGA) Walking 10ft on Uneven Surface: 4 (CGA) 1 Step (curb) (QC): 4 (CGA) 4 Steps (QC): 4 (CGA) 12 Steps (QC): 88 Picking up an Object (QC): 4 (SBA using a rail director) Wheel 50 feet with 2 turns (QC: 4 (SBA) Wheel 150 feet: 4 (SBA) PT Plan Problem List Problem List: Activity Tolerance, Functional Strength, Safety, Balance, Gait, Transfer, Bed Mobility, ROM Treatment/Plan Treatment Plan: Continue Plan of Care Treatment Plan: Bed Mobility, Education, Functional Activity Janeth, Functional Strength, Group Therapy, Gait, Safety, Therapeutic Exercise, Transfers Treatment Duration: Jan 05, 2023 Frequency: At least 5 of 7 days/Wk (IRF) Estimated Hrs Per Day: 1.5 hours per day Patient and/or Family Agrees t: Yes Safety Risks/Education Patient Education: Correct Positioning, Safety Issues Teaching Recipient: Patient Teaching Methods: Demonstration, Discussion Response to Teaching: Reinforcement Needed Time Time In: 1350 Time Out: 1415 DATE: Dec 22, 2022 Total Billed Treatment Time: 25 Total Billed Treatment 1 visit FA 25' co-treated with OT for 25' ÁLVARO RIDER PT Dec 22, 2022 14:30
--- NOTE | 2022-12-22 15:58 | Occupational Ther Daily Note ---
OT Current Status-Daily Note Subjective Pt in bed sleeping, difficulty awakening for tx, but pt incontinent requiring cleaning. Mental Status/Objective Patient Orientation: Confused ADL-Treatment Therapy Code Descriptions/Definitions Functional [place] Measure: 0=Not Assessed/NA 4=Minimal Assistance 1=Total Assistance 5=Supervision or Setup 2=Maximal Assistance 6=Modified [place] 3=Moderate Assistance 7=Complete IndependenceSCALE: Activities may be completed with or without assistive devices. 9-Xwewsoggxh-gwidozw completes the activity by him/herself with no assistance from a helper. 5-Set-up or Clean-up Assistance-helper sets up or cleans up; patient completes activity. [place] assists only prior to or following the activity. 4-Supervision or Touching Assistance-helper provides verbal cues and/or touching/steadying and/or contact guard assistance as patient completes activity. Assistance may be provided throughout the activity or intermittently. 3-Partial/Moderate Assistance-helper does LESS THAN HALF the effort. [place] lifts, holds or supports trunk or limbs, but provides less than half the effort. 2-Substantial/Maximal Assistance-helper does MORE THAN HALF the effort. [place] lifts or holds trunk or limbs and provides more than half the effort. 2-Vdoyhafzo-nikhyr does ALL the effort. Patient does none of the effort to complete the activity. Or, the assistance of 2 or more helpers is required for the patient to complete the activity. If activity was not attempted, code reason: 7-Patient Refused. 9-Not Applicable-not attempted and the patient did not perform the activity before the current illness, exacerbation or injury. 10-Not Attempted due to Environmental Limitations-(lack of equipment, weather restraints, etc.). 88-Not Attempted due to Medical Conditions or Safety Concerns. Other Treatment OT/PT cotreat due to skill of 2 clinicians required which a rehabilitation program manager could not perform in order to coordinate UE/LEs, decrease fall risk, and due to pt's limitations in strength, activity tolerance, mobility, transfers, and cognition. OT focused on UE placement and ADLs, PT focused on bed mobility and transfers. Pt incontinent of bowel, requiring rolling side to side to change brief, hygiene, and changing pads of bed. Pt rolled side to side wtih total assistance. Pt continued having bowel movement each roll, bed victor placed. Once finished, bed victor removed, cleaned again, pads changed again, and brief placed. Post tx, pt in bed, call light in reach and all needs met, bed alarm activated. OT Short Term Goals Short Term Goals Time Frame: Dec 31, 2022 Lower body dressin Putting on/taking off footwear: 3 OT Mathematics Professor Goals Mathematics Professor Goals Time Frame: Jan 14, 2023 Acute change in mental status: 1 Inattention: 1 Disorganized thinkin Altered level of consciousness: 2 Eating (QC): 5 Oral Hygiene (QC): 5 Toileting Hygiene (QC): 4 Shower/Bathe Self (QC): 4 Upper Body Dressing (QC): 5 Lower Body Dressing (QC): 4 On/Off Footwear (QC): 4 Additional Goals: 1-Demonstrate ADL Tasks, 2-Verbalize Understanding, 3- ImproveStrength/Janeth 1=Demonstrate adherence to instructed precautions during ADL tasks. 2=Patient will verbalize/demonstrate understanding of assistive devices/ modifications for ADL. 3=Patient will improve strength/tolerance for activity to enable patient to perform ADL's. OT Education/Plan Problem List/Assessment Assessment: Decreased Activ Tolerance, Decreased Safety Aware, Decreased UE Strength, Dependent Transfers, Impaired Bed Mobility, Impaired Cognition, Impaired Coordination, Impaired Funct Balance, Impaired I ADL's, Impaired Self- Care Skills, Restricted Funct UE ROM Discharge Recommendations Plan/Recommendations: Continue POC Treatment Plan/Plan of Care Patient would benefit from OT for education, treatment and training to promote independence in ADL's, mobility, safety and/or upper extremity function for ADL's. Plan of Care: ADL Retraining, Functional Mobility, Group Exercise/Act as Ind, UE Funct Exercise/Act Treatment Duration: Jan 14, 2023 Frequency: At least 5 of 7 days/Wk (IRF) Estimated Hrs Per Day: 1.5 hours per day Rehab Potential: Guarded Time Start Time: 13:50 Stop Time: 14:15 DATE: Dec 22, 2022 Total Time Billed (hr/min): 25 Billed Treatment Time cotreat x25' 1, ADL 2 RENITA VILCHIS OT Dec 22, 2022 15:58
[2022-12-22 16:37] VITALS: BP 113/58
[2022-12-22 20:30] VITALS: BP 145/58
[2022-12-22] MEDS: LIDOCAINE PATCH REMOVAL TP SCH (21:22)
[2022-12-22] MEDS: TERAZOSIN 5 MG (HYTRIN) CAPSULE PO SCH (21:42)
--- NOTE | 2022-12-23 05:07 | PM&R Progress Note ---
Subjective HPI/CC On Admission Date Seen by Provider: Dec 23, 2022 Time Seen by Provider: 12:00 Subjective/Events-last exam 12/23/2022: Improved but seems that his pain meds increase confusion so will change regimen No falls Eating and drinking well Participation is better 12/22/2022: Patient did not sleep well last night Patient refusing therapy Refusing to get out of bed Appears to be cognitively diminished Ammonia checked and it was normal Creatinine is 1.6 consistent with chronic kidney disease Check ABG for hypercapnia and CO2 narcosis Review of Systems General: Fatigue, Malaise Musculoskeletal: neck pain Neurological: Confusion Objective Exam Vital Signs Vital Signs Date Time Temp Pulse Resp B/P (MAP) Pulse Ox O2 Delivery O2 Flow Rate FiO2 12/23/22 21:00 Room Air 12/23/22 20:40 36.2 68 18 124/56 (78) 96 Capillary Refill : General Appearance: No Apparent Distress, WD/WN, Chronically ill HEENT: PERRL/EOMI, Normal ENT Inspection, Pharynx Normal Neck: Full Range of Motion, Normal Inspection, Non Tender, Supple, Carotid Bruit Respiratory: Chest Non Tender, Lungs Clear, Normal Breath Sounds, No Accessory Muscle Use, No Respiratory Distress Cardiovascular: Regular Rate, Rhythm, No Edema, No Gallop, No JVD, No Murmur, Normal Peripheral Pulses Gastrointestinal: Normal Bowel Sounds, No Organomegaly, No Pulsatile Mass, Non Tender, Soft Back: Normal Inspection, Decreased Range of Motion, Muscle Spasm, Vertebral Tenderness Extremity: Normal Capillary Refill, Normal Inspection, Normal Range of Motion, Non Tender, No Calf Tenderness, No Pedal Edema Neurologic/Psychiatric: Alert, No Motor/Sensory Deficits, sea air land officer II-XII Norm as Tested, Abnormal Gait, Depressed Affect, Motor Weakness Skin: Normal Color, Warm/Dry Lymphatic: No Adenopathy Results/Procedures Lab Laboratory Tests 12/23/22 05:48 Patient resulted labs reviewed. FIM Transfers Therapy Code Descriptions/Definitions Functional [place] Measure: 0=Not Assessed/NA 4=Minimal Assistance 1=Total Assistance 5=Supervision or Setup 2=Maximal Assistance 6=Modified [place] 3=Moderate Assistance 7=Complete IndependenceSCALE: Activities may be completed with or without assistive devices. 2-Focsmagibm-efqybaz completes the activity by him/herself with no assistance from a helper. 5-Set-up or Clean-up Assistance-helper sets up or cleans up; patient completes activity. [place] assists only prior to or following the activity. 4-Supervision or Touching Assistance-helper provides verbal cues and/or touching/steadying and/or contact guard assistance as patient completes activity. Assistance may be provided throughout the activity or intermittently. 3-Partial/Moderate Assistance-helper does LESS THAN HALF the effort. [place] lifts, holds or supports trunk or limbs, but provides less than half the effort. 2-Substantial/Maximal Assistance-helper does MORE THAN HALF the effort. [place] lifts or holds trunk or limbs and provides more than half the effort. 6-Zjxgpkeyf-jjerkv does ALL the effort. Patient does none of the effort to complete the activity. Or, the assistance of 2 or more helpers is required for the patient to complete the activity. If activity was not attempted, code reason: 7-Patient Refused. 9-Not Applicable-not attempted and the patient did not perform the activity before the current illness, exacerbation or injury. 10-Not Attempted due to Environmental Limitations-(lack of equipment, weather restraints, etc.). 88-Not Attempted due to Medical Conditions or Safety Concerns. Roll Left to Right (QC): 1 Sit to Lying (QC): 3 Sit to Stand (QC): 3 Chair/Fri-yz-Kdekm Xfer(QC): 3 Car Transfer (QC): 7 Gait Training Walk 10 feet (QC): 7 Walk 50 ft with 2 Turns(QC): 7 Walk 150 ft (QC): 7 Walking 10ft/uneven surface-QC: 7 Wheelchair Training Wheel 50 ft with 2 turns (QC): 7 Wheel 150 ft (QC): 7 Stair Training 1 Step (curb) (QC): 88 4 Steps (QC): 88 12 Steps (QC): 88 Balance Picking up an Object (QC): 88 ADL-Treatment Eating (QC): 3 (Pt required assistance taking pills.) Oral Hygiene (QC): 7 (Pt refused.) Shower/Bathe Self (QC): 1 (2 person assist in stand to wash buttocks. Max A overall with sponge bath for thoroughness.) Upper Body Dressing (QC): 3 (Min A with overhead.) Lower Body Dressing (QC): 1 (2 person assist in stand & assist all parts. Pt refused to attempt task himself.) On/Off Footwear (QC): 2 (Max A overall.) Toileting Hygiene (QC): 7 (Pt refused at this time.) Assessment/Plan Assessment and Plan Assess & Plan/Chief Complaint Assessment: Cervical spine myelopathy s/p fusion Smoker HTN HLP BPH Chronic kidney disease stage IIIb Cognitive deficit? Delirium? Plan: Monitor closely Pain control PT OT 12/22/2022: Work-up of altered mental status 12/23/2022: Monitor closely (1) Cervical myelopathy COREY DELONG DO Dec 23, 2022 05:07
--- NOTE | 2022-12-23 05:08 | Individualized Plan of Care ---
Individualized Plan of Care Rehab Nursing IPOC Order Admission Date Dec 21, 2022 at 17:56 Current Orders Orders Admission Order(Inpt,Obs,Sdc) (12/21/22 10:30) Vital Signs: Per Unit Policy ( 08,16,00 (12/21/22 10:30) Joseph Curry , (12/21/22 10:30) Sequential Compression Device (12/21/22 10:30) Nurse Paralegal-Inpt Rehab Con (12/21/22 10:30) Rehab Nursing Orders-Ipoc (12/21/22 10:30) Physical Therapy Rehab Orders (12/21/22 10:30) Occupational Therapy Rehab Ord (12/21/22 10:30) Speech Therapy Rehab Orders (12/21/22 10:30) Cbc With Automated Diff (12/22/22 06:00) Comprehensive Metabolic Panel (12/22/22 06:00) Precautions (Aru) (12/21/22 10:30) Weekly Weight WEEK (12/21/22 10:30) Rehab-Intensity Of Therapy (12/21/22 10:30) Initiate Admission Nursing Pro .admission (12/21/22 10:30) Alprazolam Tablet (Xanax Tablet) (12/21/22 10:30) Calcium Carbonate Chew Tablet (Antacid C (12/21/22 10:30) Diphenhydramine Tablet (Benadryl Tablet) (12/21/22 10:30) Docusate Sodium Capsule (Colace Capsule) (12/21/22 21:00) Docusate Sodium Capsule (Colace Capsule) (12/21/22 10:30) Bisacodyl Suppository (Dulcolax Supposit (12/21/22 10:30) Lactulose Oral Solution (Enulose Oral So (12/21/22 10:30) Na Phos/Na Biphos Enema (Fleet Enema Noah (12/21/22 10:30) Guaifenesin/Codeine Syrup (Robitussin Ac (12/21/22 10:30) Loperamide Tablet (Imodium Tablet) (12/21/22 10:30) Melatonin Tablet (Melatonin Tablet) (12/21/22 10:30) Polyethylene Glycol Powder Pkt (Miralax (12/21/22 21:00) Ondansetron Oral Dissolve Tab (Zofran (12/21/22 10:30) Senna S Tablet (Senokot S Tablet) (12/21/22 21:00) Acetaminophen Tablet/Caplet (Tylenol T (12/21/22 10:30) Code/Resuscitation (12/21/22 10:30) Initiate Admission Nursing Pro .admission (12/21/22 10:30) Admission Arrival Bed Request (12/21/22 17:56) General/Regular (12/21/22 Dinner) Empagliflozin Tablet (Jardiance Tablet) (12/22/22 09:00) Lidocaine 4% Patch (Salonpas 4% Patch) (12/21/22 19:15) Losartan Tablet (Cozaar Tablet) (12/22/22 09:00) Methocarbamol Tablet (Robaxin Tablet) (12/21/22 21:00) Metoprolol Succinate (Xl) Tab (Toprol Xl (12/22/22 09:00) Oxycodone Immediate Rel Tablet (Oxyir Ta (12/21/22 19:15) (Nf) Baclofen (12/21/22 21:00) (Nf) Carboxymethylcellulose Sodium (Refr (12/21/22 21:00) (Nf) Cetirizine Hcl (12/22/22 09:00) (Nf) Metformin Hcl (12/21/22 21:00) (Nf) Simvastatin (12/21/22 21:00) (Nf) Terazosin Hcl (12/21/22 21:00) Loratadine Tablet (Claritin Tablet) (12/22/22 09:00) Atorvastatin Tablet (Lipitor Tablet) (12/21/22 21:00) Carboxymethylcell Ophth Soln (Refresh Pl (12/21/22 21:00) Metformin Tablet (Glucophage Tablet) (12/22/22 08:00) Patch Removal (Patch Removal) (12/21/22 21:00) Baclofen Tablet (Lioresal Tablet) (12/21/22 21:00) Terazosin Capsule (Hytrin Capsule) (12/21/22 21:00) Accucheck Achs ACHS (12/22/22 06:44) Insulin Aspart (Novolog) (Novolog (Charg (12/22/22 11:00) Hemoglobin A1c (12/22/22 06:45) Ammonia (12/22/22 08:57) Arterial Blood Gas (12/22/22 10:04) Arterial Blood Draw - Obtain (12/22/22 10:04) Ct Head Wo (12/22/22 10:04) Bisacodyl Suppository (Dulcolax Supposit (12/22/22 10:00) Patient Visit (12/22/22 ) Speech Sound Lang Comp (12/22/22 ) Patient Visit (12/22/22 ) Dysphagia Therapy (12/22/22 ) Arterial Blood Draw - Obtain (12/22/22 11:11) Cbc With Automated Diff (12/23/22 05:09) Comprehensive Metabolic Panel (12/23/22 05:09) Patient Visit (12/22/22 ) Pt Eval Moderate Complexity (12/22/22 ) Functional Activities, Ea 15 (12/22/22 ) Patient Visit (12/23/22 ) Treat. Speech/Lang/Voice (12/23/22 ) Hydrocodone/Apap 5/325 Tablet (Lortab 5 (12/23/22 12:45) Miconazole 2% Powder (Phytoplex Af 2% Po (12/23/22 21:00) Patient Visit (12/23/22 ) Functional Activities, Ea 15 (12/23/22 ) Exercise Therap, Ea 15 Min (12/23/22 ) Rehab Nursing Orders: Ongoing Assess. of Cognitive Status, Ongoing Assess. of Function Status, Bladder Management, Bladder Scan, Bladder Training, Bowel Management, Bowel Training, Disease Management & Educaiton, DVT Prophylaxis, Fall Prevention, Fluid/Electrolyte/Nutrition Mgmt, Infection Prevention, Medication Management & Education, Management of Risks & Complications, Management of Skin Intergrity, Nutrition Management, Pain Management, Patient/Family Support, Safety Management, Swallow Precautions, Wound Management Intensity of Therapy to be met Patient to be seen: Min.3h per day/5 of 7d PT IPOC Problem List: Activity Tolerance, Functional Strength, Safety, Balance, Gait, Transfer, Bed Mobility, ROM Treatment Plan: Continue Plan of Care Bed Mobility, Education, Functional Activity Janeth, Functional Strength, Group Therapy, Gait, Safety, Therapeutic Exercise, Transfers Treatment Duration: Jan 05, 2023 Frequency: At least 5 of 7 days/Wk (IRF) Estimated Hrs Per Day: 1.5 hours per day OT IPOC Problems: Decreased Activ Tolerance, Decreased Safety Aware, Decreased UE Strength, Dependent Transfers, Impaired Bed Mobility, Impaired Cognition, Impaired Coordination, Impaired Funct Balance, Impaired I ADL's, Impaired Self- Care Skills, Restricted Funct UE ROM OT Treatment, Training and Edu: Yes Plan of Care: ADL Retraining, Functional Mobility, Group Exercise/Act as Ind, UE Funct Exercise/Act Treatment Duration: Jan 14, 2023 Frequency: At least 5 of 7 days/Wk (IRF) Estimated Hrs Per Day: 1.[address] IPOC Speech Therapy Treatment Plan: Continue Plan of Care Treatment Duration: Dec 22, 2022 Frequency: Modified Program (IRF) (Four to five times per week.) Estimated Hrs Per Day: .5 hour per day Nurse Paralegal/Case Mgmt Nurse Paralegal/Case Managemen: Discharge Planning Dietitian/Condemnation Engineer Dietitian/Condemnation Engineer to monitor nutritional status and make changes and/or recommendations as needed and work with speech pathology on dietary upgrades as the occur. Physician IPOC Medical Issues being managed closely and that require the 24 hour availability of a physician: Recent cervical spine surgery along with upper extremity weakness will require close monitoring overall but delirium and cognitive status will require close monitoring for any agitation Medical Issues: Bowel/Bladder Function, DVT Prophylaxis, Falls Precautions, Fluid/Electrolyte/Nutrition Balance, Infection Protection, Pain Management, Wound Care Brief Synthesis of Preadmission Screen, Post-Admission Evaluation, and Therapy Evaluations: PT OT will focus on regaining function with use of AD and strengthen upper extremities along with fall risk prevention and ST will help with cognition Medical Prognosis: Fair Anticipated Length of Stay: 7 days COREY DELONG DO Dec 23, 2022 05:08
[2022-12-23] MEDS: inSUlin ASPART (NovoLOG) 1 UNIT/0.01 ML (CHARGE PER UNIT) SC SCH ×4 (05:20→21:07)
[2022-12-23 05:56] LABS: BASOPHILS % (AUTO) 0 % (0-10); EOSINOPHILS # (AUTO) 0.1 10^3/uL (0.0-0.3); EOSINOPHILS % (AUTO) 1 % (0-10); HEMATOCRIT 31 % (40-54); HEMOGLOBIN 10.3 g/dL (13.3-17.7); LYMPHOCYTES % (AUTO) 11 % (12-44); MEAN CORPUSCULAR HEMOGLOBIN 28 pg (25-34); MEAN CORPUSCULAR HGB CONC 33 g/dL (32-36); MEAN CORPUSCULAR VOLUME 85 fL (80-99); MEAN PLATELET VOLUME 9.9 fL (9.0-12.2); MONOCYTES % (AUTO) 10 % (0-12); NEUTROPHILS # (AUTO) 7.2 10^3/uL (1.8-7.8); NEUTROPHILS % (AUTO) 77 % (42-75); PLATELET COUNT 313 10^3/uL (130-400); WHITE BLOOD COUNT 9.4 10^3/uL (4.3-11.0)
[2022-12-23 06:09] LABS: ALBUMIN 3.3 GM/DL (3.2-4.5)
[2022-12-23 06:10] LABS: POTASSIUM 3.8 MMOL/L (3.6-5.0)
[2022-12-23 06:11] LABS: CALCIUM 9.1 MG/DL (8.5-10.1)
[2022-12-23 06:12] LABS: TOTAL PROTEIN 6.9 GM/DL (6.4-8.2)
[2022-12-23 06:14] LABS: BILIRUBIN,TOTAL 0.7 MG/DL (0.1-1.0)
[2022-12-23 06:16] LABS: CREATININE SERUM 1.72 MG/DL (0.60-1.30)
[2022-12-23 08:05] VITALS: BP 105/59
[2022-12-23] MEDS: BACLOFEN 10 MG (LIORESAL) TAB PO SCH ×2 (08:07→21:06)
[2022-12-23] MEDS: LORATADINE (CLARITIN) 10 MG TAB PO SCH (08:08)
[2022-12-23] MEDS: LOSARTAN 25 MG (COZAAR) TAB PO SCH (08:08)
[2022-12-23] MEDS: metFORMIN 500 MG (GLUCOPHAGE) TAB PO SCH ×2 (08:08→17:38)
[2022-12-23] MEDS: ARTIFICAL TEARS 0.4 ML UNIT DOSE (REFRESH PLUS) OU SCH ×2 (08:08→21:07)
[2022-12-23] MEDS: EMPAGLIFLOZIN 10 MG TABLET (JARDIANCE) PO SCH (08:08)
[2022-12-23] MEDS: LIDOCAINE 4% (SALONPAS) PATCH TP PRN (08:09)
--- NOTE | 2022-12-23 08:50 | Physical Therapy Daily Note ---
PT Daily Note-Current Subjective Patient in bed pre tx, agrees to PT, has 6/10 pain in neck, nurse in room gives pain meds. Will be co-treating with OT due to poor patient mobility, strength, endurance, severe debility, coordinate UE and LE during activity, safety and reduce risk of falls. Pain Section J - Health Conditions 1. Rarely or not at all 2. Occasionally 3. Frequently 4. Almost constantly 8. Unable to answer Pain Effect on Sleep: 4 Pain Interference with Therapy: 4 Pain Interference w/Day-to-Day: 4 Appearance Patient in recliner post tx with nurse call, phone, tray, all needs met, chair alarm on. Mental Status Patient Orientation: Person, Place, Situation Transfers SCALE: Activities may be completed with or without assistive devices. 6-Bynnzryvby-xxtbpcr completes the activity by him/herself with no assistance from a helper. 5-Set-up or Clean-up Assistance-helper sets up or cleans up; patient completes activity. [place] assists only prior to or following the activity. 4-Supervision or Touching Assistance-helper provides verbal cues and/or touching/steadying and/or contact guard assistance as patient completes activity. Assistance may be provided throughout the activity or intermittently. 3-Partial/Moderate Assistance-helper does LESS THAN HALF the effort. [place] lifts, holds or supports trunk or limbs, but provides less than half the effort. 2-Substantial/Maximal Assistance-helper does MORE THAN HALF the effort. [place] lifts or holds trunk or limbs and provides more than half the effort. 9-Lexpozvhb-latphb does ALL the effort. Patient does none of the effort to complete the activity. Or, the assistance of 2 or more helpers is required for the patient to complete the activity. If activity was not attempted, code reason: 7-Patient Refused. 9-Not Applicable-not attempted and the patient did not perform the activity before the current illness, exacerbation or injury. 10-Not Attempted due to Environmental Limitations-(lack of equipment, weather restraints, etc.). 88-Not Attempted due to Medical Conditions or Safety Concerns. Roll Left & Right (QC): 4 Lying to Sitting/Side of Bed(Q: 3 Sit to Stand (QC): 3 Chair/Ifd-wy-Gcejn Xfer(QC): 3 Patient sits to the side of the bed with mod assist, begins dressing, stands and finishes dressing, sits again, after several attempts he stands again with mod assist and transfers to WC with min assist. Weight Bearing Patient is supposed to wear a cervical collar but refuses. Gait Training Distance: 3' Gait Assistive Device: Parallel Bars min assist, slides feet across floor only a few inches at a time Wheelchair Training Does the Pt Use a Wheelchair?: Yes Wheel 50 ft with 2 turns (QC): 2 Type of Wheelchair: Manual 100', 50', max assist, patient attempts to use both legs and both arms to propel Exercises Patient also stood in the parallel bars for about 30 seconds, slightly retropulsive Treatments PT performed bed mobility and transfers, ambulation, WC mobility, standing, positioning and safety during dressing, OT performed dressing, UE positioning and safety during activity. Assessment Current Status: Fair Progress patient seems to have very uncoordinated movement and weakness in both arms, he finds them hard to control, patient also slumps head forward and states it is painful to keep his head up, patient refuses to wear his cervical collar. PT [facility] Goals [facility] Goals PT [facility] Goals Time Frame: Jan 05, 2023 Roll Left & Right (QC): 4 Sit to Lying (QC): 4 Lying-Sitting on Side/Bed(QC): 4 Sit to Stand (QC): 4 (CGA) Chair/Jfw-zo-Rhnuq Xfer(QC): 4 (CGA) Toilet Transfer (QC): 4 (CGA) Car Transfer (QC): 4 (CGA) Does the Patient Walk: No and Walking Goal IS indicated Walk 10 feet (QC): 4 (CGA) Walk 50ft with 2 Turns (QC): 4 (CGA) Walk 150 ft (QC): 4 (CGA) Walking 10ft on Uneven Surface: 4 (CGA) 1 Step (curb) (QC): 4 (CGA) 4 Steps (QC): 4 (CGA) 12 Steps (QC): 88 Picking up an Object (QC): 4 (SBA using a jewelry inspector) Wheel 50 feet with 2 turns (QC: 4 (SBA) Wheel 150 feet: 4 (SBA) PT Plan Problem List Problem List: Activity Tolerance, Functional Strength, Safety, Balance, Gait, Transfer, Bed Mobility, ROM Treatment/Plan Treatment Plan: Continue Plan of Care Treatment Plan: Bed Mobility, Education, Functional Activity Janeth, Functional Strength, Group Therapy, Gait, Safety, Therapeutic Exercise, Transfers Treatment Duration: Jan 05, 2023 Frequency: At least 5 of 7 days/Wk (IRF) Estimated Hrs Per Day: 1.5 hours per day Patient and/or Family Agrees t: Yes Safety Risks/Education Patient Education: Gait Training, Transfer Techniques, Correct Positioning, W/C Management, Safety Issues Teaching Recipient: Patient Teaching Methods: Demonstration, Discussion Response to Teaching: Reinforcement Needed Time Time In: 0800 Time Out: 0900 DATE: Dec 23, 2022 Total Billed Treatment Time: 60 Total Billed Treatment 1 visit FA 60' co-treated for 60' ÁLVARO RIDER PT Dec 23, 2022 08:50
--- NOTE | 2022-12-23 08:59 | Occupational Ther Daily Note ---
OT Current Status-Daily Note Subjective Pt more alert on this date and talkative. Pt participated minimally during tx, requiring max encouragement for all tasks. Pt also required extensive time between tasks. Pt educated on purpose and benefit of cervical collar but he refused to wear Pain Numeric Pain Scale: 6 Location: Posterior Location Body Site: Neck Mental Status/Objective Patient Orientation: Person, Place, Situation ADL-Treatment Therapy Code Descriptions/Definitions Functional [place] Measure: 0=Not Assessed/NA 4=Minimal Assistance 1=Total Assistance 5=Supervision or Setup 2=Maximal Assistance 6=Modified [place] 3=Moderate Assistance 7=Complete IndependenceSCALE: Activities may be completed with or without assistive devices. 6-Rwtxgtrptz-lndbqvd completes the activity by him/herself with no assistance from a helper. 5-Set-up or Clean-up Assistance-helper sets up or cleans up; patient completes activity. [place] assists only prior to or following the activity. 4-Supervision or Touching Assistance-helper provides verbal cues and/or touching/steadying and/or contact guard assistance as patient completes activity. Assistance may be provided throughout the activity or intermittently. 3-Partial/Moderate Assistance-helper does LESS THAN HALF the effort. [place] lifts, holds or supports trunk or limbs, but provides less than half the effort. 2-Substantial/Maximal Assistance-helper does MORE THAN HALF the effort. [place] lifts or holds trunk or limbs and provides more than half the effort. 7-Lhqdilvjg-qjlmmv does ALL the effort. Patient does none of the effort to complete the activity. Or, the assistance of 2 or more helpers is required for the patient to complete the activity. If activity was not attempted, code reason: 7-Patient Refused. 9-Not Applicable-not attempted and the patient did not perform the activity before the current illness, exacerbation or injury. 10-Not Attempted due to Environmental Limitations-(lack of equipment, weather restraints, etc.). 88-Not Attempted due to Medical Conditions or Safety Concerns. Eating (QC): 3 (Min A with breakfast) Oral Hygiene (QC): 3 Upper Body Dressing (QC): 2 (Max A due to pt refusing most of task.) Lower Body Dressing (QC): 1 (Assist all parts. Pt only held brief in hands but refused to attempt to thread LEs himself.) Other Treatment [id number] OT tx: Pt in bed, breakfast tray present. OT located pt's dentures and handed them to pt. Pt initially states he can't put them in his mouth himself requesting assistance. OT provided max encouragement for pt to attempt task himself, then pt able to place in mouth with steadying assistance. Pt would require min-mod A with brushing/cleaning dentures at this time due to decreased coordination UEs. Pt attempted to eat breakfast with regular utensils, but had difficulty grasping. Pt educated on built up utensils, then able to bring food to mouth with supervision. Pt required min A with picking up/placing drinks on table. [id number] OT/PT cotreat due to skill of 2 clinicians required which a vocational rehabilitation counselor could not perform in order to coordinate UE/LEs, decrease fall risk, and due to pt's limitations in pain, activity tolerance, strength, mobility/transfers, and balance. OT focused on UE placement, cues for sequencing and safety and ADLs, PT focused on LE placement, transfers/mobility, and gross overall movement. Pt transferred supine to sit EOB, then donned clothes. Pt required max e ncouragement to attempt to don clothes himself but still refused to attempt some aspects of dressing. Pt stood for pant hike, unable to transfer to w/ with same stand requiring seated RB on EOB. Pt required extensive time to attempt stand again. Pt transferred to w/, performed some w/c mobility using LEs, pt unable to use UEs due to decreased coordination and refusal to attempt using UES with task (max A 100'). Pt taken rest of way to therapy gym, stood in parallel bars and attempted ambulation using bars x1, only able to take several steps before requesting to sit (min A, 3') Pt again required extensive time before he would attempt to stand again, this time standing for only 30 seconds before sitting. Pt encouraged to propell w/c back towards his room, able to propel 50' with max A before refusing further mobility. Pt taken to his room, transferred from w/c to recliner, requiring extensive time prior to pt attempting transfer. Post tx pt in recliner, call light in reach and all needs met, chair alarm activated. Mod A supine to sit EOB, mod A sit to stand, min A transfer Education OT Patient Education: Correct positioning, Energy conservation, Modified ADL techniques, Progress toward Goal/Update tx plan, Purpose of tx/functional activities, Rehab process Teaching Recipient: Patient Teaching Methods: Discussion Response to Teaching: Verbalize Understanding OT Short Term Goals Short Term Goals Time Frame: Dec 31, 2022 Lower body dressin Putting on/taking off footwear: 3 OT Lsw Goals Lsw Goals Time Frame: Jan 14, 2023 Acute change in mental status: 1 Inattention: 1 Disorganized thinkin Altered level of consciousness: 2 Eating (QC): 5 Oral Hygiene (QC): 5 Toileting Hygiene (QC): 4 Shower/Bathe Self (QC): 4 Upper Body Dressing (QC): 5 Lower Body Dressing (QC): 4 On/Off Footwear (QC): 4 Additional Goals: 1-Demonstrate ADL Tasks, 2-Verbalize Understanding, 3- ImproveStrength/Janeth 1=Demonstrate adherence to instructed precautions during ADL tasks. 2=Patient will verbalize/demonstrate understanding of assistive devices/modifications for ADL. 3=Patient will improve strength/tolerance for activity to enable patient to perform ADL's. OT Education/Plan Problem List/Assessment Assessment: Decreased Activ Tolerance, Decreased UE Strength, Impaired Bed Mobility, Impaired Coordination, Impaired Funct Balance, Impaired I ADL's, Impaired Self-Care Skills, Restricted Funct UE ROM Discharge Recommendations Plan/Recommendations: Continue POC Treatment Plan/Plan of Care Patient would benefit from OT for education, treatment and training to promote independence in ADL's, mobility, safety and/or upper extremity function for ADL's. Plan of Care: ADL Retraining, Functional Mobility, Group Exercise/Act as Ind, UE Funct Exercise/Act Treatment Duration: Jan 14, 2023 Frequency: At least 5 of 7 days/Wk (IRF) Estimated Hrs Per Day: 1.5 hours per day Rehab Potential: Guarded Time Start Time: 07:45 Stop Time: 09:00 DATE: Dec 23, 2022 Total Time Billed (hr/min): 75 Billed Treatment Time OT x15, [place] x60' 1, ADL 2 (30'), FA 3 (45') RENITA VILCHIS OT Dec 23, 2022 08:59
[2022-12-23] MEDS: DOCUSATE SODIUM 100 MG (COLACE) CAP PO SCH ×2 (09:00→21:09)
[2022-12-23] MEDS: SENNA W/DOCUSATE (SENOKOT S) TABLET PO SCH ×2 (09:01→21:08)
[2022-12-23] MEDS: polyethylene glycoL POWDER 17 GM (MIRALAX) PACK PO SCH ×2 (09:01→21:08)
--- NOTE | 2022-12-23 09:21 | Speech Therapy Daily Note ---
Speech Daily Progress Note Subjective Date Seen by Provider: Dec 23, 2022 Time Seen by Provider: 09:00 The patient was seated upright in his recliner, awake and alert, upon entrance to his room by the clinician. The patient greeted the clinician appropriately and was agreeable to participation in the cognitive linguistic treatment session. The patient does not display lethargy and cognitive concerns displayed throughout the assessment on the prior date. Objective The patient stated he is currently at baseline cognition, speech, and language. The patient is able to appropriately and fluently communicate his wants and needs to the staff and denied s/s of suspected aspiration with P.O. intake. - Orientation: The patient is independently oriented to self, location, month, and year. The patient was able to recall his recent surgical procedure and rationale for rehabilitation stay. - The patient reported vision and reading is at baseline, reading the information presented on the white board and the current time on the clock. The patient stated he is right handed and his writing is impacted by his upper extremity weakness, however, not a language impairment. - Problem Solving: The patient is able to complete simple two digit addition and subtraction. - Delayed Recall: The patient is able to recall two of three single words following a five minute delay with category cue provided by clinician. Per patient, recall is at baseline. The patient does not display dysarthria, apraxia of speech, anomia, expressive aphasia, receptive aphasia, or dysphagia. Skilled speech pathology services will be discharged at this time. To note, the patient displayed excellent participation throughout the skilled treatment session on this date in comparison to the prior date when limited to zero participation was displayed. Assessment Assessment Current Status: Excellent Progress Treatment Plan Discontinue ST, Goals Met Speech Short Term Goals Short Term Goals Short Term Goals 1. The patient will display 90% accuracy with simple orientation exercises, independently. Time Frame-STG: Five Days. Speech Mcc Goals Mcc Goals 1. The patient will complete a cognitive linguistic evaluation with mild clinician verbal cueing and redirection. 2. The patient will display improved cognitive linguistic skills for safe discharge to the least restrictive environment. Time Frame: Ten Days. Speech-Plan Treatment Plan Speech Therapy Treatment Plan: Discontinue ST, Goals Met Treatment Duration: Dec 22, 2022 Frequency: Modified Program (IRF) (Four to five times per week.) Estimated Hrs Per Day: .5 hour per day Rehab Potential: Guarded Safety Risks/Education Teaching Recipient: Patient Teaching Methods: Discussion Response to Teaching: Verbalize Understanding Education Topics Provided: Results, Recommendations, Discharge Plan of Care Time Speech Therapy Time In: 09:00 Speech Therapy Time Out: 09:30 DATE: Dec 23, 2022 Total Billed Time: 30 Billed Treatment Time 1, LUCAS ARNOLD Dec 23, 2022 09:21
--- NOTE | 2022-12-23 09:22 | Therapy Team Discharge Summary ---
Therapy Discharge Summary Discharge Recommendations Date of Discharge Physical Therapy Roll Left to Right (QC): 4 Sit to Lying (QC): 3 Lying to Sitting/Side of Bed(Q: 3 Sit to Stand (QC): 3 Chair/Bmk-my-Khrae Xfer(QC): 3 Toilet Transfer (QC): 88 Car Transfer (QC): 7 Walk 10 feet (QC): 7 Walk 50 ft with 2 Turns(QC): 7 Walk 150 ft (QC): 7 Walking 10ft on uneven surface: 7 Gait Assistive Device: Parallel Bars Does the Pt Use a Wheelchair: Yes Wheel 50 ft with 2 turns (QC): 2 Wheel 150 ft (QC): 7 Type of Wheelchair: Manual 1 Step (curb) (QC): 88 4 Steps (QC): 88 12 Steps (QC): 88 Balance Sitting Static: Fair Balance Sitting Dynamic: Fair Balance-Standing Static: Poor Picking up an Object (QC): 88 Occupational Therapy Decreased Activ Tolerance, Decreased Safety Aware, Decreased UE Strength, Dependent Transfers, Impaired Bed Mobility, Impaired Cognition, Impaired Coordination, Impaired Funct Balance, Impaired I ADL's, Impaired Self-Care Skills, Restricted Funct UE ROM Eating (QC): 3 (Min A with breakfast) Oral Hygiene (QC): 3 Shower/Bathe Self (QC): 1 (2 person assist in stand to wash buttocks. Max A overall with sponge bath for thoroughness.) Upper Body Dressing (QC): 2 (Max A due to pt refusing most of task.) Lower Body Dressing (QC): 1 (Assist all parts. Pt only held brief in hands but refused to attempt to thread LEs himself.) On/Off Footwear (QC): 2 (Max A overall.) Toileting Hygiene (QC): 7 (Pt refused at this time.) Speech-Language Pathology The patient displayed excellent participation in the skilled treatment on this date, completing each evaluation item for the clinician. The patient displayed intact and baseline cognitive linguistic skills and will be discharged from skilled services at this time. PT Correction Goals Correction Goals PT Correction Goals Time Frame: Jan 05, 2023 Roll Left to Right (QC): 4 Sit to Lying (QC): 4 Lying-Sitting on Side/Bed(QC): 4 Sit to Stand (QC): 4 (CGA) Chair/Mvh-lp-Hxepm Xfer(QC): 4 (CGA) Toilet/Commode Transfer (QC): 4 (CGA) Car Transfer (QC): 4 (CGA) Does the Patient Walk: No and Walking Goal IS indicated Walk 10 feet (QC): 4 (CGA) Walk 10ft-Uneven Surface(QC): 4 (CGA) Walk 50ft with 2 Turns (QC): 4 (CGA) Walk 150 ft (QC): 4 (CGA) Wheel 50 feet with 2 turns (QC: 4 (SBA) Wheel 150 feet: 4 (SBA) 1 Step (curb) (QC): 4 (CGA) 4 Steps (QC): 4 (CGA) 12 Steps (QC): 88 Picking up an Object (QC): 4 (SBA using a director craft center) OT Correction Goals Correction Goals Time Frame: Jan 14, 2023 Acute change in mental status: 1 Inattention: 1 Disorganized thinkin Altered level of consciousness: 2 Eating (QC): 5 Oral Hygiene (QC): 5 Toileting Hygiene (QC): 4 Shower/Bathe Self (QC): 4 Upper Body Dressing (QC): 5 Lower Body Dressing (QC): 4 On/Off Footwear (QC): 4 Additional Goals: 1-Demonstrate ADL Tasks, 2-Verbalize Understanding, 3- ImproveStrength/Janeth 1=Demonstrate adherence to instructed precautions during ADL tasks. 2=Patient will verbalize/demonstrate understanding of assistive devices/modifications for ADL. 3=Patient will improve strength/tolerance for activity to enable patient to perform ADL's. Speech Correction Goals Correction Goals 1. The patient will complete a cognitive linguistic evaluation with [facility] verbal cueing and redirection. MET 2. The patient will display improved cognitive linguistic skills for safe discharge to the least restrictive environment. MET Time Frame: Ten Days. LUCAS MELENDEZ Dec 23, 2022 09:22
--- NOTE | 2022-12-23 11:36 | Physical Therapy Daily Note ---
PT Daily Note-Current Subjective Patient in recliner pre tx, very drowsy but still oriented. Pain Section J - Health Conditions 1. Rarely or not at all 2. Occasionally 3. Frequently 4. Almost constantly 8. Unable to answer Pain Effect on Sleep: 4 Pain Interference with Therapy: 4 Pain Interference w/Day-to-Day: 4 Appearance Patient in recliner post tx with nurse call, phone, tray, all needs met, chair alarm on. Mental Status Patient Orientation: Person, Place, Situation Transfers SCALE: Activities may be completed with or without assistive devices. 5-Cssablnrqi-ycclzuv completes the activity by him/herself with no assistance from a helper. 5-Set-up or Clean-up Assistance-helper sets up or cleans up; patient completes activity. [place] assists only prior to or following the activity. 4-Supervision or Touching Assistance-helper provides verbal cues and/or touching/steadying and/or contact guard assistance as patient completes activity. Assistance may be provided throughout the activity or intermittently. 3-Partial/Moderate Assistance-helper does LESS THAN HALF the effort. [place] lifts, holds or supports trunk or limbs, but provides less than half the effort. 2-Substantial/Maximal Assistance-helper does MORE THAN HALF the effort. [place] lifts or holds trunk or limbs and provides more than half the effort. 4-Nnewesjcn-cgwyqk does ALL the effort. Patient does none of the effort to complete the activity. Or, the assistance of 2 or more helpers is required for the patient to complete the activity. If activity was not attempted, code reason: 7-Patient Refused. 9-Not Applicable-not attempted and the patient did not perform the activity before the current illness, exacerbation or injury. 10-Not Attempted due to Environmental Limitations-(lack of equipment, weather restraints, etc.). 88-Not Attempted due to Medical Conditions or Safety Concerns. Weight Bearing Patient is supposed to wear a cervical collar but refuses. Exercises Supine Ex: Quad Set, Glut sets, Heel Slides Supine Reps: 20 Seated Therapy Exercises: Ankle pumps, Long arc quads, Hip flexion Seated Reps: 20 Treatments LE ROM Assessment Current Status: Poor Progress Patient was very drowsy, needed constant cues to stay awake. PT Nursing Home Goals Nursing Home Goals PT Ground Crew Supervisor Goals Time Frame: Jan 05, 2023 Roll Left & Right (QC): 4 Sit to Lying (QC): 4 Lying-Sitting on Side/Bed(QC): 4 Sit to Stand (QC): 4 (CGA) Chair/Har-ge-Rwjlp Xfer(QC): 4 (CGA) Toilet Transfer (QC): 4 (CGA) Car Transfer (QC): 4 (CGA) Does the Patient Walk: No and Walking Goal IS indicated Walk 10 feet (QC): 4 (CGA) Walk 50ft with 2 Turns (QC): 4 (CGA) Walk 150 ft (QC): 4 (CGA) Walking 10ft on Uneven Surface: 4 (CGA) 1 Step (curb) (QC): 4 (CGA) 4 Steps (QC): 4 (CGA) 12 Steps (QC): 88 Picking up an Object (QC): 4 (SBA using a welder tech) Wheel 50 feet with 2 turns (QC: 4 (SBA) Wheel 150 feet: 4 (SBA) PT Plan Problem List Problem List: Activity Tolerance, Functional Strength, Safety, Balance, Gait, Transfer, Bed Mobility, ROM Treatment/Plan Treatment Plan: Continue Plan of Care Treatment Plan: Bed Mobility, Education, Functional Activity Janeth, Functional Strength, Group Therapy, Gait, Safety, Therapeutic Exercise, Transfers Treatment Duration: Jan 05, 2023 Frequency: At least 5 of 7 days/Wk (IRF) Estimated Hrs Per Day: 1.5 hours per day Patient and/or Family Agrees t: Yes Safety Risks/Education Patient Education: Correct Positioning, Safety Issues Teaching Recipient: Patient Teaching Methods: Demonstration, Discussion Response to Teaching: Reinforcement Needed Time Time In: 1120 Time Out: 1135 DATE: Dec 23, 2022 Total Billed Treatment Time: 15 Total Billed Treatment 1 visit EX 15ÁLVARO BRADY PT Dec 23, 2022 11:36
[2022-12-23] MEDS: HYDROcodone/APAP 5 MG/325 MG (LORTAB) TAB PO PRN (14:03)
[2022-12-23 20:40] VITALS: BP 124/56
[2022-12-23] MEDS: TERAZOSIN 5 MG (HYTRIN) CAPSULE PO SCH (21:07)
[2022-12-23] MEDS: LIDOCAINE PATCH REMOVAL TP SCH (21:08)
[2022-12-23] MEDS: MICONAZOLE 2% POWDER (DESENEX AF) 90 GM TOP SCH (21:08)
[2022-12-24] MEDS: HYDROcodone/APAP 5 MG/325 MG (LORTAB) TAB PO PRN ×4 (00:19→20:20)
[2022-12-24] MEDS: inSUlin ASPART (NovoLOG) 1 UNIT/0.01 ML (CHARGE PER UNIT) SC SCH ×4 (06:01→20:32)
--- NOTE | 2022-12-24 06:47 | PM&R Progress Note ---
Subjective HPI/CC On Admission Date Seen by Provider: Dec 24, 2022 Time Seen by Provider: 12:00 Subjective/Events-last exam 12/24/2022: Continues to have issues with pain due to not wearing C collar and shock like neuro pain from cervical spine surgery occurs Needs NH placement Cognition is overall functional and would be able to work with therapy at a skilled facility but will need heavy cues and reassurance Patient adamant about not wearing c-collar 12/23/2022: Improved but seems that his pain meds increase confusion so will change regimen No falls Eating and drinking well Participation is better 12/22/2022: Patient did not sleep well last night Patient refusing therapy Refusing to get out of bed Appears to be cognitively diminished Ammonia checked and it was normal Creatinine is 1.6 consistent with chronic kidney disease Check ABG for hypercapnia and CO2 narcosis Review of Systems General: Fatigue, Malaise Objective Exam Vital Signs Vital Signs Date Time Temp Pulse Resp B/P (MAP) Pulse Ox O2 Delivery O2 Flow Rate FiO2 12/24/22 20:36 36.2 75 20 120/63 (82) 94 Room Air Capillary Refill : General Appearance: No Apparent Distress, WD/WN, Chronically ill HEENT: PERRL/EOMI, Normal ENT Inspection, Pharynx Normal Neck: Full Range of Motion, Normal Inspection, Non Tender, Supple, Carotid Bruit Respiratory: Chest Non Tender, Lungs Clear, Normal Breath Sounds, No Accessory Muscle Use, No Respiratory Distress Cardiovascular: Regular Rate, Rhythm, No Edema, No Gallop, No JVD, No Murmur, Normal Peripheral Pulses Gastrointestinal: Normal Bowel Sounds, No Organomegaly, No Pulsatile Mass, Non Tender, Soft Back: Normal Inspection, Decreased Range of Motion, Muscle Spasm, Vertebral Tenderness Extremity: Normal Capillary Refill, Normal Inspection, Normal Range of Motion, Non Tender, No Calf Tenderness, No Pedal Edema Neurologic/Psychiatric: Alert, No Motor/Sensory Deficits, superintendent commissary II-XII Norm as Tested, Abnormal Gait, Depressed Affect, Motor Weakness Skin: Normal Color, Warm/Dry Lymphatic: No Adenopathy Results/Procedures Lab Patient resulted labs reviewed. FIM Transfers Therapy Code Descriptions/Definitions Functional [place] Measure: 0=Not Assessed/NA 4=Minimal Assistance 1=Total Assistance 5=Supervision or Setup 2=Maximal Assistance 6=Modified [place] 3=Moderate Assistance 7=Complete IndependenceSCALE: Activities may be completed with or without assistive devices. 1-Pfcbxiyzvk-wrqonsb completes the activity by him/herself with no assistance from a helper. 5-Set-up or Clean-up Assistance-helper sets up or cleans up; patient completes activity. [place] assists only prior to or following the activity. 4-Supervision or Touching Assistance-helper provides verbal cues and/or t ouching/steadying and/or contact guard assistance as patient completes activity. Assistance may be provided throughout the activity or intermittently. 3-Partial/Moderate Assistance-helper does LESS THAN HALF the effort. [place] lifts, holds or supports trunk or limbs, but provides less than half the effort. 2-Substantial/Maximal Assistance-helper does MORE THAN HALF the effort. [place] lifts or holds trunk or limbs and provides more than half the effort. 1-Wmeeytlxf-sfohye does ALL the effort. Patient does none of the effort to complete the activity. Or, the assistance of 2 or more helpers is required for the patient to complete the activity. If activity was not attempted, code reason: 7-Patient Refused. 9-Not Applicable-not attempted and the patient did not perform the activity before the current illness, exacerbation or injury. 10-Not Attempted due to Environmental Limitations-(lack of equipment, weather restraints, etc.). 88-Not Attempted due to Medical Conditions or Safety Concerns. Roll Left to Right (QC): 4 Sit to Lying (QC): 3 Sit to Stand (QC): 3 Chair/Sgq-ic-Okqqg Xfer(QC): 3 Car Transfer (QC): 7 Gait Training Distance: 3' Walk 10 feet (QC): 7 Walk 50 ft with 2 Turns(QC): 7 Walk 150 ft (QC): 7 Walking 10ft/uneven surface-QC: 7 Gait Assistive Device: Parallel Bars Wheelchair Training Does the Pt Use a Wheelchair?: Yes Wheel 50 ft with 2 turns (QC): 2 Wheel 150 ft (QC): 7 Type of Wheelchair: Manual Stair Training 1 Step (curb) (QC): 88 4 Steps (QC): 88 12 Steps (QC): 88 Balance Picking up an Object (QC): 88 ADL-Treatment Eating (QC): 3 (Min A with breakfast) Oral Hygiene (QC): 3 Shower/Bathe Self (QC): 1 (2 person assist in stand to wash buttocks. Max A overall with sponge bath for thoroughness.) Upper Body Dressing (QC): 2 (Max A due to pt refusing most of task.) Lower Body Dressing (QC): 1 (Assist all parts. Pt only held brief in hands but refused to attempt to thread LEs himself.) On/Off Footwear (QC): 2 (Max A overall.) Toileting Hygiene (QC): 7 (Pt refused at this time.) Assessment/Plan Assessment and Plan Assess & Plan/Chief Complaint Assessment: Cervical spine myelopathy s/p fusion Smoker HTN HLP BPH Chronic kidney disease stage IIIb Cognitive deficit suspected dementia but can follow instructions Plan: Monitor closely Pain control PT OT 12/22/2022: Work-up of altered mental status 12/23/2022: Monitor closely 12/24/2022: Skilled facility for slower recovery since he refuses to wear c collar He will be able to participate with therapy in skilled since it will be slower pace and cognition will not curtail progress (1) Cervical myelopathy COREY DELONG DO Dec 24, 2022 06:47
--- NOTE | 2022-12-24 08:01 | Occupational Ther Daily Note ---
OT Current Status-Daily Note Subjective Pt in bed, agreeable to OT Tx. Pt reports pain 5/10 in posterior neck at rest. After getting to therapy gym pt rates pain 20/10. Pt refused attempting to wear cervical collar, even with education. Mental Status/Objective Patient Orientation: Person, Place, Time, Situation ADL-Treatment Therapy Code Descriptions/Definitions Functional [place] Measure: 0=Not Assessed/NA 4=Minimal Assistance 1=Total Assistance 5=Supervision or Setup 2=Maximal Assistance 6=Modified [place] 3=Moderate Assistance 7=Complete IndependenceSCALE: Activities may be completed with or without assistive devices. 4-Vegrmvkgpm-qojquaa completes the activity by him/herself with no assistance from a helper. 5-Set-up or Clean-up Assistance-helper sets up or cleans up; patient completes activity. [place] assists only prior to or following the activity. 4-Supervision or Touching Assistance-helper provides verbal cues and/or touching/steadying and/or contact guard assistance as patient completes activity. Assistance may be provided throughout the activity or intermittently. 3-Partial/Moderate Assistance-helper does LESS THAN HALF the effort. [place] lifts, holds or supports trunk or limbs, but provides less than half the effort. 2-Substantial/Maximal Assistance-helper does MORE THAN HALF the effort. [place] lifts or holds trunk or limbs and provides more than half the effort. 6-Obstqvloi-bngfpl does ALL the effort. Patient does none of the effort to complete the activity. Or, the assistance of 2 or more helpers is required for the patient to complete the activity. If activity was not attempted, code reason: 7-Patient Refused. 9-Not Applicable-not attempted and the patient did not perform the activity before the current illness, exacerbation or injury. 10-Not Attempted due to Environmental Limitations-(lack of equipment, weather restraints, etc.). 88-Not Attempted due to Medical Conditions or Safety Concerns. Eating (QC): 5 (set up with built up utensils, assist to cut food and open containers.) Oral Hygiene (QC): 3 Shower/Bathe Self (QC): 1 (Assist x2 in stand for hygiene.) Upper Body Dressing (QC): 7 (Pt refused to change shirt.) Lower Body Dressing (QC): 1 (Assist x2 in stand, assist with all parts as pt refused to complete.) On/Off Footwear: 1 Toileting Hygiene (QC): 1 (Assist x2 in stand to use urinal) Other Treatment [id number]:Pt in bed eating breakfast. Pt's built up utensils were sent to kitchen, so OT provided pt with built up handles to use on regular silverware until his are returned. Pt able to eat after set up (assist to cut food and open containers). [id number]: OT/PT cotreat due to skill of 2 clinicians required which a rehab t ech could not perform in order to coordinate UE/LEs, decrease fall risk, and due to pt's limitations in pain, activity tolerance, strength, mobility/transfers, and balance. OT focused on UE placement, cues for sequencing and safety and ADLs, PT focused on LE placement, transfers/mobility, and gross overall movement. Pt transferred supine to sit EOB, completing LB sponge bath and LE dressing. Pt refused to change shirt. During stand for pant hike and transfer to w/c, pt states urgent need to urinate, Dependent to manipluate clothes and place urinal, 2 person assist required in stand. Pt transferred to w/c, performed some w/c mobility towards therapy gym, but refused much of task. Once in gym, pt refused all attempts to stand, exercise, ambulate, etc, requesting to return to room and terminating tx session. Pt propelled w/c back towards his room, then transferred to recliner using FWW. Post tx, pt in recliner, call light in reach and all needs met. Min A supine to sit EOB, min A sit to stand, CGA transfer to w/c and from w/c to recliner. Pt requires extended period of time to stand due to pain. w/c mobility 120'x2 min A Education OT Patient Education: Correct positioning, Energy conservation, Modified ADL techniques, Progress toward Goal/Update tx plan, Purpose of tx/functional activities, Rehab process Teaching Recipient: Patient Teaching Methods: Discussion Response to Teaching: Verbalize Understanding OT Short Term Goals Short Term Goals Time Frame: Dec 31, 2022 Lower body dressin Putting on/taking off footwear: 3 OT Snf Goals Professor Of Literature Goals Time Frame: Jan 14, 2023 Acute change in mental status: 1 Inattention: 1 Disorganized thinkin Altered level of consciousness: 2 Eating (QC): 5 Oral Hygiene (QC): 5 Toileting Hygiene (QC): 4 Shower/Bathe Self (QC): 4 Upper Body Dressing (QC): 5 Lower Body Dressing (QC): 4 On/Off Footwear (QC): 4 Additional Goals: 1-Demonstrate ADL Tasks, 2-Verbalize Understanding, 3- ImproveStrength/Janeth 1=Demonstrate adherence to instructed precautions during ADL tasks. 2=Patient will verbalize/demonstrate understanding of assistive devices/modifications for ADL. 3=Patient will improve strength/tolerance for activity to enable patient to perform ADL's. OT Education/Plan Problem List/Assessment Assessment: Decreased Activ Tolerance, Decreased UE Strength, Impaired Funct Balance, Impaired I ADL's, Impaired Self-Care Skills Discharge Recommendations Plan/Recommendations: Continue POC Treatment Plan/Plan of Care Patient would benefit from OT for education, treatment and training to promote independence in ADL's, mobility, safety and/or upper extremity function for ADL's. Plan of Care: ADL Retraining, Functional Mobility, Group Exercise/Act as Ind, UE Funct Exercise/Act Treatment Duration: Jan 14, 2023 Frequency: At least 5 of 7 days/Wk (IRF) Estimated Hrs Per Day: 1.5 hours per day Rehab Potential: Guarded Time Start Time: 07:45 Stop Time: 08:45 DATE: Dec 24, 2022 Total Time Billed (hr/min): 60 Billed Treatment Time OT tx 15', Cotreat x45' 1, ADL 2 (30'), FA 2 (30') RENITA VILCHIS OT Dec 24, 2022 08:01
[2022-12-24 08:23] VITALS: BP 114/54
--- NOTE | 2022-12-24 08:46 | Physical Therapy Daily Note ---
PT Daily Note-Current Subjective Patient in bed pre tx, agrees to PT, has 5/10 pain in neck. Will be co-treating with OT due to poor patient mobility, strength, endurance, severe pain with activity and debility, coordinate UE and LE during activity, safety and reduce risk of falls. Pain Section J - Health Conditions 1. Rarely or not at all 2. Occasionally 3. Frequently 4. Almost constantly 8. Unable to answer Pain Effect on Sleep: 4 Pain Interference with Therapy: 4 Pain Interference w/Day-to-Day: 4 Appearance Patient in recliner post tx with nurse call, phone, tray, all needs met, chair alarm on. Mental Status Patient Orientation: Person, Place, Situation Transfers SCALE: Activities may be completed with or without assistive devices. 2-Dapcltycss-joabplr completes the activity by him/herself with no assistance from a helper. 5-Set-up or Clean-up Assistance-helper sets up or cleans up; patient completes activity. [place] assists only prior to or following the activity. 4-Supervision or Touching Assistance-helper provides verbal cues and/or touchin g/steadying and/or contact guard assistance as patient completes activity. Assistance may be provided throughout the activity or intermittently. 3-Partial/Moderate Assistance-helper does LESS THAN HALF the effort. [place] lifts, holds or supports trunk or limbs, but provides less than half the effort. 2-Substantial/Maximal Assistance-helper does MORE THAN HALF the effort. [place] lifts or holds trunk or limbs and provides more than half the effort. 4-Xtkdbesci-qtxjbh does ALL the effort. Patient does none of the effort to complete the activity. Or, the assistance of 2 or more helpers is required for the patient to complete the activity. If activity was not attempted, code reason: 7-Patient Refused. 9-Not Applicable-not attempted and the patient did not perform the activity before the current illness, exacerbation or injury. 10-Not Attempted due to Environmental Limitations-(lack of equipment, weather restraints, etc.). 88-Not Attempted due to Medical Conditions or Safety Concerns. Roll Left & Right (QC): 3 Lying to Sitting/Side of Bed(Q: 3 Sit to Stand (QC): 3 Chair/Jdd-wu-Kyklv Xfer(QC): 4 Min assist for supine to sit and sit to stand, CGA for transfer to WC from bed and from WC to recliner. Patient takes an extended period of time to stand due to his pain. Before getting out of bed patient sat on the side of the bed for bathing and dressing and finished dressing after standing. Weight Bearing Patient is supposed to wear a cervical collar but refuses. Gait Training attempted to ambulate but patient refused and refused to try to just stand as long as he can while holding onto the walker Wheelchair Training Does the Pt Use a Wheelchair?: Yes Wheel 50 ft with 2 turns (QC): 3 Type of Wheelchair: Manual 120'x2, min assist, patient propels about 10' at a time with assist before needing to rest Treatments PT performed bed mobility and transfers, assisted with dressing, positioning and safety during dressing and bathing, WC mobility, OT performed bathing, dressing, UE positioning and safety during activity. Assessment Current Status: Poor Progress patient had 10/10 pain in neck during tx, still refuses to don neck brace PT Nursing Home Goals Nursing Home Goals PT Grounds Cleaner Goals Time Frame: Jan 05, 2023 Roll Left & Right (QC): 4 Sit to Lying (QC): 4 Lying-Sitting on Side/Bed(QC): 4 Sit to Stand (QC): 4 (CGA) Chair/Soo-gc-Torzr Xfer(QC): 4 (CGA) Toilet Transfer (QC): 4 (CGA) Car Transfer (QC): 4 (CGA) Does the Patient Walk: No and Walking Goal IS indicated Walk 10 feet (QC): 4 (CGA) Walk 50ft with 2 Turns (QC): 4 (CGA) Walk 150 ft (QC): 4 (CGA) Walking 10ft on Uneven Surface: 4 (CGA) 1 Step (curb) (QC): 4 (CGA) 4 Steps (QC): 4 (CGA) 12 Steps (QC): 88 Picking up an Object (QC): 4 (SBA using a tobacco grower) Wheel 50 feet with 2 turns (QC: 4 (SBA) Wheel 150 feet: 4 (SBA) PT Plan Problem List Problem List: Activity Tolerance, Functional Strength, Safety, Balance, Gait, Transfer, Bed Mobility, ROM Treatment/Plan Treatment Plan: Continue Plan of Care Treatment Plan: Bed Mobility, Education, Functional Activity Janeth, Functional Strength, Group Therapy, Gait, Safety, Therapeutic Exercise, Transfers Treatment Duration: Jan 05, 2023 Frequency: At least 5 of 7 days/Wk (IRF) Estimated Hrs Per Day: 1.5 hours per day Patient and/or Family Agrees t: Yes Safety Risks/Education Patient Education: Transfer Techniques, Reviewed Precautions, Correct Positioning, W/C Management, Safety Issues Teaching Recipient: Patient Teaching Methods: Demonstration, Discussion Response to Teaching: Reinforcement Needed Time Time In: 0800 Time Out: 0845 DATE: Dec 24, 2022 Total Billed Treatment Time: 45 Total Billed Treatment 1 visit FA 45' co-treated for 45' ÁLVARO RIDER PT Dec 24, 2022 08:46
[2022-12-24] MEDS: LORATADINE (CLARITIN) 10 MG TAB PO SCH (08:57)
[2022-12-24] MEDS: metFORMIN 500 MG (GLUCOPHAGE) TAB PO SCH ×2 (08:57→17:17)
[2022-12-24] MEDS: EMPAGLIFLOZIN 10 MG TABLET (JARDIANCE) PO SCH (08:57)
[2022-12-24] MEDS: polyethylene glycoL POWDER 17 GM (MIRALAX) PACK PO SCH ×2 (08:57→20:32)
[2022-12-24] MEDS: SENNA W/DOCUSATE (SENOKOT S) TABLET PO SCH ×2 (08:57→20:18)
[2022-12-24] MEDS: ARTIFICAL TEARS 0.4 ML UNIT DOSE (REFRESH PLUS) OU SCH ×2 (08:57→20:18)
[2022-12-24] MEDS: BACLOFEN 10 MG (LIORESAL) TAB PO SCH ×2 (08:57→20:20)
[2022-12-24] MEDS: LOSARTAN 25 MG (COZAAR) TAB PO SCH (08:57)
[2022-12-24] MEDS: DOCUSATE SODIUM 100 MG (COLACE) CAP PO SCH ×2 (08:57→20:20)
[2022-12-24] MEDS: MICONAZOLE 2% POWDER (DESENEX AF) 90 GM TOP SCH ×2 (08:58→20:21)
[2022-12-24] MEDS: LIDOCAINE 4% (SALONPAS) PATCH TP PRN (09:13)
--- NOTE | 2022-12-24 11:21 | Occupational Ther Daily Note ---
OT Current Status-Daily Note Subjective Pt in recliner, agreeable to OT Tx. ADL-Treatment Therapy Code Descriptions/Definitions Functional [place] Measure: 0=Not Assessed/NA 4=Minimal Assistance 1=Total Assistance 5=Supervision or Setup 2=Maximal Assistance 6=Modified [place] 3=Moderate Assistance 7=Complete IndependenceSCALE: Activities may be completed with or without assistive devices. 3-Dxkzvfkckm-cyanxob completes the activity by him/herself with no assistance from a helper. 5-Set-up or Clean-up Assistance-helper sets up or cleans up; patient completes activity. [place] assists only prior to or following the activity. 4-Supervision or Touching Assistance-helper provides verbal cues and/or touching/steadying and/or contact guard assistance as patient completes activity. Assistance may be provided throughout the activity or intermittently. 3-Partial/Moderate Assistance-helper does LESS THAN HALF the effort. [place] lifts, holds or supports trunk or limbs, but provides less than half the effort. 2-Substantial/Maximal Assistance-helper does MORE THAN HALF the effort. [place] lifts or holds trunk or limbs and provides more than half the effort. 3-Jkachyezs-qpmtda does ALL the effort. Patient does none of the effort to compl ete the activity. Or, the assistance of 2 or more helpers is required for the patient to complete the activity. If activity was not attempted, code reason: 7-Patient Refused. 9-Not Applicable-not attempted and the patient did not perform the activity before the current illness, exacerbation or injury. 10-Not Attempted due to Environmental Limitations-(lack of equipment, weather restraints, etc.). 88-Not Attempted due to Medical Conditions or Safety Concerns. Toileting Hygiene (QC): 1 Other Treatment OT/PT cotreat due to skill of 2 clinicians required which a rehab technician could not perform in order to coordinate UE/LEs, decrease fall risk, and due to pt's limitations in pain, activity tolerance, strength, mobility/transfers, and balance. OT focused on UE placement, cues for sequencing and safety and ADLs, PT focused on LE placement, transfers/mobility, and gross overall movement. Pt used urinal seated in recliner, total assist required. Pt transferred from lift chair to w/c ([facility]) and taken to therapy gym. Pt performed functional mobility x3 in parallel bars (CGA), min A with sit to stands. Post tx, pt left with PT, all needs met. BIMS CAM BIMS Expression of Ideas and Wants: Without Difficulty Understanding Verbal Content: Understands Brief Interview/Mental Status: Yes IRF TERE BIMS: IRF TERE BIMS Response (Comments) Value Repitition of Three Words Three 3 Recalls Socks Yes, After Cueing (Wear) 1 Recalls Blue Yes, No Cue Required 2 Recalls Bed No, Could Not Recall 0 Year Correct 3 Month Accurate Within 5 Days 2 Day Correct 1 Total 12 Should Staff Asses. Mental St.: No CAM Mental Status Change/Baseline: 0 Inattention: 0 Disorganized thinkin Altered level of consciousness: 0 OT Short Term Goals Short Term Goals Time Frame: Dec 31, 2022 Lower body dressin Putting on/taking off footwear: 3 OT Team Leader/Research Psychologist Goals Team Leader/Research Psychologist Goals Time Frame: Jan 14, 2023 Acute change in mental status: 1 Inattention: 1 Disorganized thinkin Altered level of consciousness: 2 Eating (QC): 5 Oral Hygiene (QC): 5 Toileting Hygiene (QC): 4 Shower/Bathe Self (QC): 4 Upper Body Dressing (QC): 5 Lower Body Dressing (QC): 4 On/Off Footwear (QC): 4 Additional Goals: 1-Demonstrate ADL Tasks, 2-Verbalize Understanding, 3- ImproveStrength/Janeth 1=Demonstrate adherence to instructed precautions during ADL tasks. 2=Patient will verbalize/demonstrate understanding of assistive devices/modifications for ADL. 3=Patient will improve strength/tolerance for activity to enable patient to perform ADL's. OT Education/Plan Problem List/Assessment Assessment: Decreased Activ Tolerance, Decreased UE Strength, Impaired Funct Balance, Impaired I ADL's, Impaired Self-Care Skills Discharge Recommendations Plan/Recommendations: Continue POC Treatment Plan/Plan of Care Patient would benefit from OT for education, treatment and training to promote independence in ADL's, mobility, safety and/or upper extremity function for ADL's. Plan of Care: ADL Retraining, Functional Mobility, Group Exercise/Act as Ind, UE Funct Exercise/Act Treatment Duration: Jan 14, 2023 Frequency: At least 5 of 7 days/Wk (IRF) Estimated Hrs Per Day: 1.5 hours per day Rehab Potential: Guarded Time Start Time: 11:00 Stop Time: 11:30 DATE: Dec 24, 2022 Total Time Billed (hr/min): 30 Billed Treatment Time Cotx 30' 1, ADL (10'), FA (20') RENITA VLICHIS OT Dec 24, 2022 11:21
--- NOTE | 2022-12-24 12:45 | Physical Therapy Daily Note ---
PT Daily Note-Current Subjective Patient in recliner pre tx, agrees to PT, has 4/10 pain in neck. Will be co- treating with OT for part of tx due to poor patient mobility, strength, endurance, severe debility and pain with activity, coordinate UE and LE with activity, safety and reduce risk of falls. Pain Section J - Health Conditions 1. Rarely or not at all 2. Occasionally 3. Frequently 4. Almost constantly 8. Unable to answer Pain Effect on Sleep: 4 Pain Interference with Therapy: 4 Pain Interference w/Day-to-Day: 4 Appearance Patient in recliner post tx with nurse call, phone, tray, all needs met, chair alarm on. Mental Status Patient Orientation: Person, Place, Situation Transfers SCALE: Activities may be completed with or without assistive devices. 3-Gxubqevcja-xoaqrdz completes the activity by him/herself with no assistance from a helper. 5-Set-up or Clean-up Assistance-helper sets up or cleans up; patient completes activity. [place] assists only prior to or following the activity. 4-Supervision or Touching Assistance-helper provides verbal cues and/or touching/steadying and/or contact guard assistance as patient completes activity. Assistance may be provided throughout the activity or intermittently. 3-Partial/Moderate Assistance-helper does LESS THAN HALF the effort. [place] lifts, holds or supports trunk or limbs, but provides less than half the effort. 2-Substantial/Maximal Assistance-helper does MORE THAN HALF the effort. [place] lifts or holds trunk or limbs and provides more than half the effort. 1-Dsativgam-yxjdfd does ALL the effort. Patient does none of the effort to complete the activity. Or, the assistance of 2 or more helpers is required for the patient to complete the activity. If activity was not attempted, code reason: 7-Patient Refused. 9-Not Applicable-not attempted and the patient did not perform the activity before the current illness, exacerbation or injury. 10-Not Attempted due to Environmental Limitations-(lack of equipment, weather restraints, etc.). 88-Not Attempted due to Medical Conditions or Safety Concerns. Sit to Stand (QC): 3 Chair/Clr-wp-Rszwk Xfer(QC): 4 Weight Bearing Patient is supposed to wear a cervical collar but refuses. Gait Training Distance: 6'x3 Gait Assistive Device: Parallel Bars Patient ambulates very slowly, antalgic Wheelchair Training Does the Pt Use a Wheelchair?: Yes Wheel 50 ft with 2 turns (QC): 3 Type of Wheelchair: Manual 120', min assist, needs many rest breaks Exercises Seated Therapy Exercises: Ankle pumps, Long arc quads, Hip flexion, Hip abd/add Seated Reps: 20 Treatments PT performed transfers, ambulation, WC mobility, LE ROM, OT performed UE positioning and safety during activity Assessment Current Status: Fair Progress brando was finally able to ambulate a bit today PT Custodial Goals Information Systems Director Goals PT Custodial Goals Time Frame: Jan 05, 2023 Roll Left & Right (QC): 4 Sit to Lying (QC): 4 Lying-Sitting on Side/Bed(QC): 4 Sit to Stand (QC): 4 (CGA) Chair/Hqe-uu-Tqijc Xfer(QC): 4 (CGA) Toilet Transfer (QC): 4 (CGA) Car Transfer (QC): 4 (CGA) Does the Patient Walk: No and Walking Goal IS indicated Walk 10 feet (QC): 4 (CGA) Walk 50ft with 2 Turns (QC): 4 (CGA) Walk 150 ft (QC): 4 (CGA) Walking 10ft on Uneven Surface: 4 (CGA) 1 Step (curb) (QC): 4 (CGA) 4 Steps (QC): 4 (CGA) 12 Steps (QC): 88 Picking up an Object (QC): 4 (SBA using a project manager/team coach) Wheel 50 feet with 2 turns (QC: 4 (SBA) Wheel 150 feet: 4 (SBA) PT Plan Problem List Problem List: Activity Tolerance, Functional Strength, Safety, Balance, Gait, Transfer, Bed Mobility, ROM Treatment/Plan Treatment Plan: Continue Plan of Care Treatment Plan: Bed Mobility, Education, Functional Activity Janeth, Functional Strength, Group Therapy, Gait, Safety, Therapeutic Exercise, Transfers Treatment Duration: Jan 05, 2023 Frequency: At least 5 of 7 days/Wk (IRF) Estimated Hrs Per Day: 1.5 hours per day Patient and/or Family Agrees t: Yes Safety Risks/Education Patient Education: Gait Training, Transfer Techniques, Reviewed Precautions, Correct Positioning, W/C Management, Safety Issues Teaching Recipient: Patient Teaching Methods: Demonstration, Discussion Response to Teaching: Reinforcement Needed Time Time In: 1100 Time Out: 1145 DATE: Dec 24, 2022 Total Billed Treatment Time: 45 Total Billed Treatment 1 visit EX 15' FA 30' co-treated from [id number] ÁLVARO RIDER PT Dec 24, 2022 12:45
[2022-12-24] MEDS: LIDOCAINE PATCH REMOVAL TP SCH (20:06)
[2022-12-24] MEDS: TERAZOSIN 5 MG (HYTRIN) CAPSULE PO SCH (20:18)
[2022-12-24 20:36] VITALS: BP 120/63
[2022-12-25] MEDS: HYDROcodone/APAP 5 MG/325 MG (LORTAB) TAB PO PRN ×3 (03:46→22:46)
[2022-12-25] MEDS: inSUlin ASPART (NovoLOG) 1 UNIT/0.01 ML (CHARGE PER UNIT) SC SCH ×4 (06:11→21:23)
[2022-12-25 07:30] VITALS: BP 119/68
[2022-12-25] MEDS: LOSARTAN 25 MG (COZAAR) TAB PO SCH (08:06)
[2022-12-25] MEDS: LORATADINE (CLARITIN) 10 MG TAB PO SCH (08:06)
[2022-12-25] MEDS: metFORMIN 500 MG (GLUCOPHAGE) TAB PO SCH ×2 (08:06→17:14)
[2022-12-25] MEDS: BACLOFEN 10 MG (LIORESAL) TAB PO SCH ×2 (08:06→21:22)
[2022-12-25] MEDS: DOCUSATE SODIUM 100 MG (COLACE) CAP PO SCH ×2 (08:06→21:22)
[2022-12-25] MEDS: EMPAGLIFLOZIN 10 MG TABLET (JARDIANCE) PO SCH (08:06)
[2022-12-25] MEDS: polyethylene glycoL POWDER 17 GM (MIRALAX) PACK PO SCH ×2 (08:08→21:21)
[2022-12-25] MEDS: ARTIFICAL TEARS 0.4 ML UNIT DOSE (REFRESH PLUS) OU SCH ×2 (08:08→21:22)
[2022-12-25] MEDS: MICONAZOLE 2% POWDER (DESENEX AF) 90 GM TOP SCH ×2 (08:10→21:22)
[2022-12-25] MEDS: SENNA W/DOCUSATE (SENOKOT S) TABLET PO SCH ×2 (08:16→21:22)
--- NOTE | 2022-12-25 08:57 | PM&R Progress Note ---
Subjective HPI/CC On Admission Date Seen by Provider: Dec 25, 2022 Time Seen by Provider: 12:00 Subjective/Events-last exam 12/25/2022: No major issues Seems to be improved Less confusion More willing to participate 12/24/2022: Continues to have issues with pain due to not wearing C collar and shock like neuro pain from cervical spine surgery occurs Needs NH placement Cognition is overall functional and would be able to work with therapy at a skilled facility but will need heavy cues and reassurance Patient adamant about not wearing c-collar 12/23/2022: Improved but seems that his pain meds increase confusion so will change regimen No falls Eating and drinking well Participation is better 12/22/2022: Patient did not sleep well last night Patient refusing therapy Refusing to get out of bed Appears to be cognitively diminished Ammonia checked and it was normal Creatinine is 1.6 consistent with chronic kidney disease Check ABG for hypercapnia and CO2 narcosis Review of Systems General: Fatigue, Malaise Objective Exam Vital Signs Vital Signs Date Time Temp Pulse Resp B/P (MAP) Pulse Ox O2 Delivery O2 Flow Rate FiO2 12/25/22 21:00 36.4 84 16 112/62 (79) 95 Room Air Capillary Refill : General Appearance: No Apparent Distress, WD/WN, Chronically ill HEENT: PERRL/EOMI, Normal ENT Inspection, Pharynx Normal Neck: Full Range of Motion, Normal Inspection, Non Tender, Supple, Carotid Bruit Respiratory: Chest Non Tender, Lungs Clear, Normal Breath Sounds, No Accessory Muscle Use, No Respiratory Distress Cardiovascular: Regular Rate, Rhythm, No Edema, No Gallop, No JVD, No Murmur, Normal Peripheral Pulses Gastrointestinal: Normal Bowel Sounds, No Organomegaly, No Pulsatile Mass, Non Tender, Soft Back: Normal Inspection, Decreased Range of Motion, Muscle Spasm, Vertebral Tenderness Extremity: Normal Capillary Refill, Normal Inspection, Normal Range of Motion, Non Tender, No Calf Tenderness, No Pedal Edema Neurologic/Psychiatric: Alert, No Motor/Sensory Deficits, senior scrum master II-XII Norm as Tested, Abnormal Gait, Depressed Affect, Motor Weakness Skin: Normal Color, Warm/Dry Lymphatic: No Adenopathy Results/Procedures Lab Patient resulted labs reviewed. FIM Transfers Therapy Code Descriptions/Definitions Functional [place] Measure: 0=Not Assessed/NA 4=Minimal Assistance 1=Total Assistance 5=Supervision or Setup 2=Maximal Assistance 6=Modified [place] 3=Moderate Assistance 7=Complete IndependenceSCALE: Activities may be completed with or without assistive devices. 3-Ugceorfyma-swelupc completes the activity by him/herself with no assistance from a helper. 5-Set-up or Clean-up Assistance-helper sets up or cleans up; patient completes activity. [place] assists only prior to or following the activity. 4-Supervision or Touching Assistance-helper provides verbal cues and/or touching/steadying and/or contact guard assistance as patient completes activity. Assistance may be provided throughout the activity or intermittently. 3-Partial/Moderate Assistance-helper does LESS THAN HALF the effort. [place] lifts, holds or supports trunk or limbs, but provides less than half the effort. 2-Substantial/Maximal Assistance-helper does MORE THAN HALF the effort. [place] lifts or holds trunk or limbs and provides more than half the effort. 6-Zitmtnizl-bnqqml does ALL the effort. Patient does none of the effort to complete the activity. Or, the assistance of 2 or more helpers is required for the patient to complete the activity. If activity was not attempted, code reason: 7-Patient Refused. 9-Not Applicable-not attempted and the patient did not perform the activity be fore the current illness, exacerbation or injury. 10-Not Attempted due to Environmental Limitations-(lack of equipment, weather restraints, etc.). 88-Not Attempted due to Medical Conditions or Safety Concerns. Roll Left to Right (QC): 3 Sit to Lying (QC): 3 Sit to Stand (QC): 3 Chair/Zvt-ss-Enfbd Xfer(QC): 4 Car Transfer (QC): 7 Gait Training Distance: 6'x3 Walk 10 feet (QC): 7 Walk 50 ft with 2 Turns(QC): 7 Walk 150 ft (QC): 7 Walking 10ft/uneven surface-QC: 7 Gait Assistive Device: Parallel Bars Wheelchair Training Does the Pt Use a Wheelchair?: Yes Wheel 50 ft with 2 turns (QC): 3 Wheel 150 ft (QC): 7 Type of Wheelchair: Manual Stair Training 1 Step (curb) (QC): 88 4 Steps (QC): 88 12 Steps (QC): 88 Balance Picking up an Object (QC): 88 ADL-Treatment Eating (QC): 5 (set up with built up utensils, assist to cut food and open containers.) Oral Hygiene (QC): 3 Shower/Bathe Self (QC): 1 (Assist x2 in stand for hygiene.) Upper Body Dressing (QC): 7 (Pt refused to change shirt.) Lower Body Dressing (QC): 1 (Assist x2 in stand, assist with all parts as pt refused to complete.) On/Off Footwear (QC): 1 Toileting Hygiene (QC): 1 Assessment/Plan Assessment and Plan Assess & Plan/Chief Complaint Assessment: Cervical spine myelopathy s/p fusion Smoker HTN HLP BPH Chronic kidney disease stage IIIb Cognitive deficit suspected dementia but can follow instructions Plan: Monitor closely Pain control PT OT 12/22/2022: Work-up of altered mental status 12/23/2022: Monitor closely 12/24/2022: Skilled facility for slower recovery since he refuses to wear c collar He will be able to participate with therapy in skilled since it will be slower pace and cognition will not curtail progress 12/25/2022: Monitor closely (1) Cervical myelopathy COREY DELONG DO Dec 25, 2022 08:57
--- NOTE | 2022-12-25 09:11 | Occupational Ther Daily Note ---
OT Current Status-Daily Note Subjective Patient reclined up in bed, required encouragement to participate and reported he does not have therapy on Tuesday and only sees his 2 regular therapist and he names them. This OT reminds patient that she introduced herself yesterday and patient requested am therapy because his girlfriend is visiting this day. Mental Status/Objective Patient Orientation: Person, Place, Time, Situation IV port right arm ADL-Treatment Therapy Code Descriptions/Definitions Functional [place] Measure: 0=Not Assessed/NA 4=Minimal Assistance 1=Total Assistance 5=Supervision or Setup 2=Maximal Assistance 6=Modified [place] 3=Moderate Assistance 7=Complete IndependenceSCALE: Activities may be completed with or without assistive devices. 4-Ooiljwkshi-vlwdgyh completes the activity by him/herself with no assistance from a helper. 5-Set-up or Clean-up Assistance-helper sets up or cleans up; patient completes activity. [place] assists only prior to or following the activity. 4-Supervision or Touching Assistance-helper provides verbal cues and/or touching/steadying and/or contact guard assistance as patient completes activity. Assistance may be provided throughout the activity or intermittently. 3-Partial/Moderate Assistance-helper does LESS THAN HALF the effort. [place] lifts, holds or supports trunk or limbs, but provides less than half the effort. 2-Substantial/Maximal Assistance-helper does MORE THAN HALF the effort. [place] l ifts or holds trunk or limbs and provides more than half the effort. 6-Cfxnrbqgt-nzfksb does ALL the effort. Patient does none of the effort to complete the activity. Or, the assistance of 2 or more helpers is required for the patient to complete the activity. If activity was not attempted, code reason: 7-Patient Refused. 9-Not Applicable-not attempted and the patient did not perform the activity before the current illness, exacerbation or injury. 10-Not Attempted due to Environmental Limitations-(lack of equipment, weather restraints, etc.). 88-Not Attempted due to Medical Conditions or Safety Concerns. Eating (QC): 6 (fed self w/ adapted utensils) Oral Hygiene (QC): 2 (OT soaked and brushed dentures, pat removed and placed in pink bowl) Bathing Location: L Arm, R Arm, Chest Shower/Bathe Self (QC): 3 (OT provided set up of soap and rinse and dry wash clothies, patient cleansed BUE/axilla and across chest, face and ears with wrung clothes. Pt retreived clothes from set on FWW in nearby reach) Upper Body Dressing (QC): 3 Lower Body Dressing (QC): 7 On/Off Footwear: 3 (OT provided set up of yellow sock on sock aid, instructed pt to use B hands to pull device on foot. Patient able to don left foot w/ OT placing device on foot and pt pulled. Wound dresssing assessed and remains on foot. Pt improved independence with Right foot and lifted foot into device and pulled on while in knee extension and foot elevated off floor) Toileting Hygiene (QC): 5 (Patien sitting in recliner, pt moved side of brief on right side and placed urinal between legs to void. At completion handed OT urinal ) Toilet Transfer (QC): 3 (OT assist transfer from bed to recliner w/ FWW and gait belt w/ bed elevated and knees flexed hips slightly extended. Refused ambulation to bathroom or use of commode) Patient stood with OT 3 times from recliner and once from bed, each stance patient stood between 1 and 3 minutes. OT provided less than 50% effort to stand however provided constant VC and safety instruction. Patient performed functional reach w/ BUE alternating R/L. Patient refuses to wear [place] c collar. with verbal cues patient scoots and repositions self in recliner Other Treatment Suction manipulative- Patient very much enjoys this activity Education OT Patient Education: Correct positioning, Exercise program, Modified ADL techniques, Progress toward Goal/Update tx plan, Purpose of tx/functional activities, Reviewed precautions, Rehab process, Safety issues, Transfer techniques, Use of adapted equipment Teaching Recipient: Patient Teaching Methods: Demonstration, Discussion Response to Teaching: Verbalize Understanding, Return Demonstration, Reinforcement Needed OT Short Term Goals Short Term Goals Time Frame: Dec 31, 2022 Lower body dressin Putting on/taking off footwear: 3 OT Mcfp Goals Mcfp Goals Time Frame: Jan 14, 2023 Acute change in mental status: 0 Inattention: 0 Disorganized thinkin Altered level of consciousness: 0 Eating (QC): 5 Oral Hygiene (QC): 5 Toileting Hygiene (QC): 4 Shower/Bathe Self (QC): 4 Upper Body Dressing (QC): 5 Lower Body Dressing (QC): 4 On/Off Footwear (QC): 4 Additional Goals: 1-Demonstrate ADL Tasks, 2-Verbalize Understanding, 3- ImproveStrength/Janeth 1=Demonstrate adherence to instructed precautions during ADL tasks. 2=Patient will verbalize/demonstrate understanding of assistive devices/mo difications for ADL. 3=Patient will improve strength/tolerance for activity to enable patient to perform ADL's. OT Education/Plan Problem List/Assessment Assessment: Decreased Activ Tolerance, Decreased UE Strength, Impaired Coordination, Impaired Funct Balance, Impaired Self-Care Skills Discharge Recommendations Plan/Recommendations: Continue POC (pt and weekend nurse report pt DC Tuesday) Therapy Discharge Recommendati: Post Acute OT Treatment Plan/Plan of Care Treatment,Training & Education: Yes Patient would benefit from OT for education, treatment and training to promote independence in ADL's, mobility, safety and/or upper extremity function for ADL's. Plan of Care: ADL Retraining, Functional Mobility, Group Exercise/Act as Ind, UE Funct Exercise/Act Comment Patient is able tot reach across recliner arm rest and retrieve looped call light cord and thread through hole on bed rail to place call device in lap, Pt texting girlfriend to make appointments Treatment Duration: Jan 14, 2023 Frequency: At least 5 of 7 days/Wk (IRF) Estimated Hrs Per Day: 1.5 hours per day Rehab Potential: Guarded Patient request OT to look for "smokes" OT located 7 packs and 3 lighters in coded drawer near sink. All needs met, pt in recliner Time Start Time: 08:11 Stop Time: 09:41 DATE: Dec 25, 2022 Total Time Billed (hr/min): 90 Billed Treatment Time 1, ADLs 4, FA 2 ISABEL BULLOCK OT Dec 25, 2022 09:11
--- NOTE | 2022-12-25 14:06 | Physical Therapy Daily Note ---
PT Daily Note-Current Subjective Pt found seated in recliner upon entry. Agreed to PT. Reports 8-9/10 pain pre- treatment. States pain is right down the middle of his neck posteriorly. Pain Section J - Health Conditions 1. Rarely or not at all 2. Occasionally 3. Frequently 4. Almost constantly 8. Unable to answer Pain Effect on Sleep: 4 Pain Interference with Therapy: 4 Pain Interference w/Day-to-Day: 4 Mental Status Patient Orientation: Person, Place, Time Transfers SCALE: Activities may be completed with or without assistive devices. 6-Mjyvsaikia-umxgeed completes the activity by him/herself with no assistance from a helper. 5-Set-up or Clean-up Assistance-helper sets up or cleans up; patient completes activity. [place] assists only prior to or following the activity. 4-Supervision or Touching Assistance-helper provides verbal cues and/or touching/steadying and/or contact guard assistance as patient completes activity. Assistance may be provided throughout the activity or intermittently. 3-Partial/Moderate Assistance-helper does LESS THAN HALF the effort. [place] lifts, holds or supports trunk or limbs, but provides less than half the effort. 2-Substantial/Maximal Assistance-helper does MORE THAN HALF the effort. [place] lifts or holds trunk or limbs and provides more than half the effort. 2-Oolhazuoa-btidno does ALL the effort. Patient does none of the effort to complete the activity. Or, the assistance of 2 or more helpers is required for the patient to complete the activity. If activity was not attempted, code reason: 7-Patient Refused. 9-Not Applicable-not attempted and the patient did not perform the activity before the current illness, exacerbation or injury. 10-Not Attempted due to Environmental Limitations-(lack of equipment, weather restraints, etc.). 88-Not Attempted due to Medical Conditions or Safety Concerns. Sit to Stand (QC): 3 Chair/Kqh-hh-Iicjm Xfer(QC): 4 Pt MIN assist with sit to stand transfer. CGA for chair to bed transfer. Weight Bearing Patient is supposed to wear a cervical collar but refuses. Gait Training Does the Patient Walk?: Yes Distance: 6, 6 Walk 10 feet (QC): 07 Gait Assistive Device: Parallel Bars Pt ambulated 6 feet x 2 at // then refused to ambulated any further due to reported neck pain. Displays poor head posture with forward flexion throughout. Wheelchair Training Does the Pt Use a Wheelchair?: Yes Wheel 50 ft with 2 turns (QC): 07 Type of Wheelchair: Manual Pt only able to propel self in wheelchair 10 feet then refuses to continue. Exercises Supine Ex: Ankle pumps, Quad Set, Glut sets, Heel Slides, Short Arc Quads, Straight leg raise, Hip abd/add Supine Reps: 15 Assessment Current Status: Poor Progress Pt demonstrates poor tolerance to transfers, gait training, and therapeutic exercises. Displays good muscle strength and poor endurance. Pt constantly re- adjusting head position during supine therapeutic exercises. Required seated and supine rest breaks throughout. Pt occasionally demonstrates increased pain and crosses arms then is unable to focus on task until pain subsides a few seconds later. Required frequent verbal cues to stay on task. Continue to progress pt as tolerated per POC to increase strength, endurance, functional ability, and decrease pain. PT Chcf Goals Pipe Fitter Helper Goals PT Pipe Fitter Helper Goals Time Frame: Jan 05, 2023 Roll Left & Right (QC): 4 Sit to Lying (QC): 4 Lying-Sitting on Side/Bed(QC): 4 Sit to Stand (QC): 4 (CGA) Chair/Qce-mx-Xwstl Xfer(QC): 4 (CGA) Toilet Transfer (QC): 4 (CGA) Car Transfer (QC): 4 (CGA) Does the Patient Walk: No and Walking Goal IS indicated Walk 10 feet (QC): 4 (CGA) Walk 50ft with 2 Turns (QC): 4 (CGA) Walk 150 ft (QC): 4 (CGA) Walking 10ft on Uneven Surface: 4 (CGA) 1 Step (curb) (QC): 4 (CGA) 4 Steps (QC): 4 (CGA) 12 Steps (QC): 88 Picking up an Object (QC): 4 (SBA using a shingles roofer helper) Wheel 50 feet with 2 turns (QC: 4 (SBA) Wheel 150 feet: 4 (SBA) PT Plan Treatment/Plan Treatment Plan: Continue Plan of Care Treatment Plan: Bed Mobility, Education, Functional Activity Janeth, Functional Strength, Group Therapy, Gait, Safety, Therapeutic Exercise, Transfers Treatment Duration: Jan 05, 2023 Frequency: At least 5 of 7 days/Wk (IRF) Estimated Hrs Per Day: 1.5 hours per day Patient and/or Family Agrees t: Yes Time Time In: 1115 Time Out: 1215 DATE: Dec 25, 2022 Total Billed Treatment Time: 90 Total Billed Treatment 1 visit GT 1x FA 2x EX 3x AISHA [place] AGRICULTURAL ENGINEER Dec 25, 2022 14:06
[2022-12-25] MEDS: LACTULOSE SYRUP 10GM/15ML (ENULOSE) 30ML UDC PO PRN (18:26)
[2022-12-25] MEDS: LIDOCAINE PATCH REMOVAL TP SCH (20:00)
[2022-12-25 21:00] VITALS: BP 112/62
[2022-12-25] MEDS: TERAZOSIN 5 MG (HYTRIN) CAPSULE PO SCH (21:22)
[2022-12-26] MEDS: HYDROcodone/APAP 5 MG/325 MG (LORTAB) TAB PO PRN ×2 (04:30→20:51)
[2022-12-26] MEDS: inSUlin ASPART (NovoLOG) 1 UNIT/0.01 ML (CHARGE PER UNIT) SC SCH ×4 (06:13→20:52)
[2022-12-26 07:30] VITALS: BP 126/68
--- NOTE | 2022-12-26 07:42 | PM&R Progress Note ---
Subjective HPI/CC On Admission Date Seen by Provider: Dec 26, 2022 Time Seen by Provider: 12:00 Subjective/Events-last exam 12/26/2022: No major issues Checked meds and labs No falls Pain controlled 12/25/2022: No major issues Seems to be improved Less confusion More willing to participate 12/24/2022: Continues to have issues with pain due to not wearing C collar and shock like neuro pain from cervical spine surgery occurs Needs NH placement Cognition is overall functional and would be able to work with therapy at a skilled facility but will need heavy cues and reassurance Patient adamant about not wearing c-collar 12/23/2022: Improved but seems that his pain meds increase confusion so will change regimen No falls Eating and drinking well Participation is better 12/22/2022: Patient did not sleep well last night Patient refusing therapy Refusing to get out of bed Appears to be cognitively diminished Ammonia checked and it was normal Creatinine is 1.6 consistent with chronic kidney disease Check ABG for hypercapnia and CO2 narcosis Review of Systems General: Fatigue, Malaise Objective Exam Vital Signs Vital Signs Date Time Temp Pulse Resp B/P (MAP) Pulse Ox O2 Delivery O2 Flow Rate FiO2 12/26/22 08:00 Room Air 12/26/22 07:30 36.2 71 20 126/68 (87) 97 Capillary Refill : General Appearance: No Apparent Distress, WD/WN, Chronically ill HEENT: PERRL/EOMI, Normal ENT Inspection, Pharynx Normal Neck: Full Range of Motion, Normal Inspection, Non Tender, Supple, Carotid Bruit Respiratory: Chest Non Tender, Lungs Clear, Normal Breath Sounds, No Accessory Muscle Use, No Respiratory Distress Cardiovascular: Regular Rate, Rhythm, No Edema, No Gallop, No JVD, No Murmur, Normal Peripheral Pulses Gastrointestinal: Normal Bowel Sounds, No Organomegaly, No Pulsatile Mass, Non Tender, Soft Back: Normal Inspection, Decreased Range of Motion, Muscle Spasm, Vertebral Tenderness Extremity: Normal Capillary Refill, Normal Inspection, Normal Range of Motion, Non Tender, No Calf Tenderness, No Pedal Edema Neurologic/Psychiatric: Alert, No Motor/Sensory Deficits, hand patcher II-XII Norm as Tested, Abnormal Gait, Depressed Affect, Motor Weakness Skin: Normal Color, Warm/Dry Lymphatic: No Adenopathy Results/Procedures Lab Patient resulted labs reviewed. FIM Transfers Therapy Code Descriptions/Definitions Functional [place] Measure: 0=Not Assessed/NA 4=Minimal Assistance 1=Total Assistance 5=Supervision or Setup 2=Maximal Assistance 6=Modified [place] 3=Moderate Assistance 7=Complete IndependenceSCALE: Activities may be completed with or without assistive devices. 1-Erkvsqjzhh-ahypowm completes the activity by him/herself with no assistance from a helper. 5-Set-up or Clean-up Assistance-helper sets up or cleans up; patient completes activity. [place] assists only prior to or following the activity. 4-Supervision or Touching Assistance-helper provides verbal cues and/or touching/steadying and/or contact guard assistance as patient completes activity. Assistance may be provided throughout the activity or intermittently. 3-Partial/Moderate Assistance-helper does LESS THAN HALF the effort. [place] lifts, holds or supports trunk or limbs, but provides less than half the effort. 2-Substantial/Maximal Assistance-helper does MORE THAN HALF the effort. [place] lifts or holds trunk or limbs and provides more than half the effort. 6-Ndhqzewvr-pqmead does ALL the effort. Patient does none of the effort to complete the activity. Or, the assistance of 2 or more helpers is required for the patient to complete the activity. If activity was not attempted, code reason: 7-Patient Refused. 9-Not Applicable-not attempted and the patient did not perform the activity before the current illness, exacerbation or injury. 10-Not Attempted due to Environmental Limitations-(lack of equipment, weather restraints, etc.). 88-Not Attempted due to Medical Conditions or Safety Concerns. Roll Left to Right (QC): 3 Sit to Lying (QC): 3 Sit to Stand (QC): 3 Chair/Sxk-pw-Lafvt Xfer(QC): 4 Car Transfer (QC): 7 Gait Training Does the Patient Walk?: Yes Distance: 6, 6 Walk 10 feet (QC): 07 Walk 50 ft with 2 Turns(QC): 7 Walk 150 ft (QC): 7 Walking 10ft/uneven surface-QC: 7 Gait Assistive Device: Parallel Bars Wheelchair Training Does the Pt Use a Wheelchair?: Yes Wheel 50 ft with 2 turns (QC): 07 Wheel 150 ft (QC): 7 Type of Wheelchair: Manual Stair Training 1 Step (curb) (QC): 88 4 Steps (QC): 88 12 Steps (QC): 88 Balance Picking up an Object (QC): 88 ADL-Treatment Eating (QC): 6 (fed self w/ adapted utensils) Oral Hygiene (QC): 2 (OT soaked and brushed dentures, pat removed and placed in pink bowl) Bathing Location: L Arm, R Arm, Chest Shower/Bathe Self (QC): 3 (OT provided set up of soap and rinse and dry wash clothies, patient cleansed BUE/axilla and across chest, face and ears with wrung clothes. Pt retreived clothes from set on FWW in nearby reach) Upper Body Dressing (QC): 3 Lower Body Dressing (QC): 7 On/Off Footwear (QC): 3 (OT provided set up of yellow sock on sock aid, instructed pt to use B hands to pull device on foot. Patient able to don left foot w/ OT placing device on foot and pt pulled. Wound dresssing assessed and remains on foot. Pt improved independence with Right foot and lifted foot into device and pulled on while in knee extension and foot elevated off floor) Toileting Hygiene (QC): 5 (Patien sitting in recliner, pt moved side of brief on right side and placed urinal between legs to void. At completion handed OT u rinal ) Toilet Transfer (QC): 3 (OT assist transfer from bed to recliner w/ FWW and gait belt w/ bed elevated and knees flexed hips slightly extended. Refused ambulation to bathroom or use of commode) Assessment/Plan Assessment and Plan Assess & Plan/Chief Complaint Assessment: Cervical spine myelopathy s/p fusion Smoker HTN HLP BPH Chronic kidney disease stage IIIb Cognitive deficit suspected dementia but can follow instructions Plan: Monitor closely Pain control PT OT 12/22/2022: Work-up of altered mental status 12/23/2022: Monitor closely 12/24/2022: Skilled facility for slower recovery since he refuses to wear c collar He will be able to participate with therapy in skilled since it will be slower pace and cognition will not curtail progress 12/25/2022: Monitor closely 12/26/2022: Monitor closely (1) Cervical myelopathy COREY DELONG DO Dec 26, 2022 07:42
[2022-12-26] MEDS: metFORMIN 500 MG (GLUCOPHAGE) TAB PO SCH ×2 (08:53→17:01)
[2022-12-26] MEDS: EMPAGLIFLOZIN 10 MG TABLET (JARDIANCE) PO SCH (08:53)
[2022-12-26] MEDS: SENNA W/DOCUSATE (SENOKOT S) TABLET PO SCH ×2 (08:53→20:52)
[2022-12-26] MEDS: DOCUSATE SODIUM 100 MG (COLACE) CAP PO SCH ×2 (08:54→20:52)
[2022-12-26] MEDS: polyethylene glycoL POWDER 17 GM (MIRALAX) PACK PO SCH ×2 (08:54→20:51)
[2022-12-26] MEDS: LORATADINE (CLARITIN) 10 MG TAB PO SCH (08:54)
[2022-12-26] MEDS: ARTIFICAL TEARS 0.4 ML UNIT DOSE (REFRESH PLUS) OU SCH ×2 (08:54→20:51)
[2022-12-26] MEDS: LOSARTAN 25 MG (COZAAR) TAB PO SCH (08:54)
[2022-12-26] MEDS: MICONAZOLE 2% POWDER (DESENEX AF) 90 GM TOP SCH ×2 (08:54→20:52)
[2022-12-26] MEDS: BACLOFEN 10 MG (LIORESAL) TAB PO SCH ×2 (08:54→20:52)
[2022-12-26] MEDS: LIDOCAINE PATCH REMOVAL TP SCH (19:36)
[2022-12-26 20:03] VITALS: BP 125/56
[2022-12-26] MEDS: TERAZOSIN 5 MG (HYTRIN) CAPSULE PO SCH (20:52)
[2022-12-27] MEDS: HYDROcodone/APAP 5 MG/325 MG (LORTAB) TAB PO PRN ×2 (05:58→15:11)
[2022-12-27] MEDS: inSUlin ASPART (NovoLOG) 1 UNIT/0.01 ML (CHARGE PER UNIT) SC SCH ×2 (05:59→12:40)
--- NOTE | 2022-12-27 06:18 | PM&R Progress Note ---
Subjective HPI/CC On Admission Date Seen by Provider: Dec 27, 2022 Time Seen by Provider: 09:00 Subjective/Events-last exam 12/27/2022: 12/26/2022: No major issues Checked meds and labs No falls Pain controlled 12/25/2022: No major issues Seems to be improved Less confusion More willing to participate 12/24/2022: Continues to have issues with pain due to not wearing C collar and shock like neuro pain from cervical spine surgery occurs Needs NH placement Cognition is overall functional and would be able to work with therapy at a skilled facility but will need heavy cues and reassurance Patient adamant about not wearing c-collar 12/23/2022: Improved but seems that his pain meds increase confusion so will change regimen No falls Eating and drinking well Participation is better 12/22/2022: Patient did not sleep well last night Patient refusing therapy Refusing to get out of bed Appears to be cognitively diminished Ammonia checked and it was normal Creatinine is 1.6 consistent with chronic kidney disease Check ABG for hypercapnia and CO2 narcosis Review of Systems General: Fatigue, Malaise Objective Exam Vital Signs Vital Signs Date Time Temp Pulse Resp B/P (MAP) Pulse Ox O2 Delivery O2 Flow Rate FiO2 12/27/22 10:30 99/58 (72) 12/27/22 09:25 72 18 96 Room Air 12/27/22 08:00 35.6 Capillary Refill : General Appearance: No Apparent Distress, WD/WN, Chronically ill HEENT: PERRL/EOMI, Normal ENT Inspection, Pharynx Normal Neck: Full Range of Motion, Normal Inspection, Non Tender, Supple, Carotid Bruit Respiratory: Chest Non Tender, Lungs Clear, Normal Breath Sounds, No Accessory Muscle Use, No Respiratory Distress Cardiovascular: Regular Rate, Rhythm, No Edema, No Gallop, No JVD, No Murmur, Normal Peripheral Pulses Gastrointestinal: Normal Bowel Sounds, No Organomegaly, No Pulsatile Mass, Non Tender, Soft Back: Normal Inspection, Decreased Range of Motion, Muscle Spasm, Vertebral Tenderness Extremity: Normal Capillary Refill, Normal Inspection, Normal Range of Motion, Non Tender, No Calf Tenderness, No Pedal Edema Neurologic/Psychiatric: Alert, No Motor/Sensory Deficits, manufacturing storeperson II-XII Norm as Tested, Abnormal Gait, Depressed Affect, Motor Weakness Skin: Normal Color, Warm/Dry Lymphatic: No Adenopathy Results/Procedures Lab Laboratory Tests 3/13/23 06:28 Patient resulted labs reviewed. FIM Transfers Therapy Code Descriptions/Definitions Functional [place] Measure: 0=Not Assessed/NA 4=Minimal Assistance 1=Total Assistance 5=Supervision or Setup 2=Maximal Assistance 6=Modified [place] 3=Moderate Assistance 7=Complete IndependenceSCALE: Activities may be completed with or without assistive devices. 3-Zflpinftlt-gbtephm completes the activity by him/herself with no assistance from a helper. 5-Set-up or Clean-up Assistance-helper sets up or cleans up; patient completes activity. [place] assists only prior to or following the activity. 4-Supervision or Touching Assistance-helper provides verbal cues and/or touching/steadying and/or contact guard assistance as patient completes activity. Assistance may be provided throughout the activity or intermittently. 3-Partial/Moderate Assistance-helper does LESS THAN HALF the effort. [place] lifts, holds or supports trunk or limbs, but provides less than half the effort. 2-Substantial/Maximal Assistance-helper does MORE THAN HALF the effort. [place] lifts or holds trunk or limbs and provides more than half the effort. 9-Nopmukzlq-pzcahx does ALL the effort. Patient does none of the effort to complete the activity. Or, the assistance of 2 or more helpers is required for the patient to complete the activity. If activity was not attempted, code reason: 7-Patient Refused. 9-Not Applicable-not attempted and the patient did not perform the activity before the current illness, exacerbation or injury. 10-Not Attempted due to Environmental Limitations-(lack of equipment, weather restraints, etc.). 88-Not Attempted due to Medical Conditions or Safety Concerns. Roll Left to Right (QC): 3 Sit to Lying (QC): 3 Sit to Stand (QC): 3 Chair/Gzc-cc-Ik[place] Xfer(QC): 4 Car Transfer (QC): 7 Gait Training Does the Patient Walk?: Yes Distance: 6, 6 Walk 10 feet (QC): 07 Walk 50 ft with 2 Turns(QC): 7 Walk 150 ft (QC): 7 Walking 10ft/uneven surface-QC: 7 Gait Assistive Device: Parallel Bars Wheelchair Training Does the Pt Use a Wheelchair?: Yes Wheel 50 ft with 2 turns (QC): 07 Wheel 150 ft (QC): 7 Type of Wheelchair: Manual Stair Training 1 Step (curb) (QC): 88 4 Steps (QC): 88 12 Steps (QC): 88 Balance Picking up an Object (QC): 88 ADL-Treatment Eating (QC): 6 (fed self w/ adapted utensils) Oral Hygiene (QC): 2 (OT soaked and brushed dentures, pat removed and placed in pink bowl) Bathing Location: L Arm, R Arm, Chest Shower/Bathe Self (QC): 3 (OT provided set up of soap and rinse and dry wash clothies, patient cleansed BUE/axilla and across chest, face and ears with wrung clothes. Pt retreived clothes from set on FWW in nearby reach) Upper Body Dressing (QC): 3 Lower Body Dressing (QC): 7 On/Off Footwear (QC): 3 (OT provided set up of yellow sock on sock aid, instructed pt to use B hands to pull device on foot. Patient able to don left foot w/ OT placing device on foot and pt pulled. Wound dresssing assessed and remains on foot. Pt improved independence with Right foot and lifted foot into device and pulled on while in knee extension and foot elevated off floor) Toileting Hygiene (QC): 5 (Patien sitting in recliner, pt moved side of brief on right side and placed urinal between legs to void. At completion handed OT urinal ) Toilet Transfer (QC): 3 (OT assist transfer from bed to recliner w/ FWW and gait belt w/ bed elevated and knees flexed hips slightly extended. Refused ambulation to bathroom or use of commode) Assessment/Plan Assessment and Plan Assess & Plan/Chief Complaint Assessment: Cervical spine myelopathy s/p fusion Smoker HTN HLP BPH Chronic kidney disease stage IIIb Cognitive deficit suspected dementia but can follow instructions Plan: Monitor closely Pain control PT OT 12/22/2022: Work-up of altered mental status 12/23/2022: Monitor closely 12/24/2022: Skilled facility for slower recovery since he refuses to wear c collar He will be able to participate with therapy in skilled since it will be slower pace and cognition will not curtail progress 12/25/2022: Monitor closely 12/26/2022: Monitor closely 12/27/2022: (1) Cervical myelopathy COREY DELOGN DO Dec 27, 2022 06:18
[2022-12-27 06:34] LABS: BASOPHILS # (AUTO) 0.1 10^3/uL (0.0-0.1); BASOPHILS % (AUTO) 1 % (0-10); EOSINOPHILS # (AUTO) 0.2 10^3/uL (0.0-0.3); EOSINOPHILS % (AUTO) 2 % (0-10); HEMATOCRIT 34 % (40-54); HEMOGLOBIN 10.9 g/dL (13.3-17.7); LYMPHOCYTES # (AUTO) 1.7 10^3/uL (1.0-4.0); LYMPHOCYTES % (AUTO) 16 % (12-44); MEAN CORPUSCULAR HEMOGLOBIN 28 pg (25-34); MEAN CORPUSCULAR HGB CONC 32 g/dL (32-36); MEAN CORPUSCULAR VOLUME 87 fL (80-99); MONOCYTES # (AUTO) 0.7 10^3/uL (0.0-1.0); MONOCYTES % (AUTO) 7 % (0-12); NEUTROPHILS # (AUTO) 8.1 10^3/uL (1.8-7.8); NEUTROPHILS % (AUTO) 75 % (42-75); PLATELET COUNT 333 10^3/uL (130-400); WHITE BLOOD COUNT 10.8 10^3/uL (4.3-11.0)
[2022-12-27 06:43] LABS: ALBUMIN 3.4 GM/DL (3.2-4.5); POTASSIUM 4.6 MMOL/L (3.6-5.0)
[2022-12-27 06:45] LABS: CALCIUM 9.3 MG/DL (8.5-10.1)
[2022-12-27 06:46] LABS: TOTAL PROTEIN 7.1 GM/DL (6.4-8.2)
[2022-12-27 06:48] LABS: BILIRUBIN,TOTAL 0.5 MG/DL (0.1-1.0)
[2022-12-27 06:49] LABS: CREATININE SERUM 1.31 MG/DL (0.60-1.30)
[2022-12-27 08:00] VITALS: BP 109/57
--- NOTE | 2022-12-27 08:20 | Physical Therapy Daily Note ---
PT Daily Note-Current Subjective Patient in bed pre tx, refuses therapy this morning, however would like to get dressed and into his recliner. Patient has unrated neck pain. Patient states "I'm done with it, I'm not doing therapy today". Pain Section J - Health Conditions 1. Rarely or not at all 2. Occasionally 3. Frequently 4. Almost constantly 8. Unable to answer Pain Effect on Sleep: 4 Pain Interference with Therapy: 4 Pain Interference w/Day-to-Day: 4 Appearance Patient in recliner post tx with nurse call, phone, tray, chair alarm on. Mental Status Patient Orientation: Person, Place, Situation Transfers SCALE: Activities may be completed with or without assistive devices. 0-Pxqpiwqwsb-wxxswmc completes the activity by him/herself with no assistance from a helper. 5-Set-up or Clean-up Assistance-helper sets up or cleans up; patient completes activity. [place] assists only prior to or following the activity. 4-Supervision or Touching Assistance-helper provides verbal cues and/or touching/steadying and/or contact guard assistance as patient completes activity. Assistance may be provided throughout the activity or intermittently. 3-Partial/Moderate Assistance-helper does LESS THAN HALF the effort. [place] lifts, holds or supports trunk or limbs, but provides less than half the effort. 2-Substantial/Maximal Assistance-helper does MORE THAN HALF the effort. [place] lifts or holds trunk or limbs and provides more than half the effort. 4-[place]-wurnat does ALL the effort. Patient does none of the effort to complete the activity. Or, the assistance of 2 or more helpers is required for the patient to complete the activity. If activity was not attempted, code reason: 7-Patient Refused. 9-Not Applicable-not attempted and the patient did not perform the activity before the current illness, exacerbation or injury. 10-Not Attempted due to Environmental Limitations-(lack of equipment, weather restraints, etc.). 88-Not Attempted due to Medical Conditions or Safety Concerns. Roll Left & Right (QC): 4 Lying to Sitting/Side of Bed(Q: 4 Sit to Stand (QC): 3 Chair/Dhv-hp-Wmleq Xfer(QC): 4 Patient sits to the side of the bed with SBA, therapist assists patient with putting on his shirt and sliding his shorts on his legs, patient stands with min assist, therapist pulls up his shorts and patient ambulates about 3' to the recliner, turns, reaches back for the armrests, and sits with CGA. Patient is situated comfortably and left with tray, phone, nurse call. Weight Bearing Patient is supposed to wear a cervical collar but refuses. Treatments bed mobility and transfers, ambulation Assessment Current Status: Fair Progress improved supine to sit, refuses any more therapy though. PT Fci Goals Fci Goals PT Fci Goals Time Frame: Jan 05, 2023 Roll Left & Right (QC): 4 Sit to Lying (QC): 4 Lying-Sitting on Side/Bed(QC): 4 Sit to Stand (QC): 4 (CGA) Chair/Wfl-co-Xndmh Xfer(QC): 4 (CGA) Toilet Transfer (QC): 4 (CGA) Car Transfer (QC): 4 (CGA) Does the Patient Walk: No and Walking Goal IS indicated Walk 10 feet (QC): 4 (CGA) Walk 50ft with 2 Turns (QC): 4 (CGA) Walk 150 ft (QC): 4 (CGA) Walking 10ft on Uneven Surface: 4 (CGA) 1 Step (curb) (QC): 4 (CGA) 4 Steps (QC): 4 (CGA) 12 Steps (QC): 88 Picking up an Object (QC): 4 (SBA using a cotton agent) Wheel 50 feet with 2 turns (QC: 4 (SBA) Wheel 150 feet: 4 (SBA) PT Plan Problem List Problem List: Activity Tolerance, Functional Strength, Safety, Balance, Gait, Transfer, Bed Mobility, ROM Treatment/Plan Treatment Plan: Continue Plan of Care Treatment Plan: Bed Mobility, Education, Functional Activity Janeth, Functional Strength, Group Therapy, Gait, Safety, Therapeutic Exercise, Transfers Treatment Duration: Jan 05, 2023 Frequency: At least 5 of 7 days/Wk (IRF) Estimated Hrs Per Day: 1.5 hours per day Patient and/or Family Agrees t: Yes Safety Risks/Education Patient Education: Gait Training, Transfer Techniques, Correct Positioning, Safety Issues Teaching Recipient: Patient Teaching Methods: Demonstration, Discussion Response to Teaching: Reinforcement Needed Time Time In: 0800 Time Out: 0820 DATE: Dec 27, 2022 Total Billed Treatment Time: 20 Total Billed Treatment 1 visit FA 20' ÁLVARO RIDER PT Dec 27, 2022 08:20
[2022-12-27] MEDS: LORATADINE (CLARITIN) 10 MG TAB PO SCH (09:20)
[2022-12-27] MEDS: LOSARTAN 25 MG (COZAAR) TAB PO SCH ×2 (09:20→11:46)
[2022-12-27] MEDS: BACLOFEN 10 MG (LIORESAL) TAB PO SCH (09:20)
[2022-12-27] MEDS: EMPAGLIFLOZIN 10 MG TABLET (JARDIANCE) PO SCH (09:21)
[2022-12-27] MEDS: ARTIFICAL TEARS 0.4 ML UNIT DOSE (REFRESH PLUS) OU SCH (09:21)
[2022-12-27 09:25] VITALS: BP 109/67
[2022-12-27 09:28] VITALS: BP 108/62
[2022-12-27] MEDS: DOCUSATE SODIUM 100 MG (COLACE) CAP PO SCH (09:32)
--- NOTE | 2022-12-27 09:33 | Occ Therapy Progress Note ---
Therapy Progress Note OT tx attempted at 914, pt adamantly refused OT services at this time stating he isn't doing therapy today. OT provided education on purpose and benefit of OT, with offer for ADLs or UE exercise session, but pt continued to refuse. OT will attempt tx again next available time. 1, refusal. RENITA VILCHIS OT Dec 27, 2022 09:33
[2022-12-27] MEDS: LACTULOSE SYRUP 10GM/15ML (ENULOSE) 30ML UDC PO PRN (09:35)
[2022-12-27] MEDS: polyethylene glycoL POWDER 17 GM (MIRALAX) PACK PO SCH (09:35)
[2022-12-27] MEDS: metFORMIN 500 MG (GLUCOPHAGE) TAB PO SCH (09:39)
[2022-12-27] MEDS: SENNA W/DOCUSATE (SENOKOT S) TABLET PO SCH (09:40)
[2022-12-27] MEDS: MICONAZOLE 2% POWDER (DESENEX AF) 90 GM TOP SCH (09:43)
[2022-12-27 10:30] VITALS: BP 99/58
--- NOTE | 2022-12-27 11:35 | IRF PAI BIMS ---
BIMS CAM BIMS Expression of Ideas and Wants: Without Difficulty Understanding Verbal Content: Understands Brief Interview/Mental Status: Yes IRF TERE BIMS: IRF TERE BIMS Response (Comments) Value Repitition of Three Words Three 3 Recalls Socks Yes, After Cueing (Wear) 1 Recalls Blue Yes, After Cueing (Color) 1 Recalls Bed No, Could Not Recall 0 Year Correct 3 Month Accurate Within 5 Days 2 Day Correct 1 Total 11 CAM Mental Status Change/Baseline: 0 Inattention: 0 Disorganized thinkin Altered level of consciousness: 0 RENITA VILCHIS OT Dec 27, 2022 11:34
--- NOTE | 2022-12-27 11:36 | Occ Therapy Progress Note ---
Therapy Progress Note OT tx attempted at 1130, pt again refused OT services at this time. Pt states he is leaving with or without doctor's permission on this date. RN aware of situation. OT educated pt on purpose/benefit of OT, he verbalized understanding but continued to refuse OT txs. Pt only agreed to complete BIMS/CAMs assessment, but declined ADLs, exercises, and functional activities offered. OT will attempt tx again next available time. 1, refusal REINTA VILCHIS OT Dec 27, 2022 11:36
[2022-12-27] MEDS ORDERED: BACL20TA PO (12:58)
[2022-12-27] MEDS ORDERED: OXC5T PO (12:58)
[2022-12-27] MEDS ORDERED: METH-732 PO (12:58)
--- NOTE | 2022-12-27 13:01 | D/C HH Face to Face Order ---
D/C HH Face to Face Orders Reconcile Patient Problems Problems Reviewed?: Yes Instructions for Patient HH Patient Instructions/FollowUp: PCP 1 week Physician to follow Patient: PCP Discharge Diet for Home: ADA Diet Patient Problems: Debility C spine surgery Patient Data-Allergies,Ht & Wt Patient Allergies: Coded Allergies: clarithromycin (Verified Allergy, Mild, nausea, 12/21/22) cyclobenzaprine (Verified Allergy, Unknown, N/V, 12/21/22) methadone (Verified Allergy, Unknown, hallucinations, 12/21/22) Home Health Need/Face to Face Date of Face to Face: Dec 27, 2022 Clinical Findings: Generalized weakness and fatigue, Instability, Muscle weakness, Non or partial weight bearing, Pain with ambulation, Unsteady gait I have seen Pt [id number]: Yes Discharged To: Home Diagnosis/Conditions: Debility Patient is Homebound due to: CognItive deficits, Yas fall risk due to instabilty, Muscle weakness Homebound Status Due to the above stated illness, injury or surgical procedure (medical condition or diagnosis) and associated clinical findings, the patient is homebound because of his/her inability to leave home except with aid of a supportive device and/or person AND leaving the home requires a considerable and taxing effort or is medically contraindicated. Pt req the following assistanc: Walker Home Health Nursing Orders Home Health Services Order: Nursing Services, Co Chairman-Evaluate & Treat, Physical Therapy-Evaluate & Treat Certify Stmt I certify that this patient is under my care and that I, a nurse practitioner or a physician; a investigative assistant working with me, had a face to face encounter that - meets the physician face to face encounter requirements with this patient as COREY Cole DO Dec 27, 2022 13:01
--- NOTE | 2022-12-27 13:02 | Discharge Summary ---
Diagnosis/Chief Complaint Date of Admission Dec 21, 2022 at 17:56 Date of Discharge Discharge Date: Dec 27, 2022 Discharge Diagnosis Assessment: Cervical spine myelopathy s/p fusion Smoker HTN HLP BPH Chronic kidney disease stage IIIb Cognitive deficit suspected dementia but can follow instructions Plan: Monitor closely Pain control PT OT 12/22/2022: Work-up of altered mental status 12/23/2022: Monitor closely 12/24/2022: Skilled facility for slower recovery since he refuses to wear c collar He will be able to participate with therapy in skilled since it will be slower pace and cognition will not curtail progress 12/25/2022: Monitor closely 12/26/2022: Monitor closely (1) Cervical myelopathy Discharge Summary Discharge Physical Examination Allergies: Coded Allergies: clarithromycin (Verified Allergy, Mild, nausea, 12/21/22) cyclobenzaprine (Verified Allergy, Unknown, N/V, 12/21/22) methadone (Verified Allergy, Unknown, hallucinations, 12/21/22) Vitals & I&Os Vital Signs Date Time Temp Pulse Resp B/P (MAP) Pulse Ox O2 Delivery O2 Flow Rate FiO2 12/27/22 16:10 36.1 81 20 118/67 98 Room Air General Appearance: Alert, Oriented X3, Cooperative Respiratory: Clear to Auscultation Hospital Course Was the Problem List Reviewed?: Yes Short course after arriving from following cervical spine surgery. Cognitive deficit was noted which complicated therapy schedule. Labs remained stable. Refused to wear neck collar and was aware of this prior to admit but nerve pain was a limitation due to lack of c collar support. Overall he remained stable and was DC on HH. Labs (last 24 hrs) Laboratory Tests 12/22/22 04:50: White Blood Count 9.5, Red Blood Count 3.57L, Hemoglobin 10.1L, Hematocrit 30L, Mean Corpuscular Volume 85, Mean Corpuscular Hemoglobin 28, Mean Corpuscular Hemoglobin Concent 33, Red Cell Distribution Width 14.9H, Platelet Count 287, Mean Platelet Volume 9.9, Immature Granulocyte % (Auto) 0, Neutrophils (%) (Auto) 76H, Lymphocytes (%) (Auto) 12, Monocytes (%) (Auto) 11, Eosinophils (%) (Auto) 1, Basophils (%) (Auto) 0, Neutrophils # (Auto) 7.2, Lymphocytes # (Auto) 1.2, Monocytes # (Auto) 1.1H, Eosinophils # (Auto) 0.1, Basophils # (Auto) 0.0, Immature Granulocyte # (Auto) 0.0, Sodium Level 134L, Potassium Level 3.7, Chloride Level 97L, Carbon Dioxide Level 23, Anion Gap 14, Blood Urea Nitrogen 27H, Creatinine 1.67H, Estimat Glomerular Filtration Rate 46, BUN/Creatinine Rat io 16, Glucose Level 268H, Mean Blood Glucose 148H, Hemoglobin A1c 6.8H, Calcium Level 9.6, Corrected Calcium 10.0, Total Bilirubin 0.9, Aspartate Amino Transf (AST/SGOT) 20, Alanine Aminotransferase (ALT/SGPT) 17, Alkaline Phosphatase 78, Total Protein 7.3, Albumin 3.5 12/22/22 09:45: Ammonia 26 12/22/22 11:11: Blood Gas Puncture Site R RADIAL, Blood Gas Patient Temperature 36.3, Arterial Blood pH 7.42, Arterial Blood Partial Pressure CO2 42, Arterial Blood Partial Pressure O2 60L, Arterial Blood HCO3 27, Arterial Blood Total CO2 28.6, Arterial Blood Oxygen Saturation 93L, Arterial Blood Base Excess 3.0H, Biju Test YES- POS, Blood Gas Ventilator Setting NO, Blood Gas Inspired Oxygen RA 12/22/22 11:41: Glucometer 225H 12/22/22 15:20: Glucometer 187H 12/22/22 20:09: Glucometer 190H 12/23/22 05:13: Glucometer 218H 12/23/22 05:48: White Blood Count 9.4, Red Blood Count 3.68L, Hemoglobin 10.3L, Hematocrit 31L, Mean Corpuscular Volume 85, Mean Corpuscular Hemoglobin 28, Mean Corpuscular Hemoglobin Concent 33, Red Cell Distribution Width 14.8H, Platelet Count 313, Mean Platelet Volume 9.9, Immature Granulocyte % (Auto) 1, Neutrophils (%) (Auto) 77H, Lymphocytes (%) (Auto) 11L, Monocytes (%) (Auto) 10, Eosinophils (%) (Auto) 1, Basophils (%) (Auto) 0, Neutrophils # (Auto) 7.2, Lymphocytes # (Auto) 1.0, Monocytes # (Auto) 1.0, Eosinophils # (Auto) 0.1, Basophils # (Auto) 0.0, Immature Granulocyte # (Auto) 0.1, Sodium Level 138, Potassium Level 3.8, Chloride Level 102, Carbon Dioxide Level 22, Anion Gap 14, Blood Urea Nitrogen 31H, Creatinine 1.72H, Estimat Glomerular Filtration Rate 44, BUN/Creatinine Ratio 18, Glucose Level 221H, Calcium Level 9.1, Corrected Calcium 9.7, Total Bilirubin 0.7, Aspartate Amino Transf (AST/SGOT) 24, Alanine Aminotransferase (ALT/SGPT) 20, Alkaline Phosphatase 73, Total Protein 6.9, Albumin 3.3 12/23/22 11:28: Glucometer 247H 12/23/22 15:23: Glucometer 180H 12/23/22 20:23: Glucometer 181H 12/24/22 05:40: Glucometer 236H 12/24/22 10:37: Glucometer 298H 12/24/22 16:48: Glucometer 196H 12/24/22 20:24: Glucometer 227H 12/25/22 05:44: Glucometer 247H 12/25/22 11:06: Glucometer 241H 12/25/22 15:27: Glucometer 222H 12/25/22 21:01: Glucometer 237H 12/26/22 06:05: Glucometer 208H 12/26/22 10:52: Glucometer 192H 12/26/22 15:28: Glucometer 204H 12/26/22 20:26: Glucometer 179H 12/27/22 05:52: Glucometer 198H 12/27/22 06:28: White Blood Count 10.8, Red Blood Count 3.90L, Hemoglobin 10.9L, Hematocrit 34L, Mean Corpuscular Volume 87, Mean Corpuscular Hemoglobin 28, Mean Corpuscular Hemoglobin Concent 32, Red Cell Distribution Width 14.6H, Platelet Count 333, Mean Platelet Volume 10.0, Immature Granulocyte % (Auto) 1, Neutrophils (%) (Auto) 75, Lymphocytes (%) (Auto) 16, Monocytes (%) (Auto) 7, Eosinophils (%) (Auto) 2, Basophils (%) (Auto) 1, Neutrophils # (Auto) 8.1H, Lymphocytes # (Auto) 1.7, Monocytes # (Auto) 0.7, Eosinophils # (Auto) 0.2, Basophils # (Auto) 0.1, Immature Granulocyte # (Auto) 0.1, Sodium Level 138, Potassium Level 4.6, Chloride Level 104, Carbon Dioxide Level 22, Anion Gap 12, Blood Urea Nitrogen 27H, Creatinine 1.31H, Estimat Glomerular Filtration Rate 62, BUN/Creatinine Ratio 21, Glucose Level 198H, Calcium Level 9.3, Corrected Calcium 9.8, Total Bilirubin 0.5, Aspartate Amino Transf (AST/SGOT) 16, Alanine Aminotransferase (ALT/SGPT) 17, Alkaline Phosphatase 93, Total Protein 7.1, Albumin 3.4 12/27/22 10:58: Glucometer 192H Pending Labs Laboratory Tests 12/22/22 04:50: White Blood Count 9.5, Red Blood Count 3.57, Hemoglobin 10.1, Hematocrit 30, Mean Corpuscular Volume 85, Mean Corpuscular Hemoglobin 28, Mean Corpuscular Hemoglobin Concent 33, Red Cell Distribution Width 14.9, Platelet Count 287, Mean Platelet Volume 9.9, Immature Granulocyte % (Auto) 0, Neutrophils (%) (Auto) 76, Lymphocytes (%) (Auto) 12, Monocytes (%) (Auto) 11, Eosinophils (%) (Auto) 1, Basophils (%) (Auto) 0, Neutrophils # (Auto) 7.2, Lymphocytes # (Auto) 1.2, Monocytes # (Auto) 1.1, Eosinophils # (Auto) 0.1, Basophils # (Auto) 0.0, Immature Granulocyte # (Auto) 0.0, Sodium Level 134, Potassium Level 3.7, Chloride Level 97, Carbon Dioxide Level 23, Anion Gap 14, Blood Urea Nitrogen 27, Creatinine 1.67, Estimat Glomerular Filtration Rate 46, BUN/Creatinine Ratio 16, Glucose Level 268, Mean Blood Glucose 148, Hemoglobin A1c 6.8, Calcium Level 9.6, Corrected Calcium 10.0, Total Bilirubin 0.9, Aspartate Amino Transf (AST/SGOT) 20, Alanine Aminotransferase (ALT/SGPT) 17, Alkaline Phosphatase 78, Total Protein 7.3, Albumin 3.5 12/22/22 09:45: Ammonia 26 12/22/22 11:11: Blood Gas Puncture Site R RADIAL, Blood Gas Patient Temperature 36.3, Arterial Blood pH 7.42, Arterial Blood Partial Pressure CO2 42, Arterial Blood Partial Pressure O2 60, Arterial Blood HCO3 27, Arterial Blood Total CO2 28.6, Arterial Blood Oxygen Saturation 93, Arterial Blood Base Excess 3.0, Biju Test YES-POS, Blood Gas Ventilator Setting NO, Blood Gas Inspired Oxygen RA 12/22/22 11:41: Glucometer 225 12/22/22 15:20: Glucometer 187 12/22/22 20:09: Glucometer 190 12/23/22 05:13: Glucometer 218 12/23/22 05:48: White Blood Count 9.4, Red Blood Count 3.68, Hemoglobin 10.3, Hematocrit 31, Mean Corpuscular Volume 85, Mean Corpuscular Hemoglobin 28, Mean Corpuscular Hemoglobin Concent 33, Red Cell Distribution Width 14.8, Platelet Count 313, Mean Platelet Volume 9.9, Immature Granulocyte % (Auto) 1, Neutrophils (%) (Auto) 77, Lymphocytes (%) (Auto) 11, Monocytes (%) (Auto) 10, Eosinophils (%) (Auto) 1, Basophils (%) (Auto) 0, Neutrophils # (Auto) 7.2, Lymphocytes # (Auto) 1.0, Monocytes # (Auto) 1.0, Eosinophils # (Auto) 0.1, Basophils # (Auto) 0.0, Immature Granulocyte # (Auto) 0.1, Sodium Level 138, Potassium Level 3.8, Chloride Level 102, Carbon Dioxide Level 22, Anion Gap 14, Blood Urea Nitrogen 31, Creatinine 1.72, Estimat Glomerular Filtration Rate 44, BUN/Creatinine Ratio 18, Glucose Level 221, Calcium Level 9.1, Corrected Calcium 9.7, Total Bilirubin 0.7, Aspartate Amino Transf (AST/SGOT) 24, Alanine Aminotransferase (ALT/SGPT) 20, Alkaline Phosphatase 73, Total Protein 6.9, Albumin 3.3 12/23/22 11:28: Glucometer 247 12/23/22 15:23: Glucometer 180 12/23/22 20:23: Glucometer 181 12/24/22 05:40: Glucometer 236 12/24/22 10:37: Glucometer 298 12/24/22 16:48: Glucometer 196 12/24/22 20:24: Glucometer 227 12/25/22 05:44: Glucometer 247 12/25/22 11:06: Glucometer 241 12/25/22 15:27: Glucometer 222 12/25/22 21:01: Glucometer 237 12/26/22 06:05: Glucometer 208 12/26/22 10:52: Glucometer 192 12/26/22 15:28: Glucometer 204 12/26/22 20:26: Glucometer 179 12/27/22 05:52: Glucometer 198 12/27/22 06:28: White Blood Count 10.8, Red Blood Count 3.90, Hemoglobin 10.9, Hematocrit 34, Mean Corpuscular Volume 87, Mean Corpuscular Hemoglobin 28, Mean Corpuscular Hemoglobin Concent 32, Red Cell Distribution Width 14.6, Platelet Count 333, Mean Platelet Volume 10.0, Immature Granulocyte % (Auto) 1, Neutrophils (%) (Auto) 75, Lymphocytes (%) (Auto) 16, Monocytes (%) (Auto) 7, Eosinophils (%) (Auto) 2, Basophils (%) (Auto) 1, Neutrophils # (Auto) 8.1, Lymphocytes # (Auto) 1.7, Monocytes # (Auto) 0.7, Eosinophils # (Auto) 0.2, Basophils # (Auto) 0.1, Immature Granulocyte # (Auto) 0.1, Sodium Level 138, Potassium Level 4.6, Chloride Level 104, Carbon Dioxide Level 22, Anion Gap 12, Blood Urea Nitrogen 27, Creatinine 1.31, Estimat Glomerular Filtration Rate 62, BUN/Creatinine Ratio 21, Glucose Level 198, Calcium Level 9.3, Corrected Calcium 9.8, Total Bilirubin 0.5, Aspartate Amino Transf (AST/SGOT) 16, Alanine Aminotransferase (ALT/SGPT) 17, Alkaline Phosphatase 93, Total Protein 7.1, Albumin 3.4 12/27/22 10:58: Glucometer 192 Discharge Home Medications: Active Scripts Active Oxyir Tablet (Oxycodone HCl) 5 Mg Tab 5 Mg PO Q4H PRN Methocarbamol 750 Mg Tablet 750 Mg PO TID Baclofen 20 Mg Tablet 20 Mg PO BID Reported Terazosin HCl 10 Mg Capsule 10 Mg PO HS Simvastatin 80 Mg Tablet 80 Mg PO HS Sildenafil Citrate 100 Mg Tablet 100 Mg PO PRN Metoprolol Succinate 25 Mg Tab.er.24h 25 Mg PO DAILY Metformin HCl 1,000 Mg Tablet 1,000 Mg PO BID Losartan Potassium 25 Mg Tablet 12.5 Mg PO DAILY Lidocaine 5% Patch (Lidocaine) 5 % Adh..patch 1 Each TP Q12H PRN MDD 2 2 patches max for 12 hours, then 12 hours patch-free period. Jardiance (Empagliflozin) 10 Mg Tablet 10 Mg PO DAILY Cetirizine HCl 10 Mg Tab.chew 10 Mg PO DAILY Refresh Tears (Carboxymethylcellulose Sodium) 0.5 % Drops 15 Ml OP BID Instructions to patient/family Please see electronic discharge instructions given to patient. Diagnosis/Problems Diagnosis/Problems (1) Cervical myelopathy COREY DELONG DO Dec 27, 2022 13:01
[2022-12-27 15:35] VITALS: BP 118/67
[2022-12-27 16:10] VITALS: BP 118/67
--- NOTE | 2022-12-28 16:08 | Therapy Team Discharge Summary ---
Therapy Discharge Summary Discharge Recommendations Date of Discharge Dec 27, 2022 at 16:10 Physical Therapy Roll Left to Right (QC): 4 Sit to Lying (QC): 3 Lying to Sitting/Side of Bed(Q: 4 Sit to Stand (QC): 3 Chair/Trr-bq-Vxami Xfer(QC): 4 Toilet Transfer (QC): 5 Car Transfer (QC): 7 Does the Patient Walk: Yes Walk 10 feet (QC): 07 Walk 50 ft with 2 Turns(QC): 7 Walk 150 ft (QC): 7 Walking 10ft on uneven surface: 7 Gait Assistive Device: Parallel Bars Does the Pt Use a Wheelchair: Yes Wheel 50 ft with 2 turns (QC): 07 Wheel 150 ft (QC): 7 Type of Wheelchair: Manual 1 Step (curb) (QC): 88 4 Steps (QC): 88 12 Steps (QC): 88 Balance Sitting Static: Fair Balance Sitting Dynamic: Fair Balance-Standing Static: Poor Picking up an Object (QC): 88 Occupational Therapy Pt admitted to ARU, s/p C3-6 PCF and decompression. At OF, pt was independent with ADLS and functional mobility per his report. Upon admission, pt required min A eating and oral care, total assist showering, LE dressing and toileting, min A UE dressing and max A footwear. OT tx focused on increasing BUE strength and activity tolerance and increasing safety and independence with ADLS and functional mobility. Pt's progress limited by pt's participation in therapy, requiring much motivation to participate. Pt only attained LTG for eating. Pt discharged home with family, d/c from OT. Decreased Activ Tolerance, Decreased UE Strength, Impaired Coordination, Impaire d Funct Balance, Impaired Self-Care Skills Eating (QC): 6 (fed self w/ adapted utensils) Oral Hygiene (QC): 2 (OT soaked and brushed dentures, pat removed and placed in pink bowl) Shower/Bathe Self (QC): 3 (OT provided set up of soap and rinse and dry wash clothies, patient cleansed BUE/axilla and across chest, face and ears with wrung clothes. Pt retreived clothes from set on FWW in nearby reach) Upper Body Dressing (QC): 3 Lower Body Dressing (QC): 7 On/Off Footwear (QC): 3 (OT provided set up of yellow sock on sock aid, instructed pt to use B hands to pull device on foot. Patient able to don left foot w/ OT placing device on foot and pt pulled. Wound dresssing assessed and remains on foot. Pt improved independence with Right foot and lifted foot into device and pulled on while in knee extension and foot elevated off floor) Toileting Hygiene (QC): 5 (Patien sitting in recliner, pt moved side of brief on right side and placed urinal between legs to void. At completion handed OT urinal ) PT Sample Card Maker Goals Sample Card Maker Goals PT Senior Living Goals Time Frame: Jan 05, 2023 Roll Left to Right (QC): 4 Sit to Lying (QC): 4 Lying-Sitting on Side/Bed(QC): 4 Sit to Stand (QC): 4 (CGA) Chair/Ctp-bg-Mbmhh Xfer(QC): 4 (CGA) Toilet/Commode Transfer (QC): 4 (CGA) Car Transfer (QC): 4 (CGA) Does the Patient Walk: No and Walking Goal IS indicated Walk 10 feet (QC): 4 (CGA) Walk 10ft-Uneven Surface(QC): 4 (CGA) Walk 50ft with 2 Turns (QC): 4 (CGA) Walk 150 ft (QC): 4 (CGA) Wheel 50 feet with 2 turns (QC: 4 (SBA) Wheel 150 feet: 4 (SBA) 1 Step (curb) (QC): 4 (CGA) 4 Steps (QC): 4 (CGA) 12 Steps (QC): 88 Picking up an Object (QC): 4 (SBA using a behavioral services tech) OT Sample Card Maker Goals Senior Living Goals Time Frame: Jan 14, 2023 Acute change in mental status: 0 Inattention: 0 Disorganized thinkin Altered level of consciousness: 0 Eating (QC): 5 (met) Oral Hygiene (QC): 5 (not met) Toileting Hygiene (QC): 4 (not met) Shower/Bathe Self (QC): 4 (not met) Upper Body Dressing (QC): 5 (not met) Lower Body Dressing (QC): 4 (not met) On/Off Footwear (QC): 4 (not met) Additional Goals: 1-Demonstrate ADL Tasks, 2-Verbalize Understanding, 3- ImproveStrength/Janeth 1=Demonstrate adherence to instructed precautions during ADL tasks. 2=Patient will verbalize/demonstrate understanding of assistive devices/ modifications for ADL. 3=Patient will improve strength/tolerance for activity to enable patient to perform ADL's. Speech Sample Card Maker Goals Senior Living Goals 1. The patient will complete a cognitive linguistic evaluation with mild clinician verbal cueing and redirection. MET 2. The patient will display improved cognitive linguistic skills for safe disc harge to the least restrictive environment. MET Time Frame: Ten Days. RENITA VILCHIS OT Dec 28, 2022 16:08
--- NOTE | 2022-12-29 10:46 | Therapy Team Discharge Summary ---
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 Upon evaluation patient performed rolling with max assist, supine <-> sit min/mod assist, sit <-> stand min/mod assist, and transfers min/mod assist, patient refused to perform any more quality codes. Patient has been performing bed mobility and transfer training, balance and endurance training, functional strengthening, gait training, and education. Patient has made some progress and has met his retirement goals for rolling and supine <-> sit, and transfers, but refused to do any more quality code testing. Now, patient performed rolling with SBA, supine <-> sit with CGA/SBA, sit <-> stand min assist, transfers CGA. Patient has been propelling a manual WC 120' with min assist. Patient refuses to wear his cervical collar. Patient has been discharged from this facility and will be discharged from PT at this time. Roll Left to Right (QC): 4 Sit to Lying (QC): 4 Lying to Sitting/Side of Bed(Q: 4 Sit to Stand (QC): 3 Chair/Dtg-xa-Ggdgu Xfer(QC): 4 Toilet Transfer (QC): 4 Car Transfer (QC): 7 Does the Patient Walk: Yes Walk 10 feet (QC): 07 Walk 50 ft with 2 Turns(QC): 7 Walk 150 ft (QC): 7 Walking 10ft on uneven surface: 7 Gait Assistive Device: Parallel Bars Does the Pt Use a Wheelchair: Yes Wheel 50 ft with 2 turns (QC): 3 Wheel 150 ft (QC): 7 Type of Wheelchair: Manual 1 Step (curb) (QC): 88 4 Steps (QC): 88 12 Steps (QC): 88 Balance Sitting Static: Fair Balance Sitting Dynamic: Fair Balance-Standing Static: Poor Picking up an Object (QC): 88 Occupational Therapy Decreased Activ Tolerance, Decreased UE Strength, Impaired Coordination, Impaired Funct Balance, Impaired Self-Care Skills Eating (QC): 6 (fed self w/ adapted utensils) Oral Hygiene (QC): 2 (OT soaked and brushed dentures, pat removed and placed in pink bowl) Shower/Bathe Self (QC): 3 (OT provided set up of soap and rinse and dry wash clothies, patient cleansed BUE/axilla and across chest, face and ears with wrung clothes. Pt retreived clothes from set on FWW in nearby reach) Upper Body Dressing (QC): 3 Lower Body Dressing (QC): 7 On/Off Footwear (QC): 3 (OT provided set up of yellow sock on sock aid, instructed pt to use B hands to pull device on foot. Patient able to don left foot w/ OT placing device on foot and pt pulled. Wound dresssing assessed and remains on foot. Pt improved independence with Right foot and lifted foot into device and pulled on while in knee extension and foot elevated off floor) Toileting Hygiene (QC): 5 (Patien sitting in recliner, pt moved side of brief on right side and placed urinal between legs to void. At completion handed OT urinal ) PT Retirement Goals Office Machine Installer Goals PT Office Machine Installer Goals Time Frame: Jan 05, 2023 Roll Left to Right (QC): 4 Sit to Lying (QC): 4 Lying-Sitting on Side/Bed(QC): 4 Sit to Stand (QC): 4 (CGA) Chair/Zsz-mo-Eclyv Xfer(QC): 4 (CGA) Toilet/Commode Transfer (QC): 4 (CGA) Car Transfer (QC): 4 (CGA) Does the Patient Walk: No and Walking Goal IS indicated Walk 10 feet (QC): 4 (CGA) Walk 10ft-Uneven Surface(QC): 4 (CGA) Walk 50ft with 2 Turns (QC): 4 (CGA) Walk 150 ft (QC): 4 (CGA) Wheel 50 feet with 2 turns (QC: 4 (SBA) Wheel 150 feet: 4 (SBA) 1 Step (curb) (QC): 4 (CGA) 4 Steps (QC): 4 (CGA) 12 Steps (QC): 88 Picking up an Object (QC): 4 (SBA using a highway patrol commander) OT Retirement Goals Office Machine Installer Goals Time Frame: Jan 14, 2023 Acute change in mental status: 0 Inattention: 0 Disorganized thinkin Altered level of consciousness: 0 Eating (QC): 5 (met) Oral Hygiene (QC): 5 (not met) Toileting Hygiene (QC): 4 (not met) Shower/Bathe Self (QC): 4 (not met) Upper Body Dressing (QC): 5 (not met) Lower Body Dressing (QC): 4 (not met) On/Off Footwear (QC): 4 (not met) Additional Goals: 1-Demonstrate ADL Tasks, 2-Verbalize Understanding, 3- ImproveStrength/Janeth 1=Demonstrate adherence to instructed precautions during ADL tasks. 2=Patient will verbalize/demonstrate understanding of assistive devices/modifications for ADL. 3=Patient will improve strength/tolerance for activity to enable patient to perform ADL's. Speech Retirement Goals Office Machine Installer Goals 1. The patient will complete a cognitive linguistic evaluation with mild clinician verbal cueing and redirection. MET 2. The patient will display improved cognitive linguistic skills for safe discharge to the least restrictive environment. MET Time Frame: Ten Days. ÁLVARO RIDER PT Dec 29, 2022 10:46
== END 2022-12-27 16:10 | disposition home health service (06) | DRG 93 ==
PROVIDERS: ADMIT Internal Medicine; ATTEND Internal Medicine
DX: G95.89 Other specified diseases of spinal cord (principal); Z47.89 Encounter for other orthopedic aftercare; R41.89 Other symptoms and signs involving cognitive functions and awareness; R26.9 Unspecified abnormalities of gait and mobility; I12.9 Hypertensive chronic kidney disease with stage 1 through stage 4 chronic kidney disease, or unspecified chronic kidney disease; N18.32 Chronic kidney disease, stage 3b; E78.00 Pure hypercholesterolemia, unspecified; N40.0 Benign prostatic hyperplasia without lower urinary tract symptoms; Z98.1 Arthrodesis status; Z87.891 Personal history of nicotine dependence; Z88.1 Allergy status to other antibiotic agents; Z88.5 Allergy status to narcotic agent; Z88.8 Allergy status to other drugs, medicaments and biological substances; Z79.84 Long term (current) use of oral hypoglycemic drugs; Z79.899 Other long term (current) drug therapy
CPT/HCPCS: 36415; 36600; 70450; 80053; 82140; 82805; 82947; 83036; 85025